=== PATIENT | male | born 1960 | race Hispanic/Latino ===

== ENCOUNTER 2019-12-18 10:07 | Inpatient (IN) | payer OTHER ==
[2019-12-18] MEDS ORDERED: ALBUTEROL 2.5 MG/3 ML NEBU IH ONE ×2 (10:14→10:48)
[2019-12-18] MEDS ORDERED: IPRATROPIUM 0.02% NEBU 2.5 ML IH ONE ×2 (10:14→10:48)
[2019-12-18] MEDS ORDERED: SODIUM CHLORIDE 0.9% 1000 ML IV SOLN IV ONE (10:22)
[2019-12-18] MEDS ORDERED: SODIUM CHLORIDE 0.9% 1000 ML 1,000 ML ONE (10:25)
[2019-12-18] MEDS ORDERED: PIPERACILLIN/TAZOBACTAM 3.375 3.375 GM/50 ML BAG IV ONE (10:25)
--- NOTE | 2019-12-18 10:31 | Emergency Department Report ---
ED Shortness of Breath HPI - General Chief Complaint: Dyspnea/Respdistress Stated Complaint: CHEST PAIN SOB Time Seen by Provider: 12/18/19 10:16 Source: patient, family Mode of arrival: Ambulatory Limitations: No Limitations - History of Present Illness Initial Comments: Patient is 59 years old male with no known past medical history however patient does not have a primary doctor and he does not go to hospitals. 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 Patient stated that symptoms started with runny nose and congestion first. Patient found to be in respiratory distress with respiratory rate of 34 and oxygen saturation of 76% on room air patient improved to 92% on nasal cannula 4 L. Sepsis protocol initiated. MD Complaint: shortness of breath, cough -: days(s) (5) - Related Data Allergies Allergy/AdvReac Type Severity Reaction Status Date / Time Penicillins Allergy Unknown Verified 12/18/19 10:27 ED Review of Systems ROS: Stated complaint: CHEST PAIN SOB Other details as noted in HPI Comment: All other systems reviewed and negative Constitutional: chills. denies: fever Respiratory: cough, shortness of breath, SOB with exertion. denies: wheezing Cardiovascular: palpitations. denies: chest pain Gastrointestinal: denies: abdominal pain, nausea, vomiting Musculoskeletal: denies: back pain Neurological: denies: headache, weakness ED Past Medical Hx - Past Medical History Previous Medical History?: No - Surgical History Past Surgical History?: No - Social History Smoking Status: Current Every Day Smoker Substance Use Type: None ED Physical Exam - General Limitations: No Limitations General appearance: alert, in distress (Moderate respiratory distress) - Head Head exam: Present: atraumatic, normocephalic, normal inspection - Eye Eye exam: Present: normal appearance - ENT ENT exam: Present: normal exam, normal orophraynx, mucous membranes moist - Neck Neck exam: Present: normal inspection, full ROM. Absent: tenderness, mening ismus - Respiratory Respiratory exam: Present: respiratory distress, rales (Left lower lung.). Absent: wheezes, rhonchi, stridor, accessory muscle use, decreased breath sounds, prolonged expiratory - Cardiovascular Cardiovascular Exam: Present: tachycardia. Absent: systolic murmur, diastolic murmur - GI/Abdominal GI/Abdominal exam: Present: soft, normal bowel sounds. Absent: distended, tenderness, guarding, rebound, rigid, organomegaly, mass, bruit, pulsatile mass, hernia - Extremities Exam Extremities exam: Present: normal inspection, full ROM, normal capillary refill. Absent: tenderness, pedal edema, calf tenderness - Back Exam Back exam: Present: normal inspection, full ROM. Absent: CVA tenderness (R), CVA tenderness (L) - Neurological Exam Neurological exam: Present: alert, oriented X3, CN II-XII intact - Psychiatric Psychiatric exam: Present: normal mood - Skin Skin exam: Present: warm, intact, normal color ED Course Vital Signs 12/18/19 12/18/19 12/18/19 10:23 10:32 10:50 Temperature 98.6 F Pulse Rate 105 H Pulse Rate [ 105 H Posterior Left Lower Lobe] Respiratory 34 H 34 H Rate Respiratory 20 Rate [Posterior Left Lower Lobe] Blood Pressure 148/88 Blood Pressure [Right] O2 Sat by Pulse 90 89 Oximetry 12/18/19 12/18/19 12/18/19 11:34 12:02 12:32 Temperature 100.5 F H Pulse Rate 105 H 104 H Pulse Rate [ Posterior Left Lower Lobe] Respiratory 32 H 32 H Rate Respiratory Rate [Posterior Left Lower Lobe] Blood Pressure 148/73 Blood Pressure 165/73 [Right] O2 Sat by Pulse 91 92 Oximetry 12/18/19 12/18/19 12/18/19 13:00 13:02 13:06 Temperature Pulse Rate 98 H 94 H 95 H Pulse Rate [ Posterior Left Lower Lobe] Respiratory 32 H Rate Respiratory Rate [Posterior Left Lower Lobe] Blood Pressure 130/58 130/58 Blood Pressure 130/58 [Right] O2 Sat by Pulse 90 92 91 Oximetry 12/18/19 12/18/19 12/18/19 13:10 13:11 13:15 Temperature 99.1 F Pulse Rate 97 H 96 H Pulse Rate [ Posterior Left Lower Lobe] Respiratory Rate Respiratory Rate [Posterior Left Lower Lobe] Blood Pressure 130/58 124/53 Blood Pressure [Right] O2 Sat by Pulse 91 89 Oximetry 12/18/19 12/18/19 12/18/19 13:20 13:26 13:30 Temperature Pulse Rate 94 H 93 H 90 Pulse Rate [ Posterior Left Lower Lobe] Respiratory Rate Respiratory Rate [Posterior Left Lower Lobe] Blood Pressure 124/53 124/53 147/80 Blood Pressure [Right] O2 Sat by Pulse 90 91 92 Oximetry 12/18/19 12/18/19 12/18/19 13:36 13:40 13:45 Temperature Pulse Rate 91 H Pulse Rate [ Posterior Left Lower Lobe] Respiratory Rate Respiratory Rate [Posterior Left Lower Lobe] Blood Pressure 147/80 148/73 125/49 Blood Pressure [Right] O2 Sat by Pulse 92 90 91 Oximetry 12/18/19 12/18/19 12/18/19 13:50 13:56 14:00 Temperature Pulse Rate 93 H 85 87 Pulse Rate [ Posterior Left Lower Lobe] Respiratory 19 21 17 Rate Respiratory Rate [Posterior Left Lower Lobe] Blood Pressure 125/49 125/49 128/60 Blood Pressure [Right] O2 Sat by Pulse 90 91 93 Oximetry 12/18/19 12/18/19 12/18/19 14:06 14:10 14:15 Temperature Pulse Rate 89 87 88 Pulse Rate [ Posterior Left Lower Lobe] Respiratory 16 22 29 H Rate Respiratory Rate [Posterior Left Lower Lobe] Blood Pressure 128/60 125/49 131/61 Blood Pressure [Right] O2 Sat by Pulse 92 92 92 Oximetry 12/18/19 12/18/19 12/18/19 14:20 14:26 15:00 Temperature Pulse Rate 89 87 83 Pulse Rate [ Posterior Left Lower Lobe] Respiratory 11 L 14 16 Rate Respiratory Rate [Posterior Left Lower Lobe] Blood Pressure 131/61 131/61 Blood Pressure 153/59 [Right] O2 Sat by Pulse 93 92 91 Oximetry 12/18/19 12/18/19 12/18/19 15:30 16:30 17:21 Temperature 97.8 F Pulse Rate 92 H 90 92 H Pulse Rate [ Posterior Left Lower Lobe] Respiratory 16 20 22 Rate Respiratory Rate [Posterior Left Lower Lobe] Blood Pressure Blood Pressure 131/67 124/72 137/74 [Right] O2 Sat by Pulse 90 90 90 Oximetry ED Medical Decision Making - Lab Data Result diagrams: 12/18/19 13:18 12/18/19 10:30 - EKG Data -: EKG Interpreted by Md EKG shows normal: sinus rhythm Rate: tachycardia - EKG Data Interpretation: no acute changes - Radiology Data Radiology results: report reviewed - Medical Decision Making Patient is 59 years old male with no known past medical history however patient does not have a primary doctor and he does not go to hospitals. 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 Patient stated that symptoms started with runny nose and congestion first. Patient found to be in respiratory distress with respiratory rate of 34 and oxygen saturation of 76% on room air patient improved to 92% on nasal cannula 4 L. Sepsis protocol initiated. Patient is started on normal saline 30 mL's per KG. Patient is allergic to penicillin patient given Levaquin. Labs reviewed and showed hyponatremia. Chest x-ray showed left lower lobe consolidation consistent with left lower lobe pneumonia. I discussed the patient with Dr. Benavidez, he agreed to admit the p atient to medical service for further management. Critical Care Time: Yes Critical care time in (mins) excluding proc time.: 30 Critical care attestation.: If time is entered above; I have spent that time in minutes in the direct care of this critically ill patient, excluding procedure time. ED Disposition Clinical Impression: Sepsis, Left lower lobe pneumonia, Hyponatremia, Hematuria Disposition: [id number] OP ADMIT IP TO THIS HOSP Is pt being admited?: Yes Condition: Stable
[2019-12-18 10:50] LABS: Hematocrit 43.9 % (35.5-45.6); Hemoglobin 15.4 gm/dl (11.8-15.2); Mean Corpuscular HGB Conc 35 % (32-34); Mean Corpuscular Volume 87 fl (84-94); Platelet Count 150 K/mm3 (140-440); Red Blood Count 5.06 M/mm3 (3.65-5.03); Red Cell Distribution Width 13.2 % (13.2-15.2)
[2019-12-18 11:09] LABS: Alanine Aminotransferase 47 units/L (7-56); Albumin 3.1 g/dL (3.9-5); BUN/Creatinine Ratio 15; Blood Urea Nitrogen 20 mg/dL (9-20); Calcium 7.8 mg/dL (8.4-10.2); Hemolysis Index 41
[2019-12-18] MEDS ORDERED: ACETAMINOPHEN 500 MG TAB ONE (12:05)
[2019-12-18] MEDS ORDERED: ACETAMINOPHEN 500 MG TAB PO ONE (12:05)
[2019-12-18 12:09] LABS: Anisocytosis 1+; Band Neutrophils # (Manual) 1.1 K/mm3; Basophils % (Manual) 0 % (0.0-1.8); Eosinophils % (Manual) 0 % (0.0-4.3); Total Cells Counted 100
[2019-12-18 12:10] LABS: Platelet Estimate Consistent w Auto
[2019-12-18 12:15] LABS: Bilirubin,Urine NEG (Negative); Blood,Urine LG (Negative); Color,Urine Red (Yellow); Mucus,Urine FEW /HPF; Urobilinogen,Urine < 2.0 mg/dL (<2.0)
[2019-12-18 12:20] LABS: RBC,Urine > 182.0 /HPF (0.0-6.0)
[2019-12-18 12:22] LABS: ABG HCO3 22.1 mmol/L (20.0-26.0); ABG Methemoglobin 0.4 % (0.0-1.5); ABG Oxygen Saturation 98.3 % (95.0-99.0); ABG PCO2 31.2 mm Hg; ABG PH 7.469 pH Units (7.350-7.450); ABG PO2 113.9 mm Hg (80.0-90.0)
[2019-12-18 13:30] LABS: Hematocrit 37.4 % (35.5-45.6); Hemoglobin 13.1 gm/dl (11.8-15.2)
--- NOTE | 2019-12-18 13:49 | Cat Scan Report ---
CTA of the chest with 3D Reconstruction Indication: ,CHEST PAIN WITH SOB Technique: TECHNIQUE: Axial CT images were obtained through the chest after injection of 100 cc of Omnipaque 350 IV contrast. 3 plane MIP reconstructions were produced. All CT scans at this location are performed using CT dose reduction for ALARA by means of automated exposure control. COMPARISON: Chest radiograph today Automatic exposure control was utilized in an attempt to reduce radiation dose. Findings: There is some breathing motion artifact Pulmonary arteries: The main pulmonary artery and right and left pulmonary artery branches fill satis factorily with contrast. No pulmonary embolus is seen. Lungs: There is airspace consolidation in the left lower lobe with air bronchograms. There are parenc hymal opacities in the upper lobes and to lesser extent the right lower lobe as well. Findings are ch aracteristic of pneumonia with possible superimposed edema. Lung zones. Mediastinum: Heart size is normal. No adenopathy is seen. Aorta: Normal in diameter. No dissection seen within limits of this exam. There is cholelithiasis. Impression: No pulmonary embolus is seen. There are bilateral airspace opacities with consolidation in the left lower lobe characteristic of pn eumonia. There are bilateral groundglass opacities may represent superimposed edema or additional pne umonia. There is cholelithiasis. Signer Name: Timoteo Chaparro MD Signed: 12/18/2019 1:44 PM Workstation Name: [id number]
[2019-12-18 16:24] LABS: INR 1.06 (0.87-1.13)
[2019-12-18 16:32] LABS: Partial Thromboplastin Time 72.2 Sec. (24.2-36.6)
--- NOTE | 2019-12-18 16:54 | Cat Scan Report ---
CT ABDOMEN AND PELVIS WITHOUT CONTRAST INDICATION: gross hematuria. COMPARISON: CTA chest from earlier today. TECHNIQUE: Axial, coronal and sagittal CT imaging of the abdomen and pelvis was performed without co ntrast. Lack of intravenous contrast limits evaluation of the vascular and solid organs. All CT sca ns at this location are performed using CT dose reduction for ALARA by means of automated exposure co ntrol. FINDINGS: LOWER CHEST: Dense consolidation of the left lower lobe is again noted and consistent with pneumonia. Additional bilateral ground glass opacities are partially visualized and may represent pneumonia, or less likely edema. No additional significant abnormality. LIVER: There is generalized steatosis without an additional significant abnormality. BILIARY: Cholelithiasis is seen without evidence of acute cholecystitis. No biliary ductal dilatation . PANCREAS: No significant abnormality. SPLEEN: No significant abnormality. ADRENALS: No significant abnormality. KIDNEYS AND URETERS: Previously administered IV contrast remains in the renal collecting systems and ureters. An area of enhancement medially along the left upper renal pole is likely a normal variant. No significant abnormality is otherwise seen. GI TRACT: No significant abnormality of the stomach, small bowel or colon. Unremarkable appendix. PERITONEUM: No free fluid. No free air. No fluid collection. LYMPH NODES: No significant adenopathy. VASCULATURE: The aorta is normal in caliber with mild generalized atherosclerosis. URINARY BLADDER: No significant abnormality. REPRODUCTIVE ORGANS: No significant abnormality. ADDITIONAL FINDINGS: None. SKELETAL SYSTEM: No acute abnormality. Degenerative changes are seen throughout the spine and along t he SI joints. IMPRESSION: 1. No acute abnormality of the abdomen or pelvis is seen to explain the patient's gross hematuria. 2. Additional findings as above. Signer Name: Toby Morris MD Signed: 12/18/2019 4:49 PM Workstation Name: [id number]
[2019-12-18] MEDS: IPRATROPIUM/ALBUTEROL SULFATE 3 ML AMPUL.NEB IH SCH (20:47)
--- NOTE | 2019-12-18 21:22 | History and Physical Report ---
History of Present Illness Date of examination: 12/18/19 Date of admission: 12/18/19 13:58 Chief complaint: SOB and cough 5 days History of present illness: 59 years old male with no known past medical history brought to the emergency room by his son for evaluation of 5-day history of shortness of breath, cough, productive with greenish sputum associated with sweating at night. Patient stated that symptoms started with runny nose and congestion first. Patient found to be in respiratory distress with respiratory rate of 34 and oxygen saturation of 76% on room air patient improved to 92% on nasal cannula 4 L. Sepsis protocol initiated. Past Medical History Previous Medical History?: No Surgical History Past Surgical History?: No Social History Smoking Status: Current Every Day Smoker Substance Use Type: None Family history Htn Review of Systems ROS: Stated complaint: CHEST PAIN SOB Other details as noted in HPI Comment: All other systems reviewed and negative Constitutional: chills. denies: fever Respiratory: cough, shortness of breath, SOB with exertion. denies: wheezing Cardiovascular: palpitations. denies: chest pain Gastrointestinal: denies: abdominal pain, nausea, vomiting Musculoskeletal: denies: back pain Neurological: denies: headache, weakness Medications and Allergies Allergies Allergy/AdvReac Type Severity Reaction Status Date / Time Penicillins Allergy Anaphylaxis Verified 12/18/19 22:48 Active Meds: Active Medications Albuterol/Ipratropium (Duoneb *Not For Prn Use*) 1 ampul IH Q6HRT [facility] Last Admin: 12/18/19 20:47 Dose: 1 ampul Documented by: Exam - Constitutional Vitals: Temp Pulse Resp BP Pulse Ox 97.8 F 109 H 28 H 137/74 90 12/18/19 17:21 12/18/19 20:51 12/18/19 20:51 12/18/19 17:21 12/18/19 17:21 General appearance: Present: no acute distress, well-nourished - EENT Eyes: Present: PERRL ENT: hearing intact, clear oral mucosa - Neck Neck: Present: supple, normal ROM - Respiratory Respiratory effort: normal Respiratory: bilateral: CTA, rhonchi, wheezing - Cardiovascular Heart rate: 78 Rhythm: regular Heart Sounds: Present: S1 & S2. Absent: rub, click - Extremities Extremities: pulses symmetrical, No edema Peripheral Pulses: within normal limits - Abdominal General gastrointestinal: Present: soft, non-tender, non-distended, normal bowel sounds Male genitourinary: Present: normal - Integumentary Integumentary: Present: clear, warm, dry - Musculoskeletal Musculoskeletal: gait normal, strength equal bilaterally - Psychiatric Psychiatric: appropriate mood/affect, intact judgment & insight - Neurologic Neurologic: CNII-XII intact, moves all extremities MITCHELL score - Mitchell Score Age > 65: (0) No Aspirin use within the Past 7 Days: (0) No 3 or more CAD Risk Factors: (0) No 2 or more Angina events in past 24 hrs: (0) No Known CAD with more than 50% Stenosis: (0) No Elevated Cardiac Markers: (0) No ST Deviation Greater than 0.5mm: (0) No MITCHELL Score: 0 Results - Labs CBC & Chem 7: 12/18/19 13:18 12/18/19 10:30 Labs: Laboratory Last Values WBC 13.7 K/mm3 (4.5-11.0) H 12/18/19 10:30 RBC 5.06 M/mm3 (3.65-5.03) H 12/18/19 10:30 Hgb 13.1 gm/dl (11.8-15.2) 12/18/19 13:18 Hct 37.4 % (35.5-45.6) D 12/18/19 13:18 MCV 87 fl (84-94) 12/18/19 10:30 MCH 31 pg (28-32) 12/18/19 10:30 MCHC 35 % (32-34) H 12/18/19 10:30 RDW 13.2 % (13.2-15.2) 12/18/19 10:30 Plt Count 150 K/mm3 (140-440) 12/18/19 10:30 Add Manual Diff Complete 12/18/19 10:30 Total Counted 100 12/18/19 10:30 Seg Neutrophils % Icicle Machine Operator 12/18/19 10:30 Seg Neuts % (Manual) 82.0 % (40.0-70.0) H 12/18/19 10:30 Band Neutrophils % 8.0 % 12/18/19 10:30 Lymphocytes % (Manual) 8.0 % (13.4-35.0) L 12/18/19 10:30 Reactive Lymphs % (Man) 0 % 12/18/19 10:30 Monocytes % (Manual) 2.0 % (0.0-7.3) 12/18/19 10:30 Eosinophils % (Manual) 0 % (0.0-4.3) 12/18/19 10:30 Basophils % (Manual) 0 % (0.0-1.8) 12/18/19 10:30 Metamyelocytes % 0 % 12/18/19 10:30 Myelocytes % 0 % 12/18/19 10:30 Promyelocytes % 0 % 12/18/19 10:30 Blast Cells % 0 % 12/18/19 10:30 Nucleated RBC % Not Reportable 12/18/19 10:30 Seg Neutrophils # Man 11.2 K/mm3 (1.8-7.7) H 12/18/19 10:30 Band Neutrophils # 1.1 K/mm3 12/18/19 10:30 Lymphocytes # (Manual) 1.1 K/mm3 (1.2-5.4) L 12/18/19 10:30 Abs React Lymphs (Man) 0.0 K/mm3 12/18/19 10:30 Monocytes # (Manual) 0.3 K/mm3 (0.0-0.8) 12/18/19 10:30 Eosinophils # (Manual) 0.0 K/mm3 (0.0-0.4) 12/18/19 10:30 Basophils # (Manual) 0.0 K/mm3 (0.0-0.1) 12/18/19 10:30 Metamyelocytes # 0.0 K/mm3 12/18/19 10:30 Myelocytes # 0.0 K/mm3 12/18/19 10:30 Promyelocytes # 0.0 K/mm3 12/18/19 10:30 Blast Cells # 0.0 K/mm3 12/18/19 10:30 WBC Morphology Not Reportable 12/18/19 10:30 Hypersegmented Neuts Not Reportable 12/18/19 10:30 Hyposegmented Neuts Not Reportable 12/18/19 10:30 Hypogranular Neuts Not Reportable 12/18/19 10:30 Smudge Cells Not Reportable 12/18/19 10:30 Toxic Granulation Not Reportable 12/18/19 10:30 Toxic Vacuolation Not Reportable 12/18/19 10:30 Dohle Bodies Not Reportable 12/18/19 10:30 Pelger-Huet Anomaly Not Reportable 12/18/19 10:30 Jennifer Rods Not Reportable 12/18/19 10:30 Platelet Estimate Consistent w auto 12/18/19 10:30 Clumped Platelets Not Reportable 12/18/19 10:30 Plt Clumps, EDTA Not Reportable 12/18/19 10:30 Large Platelets Not Reportable 12/18/19 10:30 Giant Platelets Not Reportable 12/18/19 10:30 Platelet Satelliting Not Reportable 12/18/19 10:30 Plt Morphology Comment Not Reportable 12/18/19 10:30 RBC Morphology Not Reportable 12/18/19 10:30 Dimorphic RBCs Not Reportable 12/18/19 10:30 Polychromasia Not Reportable 12/18/19 10:30 Hypochromasia Not Reportable 12/18/19 10:30 Poikilocytosis Not Reportable 12/18/19 10:30 Anisocytosis 1+ 12/18/19 10:30 Microcytosis Not Reportable 12/18/19 10:30 Macrocytosis Not Reportable 12/18/19 10:30 Spherocytes Not Reportable 12/18/19 10:30 Pappenheimer Bodies Not Reportable 12/18/19 10:30 Sickle Cells Not Reportable 12/18/19 10:30 Target Cells Not Reportable 12/18/19 10:30 Tear Drop Cells Not Reportable 12/18/19 10:30 Ovalocytes Not Reportable 12/18/19 10:30 Helmet Cells Not Reportable 12/18/19 10:30 [place] Bodies Not Reportable 12/18/19 10:30 [place] Rings Not Reportable 12/18/19 10:30 Totz Cells Not Reportable 12/18/19 10:30 Bite Cells Not Reportable 12/18/19 10:30 Crenated Cell Not Reportable 12/18/19 10:30 Elliptocytes Not Reportable 12/18/19 10:30 Acanthocytes (Spur) Not Reportable 12/18/19 10:30 Rouleaux Not Reportable 12/18/19 10:30 Hemoglobin C Crystals Not Reportable 12/18/19 10:30 Schistocytes Not Reportable 12/18/19 10:30 Malaria parasites Not Reportable 12/18/19 10:30 León Bodies Not Reportable 12/18/19 10:30 Hem Pathologist Commnt No 12/18/19 10:30 PT 13.9 Sec. (12.2-14.9) 12/18/19 15:28 INR 1.06 (0.87-1.13) 12/18/19 15:28 APTT 72.2 Sec. (24.2-36.6) H* 12/18/19 15:28 D-Dimer 2277.88 ng/mlDDU (0-234) H 12/18/19 10:30 ABG pH 7.469 pH Units (7.350-7.450) H 12/18/19 12:05 ABG pCO2 31.2 mm Hg 12/18/19 12:05 ABG pO2 113.9 mm Hg (80.0-90.0) H 12/18/19 12:05 ABG HCO3 22.1 mmol/L (20.0-26.0) 12/18/19 12:05 ABG O2 Saturation 98.3 % (95.0-99.0) 12/18/19 12:05 ABG O2 Content 13.8 (0.0-44) 12/18/19 12:05 ABG Base Excess -1.0 mmol/L (-2.0-3.0) 12/18/19 12:05 ABG Hemoglobin 10.0 gm/dl (14.0-18.0) L 12/18/19 12:05 ABG Carboxyhemoglobin 1.1 % (0.0-5.0) 12/18/19 12:05 ABG Methemoglobin 0.4 % (0.0-1.5) 12/18/19 12:05 Oxyhemoglobin 96.8 % (95.0-99.0) 12/18/19 12:05 FiO2 28 % 12/18/19 12:05 Sodium 122 mmol/L (137-145) L 12/18/19 10:30 Potassium 3.6 mmol/L (3.6-5.0) 12/18/19 10:30 Chloride 80.6 mmol/L (98-107) L 12/18/19 10:30 Carbon Dioxide 21 mmol/L (22-30) L 12/18/19 10:30 Anion Gap 24 mmol/L 12/18/19 10:30 BUN 20 mg/dL (9-20) 12/18/19 10:30 Creatinine 1.3 mg/dL (0.8-1.5) 12/18/19 10:30 Estimated GFR 56 ml/min 12/18/19 10:30 BUN/Creatinine Ratio 15 % 12/18/19 10:30 Glucose 272 mg/dL (75-100) H 12/18/19 10:30 Lactic Acid 2.00 mmol/L (0.7-2.0) 12/18/19 15:28 Calcium 7.8 mg/dL (8.4-10.2) L 12/18/19 10:30 Total Bilirubin 1.30 mg/dL (0.1-1.2) H 12/18/19 10:30 AST 108 units/L (5-40) H 12/18/19 10:30 ALT 47 units/L (7-56) 12/18/19 10:30 Alkaline Phosphatase 51 units/L (35-129) 12/18/19 10:30 Troponin T < 0.010 ng/mL (0.00-0.029) 12/18/19 10:30 Troponin T < 0.010 ng/mL (0.00-0.029) 12/18/19 10:30 NT-Pro-B Natriuret Pep 609.1 pg/mL (0-900) 12/18/19 12:06 Total Protein 6.4 g/dL (6.3-8.2) 12/18/19 10:30 Albumin 3.1 g/dL (3.9-5) L 12/18/19 10:30 Albumin/Globulin Ratio 0.9 % 12/18/19 10:30 Urine Color Red (Yellow) 12/18/19 11:56 Urine Turbidity Slightly-cloudy (Clear) 12/18/19 11:56 Urine pH 6.0 (5.0-7.0) 12/18/19 11:56 Ur Specific [place] 1.017 (1.003-1.030) 12/18/19 11:56 Urine Protein 100 mg/dl mg/dL (Negative) 12/18/19 11:56 Urine Glucose (UA) >=500 mg/dL (Negative) 12/18/19 11:56 Urine Ketones 20 mg/dL (Negative) 12/18/19 11:56 Urine Blood Lg (Negative) 12/18/19 11:56 Urine Nitrite Neg (Negative) 12/18/19 11:56 Urine Bilirubin Neg (Negative) 12/18/19 11:56 Urine Urobilinogen < 2.0 mg/dL (<2.0) 12/18/19 11:56 Ur Leukocyte Esterase Neg (Negative) 12/18/19 11:56 Urine WBC (Auto) 58.0 /HPF (0.0-6.0) H 12/18/19 11:56 Urine RBC (Auto) > 182.0 /HPF (0.0-6.0) 12/18/19 11:56 U Epithel Cells (Auto) 4.0 /HPF (0-13.0) 12/18/19 11:56 Urine Mucus Few /HPF 12/18/19 11:56 Urine Yeast (Budding) 1+ /HPF 12/18/19 11:56 Short CBC 12/18/19 12/18/19 Range/Units 10:30 13:18 WBC 13.7 H (4.5-11.0) K/mm3 Hgb 15.4 H 13.1 (11.8-15.2) gm/dl Hct 43.9 37.4 D (35.5-45.6) % Plt Count 150 (140-440) K/mm3 BMP 12/18/19 10:30 Sodium 122 L Potassium 3.6 Chloride 80.6 L Carbon Dioxide 21 L BUN 20 Creatinine 1.3 Glucose 272 H Calcium 7.8 L Cardiac Enzymes 12/18/19 12/18/19 Range/Units 10:30 10:30 Troponin T < 0.010 < 0.010 (0.00-0.029) ng/mL Liver Function 12/18/19 Range/Units 10:30 Total Bilirubin 1.30 H (0.1-1.2) mg/dL AST 108 H (5-40) units/L ALT 47 (7-56) units/L Alkaline Phosphatase 51 (35-129) units/L Albumin 3.1 L (3.9-5) g/dL Urine 12/18/19 Range/Units 11:56 Urine Color Red (Yellow) Urine pH 6.0 (5.0-7.0) Ur Specific [place] 1.017 (1.003-1.030) Urine Protein 100 mg/dl (Negative) mg/dL Urine Glucose (UA) >=500 (Negative) mg/dL - Imaging and Cardiology EKG: report reviewed Chest x-ray: report reviewed CT scan - chest: report reviewed (Rodrigue Pneumonia) Assessment and Plan Advance Directives: Yes (FC) VTE prophylaxis?: Chemical Plan of care discussed with patient/family: Yes - Patient Problems (1) Left lower lobe pneumonia Current Visit: Yes Status: Acute Plan to address problem: Patient initiated on IV Zosyn but discontinued sec to PCN allergy Initiated on Cefepimme and Vancomycin ID consult requested IV Levaquin one dose given in ED (2) Acute respiratory failure with hypoxia Current Visit: Yes Status: Acute Plan to address problem: Patient sats were 76 percent initially IV steroids IV abx and Duonebs prn and RTC (3) COPD with acute exacerbation Current Visit: Yes Status: Acute Plan to address problem: Patient sats were 76 percent initially IV steroids IV abx and Duonebs prn and RTC (4) Nicotine dependence Current Visit: Yes Status: Chronic Qualifiers: Nicotine product type: cigarettes Plan to address problem: Counselled and initiated on Nicoderm patch (5) DVT prophylaxis Current Visit: Yes Status: Acute Plan to address problem: On Heparin and GI prophylaxis
[2019-12-18] MEDS ORDERED: IPRATROPIUM/ALBUTEROL SULFATE 3 ML AMPUL.NEB IH PRN (21:23)
[2019-12-18] MEDS ORDERED: ACETAMINOPHEN 325 MG TAB PO PRN (21:26)
[2019-12-18] MEDS ORDERED: ONDANSETRON 4 MG/2 ML INJ IV PRN (21:26)
[2019-12-18] MEDS ORDERED: HYDROmorphone 1 MG/1 ML INJ IV PRN (21:26)
[2019-12-18] MEDS ORDERED: METOCLOPRAMIDE 10 MG/2 ML INJ IV PRN (21:26)
[2019-12-18] MEDS ORDERED: ALBUTEROL 2.5 MG/3 ML NEBU IH PRN (21:34)
[2019-12-18] MEDS ORDERED: VANCOMYCIN PHARMACY TO DOSE IV SCH (22:00)
[2019-12-18] MEDS: NICOTINE 14 MG/24 HR PATCH TD SCH (22:44)
[2019-12-18] MEDS: VANCOMYCIN 1,500 MG in SODIUM CHLORIDE 0.9% 500 ML 500 ML IV SCH (22:45)
[2019-12-18] MEDS: FAMOTIDINE 20 MG/2 ML INJ IV SCH (22:45)
[2019-12-18] MEDS: methylPREDNISolone Sod Succinate 125 MG/2 ML INJ IV SCH (22:45)
[2019-12-19] MEDS: IPRATROPIUM/ALBUTEROL SULFATE 3 ML AMPUL.NEB IH SCH ×4 (02:23→20:29)
[2019-12-19] MEDS: methylPREDNISolone Sod Succinate 125 MG/2 ML INJ IV SCH ×4 (06:55→23:13)
[2019-12-19] MEDS ORDERED: CEFEPIME/NS 2 GM/100 ML 2 GM/100 ML BAG IV SCH ×2 (08:00→14:00)
[2019-12-19] MEDS ORDERED: IPRATROPIUM/ALBUTEROL SULFATE 3 ML AMPUL.NEB IH SCH (08:00)
--- NOTE | 2019-12-19 09:17 | Progress Note ---
Assessment and Plan Assessment and plan: --Acute respiratory failure with hypoxia Current Visit: Yes Status: Acute Patient sats were 76 percent initially Sami hypoxic on high flow oxygen, 100% Stat ABG obtained, pulmonary critical consulted Transfer the patient to ICU for close observation and monitoring BiPAP as needed, if no improvement, intubation PRN IV steroids IV abx and Duonebs prn --Severe hyponatremia; present on admission sodium 122, gentle hydration with normal saline Monitor renal function --left lower lobe pneumonia Current Visit: Yes Status: Acute Community-acquired pneumonia Start Levaquin and Vancomycin ID consult if needed follow cultures IV Levaquin one dose given in ED --Leukocytosis/lactic acidosis sepsis secondary to pneumonia --Sepsis secondary to pneumonia; leukocytosis lactic acidosis Tachycardia tachypnea and fever -- COPD with acute exacerbation Current Visit: Yes Status: Acute Patient sats were 76 percent initially IV steroids IV abx and Duonebs prn and RTC --Ongoing tobacco use: Smoking cessation on Nicoderm patch --Severe protein calorie malnutrition Current Visit: Yes Status: Chronic nutrition supplements and supportive care --DVT prophylaxis Current Visit: Yes Status: Acute On Heparin and GI prophylaxis Plan of care reviewed with the patient, his at the bedside Pulmonary critical, charge nurse telemetry, ICU charge nurse Critical care time 45 minutes History Interval history: Patient seen and examined in his room this morning medical records reviewed Patient was severely hypoxemic on high flow oxygen patient is in acute respiratory failure Tachypneic, and severe distress Code met was called, discussed with pulmonary Dr. Wright Stat ABG and stat labs ordered Transfer the patient to ICU for close monitoring Alert and awake, in severe distress Vital signs reviewed Hospitalist Physical - Constitutional Vitals: Temp Pulse Resp BP Pulse Ox 97.8 F 99 H 32 H 137/74 95 12/18/19 17:21 12/19/19 02:40 12/19/19 02:40 12/18/19 17:21 12/19/19 02:40 General appearance: Present: severe distress, well-nourished, other (Tachypneic and tachycardic) - EENT Eyes: Present: PERRL, EOM intact - Neck Neck: Present: supple, normal ROM - Respiratory Respiratory effort: labored Respiratory: bilateral: diminished, rhonchi, negative: rales, wheezing - Cardiovascular Rhythm: regular Heart Sounds: Present: S1 & S2 (Tachycardia) - Extremities Extremities: no ischemia, No edema - Abdominal General gastrointestinal: soft, non-tender, non-distended, normal bowel sounds - Integumentary Integumentary: Present: clear, warm - Psychiatric Psychiatric: appropriate mood/affect, agitated - Neurologic Neurologic: moves all extremities MITCHELL score - Mitchell Score Age > 65: (0) No Aspirin use within the Past 7 Days: (0) No 3 or more CAD Risk Factors: (0) No 2 or more Angina events in past 24 hrs: (0) No Known CAD with more than 50% Stenosis: (0) No Elevated Cardiac Markers: (0) No ST Deviation Greater than 0.5mm: (0) No MITCHELL Score: 0 Results - Labs CBC & Chem 7: 12/18/19 13:18 12/19/19 12:04 Labs: Laboratory Last Values WBC 13.7 K/mm3 (4.5-11.0) H 12/18/19 10:30 RBC 5.06 M/mm3 (3.65-5.03) H 12/18/19 10:30 Hgb 13.1 gm/dl (11.8-15.2) 12/18/19 13:18 Hct 37.4 % (35.5-45.6) D 12/18/19 13:18 MCV 87 fl (84-94) 12/18/19 10:30 MCH 31 pg (28-32) 12/18/19 10:30 MCHC 35 % (32-34) H 12/18/19 10:30 RDW 13.2 % (13.2-15.2) 12/18/19 10:30 Plt Count 150 K/mm3 (140-440) 12/18/19 10:30 Add Manual Diff Complete 12/18/19 10:30 Total Counted 100 12/18/19 10:30 Seg Neutrophils % [employer] 12/18/19 10:30 Seg Neuts % (Manual) 82.0 % (40.0-70.0) H 12/18/19 10:30 Band Neutrophils % 8.0 % 12/18/19 10:30 Lymphocytes % (Manual) 8.0 % (13.4-35.0) L 12/18/19 10:30 Reactive Lymphs % (Man) 0 % 12/18/19 10:30 Monocytes % (Manual) 2.0 % (0.0-7.3) 12/18/19 10:30 Eosinophils % (Manual) 0 % (0.0-4.3) 12/18/19 10:30 Basophils % (Manual) 0 % (0.0-1.8) 12/18/19 10:30 Metamyelocytes % 0 % 12/18/19 10:30 Myelocytes % 0 % 12/18/19 10:30 Promyelocytes % 0 % 12/18/19 10:30 Blast Cells % 0 % 12/18/19 10:30 Nucleated RBC % Not Reportable 12/18/19 10:30 Seg Neutrophils # Man 11.2 K/mm3 (1.8-7.7) H 12/18/19 10:30 Band Neutrophils # 1.1 K/mm3 12/18/19 10:30 Lymphocytes # (Manual) 1.1 K/mm3 (1.2-5.4) L 12/18/19 10:30 Abs React Lymphs (Man) 0.0 K/mm3 12/18/19 10:30 Monocytes # (Manual) 0.3 K/mm3 (0.0-0.8) 12/18/19 10:30 Eosinophils # (Manual) 0.0 K/mm3 (0.0-0.4) 12/18/19 10:30 Basophils # (Manual) 0.0 K/mm3 (0.0-0.1) 12/18/19 10:30 Metamyelocytes # 0.0 K/mm3 12/18/19 10:30 Myelocytes # 0.0 K/mm3 12/18/19 10:30 Promyelocytes # 0.0 K/mm3 12/18/19 10:30 Blast Cells # 0.0 K/mm3 12/18/19 10:30 WBC Morphology Not Reportable 12/18/19 10:30 Hypersegmented Neuts Not Reportable 12/18/19 10:30 Hyposegmented Neuts Not Reportable 12/18/19 10:30 Hypogranular Neuts Not Reportable 12/18/19 10:30 Smudge Cells Not Reportable 12/18/19 10:30 Toxic Granulation Not Reportable 12/18/19 10:30 Toxic Vacuolation Not Reportable 12/18/19 10:30 Dohle Bodies Not Reportable 12/18/19 10:30 Pelger-Huet Anomaly Not Reportable 12/18/19 10:30 Jennifer Rods Not Reportable 12/18/19 10:30 Platelet Estimate Consistent w auto 12/18/19 10:30 Clumped Platelets Not Reportable 12/18/19 10:30 Plt Clumps, EDTA Not Reportable 12/18/19 10:30 Large Platelets Not Reportable 12/18/19 10:30 Giant Platelets Not Reportable 12/18/19 10:30 Platelet Satelliting Not Reportable 12/18/19 10:30 Plt Morphology Comment Not Reportable 12/18/19 10:30 RBC Morphology Not Reportable 12/18/19 10:30 Dimorphic RBCs Not Reportable 12/18/19 10:30 Polychromasia Not Reportable 12/18/19 10:30 Hypochromasia Not Reportable 12/18/19 10:30 Poikilocytosis Not Reportable 12/18/19 10:30 Anisocytosis 1+ 12/18/19 10:30 Microcytosis Not Reportable 12/18/19 10:30 Macrocytosis Not Reportable 12/18/19 10:30 Spherocytes Not Reportable 12/18/19 10:30 Pappenheimer Bodies Not Reportable 12/18/19 10:30 Sickle Cells Not Reportable 12/18/19 10:30 Target Cells Not Reportable 12/18/19 10:30 Tear Drop Cells Not Reportable 12/18/19 10:30 Ovalocytes Not Reportable 12/18/19 10:30 Helmet Cells Not Reportable 12/18/19 10:30 [place] Bodies Not Reportable 12/18/19 10:30 [place] Rings Not Reportable 12/18/19 10:30 Ed Cells Not Reportable 12/18/19 10:30 Bite Cells Not Reportable 12/18/19 10:30 Crenated Cell Not Reportable 12/18/19 10:30 Elliptocytes Not Reportable 12/18/19 10:30 Acanthocytes (Spur) Not Reportable 12/18/19 10:30 Rouleaux Not Reportable 12/18/19 10:30 Hemoglobin C Crystals Not Reportable 12/18/19 10:30 Schistocytes Not Reportable 12/18/19 10:30 Malaria parasites Not Reportable 12/18/19 10:30 [place] Bodies Not Reportable 12/18/19 10:30 Hem Pathologist Commnt No 12/18/19 10:30 PT 13.9 Sec. (12.2-14.9) 12/18/19 15:28 INR 1.06 (0.87-1.13) 12/18/19 15:28 APTT 72.2 Sec. (24.2-36.6) H* 12/18/19 15:28 D-Dimer 2277.88 ng/mlDDU (0-234) H 12/18/19 10:30 ABG pH 7.469 pH Units (7.350-7.450) H 12/18/19 12:05 ABG pCO2 31.2 mm Hg 12/18/19 12:05 ABG pO2 113.9 mm Hg (80.0-90.0) H 12/18/19 12:05 ABG HCO3 22.1 mmol/L (20.0-26.0) 12/18/19 12:05 ABG O2 Saturation 98.3 % (95.0-99.0) 12/18/19 12:05 ABG O2 Content 13.8 (0.0-44) 12/18/19 12:05 ABG Base Excess -1.0 mmol/L (-2.0-3.0) 12/18/19 12:05 ABG Hemoglobin 10.0 gm/dl (14.0-18.0) L 12/18/19 12:05 ABG Carboxyhemoglobin 1.1 % (0.0-5.0) 12/18/19 12:05 ABG Methemoglobin 0.4 % (0.0-1.5) 12/18/19 12:05 Oxyhemoglobin 96.8 % (95.0-99.0) 12/18/19 12:05 FiO2 28 % 12/18/19 12:05 Sodium 122 mmol/L (137-145) L 12/18/19 10:30 Potassium 3.6 mmol/L (3.6-5.0) 12/18/19 10:30 Chloride 80.6 mmol/L (98-107) L 12/18/19 10:30 Carbon Dioxide 21 mmol/L (22-30) L 12/18/19 10:30 Anion Gap 24 mmol/L 12/18/19 10:30 BUN 20 mg/dL (9-20) 12/18/19 10:30 Creatinine 1.3 mg/dL (0.8-1.5) 12/18/19 10:30 Estimated GFR 56 ml/min 12/18/19 10:30 BUN/Creatinine Ratio 15 % 12/18/19 10:30 Glucose 272 mg/dL (75-100) H 12/18/19 10:30 Lactic Acid 2.00 mmol/L (0.7-2.0) 12/18/19 15:28 Calcium 7.8 mg/dL (8.4-10.2) L 12/18/19 10:30 Total Bilirubin 1.30 mg/dL (0.1-1.2) H 12/18/19 10:30 AST 108 units/L (5-40) H 12/18/19 10:30 ALT 47 units/L (7-56) 12/18/19 10:30 Alkaline Phosphatase 51 units/L (35-129) 12/18/19 10:30 Troponin T < 0.010 ng/mL (0.00-0.029) 12/18/19 10:30 Troponin T < 0.010 ng/mL (0.00-0.029) 12/18/19 10:30 NT-Pro-B Natriuret Pep 609.1 pg/mL (0-900) 12/18/19 12:06 Total Protein 6.4 g/dL (6.3-8.2) 12/18/19 10:30 Albumin 3.1 g/dL (3.9-5) L 12/18/19 10:30 Albumin/Globulin Ratio 0.9 % 12/18/19 10:30 Urine Color Red (Yellow) 12/18/19 11:56 Urine Turbidity Slightly-cloudy (Clear) 12/18/19 11:56 Urine pH 6.0 (5.0-7.0) 12/18/19 11:56 Ur Specific [place] 1.017 (1.003-1.030) 12/18/19 11:56 Urine Protein 100 mg/dl mg/dL (Negative) 12/18/19 11:56 Urine Glucose (UA) >=500 mg/dL (Negative) 12/18/19 11:56 Urine Ketones 20 mg/dL (Negative) 12/18/19 11:56 Urine Blood Lg (Negative) 12/18/19 11:56 Urine Nitrite Neg (Negative) 12/18/19 11:56 Urine Bilirubin Neg (Negative) 12/18/19 11:56 Urine Urobilinogen < 2.0 mg/dL (<2.0) 12/18/19 11:56 Ur Leukocyte Esterase Neg (Negative) 12/18/19 11:56 Urine WBC (Auto) 58.0 /HPF (0.0-6.0) H 12/18/19 11:56 Urine RBC (Auto) > 182.0 /HPF (0.0-6.0) 12/18/19 11:56 U Epithel Cells (Auto) 4.0 /HPF (0-13.0) 12/18/19 11:56 Urine Mucus Few /HPF 12/18/19 11:56 Urine Yeast (Budding) 1+ /HPF 12/18/19 11:56 Active Medications - Current Medications Current Medications: Generic Name Dose Route Start Last Admin Trade Name Freq PRN Reason Stop Dose Admin Acetaminophen 650 mg 12/18/19 21:26 Tylenol PO Q4H PRN Pain MILD(1-3)/Fever >100.5/CHAUDHRY Albuterol 2.5 mg 12/18/19 21:34 Proventil IH Q4HRT PRN Shortness Of Breath Albuterol/Ipratropium 1 ampul 12/18/19 20:45 12/19/19 02:23 Duoneb *Not For Prn Use* IH 1 ampul Q6HRT MARIAN Administration Famotidine 20 mg 12/18/19 22:00 12/18/19 22:45 Pepcid IV 20 mg BID MARIAN Administration Hydromorphone HCl 0.5 mg 12/18/19 21:26 Dilaudid IV Q3H PRN Pain , Severe (7-10) Vancomycin HCl 1,500 mg/ 530 mls @ 265 mls/hr 12/18/19 23:00 12/18/19 22:45 Sodium Chloride IV 265 mls/hr Q12H MARIAN Administration Cefepime HCl 2 gm in 100 mls @ 200 mls/hr 12/19/19 08:00 Cefepime/Ns 2 Gm/100 Ml IV Q8HR [facility] Protocol Methylprednisolone Sodium Succinate 40 mg 12/18/19 22:00 12/19/19 06:55 Solu-Medrol IV 40 mg Q8HR MARIAN Administration Metoclopramide HCl 10 mg 12/18/19 21:26 Reglan IV Q6H PRN Nausea And Vomiting Nicotine 14 mg 12/18/19 22:00 12/18/19 22:44 Habitrol TD 14 mg QDAY MARIAN Administration Ondansetron HCl 4 mg 12/18/19 21:26 Zofran IV Q3H PRN Nausea And Vomiting Oxycodone/Acetaminophen 1 tab 12/18/19 21:26 Percocet 5/325 PO Q6H PRN Pain, Moderate (4-6) Sodium Chloride 10 ml 12/18/19 22:00 12/18/19 22:46 Sodium Chloride Flush Syringe 10 Ml IV 10 ml BID MARIAN Administration Sodium Chloride 10 ml 12/18/19 21:26 12/19/19 06:55 Sodium Chloride Flush Syringe 10 Ml IV 10 ml PRN PRN Administration LINE FLUSH
[2019-12-19] MEDS: FAMOTIDINE 20 MG/2 ML INJ IV SCH ×2 (10:06→22:02)
[2019-12-19] MEDS: NICOTINE 14 MG/24 HR PATCH TD SCH (10:07)
[2019-12-19] MEDS: VANCOMYCIN 1,500 MG in SODIUM CHLORIDE 0.9% 500 ML 500 ML IV SCH ×2 (10:08→23:13)
[2019-12-19] MEDS: PIPERACIL/TAZOBACTA 4.5/NS 100 4.5 GM/100 ML VIAL IV SCH ×2 (10:51→10:52)
[2019-12-19 11:14] LABS: ABG Base Excess -4.7 mmol/L (-2.0-3.0); ABG HCO3 19.5 mmol/L (20.0-26.0); ABG Methemoglobin 0.7 % (0.0-1.5); ABG Oxygen Saturation 88.8 % (95.0-99.0); ABG PCO2 34.3 mm Hg; ABG PH 7.373 pH Units (7.350-7.450); ABG PO2 55.6 mm Hg (80.0-90.0)
--- NOTE | 2019-12-19 11:14 | Vascular Lab Report ---
DUPLEX DOPPLER LOWER EXTREMITY VEINS, BILATERAL INDICATION: elevated d dimers.evaluate for DVT. TECHNIQUE: Duplex doppler imaging was performed through the veins of both lower extremities using venous aniyah shay and other maneuvers. COMPARISON: No relevant prior imaging study available. FINDINGS: Right Common femoral vein: Negative. Right Superficial femoral vein: Negative. Right Popliteal vein: Negative. Right Calf veins: Negative. Left Common femoral vein: Negative. Left Superficial femoral vein: Negative. Left Popliteal vein: Negative. Left Calf veins: Negative. Additional findings: None.. IMPRESSION: 1. No sonographic evidence for DVT in either lower extremity. Signer Name: Tio Bueno MD Signed: 12/19/2019 11:10 AM Workstation Name: [id number]
--- NOTE | 2019-12-19 11:28 | Consultation ---
History of Present Illness Consult date: 12/19/19 Requesting physician: LORA DUFF Reason for consult: pneumonia (CAP), other (Acxute Hypoxewmic Respiratory Failure) History of present illness: PULMONARY/CCM CONSULT NOTE (Full dictation # [id number]) Please see dictated notes for full details Medications and Allergies Allergies Allergy/AdvReac Type Severity Reaction Status Date / Time Penicillins Allergy Anaphylaxis Verified 12/18/19 22:48 Active Meds: Active Medications Acetaminophen (Tylenol) 650 mg PO Q4H PRN PRN Reason: Pain MILD(1-3)/Fever >100.5/CHAUDHRY Albuterol (Proventil) 2.5 mg IH Q4HRT PRN PRN Reason: Shortness Of Breath Albuterol/Ipratropium (Duoneb *Not For Prn Use*) 1 ampul IH Q6HRT [facility] Last Admin: 12/19/19 11:07 Dose: Not Given Documented by: Famotidine (Pepcid) 20 mg IV BID [facility] [place] Last Admin: 12/19/19 10:06 Dose: 20 mg Documented by: Hydromorphone HCl (Dilaudid) 0.5 mg IV Q3H PRN PRN Reason: Pain , Severe (7-10) Vancomycin HCl 1,500 mg/ (Sodium Chloride) 530 mls @ 265 mls/hr IV Q12H [facility] [place] Last Admin: 12/19/19 10:08 Dose: 265 mls/hr Documented by: Levofloxacin/Dextrose (Levaquin 750mg/150ml) 750 mg in 150 mls @ 100 mls/hr IV Q24HR [facility] [place]; Protocol Methylprednisolone Sodium Succinate (Solu-Medrol) 80 mg IV Q6H MARIAN Metoclopramide HCl (Reglan) 10 mg IV Q6H PRN PRN Reason: Nausea And Vomiting Nicotine (Habitrol) 14 mg TD QDAY [facility] [place] Last Admin: 12/19/19 10:07 Dose: Not Given Documented by: Ondansetron HCl (Zofran) 4 mg IV Q3H PRN PRN Reason: Nausea And Vomiting Oxycodone/Acetaminophen (Percocet 5/325) 1 tab PO Q6H PRN PRN Reason: Pain, Moderate (4-6) Sodium Chloride (Sodium Chloride Flush Syringe 10 Ml) 10 ml IV BID [facility] [place] Last Admin: 03/03/20 10:07 Dose: 10 ml Documented by: Sodium Chloride (Sodium Chloride Flush Syringe 10 Ml) 10 ml IV PRN PRN PRN Reason: LINE FLUSH Last Admin: 12/19/19 06:55 Dose: 10 ml Documented by: Physical Examination Vital signs: Vital Signs Temp Pulse Resp BP Pulse Ox 98.6 F 105 H 34 H 148/88 90 12/18/19 10:23 12/18/19 10:23 12/18/19 10:23 12/18/19 10:23 12/18/19 10:23 Results - Laboratory Findings CBC and BMP: 12/18/19 13:18 12/18/19 10:30 ABG ABG pH 7.373 pH Units (7.350-7.450) 12/19/19 10:50 ABG pCO2 34.3 mm Hg 12/19/19 10:50 ABG pO2 55.6 mm Hg (80.0-90.0) L 12/19/19 10:50 ABG O2 Saturation 88.8 % (95.0-99.0) L 12/19/19 10:50 PT/INR, D-dimer PT 13.9 Sec. (12.2-14.9) 12/18/19 15:28 INR 1.06 (0.87-1.13) 12/18/19 15:28 D-Dimer 2277.88 ng/mlDDU (0-234) H 12/18/19 10:30 Abnormal lab findings: Abnormal Labs 12/18/19 12/18/19 12/18/19 10:30 10:30 10:30 WBC 13.7 H RBC 5.06 H Hgb 15.4 H MCHC 35 H Seg Neuts % (Manual) 82.0 H Lymphocytes % (Manual) 8.0 L Seg Neutrophils # Man 11.2 H Lymphocytes # (Manual) 1.1 L APTT D-Dimer 2277.88 H ABG pH ABG pO2 ABG HCO3 ABG O2 Saturation ABG Base Excess ABG Hemoglobin Oxyhemoglobin Sodium 122 L Chloride 80.6 L Carbon Dioxide 21 L Glucose 272 H Lactic Acid Calcium 7.8 L Total Bilirubin 1.30 H AST 108 H Albumin 3.1 L Urine WBC (Auto) 12/18/19 12/18/19 12/18/19 10:30 11:18 11:56 WBC RBC Hgb MCHC Seg Neuts % (Manual) Lymphocytes % (Manual) Seg Neutrophils # Man Lymphocytes # (Manual) APTT D-Dimer ABG pH ABG pO2 ABG HCO3 ABG O2 Saturation ABG Base Excess ABG Hemoglobin Oxyhemoglobin Sodium Chloride Carbon Dioxide Glucose Lactic Acid 3.70 H* 2.40 H* Calcium Total Bilirubin AST Albumin Urine WBC (Auto) 58.0 H 12/18/19 12/18/19 12/18/19 12:05 12:06 13:18 WBC RBC Hgb MCHC Seg Neuts % (Manual) Lymphocytes % (Manual) Seg Neutrophils # Man Lymphocytes # (Manual) APTT D-Dimer ABG pH 7.469 H ABG pO2 113.9 H ABG HCO3 ABG O2 Saturation ABG Base Excess ABG Hemoglobin 10.0 L Oxyhemoglobin Sodium Chloride Carbon Dioxide Glucose Lactic Acid 3.20 H* 2.50 H* Calcium Total Bilirubin AST Albumin Urine WBC (Auto) 12/18/19 12/19/19 15:28 10:50 WBC RBC Hgb MCHC Seg Neuts % (Manual) Lymphocytes % (Manual) Seg Neutrophils # Man Lymphocytes # (Manual) APTT 72.2 H* D-Dimer ABG pH ABG pO2 55.6 L ABG HCO3 19.5 L ABG O2 Saturation 88.8 L ABG Base Excess -4.7 L ABG Hemoglobin Oxyhemoglobin 87.0 L Sodium Chloride Carbon Dioxide Glucose Lactic Acid Calcium Total Bilirubin AST Albumin Urine WBC (Auto)
[2019-12-19] MEDS ORDERED: hydrALAZINE 20 MG/1 ML INJ IV ONE ×2 (12:00)
--- NOTE | 2019-12-19 12:30 | XRay Report ---
CHEST 1 VIEW 12/19/2019 12:11 PM INDICATION / CLINICAL INFORMATION: Acute respiratory failure. COMPARISON: One view of the chest from 12/18/2019. FINDINGS: SUPPORT DEVICES: None. HEART / MEDIASTINUM: No significant abnormality. LUNGS / PLEURA: Aeration of the left lung base has improved. Generalized right airspace opacities hav e developed in the interval. Opacities remain along the left upper lobe. No significant pleural effus ion or pneumothorax. ADDITIONAL FINDINGS: No significant additional findings. IMPRESSION: Interval development of generalized right pulmonary opacities with improved aeration of the left lung base. Signer Name: Toby Morris MD Signed: 12/19/2019 12:26 PM Workstation Name: [id number]
[2019-12-19 12:40] LABS: Creatine Kinase MB 8.7 ng/mL (0.0-4.0)
[2019-12-19 12:42] LABS: Alanine Aminotransferase 54 units/L (7-56); Albumin 2.4 g/dL (3.9-5); BUN/Creatinine Ratio 17; Blood Urea Nitrogen 19 mg/dL (9-20); Calcium 7.9 mg/dL (8.4-10.2); Hemolysis Index 7
[2019-12-19] MEDS: hydrALAZINE 25 MG TAB PO SCH ×2 (13:17→22:02)
--- NOTE | 2019-12-19 20:24 | Consultation ---
CONSULTING PHYSICIAN: Dr. Ware. REASON FOR CONSULTATION: Acute hypoxemic respiratory failure, acute encephalopathy. 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 According to his , he had been suffering with a viral flu-like symptoms for about 2-3 weeks prior to that. He did have some diarrhea at that point. He also had some upper respiratory tract/rhinorrhea symptoms. In the ER, he was found to be in acute hypoxemic respiratory failure, O2 sats 76% on room air. He was also found to be septic. Sepsis protocol was initiated and was admitted to the telemetry floor. While on the telemetry floor, he decompensated, required 100% high flow nasal cannula and his O2 sats were still in the 80s. A code MET was called. When I stopped by to see him, he was resting in bed. He had been refusing bilevel positive air pressure ventilation therapy overnight. He denied chest pains at that time. His work of breathing was certainly increased. His mentions at least 1 or 2 episodes of vomiting on the day of presentation. He kind of denied overt aspiration. He does have a 20+ pack year tobacco smoking history, continued to smoke up until about 2 weeks ago. He denied any new leg pain or swelling either unilaterally or bilaterally or any history suggestive of a DVT now or in the past. He has never had a flu shot. He has never had a pneumonia shot. They deny sick contacts at home. This really is as much of the history of presentation as I have. PAST MEDICAL HISTORY: Obese. PAST SURGICAL HISTORY: Denies. MEDICATIONS: He was on at the time I stopped by to see him were reviewed, pertinent medications include the following: Tylenol 650 mg p.o. q. 4 hours p.r.n. mild pain or fevers, albuterol nebulizer treatments 2.5 mg nebulized q. 4 hours p.r.n. shortness of breath, DuoNeb treatments nebulized q. 6 hours scheduled, Pepcid 20 mg IV b.i.d., Janesoline 25 mg p.o. q. 8 hours, Dilaudid 0.5 mg IV q. 3 hours p.r.n. severe pain, Levaquin 750 mg IV daily, Solu-Medrol 80 mg IV q.6 hours, Reglan 10 mg IV q. 6 hours p.r.n. nausea and vomiting, nicotine 14 mg per day patch, Zofran 4 mg IV q. 3 hours p.r.n. nausea and vomiting, Percocet 5/325 one tablet p.o. q. 6 hours p.r.n. moderate pain, vancomycin 1.5 g IV q. 12 hours. ALLERGIES: PENICILLINS. Nature of this allergy is unknown. DIET: Obese gentleman. Denies significant weight loss or gain in the preceding few weeks to months. FAMILY AND SOCIAL HISTORY: Lives in the community. Current every day smoker, 20+ pack year tobacco smoking history. Denies alcohol or illicit drug use or abuse. Family history is otherwise unknown. REVIEW OF SYSTEMS: No loss of consciousness. He did have the lightheadedness. No new onset seizures. No new onset focal weakness. No gross hematochezia or melena. No gross hematuria or dysuria. He did have some dark colored urine in the Emergency Room. He denies polydipsia or polyuria. Denies heat or cold intolerance. He did have some diaphoresis during his illness. Denied any new rashes on his body. Complete 13-system review of systems obtained. Pertinent positives and negatives as in body of history above, otherwise are noncontributory. PHYSICAL EXAMINATION: VITAL SIGNS: At presentation, he was afebrile, temperature 98.6 degrees Fahrenheit, T-max since he has been here is about 100.5 degrees Fahrenheit. Other vital signs at presentation include a pulse of 105, respiratory rate of 34, blood pressure 148/88, O2 sats were 90%. Inspired oxygen concentration at that time was not recorded. When I stopped by to see him, O2 sats were lingering between 88% and 92% on 100% FiO2. GENERAL: He is an elderly looking obese male, normocephalic, atraumatic, talking to me in slightly interrupted sentences with moderately increased respiratory effort at rest and some use of abdominal muscles. HEAD, EYES, EARS, NOSE AND THROAT: He is anicteric. No conjunctival erythema. Oropharynx is moist. Mallampati #3 oropharynx. No gross jugular venous distention. He does have a large neck circumference. No thyromegaly. NECK: Grossly, there were no palpable lymph nodes in the supraclavicular or submandibular lymph node chains. LUNGS: Auscultation of both lung tee significant for bibasilar left greater than right rales, faint expiratory wheezing, and prolonged expiratory phase. HEART: Heart sounds 1 and 2 are heard. They were regular in rate and rhythm at time of my evaluation, without rubs or murmurs. ABDOMEN: Soft, protuberant. Bowel sounds are positive, nontender, no palpable hepatosplenomegaly. EXTREMITIES: Without overt digital clubbing, no cyanosis, no pedal edema. Pedal pulses are 2+ bilaterally. NEUROLOGIC: Pupils are equal, round, about 3-4 mm, reactive to light. Extraocular muscle movements were intact. He moves all 4 extremities spontaneously. SKIN: Normal turgor without overt cellulitis or rash in the areas that were examined. PSYCHIATRIC: His mood was normal. His affect was anxious. LABORATORY DATA: From my review are as follows: Admission white cell count 13,700 with a hemoglobin of 15.4, hematocrit of 43.9, platelet count of 150, 8% band neutrophils. INR was 1.06. D-dimer was 2277. Arterial blood gas at presentation showed a pH of 7.47, pCO2 of 31, pO2 of 114 and that was on 2 liters nasal cannula. This morning, his pO2 is 56 on 100% FiO2 via Vapotherm high flow nasal cannula 40 liter flow 100% FiO2. Serum sodium 122, potassium 3.6, chloride 81, bicarbonate 21, BUN 20, creatinine 1.3, glucose 272. Lactic acid level was 2.4. Total bilirubin 1.3, AST 108. BNP was within normal limits. Urinalysis showed large blood, negative leukocyte esterase, negative nitrites, 58 white cells per high power field, no bacteria. Blood cultures, no growth to date. Urine cultures, no growth to date. Chest x-ray was done, essentially shows a left lower lobe infiltrate consistent with pneumonia. I cannot rule out a small left pleural effusion. CT angio of the chest was also done. I have reviewed the CT angio pretty decent contrast face timing. I do not see any gross filling defects; however, in the right lower lobe branch, I cannot rule out a small filling defect, which may well be artifact. I will be discussing that with the reading radiologist. He has dense consolidation mostly in the left lower lobe/lingular region lung windows. He also had consolidative type changes/pneumonitis in both upper lobes and in the right upper lobe apical region. No gross mediastinal adenopathy. ASSESSMENT: 1. Acute hypoxemic respiratory failure secondary to bilateral pneumonia, community acquired, perhaps aspiration element. 2. Bilateral pneumonia, community acquired, perhaps aspiration element. 3. Possible obstructive lung disease based on the radiographic picture in the upper lobes. 4. Leukocytosis. 5. Elevated D-dimer. 6. Hyponatremia, may be secondary to SIADH. 7. Mild metabolic acidosis. 8. Lactic acidosis. 9. Systemic inflammatory response syndrome. 10. Hyperbilirubinemia. 11. Elevated serum transaminases. 12. Possible urinary tract infection. PLAN: I have counseled him strongly, explained the benefit of bilevel positive air pressure ventilation therapy. He is agreeing to give it a second trial if only to reduce his work of breathing and recruit alveoli and especially because I do believe we are probably dealing also with an acute COPD exacerbation. He will be transferred to the intensive care unit for closer monitoring as he is already on 100% FiO2 with persistent hypoxemia. Endotracheal intubation will be our last resort. We will continue current bronchodilator treatments. I will reduce the DuoNeb frequency to t.i.d. and schedule Brovana and Pulmicort. We will continue systemic steroids. Glycemic control will be via sliding scale insulin while on the systemic steroids if the blood sugars are on the high side. Gentle hydration will be done to avoid worsening of the hypoxemia from transient increase in the size of volume of the pneumonic infiltrate with hydration. We will continue current antibiotics including Levaquin and vancomycin. I will get a procalcitonin level and lactic acid level and trend to aid clinical decision making. Infectious Disease consultation will be at the behest of the attending physician. I will discuss the CT angiogram with reading radiologist now and get bilateral lower extremity Dopplers to complete this VTE workup. However, we will hold on full anticoagulation. I will be putting him definitely on DVT prophylaxis. We will also continue GI prophylaxis with Pepcid. I will put him on a 21 mg per day nicotine patch based on the amount of smoking he does on the outpatient level. Tobacco smoking cessation has been strongly counseled at bedside really during the whole of my evaluation today. Anti-infectives will be deescalated based on results of clinical and microbiologic data. We will start with bilevel pressure of 16/8 with a backup rate of 10. Wean oxygen to keep sats greater than or equal to about 90%. Aspiration precautions will be maintained. P.r.n. antitussives will be continued. GI and DVT prophylaxis as above. Flu and pneumonia vaccination will be addressed per protocol and I have encouraged the patient to get his vaccination. Thank you very much for the consult Dr. Ware. We will follow along and make further recommendations as picture progresses/becomes clearer. He is critically ill on life-sustaining interventions including the high flow nasal cannula and now continuous bilevel positive air pressure ventilation therapy, at high risk of from cardiopulmonary system decompensation. At this time, I spent about 35-40 minutes of critical care time without overlap and excluding any procedural time that may be necessary. JOB# [id number] LISANDRO/MARIA TERESA BELTRÁN
[2019-12-19] MEDS: ARFORMOTEROL 15 MCG/2 ML NEBU IH SCH (20:29)
[2019-12-19] MEDS: BUDESONIDE 0.5 MG/2 ML NEBU IH SCH (20:29)
[2019-12-19] MEDS: ENOXAPARIN 40 MG/0.4 ML INJ SUB-Q SCH (22:02)
[2019-12-20] MEDS: IPRATROPIUM/ALBUTEROL SULFATE 3 ML AMPUL.NEB IH SCH ×4 (02:59→21:09)
[2019-12-20] MEDS ORDERED: LORazepam 2 MG/ML VIAL IV ONE (05:16)
[2019-12-20] MEDS ORDERED: SODIUM CHLORIDE 0.9% 250ML 250 ML IV ONE (05:16)
[2019-12-20] MEDS: methylPREDNISolone Sod Succinate 125 MG/2 ML INJ IV SCH ×3 (05:54→22:28)
[2019-12-20] MEDS: hydrALAZINE 25 MG TAB PO SCH ×4 (05:54→22:32)
[2019-12-20] MEDS ORDERED: HALOPERIDOL LACTATE 5 MG/1 ML INJ IM ONE ×2 (06:56→07:30)
[2019-12-20] MEDS: BUDESONIDE 0.5 MG/2 ML NEBU IH SCH ×2 (07:54→20:55)
[2019-12-20] MEDS: ARFORMOTEROL 15 MCG/2 ML NEBU IH SCH ×2 (07:54→20:55)
[2019-12-20 08:33] LABS: ABG Base Excess -4.9 mmol/L (-2.0-3.0); ABG HCO3 19.9 mmol/L (20.0-26.0); ABG Methemoglobin 0.7 % (0.0-1.5); ABG Oxygen Saturation 90.2 % (95.0-99.0); ABG PCO2 36.5 mm Hg; ABG PH 7.354 pH Units (7.350-7.450); ABG PO2 59.7 mm Hg (80.0-90.0)
--- NOTE | 2019-12-20 08:49 | Progress Note ---
Assessment and Plan Assessment and plan: --Acute respiratory failure with hypoxia Current Visit: Yes Status: Acute On BiPAP, intubate as needed oxygen titrate O2 sats to more than 90% Nebulizers IV steroids antibiotics Pulmonary critical following -- COPD with acute exacerbation Current Visit: Yes Status: Acute Patient sats were 76 percent initially IV steroids IV abx and Duonebs prn and RTC --Metabolic encephalopathy Patient is confused hallucinating and severe distress --left lower lobe pneumonia Current Visit: Yes Status: Acute Community-acquired pneumonia On Levaquin and Vanco Follow cultures and supportive care --Leukocytosis/lactic acidosis sepsis secondary to pneumonia --Sepsis secondary to pneumonia; leukocytosis lactic acidosis Tachycardia tachypnea and fever --Hypertension; uncontrolled hydralazine p.o.,, IV when patient is not able to take oral --Severe hyponatremia; present on admission sodium 122-131, gentle hydration with normal saline Monitor renal function --Ongoing tobacco use: Smoking cessation on Nicoderm patch --Severe protein calorie malnutrition Current Visit: Yes Status: Chronic nutrition supplements and supportive care --DVT prophylaxis Current Visit: Yes Status: Acute On Heparin and GI prophylaxis --Start tube feeding per protocol If no improvement with BiPAP may need intubation and ventilatory support Monitor closely and adjust management as needed Critical care time 35 minutes History Interval history: Patient seen and examined at bedside in ICU this morning Overnight events, patient's chart and medications reviewed Patient is in severe distress, restless, unable to keep BiPAP Family members at the bedside Vital signs noted Hospitalist Physical - Constitutional Vitals: Temp Pulse Resp BP Pulse Ox 98.5 F 99 H 35 H 181/89 93 12/20/19 08:00 12/20/19 08:32 12/20/19 08:32 12/20/19 08:32 12/20/19 08:32 General appearance: Present: severe distress, well-nourished, obese (Morbidly obese), other (Tachypneic and tachycardic, on BiPAP) - EENT Eyes: Present: PERRL, EOM intact - Neck Neck: Present: supple, normal ROM - Respiratory Respiratory effort: labored Respiratory: bilateral: diminished, rhonchi, negative: rales, wheezing - Cardiovascular Rhythm: regular Heart Sounds: Present: S1 & S2 - Extremities Extremities: no ischemia, No edema - Abdominal General gastrointestinal: soft, non-tender, non-distended, normal bowel sounds - Integumentary Integumentary: Present: clear, warm - Psychiatric Psychiatric: agitated, other (In severe respiratory distress) - Neurologic Neurologic: moves all extremities MITCHELL score - Mitchell Score Age > 65: (0) No Aspirin use within the Past 7 Days: (0) No 3 or more CAD Risk Factors: (0) No 2 or more Angina events in past 24 hrs: (0) No Known CAD with more than 50% Stenosis: (0) No Elevated Cardiac Markers: (0) No ST Deviation Greater than 0.5mm: (0) No MITCHELL Score: 0 Results - Labs CBC & Chem 7: 12/20/19 09:56 12/20/19 09:56 Labs: Laboratory Last Values WBC 13.7 K/mm3 (4.5-11.0) H 12/18/19 10:30 RBC 5.06 M/mm3 (3.65-5.03) H 12/18/19 10:30 Hgb 13.1 gm/dl (11.8-15.2) 12/18/19 13:18 Hct 37.4 % (35.5-45.6) D 12/18/19 13:18 MCV 87 fl (84-94) 12/18/19 10:30 MCH 31 pg (28-32) 12/18/19 10:30 MCHC 35 % (32-34) H 12/18/19 10:30 RDW 13.2 % (13.2-15.2) 12/18/19 10:30 Plt Count 150 K/mm3 (140-440) 12/18/19 10:30 Add Manual Diff Complete 12/18/19 10:30 Total Counted 100 12/18/19 10:30 Seg Neutrophils % Reaming Machine Tender 12/18/19 10:30 Seg Neuts % (Manual) 82.0 % (40.0-70.0) H 12/18/19 10:30 Band Neutrophils % 8.0 % 12/18/19 10:30 Lymphocytes % (Manual) 8.0 % (13.4-35.0) L 12/18/19 10:30 Reactive Lymphs % (Man) 0 % 12/18/19 10:30 Monocytes % (Manual) 2.0 % (0.0-7.3) 12/18/19 10:30 Eosinophils % (Manual) 0 % (0.0-4.3) 12/18/19 10:30 Basophils % (Manual) 0 % (0.0-1.8) 12/18/19 10:30 Metamyelocytes % 0 % 12/18/19 10:30 Myelocytes % 0 % 12/18/19 10:30 Promyelocytes % 0 % 12/18/19 10:30 Blast Cells % 0 % 12/18/19 10:30 Nucleated RBC % Not Reportable 12/18/19 10:30 Seg Neutrophils # Man 11.2 K/mm3 (1.8-7.7) H 12/18/19 10:30 Band Neutrophils # 1.1 K/mm3 12/18/19 10:30 Lymphocytes # (Manual) 1.1 K/mm3 (1.2-5.4) L 12/18/19 10:30 Abs React Lymphs (Man) 0.0 K/mm3 12/18/19 10:30 Monocytes # (Manual) 0.3 K/mm3 (0.0-0.8) 12/18/19 10:30 Eosinophils # (Manual) 0.0 K/mm3 (0.0-0.4) 12/18/19 10:30 Basophils # (Manual) 0.0 K/mm3 (0.0-0.1) 12/18/19 10:30 Metamyelocytes # 0.0 K/mm3 12/18/19 10:30 Myelocytes # 0.0 K/mm3 12/18/19 10:30 Promyelocytes # 0.0 K/mm3 12/18/19 10:30 Blast Cells # 0.0 K/mm3 12/18/19 10:30 WBC Morphology Not Reportable 12/18/19 10:30 Hypersegmented Neuts Not Reportable 12/18/19 10:30 Hyposegmented Neuts Not Reportable 12/18/19 10:30 Hypogranular Neuts Not Reportable 12/18/19 10:30 Smudge Cells Not Reportable 12/18/19 10:30 Toxic Granulation Not Reportable 12/18/19 10:30 Toxic Vacuolation Not Reportable 12/18/19 10:30 Dohle Bodies Not Reportable 12/18/19 10:30 Pelger-Huet Anomaly Not Reportable 12/18/19 10:30 Jennifer Rods Not Reportable 12/18/19 10:30 Platelet Estimate Consistent w auto 12/18/19 10:30 Clumped Platelets Not Reportable 12/18/19 10:30 Plt Clumps, EDTA Not Reportable 12/18/19 10:30 Large Platelets Not Reportable 12/18/19 10:30 Giant Platelets Not Reportable 12/18/19 10:30 Platelet Satelliting Not Reportable 12/18/19 10:30 Plt Morphology Comment Not Reportable 12/18/19 10:30 RBC Morphology Not Reportable 12/18/19 10:30 Dimorphic RBCs Not Reportable 12/18/19 10:30 Polychromasia Not Reportable 12/18/19 10:30 Hypochromasia Not Reportable 12/18/19 10:30 Poikilocytosis Not Reportable 12/18/19 10:30 Anisocytosis 1+ 12/18/19 10:30 Microcytosis Not Reportable 12/18/19 10:30 Macrocytosis Not Reportable 12/18/19 10:30 Spherocytes Not Reportable 12/18/19 10:30 Pappenheimer Bodies Not Reportable 12/18/19 10:30 Sickle Cells Not Reportable 12/18/19 10:30 Target Cells Not Reportable 12/18/19 10:30 Tear Drop Cells Not Reportable 12/18/19 10:30 Ovalocytes Not Reportable 12/18/19 10:30 Helmet Cells Not Reportable 12/18/19 10:30 [place] Bodies Not Reportable 12/18/19 10:30 Kidder Rings Not Reportable 12/18/19 10:30 [place] Cells Not Reportable 12/18/19 10:30 Bite Cells Not Reportable 12/18/19 10:30 Crenated Cell Not Reportable 12/18/19 10:30 Elliptocytes Not Reportable 12/18/19 10:30 Acanthocytes (Spur) Not Reportable 12/18/19 10:30 Rouleaux Not Reportable 12/18/19 10:30 Hemoglobin C Crystals Not Reportable 12/18/19 10:30 Schistocytes Not Reportable 12/18/19 10:30 Malaria parasites Not Reportable 12/18/19 10:30 [place] Bodies Not Reportable 03/02/20 10:30 Hem Pathologist Commnt No 12/18/19 10:30 PT 13.9 Sec. (12.2-14.9) 12/18/19 15:28 INR 1.06 (0.87-1.13) 12/18/19 15:28 APTT 72.2 Sec. (24.2-36.6) H* 12/18/19 15:28 D-Dimer 2277.88 ng/mlDDU (0-234) H 12/18/19 10:30 ABG pH 7.354 pH Units (7.350-7.450) 12/20/19 08:20 ABG pCO2 36.5 mm Hg 12/20/19 08:20 ABG pO2 59.7 mm Hg (80.0-90.0) L 12/20/19 08:20 ABG HCO3 19.9 mmol/L (20.0-26.0) L 12/20/19 08:20 ABG O2 Saturation 90.2 % (95.0-99.0) L 12/20/19 08:20 ABG O2 Content 19.3 (0.0-44) 12/20/19 08:20 ABG Base Excess -4.9 mmol/L (-2.0-3.0) L 12/20/19 08:20 ABG Hemoglobin 15.5 gm/dl (14.0-18.0) 12/20/19 08:20 ABG Carboxyhemoglobin 1.2 % (0.0-5.0) 12/20/19 08:20 ABG Methemoglobin 0.7 % (0.0-1.5) 12/20/19 08:20 Oxyhemoglobin 88.5 % (95.0-99.0) L 12/20/19 08:20 FiO2 85 % 12/20/19 08:20 Sodium 131 mmol/L (137-145) L D 12/19/19 12:04 Potassium 3.6 mmol/L (3.6-5.0) 12/19/19 12:04 Chloride 91.3 mmol/L (98-107) L 12/19/19 12:04 Carbon Dioxide 18 mmol/L (22-30) L 12/19/19 12:04 Anion Gap 25 mmol/L 12/19/19 12:04 BUN 19 mg/dL (9-20) 12/19/19 12:04 Creatinine 1.1 mg/dL (0.8-1.5) 12/19/19 12:04 Estimated GFR > 60 ml/min 12/19/19 12:04 BUN/Creatinine Ratio 17 % 12/19/19 12:04 Glucose 290 mg/dL (75-100) H 12/19/19 12:04 POC Glucose 257 (70-105) H 12/19/19 11:12 Lactic Acid 2.50 mmol/L (0.7-2.0) H* 12/19/19 12:04 Calcium 7.9 mg/dL (8.4-10.2) L 12/19/19 12:04 Phosphorus 2.90 mg/dL (2.5-4.5) 12/19/19 12:04 Magnesium 2.20 mg/dL (1.7-2.3) 12/19/19 12:04 Total Bilirubin 0.80 mg/dL (0.1-1.2) 12/19/19 12:04 AST 123 units/L (5-40) H 12/19/19 12:04 ALT 54 units/L (7-56) 12/19/19 12:04 Alkaline Phosphatase 54 units/L (35-129) 12/19/19 12:04 Total Creatine Kinase 3873 units/L (55-170) H 12/19/19 12:04 CK-MB (CK-2) 8.7 ng/mL (0.0-4.0) H 12/19/19 12:04 CK-MB (CK-2) Rel Index 0.2 (0-4) 12/19/19 12:04 Troponin T < 0.010 ng/mL (0.00-0.029) 12/19/19 12:04 NT-Pro-B Natriuret Pep 609.1 pg/mL (0-900) 12/18/19 12:06 Total Protein 6.8 g/dL (6.3-8.2) 12/19/19 12:04 Albumin 2.4 g/dL (3.9-5) L 12/19/19 12:04 Albumin/Globulin Ratio 0.5 % 12/19/19 12:04 Procalcitonin 3.24 ng/mL (<0.15) 12/19/19 12:04 Urine Color Red (Yellow) 12/18/19 11:56 Urine Turbidity Slightly-cloudy (Clear) 12/18/19 11:56 Urine pH 6.0 (5.0-7.0) 12/18/19 11:56 Ur Specific [place] 1.017 (1.003-1.030) 12/18/19 11:56 Urine Protein 100 mg/dl mg/dL (Negative) 12/18/19 11:56 Urine Glucose (UA) >=500 mg/dL (Negative) 12/18/19 11:56 Urine Ketones 20 mg/dL (Negative) 12/18/19 11:56 Urine Blood Lg (Negative) 12/18/19 11:56 Urine Nitrite Neg (Negative) 12/18/19 11:56 Urine Bilirubin Neg (Negative) 12/18/19 11:56 Urine Urobilinogen < 2.0 mg/dL (<2.0) 12/18/19 11:56 Ur Leukocyte Esterase Neg (Negative) 12/18/19 11:56 Urine WBC (Auto) 58.0 /HPF (0.0-6.0) H 12/18/19 11:56 Urine RBC (Auto) > 182.0 /HPF (0.0-6.0) 12/18/19 11:56 U Epithel Cells (Auto) 4.0 /HPF (0-13.0) 12/18/19 11:56 Urine Mucus Few /HPF 12/18/19 11:56 Urine Yeast (Budding) 1+ /HPF 12/18/19 11:56 Active Medications - Current Medications Current Medications: Generic Name Dose Route Start Last Admin Trade Name Freq PRN Reason Stop Dose Admin Acetaminophen 650 mg 12/18/19 21:26 Tylenol PO Q4H PRN Pain MILD(1-3)/Fever >100.5/CHAUDHRY Albuterol 2.5 mg 12/18/19 21:34 Proventil IH Q4HRT PRN Shortness Of Breath Albuterol/Ipratropium 1 ampul 12/18/19 20:45 12/20/19 07:54 Duoneb *Not For Prn Use* IH 1 ampul Q6HRT MARIAN Administration Arformoterol Tartrate 15 mcg 12/19/19 20:00 12/20/19 07:54 Brovana Nebu IH 15 mcg Q12HRT MARIAN Administration Budesonide 0.5 mg 12/19/19 20:00 12/20/19 07:54 Pulmicort IH 0.5 mg Q12HRT MARIAN Administration Enoxaparin Sodium 40 mg 12/19/19 22:00 12/19/19 22:02 Enoxaparin SUB-Q 40 mg QDAY@2200 MARIAN Administration Famotidine 20 mg 12/18/19 22:00 12/19/19 22:02 Pepcid IV 20 mg BID MARIAN Administration Hydralazine HCl 25 mg 12/19/19 14:00 12/20/19 07:18 Apresoline PO Not Given Q8HR MARIAN Hydralazine HCl 20 mg 12/20/19 09:00 Apresoline IV 12/20/19 09:01 ONCE ONE Hydralazine HCl 20 mg 12/20/19 10:00 Apresoline IV Q4HR MARIAN Hydromorphone HCl 0.5 mg 12/18/19 21:26 Dilaudid IV Q3H PRN Pain , Severe (7-10) Vancomycin HCl 1,500 mg/ 530 mls @ 265 mls/hr 12/18/19 23:00 12/19/19 23:13 Sodium Chloride IV 265 mls/hr Q12H MARIAN Administration Levofloxacin/Dextrose 750 mg in 150 mls @ 100 mls/hr 12/19/19 12:00 12/19/19 11:50 Levaquin 750mg/150ml IV 100 mls/hr Q24HR MARIAN Administration Protocol Methylprednisolone Sodium Succinate 80 mg 12/19/19 12:00 12/20/19 05:54 Solu-Medrol IV 80 mg Q6H MARIAN Administration Metoclopramide HCl 10 mg 12/18/19 21:26 Reglan IV Q6H PRN Nausea And Vomiting Nicotine 21 mg 12/20/19 10:00 Habitrol TD QDAY MARIAN Ondansetron HCl 4 mg 12/18/19 21:26 Zofran IV Q3H PRN Nausea And Vomiting Oxycodone/Acetaminophen 1 tab 12/18/19 21:26 Percocet 5/325 PO Q6H PRN Pain, Moderate (4-6) Sodium Chloride 10 ml 12/18/19 22:00 12/19/19 22:03 Sodium Chloride Flush Syringe 10 Ml IV 10 ml BID MARIAN Administration Sodium Chloride 10 ml 12/18/19 21:26 12/19/19 06:55 Sodium Chloride Flush Syringe 10 Ml IV 10 ml PRN PRN Administration LINE FLUSH Nutrition/Malnutrition Assess - Dietary Evaluation Nutrition/Malnutrition Findings: Nutrition Notes Start: 12/19/19 11:42 Freq: Status: Active Protocol: Document 12/19/19 11:42 LP (Rec: 12/19/19 11:47 LP [id number]) Nutrition Notes Need for Assessment generated from: informatics spec Initial or Follow up Assessment Current Diagnosis Sepsis Other Pertinent Diagnosis pneu Current Diet Cardiac Labs/Tests Bili 1.3 Pertinent Medications Solumedrol Height 5 ft 9 in Weight 108.68 kg [place] Body Weight (kg) 72.72 BMI 35.4 Intake Prior to Admission Poor Weight Status Obese Subjective/Other Information Screen for difficulty chewing. Pt family states not eating well PATIENT INTAKE REPRESENTATIVE for 1 week. Pt denies wt changes. Pt did drink some juice. Pt was coughing up blood. Pt now has coded since this AM. Burn Absent Trauma Absent GI Symptoms Other Difficulty In Swallowing Current % PO Negligible Minimum of two criteria No Energy Intake (severe) < or equal to 50% Estimated Energy Requirement > or equal to 5 days #1 Nutrition Diagnosis Inadequate oral intake Etiology coughing As Evidenced by Signs and Symptoms Pt states not eating well for 1 week due to coughing Is patient on ventilator? No Is Patient Ambulatory and/or Out of Bed Yes REE-([facility]-ambulatory/OOB) [ 2453.334 [id number]] Kcal/Kg value to use for calculation 17 Approximate Energy Requirements Using 1848 kcal/Kg Calculation Used for Recommendations Kcal/kg Additional Notes Protein needs are 86-108g (0.8 -1g/kg) Fluid needs are 1ml/kcal Nutrition Intervention Change Diet Order: Continue Add Supplement/Snack (indicate name/kcal Ensure Clear apple BID /protein ) Provides kCal: 480 Provides Protein (gm) 16 Goal #1 Meet at least 80% of kcal and protein needs Anticipated Discharge Needs: Cardiac diet Follow-Up By: 12/21/19 Additional Comments Follow for intakes and ONS tolerance
[2019-12-20] MEDS ORDERED: hydrALAZINE 20 MG/1 ML INJ IV ONE (09:00)
[2019-12-20] MEDS: NICOTINE 21 MG/24 HR PATCH TD SCH (09:04)
[2019-12-20] MEDS: FAMOTIDINE 20 MG/2 ML INJ IV SCH ×2 (09:05→22:18)
[2019-12-20] MEDS: carvediloL 6.25 MG TAB PO SCH ×2 (10:00→22:34)
[2019-12-20] MEDS: VANCOMYCIN 1,500 MG in SODIUM CHLORIDE 0.9% 500 ML 500 ML IV SCH ×2 (11:11→22:12)
[2019-12-20 11:17] LABS: Hematocrit 46.7 % (35.5-45.6); Hemoglobin 15.7 gm/dl (11.8-15.2); Mean Corpuscular HGB Conc 34 % (32-34); Mean Corpuscular Volume 89 fl (84-94); Platelet Count 167 K/mm3 (140-440); Red Blood Count 5.24 M/mm3 (3.65-5.03); Red Cell Distribution Width 13.8 % (13.2-15.2)
[2019-12-20] MEDS ORDERED: propofoL 200 MG/20 ML VIAL IV ONE ×2 (12:01→13:00)
--- NOTE | 2019-12-20 12:02 | Progress Note ---
Assessment and Plan Acute hypoxemic respiratory failure Bilateral pneumonia (CAP/Aspiration) Possible EtOH abuse with withdrawals Possible COPD Leukocytosis. Elevated D-dimer. Hyponatremia (? SIADH) Mild metabolic acidosis. Lactic acidosis. Severe Sepsis Hyperbilirubinemia. Elevated serum transaminases. Possible UTI Rhabdomyolysis - Intubate - ARDS Ventilation / LTVV (AC/450/30/12) - begin bicarbonate drip re: acidosis / rhabdomyolysis - watch closely for worsening DT's - get Magnesium and Phosphorus levels and address +/- banana bag - daily MVI - taper systemic steroids - continue Daily SAT and SBT assessment as tolerated - continue Lantus and accuchecks with glycemic control per SSI (While critically ill target blood glucose of 140-180 mg/dL; avoid hypoglycemia) - sedation prn for target RASS 0 to -1 - continue to wean supplemental oxygen for target O2 sat's > 90% acutely - VAP bundle addressed - continue lung protective strategies - continue bronchodilators with pulmonary hygiene per RT - wean per pulmonary driven protocols otherwise - continue to avoid benzodiazepine's, reduce the possibility of delirium - continue empiric antibiotics; de-escalate per ID rec's (Follow cultures and clinically) - prn analgesia per CPOT score - Maintenance of sleep-wake cycle, avoid delirium - begin enteral nutritional support and advance to goal rate as tolerated - G.I. & VTE prophylaxis - PT/OT/ROM exercises - continue mobility protocols for pressure ulcer prophylaxis - Monitor hemodynamics closely - continue other care per attending / other consultants - discharge planning ongoing concurrently .... Re-evaluate in am & prn CONDITION: CRITICAL PROGNOSIS: GUARDED CODE STATUS: FULL CODE The high probability of a clinically significant, sudden or life-threatening deterioration of the [respiratory, cardiovascular, GI & neurologic] system(s) required my full and direct attention, intervention and personal management. The aggregate critical care time was [36] minutes without overlap. Time includes s pent on; [x] Data Review and interpretation [x] Patient assessment and monitoring of vital signs [x] Documentation [x] Medication orders and management Subjective Date of service: 12/20/19 Principal diagnosis: Ac hypoxemic resp failure; ARDS; Rodrigue pneumonia; Severe Sepsis; Rhabdomyolys Interval history: Patient is seen today for: Acute hypoxemic respiratory failure; ARDS; Bilateral pneumonia (CAP/Aspiration); Possible COPD; Leukocytosis.; Elevated D-dimer.; Hyponatremia (? SIADH); Severe Sepsis; Elevated serum transaminases; Rhabdomyolysis Seen and examined at bedside; 24hour events reviewed; nursing and respiratory care staff consulted; no adverse overnight events reported to me; laying in bed; agitated; delirious; on BIPAP with increased work of breathing; FiO2 up to 85% but worsening; no N/V/F/C; no high grade fevers Objective Vital Signs - 12hr 12/20/19 12/20/19 12/20/19 00:00 00:31 01:01 Temperature Pulse Rate 83 81 82 Pulse Rate [ Anterior Bilateral] Pulse Rate [ From Monitor] Respiratory 20 31 H 30 H Rate Respiratory Rate [Anterior Bilateral] Blood Pressure 149/84 152/84 139/68 O2 Sat by Pulse 90 88 91 Oximetry 12/20/19 12/20/19 12/20/19 01:31 02:00 02:31 Temperature Pulse Rate 86 87 83 Pulse Rate [ Anterior Bilateral] Pulse Rate [ From Monitor] Respiratory 33 H 30 H 28 H Rate Respiratory Rate [Anterior Bilateral] Blood Pressure 139/68 160/94 160/94 O2 Sat by Pulse 89 90 88 Oximetry 12/20/19 12/20/19 12/20/19 03:00 03:03 03:15 Temperature Pulse Rate 86 Pulse Rate [ 87 Anterior Bilateral] Pulse Rate [ From Monitor] Respiratory 24 Rate Respiratory 24 Rate [Anterior Bilateral] Blood Pressure 164/91 O2 Sat by Pulse 90 93 Oximetry 12/20/19 12/20/19 12/20/19 03:31 03:34 03:59 Temperature 98.0 F Pulse Rate 88 87 Pulse Rate [ Anterior Bilateral] Pulse Rate [ From Monitor] Respiratory 19 36 H Rate Respiratory Rate [Anterior Bilateral] Blood Pressure 164/91 164/91 O2 Sat by Pulse 95 93 Oximetry 12/20/19 12/20/19 12/20/19 04:00 04:01 04:31 Temperature Pulse Rate 88 96 H Pulse Rate [ Anterior Bilateral] Pulse Rate [ From Monitor] Respiratory 15 15 16 Rate Respiratory Rate [Anterior Bilateral] Blood Pressure 144/73 144/73 O2 Sat by Pulse 93 93 Oximetry 12/20/19 12/20/19 12/20/19 05:01 05:31 06:01 Temperature Pulse Rate 93 H 96 H 101 H Pulse Rate [ Anterior Bilateral] Pulse Rate [ From Monitor] Respiratory 29 H 12 19 Rate Respiratory Rate [Anterior Bilateral] Blood Pressure 144/73 158/80 158/80 O2 Sat by Pulse 87 90 Oximetry 12/20/19 12/20/19 12/20/19 06:31 07:01 07:18 Temperature Pulse Rate 101 H 101 H 101 H Pulse Rate [ Anterior Bilateral] Pulse Rate [ From Monitor] Respiratory 19 29 H Rate Respiratory Rate [Anterior Bilateral] Blood Pressure 135/116 135/116 135/116 O2 Sat by Pulse 94 92 Oximetry 12/20/19 12/20/19 12/20/19 07:31 08:00 08:01 Temperature 98.5 F Pulse Rate 100 H 97 H 98 H Pulse Rate [ Anterior Bilateral] Pulse Rate [ 97 H From Monitor] Respiratory 17 15 15 Rate Respiratory Rate [Anterior Bilateral] Blood Pressure 135/116 135/116 O2 Sat by Pulse 93 93 94 Oximetry 12/20/19 12/20/19 12/20/19 08:20 08:30 08:32 Temperature Pulse Rate 97 H 99 H Pulse Rate [ 98 H Anterior Bilateral] Pulse Rate [ From Monitor] Respiratory 35 H 35 H Rate Respiratory 33 H Rate [Anterior Bilateral] Blood Pressure 181/89 181/89 O2 Sat by Pulse 89 93 Oximetry 12/20/19 12/20/19 12/20/19 08:53 09:00 09:30 Temperature Pulse Rate 95 H 99 H 100 H Pulse Rate [ Anterior Bilateral] Pulse Rate [ From Monitor] Respiratory 37 H 17 Rate Respiratory Rate [Anterior Bilateral] Blood Pressure 198/81 159/85 137/76 O2 Sat by Pulse 87 92 Oximetry 12/20/19 12/20/19 12/20/19 10:01 10:31 11:00 Temperature Pulse Rate 103 H 105 H 105 H Pulse Rate [ Anterior Bilateral] Pulse Rate [ From Monitor] Respiratory 19 13 21 Rate Respiratory Rate [Anterior Bilateral] Blood Pressure 136/76 150/116 161/89 O2 Sat by Pulse 95 96 96 Oximetry Constitutional: appears uncomfortable, other (elderly obese CM; normocephalic with moderate to severe respiratory distress at rest) Eyes: non-icteric ENT: oropharynx moist, other (BIPAP FFM) Neck: supple, no lymphadenopathy, no JVD, other (large neck circumference) Effort: very labored Ascultation: Bilateral: diminished breath sounds, rales Percussion: Bilateral: not dull Cardiovascular: regular rate and rhythm Gastrointestinal: normoactive bowel sounds, soft, non-tender, non-distended (protuberant) Integumentary: normal, other (diaphoretic) Extremities: no cyanosis, no edema, pink and warm, pulses normal Neurologic: non-focal exam, pupils equal and round, CN II-XII normal, motor strength normal and Psychiatric: anxious, other (delirious really) CBC and BMP: 12/20/19 09:56 12/20/19 09:56 ABG, PT/INR, D-dimer: ABG ABG pH 7.354 pH Units (7.350-7.450) 12/20/19 08:20 ABG pCO2 36.5 mm Hg 12/20/19 08:20 ABG pO2 59.7 mm Hg (80.0-90.0) L 12/20/19 08:20 ABG O2 Saturation 90.2 % (95.0-99.0) L 12/20/19 08:20 PT/INR, D-dimer PT 13.9 Sec. (12.2-14.9) 12/18/19 15:28 INR 1.06 (0.87-1.13) 12/18/19 15:28 D-Dimer 2277.88 ng/mlDDU (0-234) H 12/18/19 10:30 Abnormal lab findings: Abnormal Labs 12/18/19 12/18/19 12/18/19 10:30 10:30 10:30 WBC 13.7 H RBC 5.06 H Hgb 15.4 H Hct MCHC 35 H Seg Neuts % (Manual) 82.0 H Lymphocytes % (Manual) 8.0 L Seg Neutrophils # Man 11.2 H Lymphocytes # (Manual) 1.1 L APTT D-Dimer 2277.88 H ABG pH ABG pO2 ABG HCO3 ABG O2 Saturation ABG Base Excess ABG Hemoglobin Oxyhemoglobin Sodium 122 L Chloride 80.6 L Carbon Dioxide 21 L Glucose 272 H POC Glucose Lactic Acid Calcium 7.8 L Magnesium Total Bilirubin 1.30 H AST 108 H Total Creatine Kinase CK-MB (CK-2) Albumin 3.1 L Urine WBC (Auto) 12/18/19 12/18/19 12/18/19 10:30 11:18 11:56 WBC RBC Hgb Hct MCHC Seg Neuts % (Manual) Lymphocytes % (Manual) Seg Neutrophils # Man Lymphocytes # (Manual) APTT D-Dimer ABG pH ABG pO2 ABG HCO3 ABG O2 Saturation ABG Base Excess ABG Hemoglobin Oxyhemoglobin Sodium Chloride Carbon Dioxide Glucose POC Glucose Lactic Acid 3.70 H* 2.40 H* Calcium Magnesium Total Bilirubin AST Total Creatine Kinase CK-MB (CK-2) Albumin Urine WBC (Auto) 58.0 H 12/18/19 12/18/19 12/18/19 12:05 12:06 13:18 WBC RBC Hgb Hct MCHC Seg Neuts % (Manual) Lymphocytes % (Manual) Seg Neutrophils # Man Lymphocytes # (Manual) APTT D-Dimer ABG pH 7.469 H ABG pO2 113.9 H ABG HCO3 ABG O2 Saturation ABG Base Excess ABG Hemoglobin 10.0 L Oxyhemoglobin Sodium Chloride Carbon Dioxide Glucose POC Glucose Lactic Acid 3.20 H* 2.50 H* Calcium Magnesium Total Bilirubin AST Total Creatine Kinase CK-MB (CK-2) Albumin Urine WBC (Auto) 12/18/19 12/19/19 12/19/19 15:28 10:50 11:12 WBC RBC Hgb Hct MCHC Seg Neuts % (Manual) Lymphocytes % (Manual) Seg Neutrophils # Man Lymphocytes # (Manual) APTT 72.2 H* D-Dimer ABG pH ABG pO2 55.6 L ABG HCO3 19.5 L ABG O2 Saturation 88.8 L ABG Base Excess -4.7 L ABG Hemoglobin Oxyhemoglobin 87.0 L Sodium Chloride Carbon Dioxide Glucose POC Glucose 257 H Lactic Acid Calcium Magnesium Total Bilirubin AST Total Creatine Kinase CK-MB (CK-2) Albumin Urine WBC (Auto) 12/19/19 12/19/19 12/20/19 12:04 12:04 08:20 WBC RBC Hgb Hct MCHC Seg Neuts % (Manual) Lymphocytes % (Manual) Seg Neutrophils # Man Lymphocytes # (Manual) APTT D-Dimer ABG pH ABG pO2 59.7 L ABG HCO3 19.9 L ABG O2 Saturation 90.2 L ABG Base Excess -4.9 L ABG Hemoglobin Oxyhemoglobin 88.5 L Sodium 131 L D Chloride 91.3 L Carbon Dioxide 18 L Glucose 290 H POC Glucose Lactic Acid 2.50 H* Calcium 7.9 L Magnesium Total Bilirubin AST 123 H Total Creatine Kinase 3873 H CK-MB (CK-2) 8.7 H Albumin 2.4 L Urine WBC (Auto) 12/20/19 12/20/19 12/20/19 09:56 09:56 10:27 WBC 17.7 H RBC 5.24 H Hgb 15.7 H Hct 46.7 H D MCHC Seg Neuts % (Manual) Lymphocytes % (Manual) Seg Neutrophils # Man Lymphocytes # (Manual) APTT D-Dimer ABG pH ABG pO2 ABG HCO3 ABG O2 Saturation ABG Base Excess ABG Hemoglobin Oxyhemoglobin Sodium Chloride Carbon Dioxide Glucose POC Glucose 350 H Lactic Acid Calcium Magnesium 3.10 H Total Bilirubin AST Total Creatine Kinase CK-MB (CK-2) Albumin Urine WBC (Auto) Chest x-ray: image reviewed (bilateral increasing pulmonary infiltrates) Allied health notes reviewed: nursing
[2019-12-20] MEDS ORDERED: fentaNYL 100 MCG/2 ML INJ IV PRN (12:12)
[2019-12-20] MEDS ORDERED: MINERAL OIL/PETROLATUM, WHITE OPHTH OINT 3.5 GM OU PRN (12:12)
[2019-12-20] MEDS ORDERED: LIP THERAPY VASELINE TP PRN (12:12)
[2019-12-20 12:17] LABS: Anisocytosis 1+; Basophils % (Manual) 0 % (0.0-1.8); Platelet Estimate Consistent w Auto; Total Cells Counted 100
[2019-12-20 12:18] LABS: BUN/Creatinine Ratio 35; Blood Urea Nitrogen 38 mg/dL (9-20); Calcium 8.5 mg/dL (8.4-10.2); Hemolysis Index 25
--- NOTE | 2019-12-20 12:22 | Event Note ---
Date: 12/20/19 Anesthesia called to ICU 263 to intubate pt in active respiratory distress. MD Sarkar called to bedside and intubated pt. PUBLIC HEALTH CLINICAL NURSE SPECIALIST Peewee pushed 200mg propofol, 160mg succs, and 50mg lidocaine. 8.0 ETT placed and color change noted to CO2 exchange. Atraumatic intubate noted. Very poor dentition noted. Post vitals are: 104p, 90%, 17RR, 129/73. Report given to RN and Respiratory therapy.
[2019-12-20] MEDS: fentaNYL DRIP Premix 2,000 MCG/100 ML BAG IV SCH ×2 (12:50→18:24)
[2019-12-20] MEDS ORDERED: fentaNYL DRIP Premix 2,000 MCG/100 ML BAG IV SCH (13:00)
--- NOTE | 2019-12-20 13:03 | Progress Note ---
Subjective Date of service: 12/20/19 Objective Vital Signs - 12hr 12/20/19 12/20/19 12/20/19 01:31 02:00 02:31 Temperature Pulse Rate 86 87 83 Pulse Rate [ Anterior Bilateral] Pulse Rate [ From Monitor] Respiratory 33 H 30 H 28 H Rate Respiratory Rate [Anterior Bilateral] Blood Pressure 139/68 160/94 160/94 O2 Sat by Pulse 89 90 88 Oximetry 12/20/19 12/20/19 12/20/19 03:00 03:03 03:15 Temperature Pulse Rate 86 Pulse Rate [ 87 Anterior Bilateral] Pulse Rate [ From Monitor] Respiratory 24 Rate Respiratory 24 Rate [Anterior Bilateral] Blood Pressure 164/91 O2 Sat by Pulse 90 93 Oximetry 12/20/19 12/20/19 12/20/19 03:31 03:34 03:59 Temperature 98.0 F Pulse Rate 88 87 Pulse Rate [ Anterior Bilateral] Pulse Rate [ From Monitor] Respiratory 19 36 H Rate Respiratory Rate [Anterior Bilateral] Blood Pressure 164/91 164/91 O2 Sat by Pulse 95 93 Oximetry 12/20/19 12/20/19 12/20/19 04:00 04:01 04:31 Temperature Pulse Rate 88 96 H Pulse Rate [ Anterior Bilateral] Pulse Rate [ From Monitor] Respiratory 15 15 16 Rate Respiratory Rate [Anterior Bilateral] Blood Pressure 144/73 144/73 O2 Sat by Pulse 93 93 Oximetry 12/20/19 12/20/19 12/20/19 05:01 05:31 06:01 Temperature Pulse Rate 93 H 96 H 101 H Pulse Rate [ Anterior Bilateral] Pulse Rate [ From Monitor] Respiratory 29 H 12 19 Rate Respiratory Rate [Anterior Bilateral] Blood Pressure 144/73 158/80 158/80 O2 Sat by Pulse 87 90 Oximetry 12/20/19 12/20/19 12/20/19 06:31 07:01 07:18 Temperature Pulse Rate 101 H 101 H 101 H Pulse Rate [ Anterior Bilateral] Pulse Rate [ From Monitor] Respiratory 19 29 H Rate Respiratory Rate [Anterior Bilateral] Blood Pressure 135/116 135/116 135/116 O2 Sat by Pulse 94 92 Oximetry 12/20/19 12/20/19 12/20/19 07:31 08:00 08:01 Temperature 98.5 F Pulse Rate 100 H 97 H 98 H Pulse Rate [ Anterior Bilateral] Pulse Rate [ 97 H From Monitor] Respiratory 17 15 15 Rate Respiratory Rate [Anterior Bilateral] Blood Pressure 135/116 135/116 O2 Sat by Pulse 93 93 94 Oximetry 12/20/19 12/20/19 12/20/19 08:20 08:30 08:32 Temperature Pulse Rate 97 H 99 H Pulse Rate [ 98 H Anterior Bilateral] Pulse Rate [ From Monitor] Respiratory 35 H 35 H Rate Respiratory 33 H Rate [Anterior Bilateral] Blood Pressure 181/89 181/89 O2 Sat by Pulse 89 93 Oximetry 12/20/19 12/20/19 12/20/19 08:53 09:00 09:30 Temperature Pulse Rate 95 H 99 H 100 H Pulse Rate [ Anterior Bilateral] Pulse Rate [ From Monitor] Respiratory 37 H 17 Rate Respiratory Rate [Anterior Bilateral] Blood Pressure 198/81 159/85 137/76 O2 Sat by Pulse 87 92 Oximetry 12/20/19 12/20/19 12/20/19 10:01 10:31 11:00 Temperature Pulse Rate 103 H 105 H 105 H Pulse Rate [ Anterior Bilateral] Pulse Rate [ From Monitor] Respiratory 19 13 21 Rate Respiratory Rate [Anterior Bilateral] Blood Pressure 136/76 150/116 161/89 O2 Sat by Pulse 95 96 96 Oximetry 12/20/19 12:40 Temperature Pulse Rate 104 H Pulse Rate [ Anterior Bilateral] Pulse Rate [ From Monitor] Respiratory Rate Respiratory Rate [Anterior Bilateral] Blood Pressure 127/70 O2 Sat by Pulse 97 Oximetry CBC and BMP: 12/20/19 09:56 12/20/19 09:56 ABG, PT/INR, D-dimer: ABG ABG pH 7.354 pH Units (7.350-7.450) 12/20/19 08:20 ABG pCO2 36.5 mm Hg 12/20/19 08:20 ABG pO2 59.7 mm Hg (80.0-90.0) L 12/20/19 08:20 ABG O2 Saturation 90.2 % (95.0-99.0) L 12/20/19 08:20 PT/INR, D-dimer PT 13.9 Sec. (12.2-14.9) 12/18/19 15:28 INR 1.06 (0.87-1.13) 12/18/19 15:28 D-Dimer 2277.88 ng/mlDDU (0-234) H 12/18/19 10:30 Abnormal lab findings: Abnormal Labs 12/18/19 12/18/19 12/18/19 10:30 10:30 10:30 WBC 13.7 H RBC 5.06 H Hgb 15.4 H Hct MCHC 35 H Seg Neuts % (Manual) 82.0 H Lymphocytes % (Manual) 8.0 L Seg Neutrophils # Man 11.2 H Lymphocytes # (Manual) 1.1 L APTT D-Dimer 2277.88 H ABG pH ABG pO2 ABG HCO3 ABG O2 Saturation ABG Base Excess ABG Hemoglobin Oxyhemoglobin Sodium 122 L Chloride 80.6 L Carbon Dioxide 21 L BUN Glucose 272 H POC Glucose Lactic Acid Calcium 7.8 L Magnesium Total Bilirubin 1.30 H AST 108 H Total Creatine Kinase CK-MB (CK-2) Albumin 3.1 L Urine WBC (Auto) 12/18/19 12/18/19 12/18/19 10:30 11:18 11:56 WBC RBC Hgb Hct MCHC Seg Neuts % (Manual) Lymphocytes % (Manual) Seg Neutrophils # Man Lymphocytes # (Manual) APTT D-Dimer ABG pH ABG pO2 ABG HCO3 ABG O2 Saturation ABG Base Excess ABG Hemoglobin Oxyhemoglobin Sodium Chloride Carbon Dioxide BUN Glucose POC Glucose Lactic Acid 3.70 H* 2.40 H* Calcium Magnesium Total Bilirubin AST Total Creatine Kinase CK-MB (CK-2) Albumin Urine WBC (Auto) 58.0 H 12/18/19 12/18/19 12/18/19 12:05 12:06 13:18 WBC RBC Hgb Hct MCHC Seg Neuts % (Manual) Lymphocytes % (Manual) Seg Neutrophils # Man Lymphocytes # (Manual) APTT D-Dimer ABG pH 7.469 H ABG pO2 113.9 H ABG HCO3 ABG O2 Saturation ABG Base Excess ABG Hemoglobin 10.0 L Oxyhemoglobin Sodium Chloride Carbon Dioxide BUN Glucose POC Glucose Lactic Acid 3.20 H* 2.50 H* Calcium Magnesium Total Bilirubin AST Total Creatine Kinase CK-MB (CK-2) Albumin Urine WBC (Auto) 12/18/19 12/19/19 12/19/19 15:28 10:50 11:12 WBC RBC Hgb Hct MCHC Seg Neuts % (Manual) Lymphocytes % (Manual) Seg Neutrophils # Man Lymphocytes # (Manual) APTT 72.2 H* D-Dimer ABG pH ABG pO2 55.6 L ABG HCO3 19.5 L ABG O2 Saturation 88.8 L ABG Base Excess -4.7 L ABG Hemoglobin Oxyhemoglobin 87.0 L Sodium Chloride Carbon Dioxide BUN Glucose POC Glucose 257 H Lactic Acid Calcium Magnesium Total Bilirubin AST Total Creatine Kinase CK-MB (CK-2) Albumin Urine WBC (Auto) 12/19/19 12/19/19 12/20/19 12:04 12:04 08:20 WBC RBC Hgb Hct MCHC Seg Neuts % (Manual) Lymphocytes % (Manual) Seg Neutrophils # Man Lymphocytes # (Manual) APTT D-Dimer ABG pH ABG pO2 59.7 L ABG HCO3 19.9 L ABG O2 Saturation 90.2 L ABG Base Excess -4.9 L ABG Hemoglobin Oxyhemoglobin 88.5 L Sodium 131 L D Chloride 91.3 L Carbon Dioxide 18 L BUN Glucose 290 H POC Glucose Lactic Acid 2.50 H* Calcium 7.9 L Magnesium Total Bilirubin AST 123 H Total Creatine Kinase 3873 H CK-MB (CK-2) 8.7 H Albumin 2.4 L Urine WBC (Auto) 12/20/19 12/20/19 12/20/19 09:56 09:56 09:56 WBC 17.7 H RBC 5.24 H Hgb 15.7 H Hct 46.7 H D MCHC Seg Neuts % (Manual) 88.0 H Lymphocytes % (Manual) 8.0 L Seg Neutrophils # Man 15.6 H Lymphocytes # (Manual) APTT D-Dimer ABG pH ABG pO2 ABG HCO3 ABG O2 Saturation ABG Base Excess ABG Hemoglobin Oxyhemoglobin Sodium 135 L Chloride 96.6 L Carbon Dioxide 13 L BUN 38 H Glucose 382 H POC Glucose Lactic Acid Calcium Magnesium 3.10 H Total Bilirubin AST Total Creatine Kinase CK-MB (CK-2) Albumin Urine WBC (Auto) 12/20/19 10:27 WBC RBC Hgb Hct MCHC Seg Neuts % (Manual) Lymphocytes % (Manual) Seg Neutrophils # Man Lymphocytes # (Manual) APTT D-Dimer ABG pH ABG pO2 ABG HCO3 ABG O2 Saturation ABG Base Excess ABG Hemoglobin Oxyhemoglobin Sodium Chloride Carbon Dioxide BUN Glucose POC Glucose 350 H Lactic Acid Calcium Magnesium Total Bilirubin AST Total Creatine Kinase CK-MB (CK-2) Albumin Urine WBC (Auto)
[2019-12-20 13:11] LABS: ABG Base Excess -7.4 mmol/L (-2.0-3.0); ABG HCO3 20.8 mmol/L (20.0-26.0); ABG Methemoglobin 0.8 % (0.0-1.5); ABG Oxygen Saturation 92.1 % (95.0-99.0); ABG PCO2 52.3 mm Hg; ABG PH 7.217 pH Units (7.350-7.450); ABG PO2 75.4 mm Hg (80.0-90.0)
--- NOTE | 2019-12-20 13:28 | XRay Report ---
CHEST 1 VIEW INDICATION: et tube placement. COMPARISON: 12/19/2019 FINDINGS: Support devices: The endotracheal tube terminates 4.2 cm superior to the araceli. Heart: Within normal limits. Lungs/Pleura: Mild infiltration has developed throughout both lungs which is most pronounced in the l [place]. This probably represents congestive changes. No large pleural effusion or pneumothorax. Additional findings: None. IMPRESSION: Adequate placement of the endotracheal tube. Bilateral pulmonary edema or infiltrates have developed . Signer Name: Dru Bain Jr, MD Signed: 12/20/2019 1:24 PM Workstation Name: [id number]
[2019-12-20] MEDS: hydrALAZINE 20 MG/1 ML INJ IV SCH ×3 (13:43→22:33)
--- NOTE | 2019-12-20 15:51 | XRay Report ---
CHEST 1 VIEW INDICATION: Short of breath. COMPARISON: None FINDINGS: Support devices: None. Heart: Within normal limits. Lungs/Pleura: There is hazy airspace opacity throughout the lingula or left lower lobe concerning for pneumonia. The right lung is clear. No large pleural effusion or pneumothorax. Additional findings: None. IMPRESSION: Findings concerning for left lung pneumonia. Signer Name: Dru Bain Jr, MD Signed: 12/18/2019 10:58 AM Workstation Name: [id number]
[2019-12-20] MEDS: INSULIN GLARGINE 100 UNITS/ML SUB-Q SCH (16:00)
[2019-12-20] MEDS: SODIUM BICARBONATE 150 MEQ in WATER FOR INJECTION (PF) 1,000 ML IV SCH (16:35)
[2019-12-20 17:26] LABS: ABG Base Excess -6.1 mmol/L (-2.0-3.0); ABG HCO3 21.5 mmol/L (20.0-26.0); ABG Methemoglobin 0.8 % (0.0-1.5); ABG Oxygen Saturation 96.2 % (95.0-99.0); ABG PCO2 50.6 mm Hg; ABG PH 7.247 pH Units (7.350-7.450); ABG PO2 93.3 mm Hg (80.0-90.0)
[2019-12-20] MEDS: INSULIN LISPRO 100 UNIT/ML SUB-Q SCH ×2 (17:30)
--- NOTE | 2019-12-20 17:53 | XRay Report ---
ABDOMEN 1 VIEW INDICATION / CLINICAL INFORMATION: ngt placement. COMPARISON: CT abdomen and pelvis without contrast from 12/18/2019. FINDINGS: TUBES / LINES: An NG tube has been placed with the tip projecting over the gastric body. BOWEL GAS PATTERN: The stomach is moderately distended by gas. No dilated bowel loops are seen. FREE AIR / EXTRALUMINAL GAS: None seen. ADDITIONAL FINDINGS: Bilateral pulmonary opacities are again seen. IMPRESSION: Satisfactory positioning of the NG tube with moderate gastric distention. Signer Name: Toby Morris MD Signed: 12/20/2019 5:49 PM Workstation Name: [id number]
[2019-12-20] MEDS ORDERED: LIDOCAINE PF 100 MG/5 ML (CARDIAC SYRINGE) IV ONE (18:08)
[2019-12-20] MEDS ORDERED: SUCCINYLCHOLINE CHLORIDE 200 MG/10 ML INJ MDV ONE (18:08)
[2019-12-20] MEDS ORDERED: SIMPLE SYRUP 15 ML FEEDTUBE PRN ×2 (18:25)
[2019-12-20] MEDS ORDERED: SODIUM BICARBONATE 325 MG TAB FEEDTUBE PRN (18:25)
[2019-12-20] MEDS ORDERED: LIPASE 10,500/PROTEASE 25,000/AMYLASE 43,750 (UNITS) DR CAP FEEDTUBE PRN (18:25)
[2019-12-20] MEDS ORDERED: INSULIN NPH/REGULAR 70/30 INJ SUB-Q ONE (19:00)
[2019-12-20] MEDS: ENOXAPARIN 40 MG/0.4 ML INJ SUB-Q SCH (22:19)
[2019-12-21] MEDS: INSULIN LISPRO 100 UNIT/ML SUB-Q SCH ×5 (00:05→23:50)
[2019-12-21] MEDS: hydrALAZINE 20 MG/1 ML INJ IV SCH ×3 (01:11→09:40)
[2019-12-21] MEDS: IPRATROPIUM/ALBUTEROL SULFATE 3 ML AMPUL.NEB IH SCH ×4 (02:22→21:58)
[2019-12-21] MEDS: fentaNYL DRIP Premix 2,000 MCG/100 ML BAG IV SCH ×3 (04:47→20:56)
[2019-12-21] MEDS: SODIUM BICARBONATE 150 MEQ in WATER FOR INJECTION (PF) 1,000 ML IV SCH (04:50)
[2019-12-21] MEDS: methylPREDNISolone Sod Succinate 125 MG/2 ML INJ IV SCH ×4 (04:51→21:56)
[2019-12-21 04:56] LABS: ABG Base Excess 0.1 mmol/L (-2.0-3.0); ABG HCO3 27.3 mmol/L (20.0-26.0); ABG Methemoglobin 0.8 % (0.0-1.5); ABG Oxygen Saturation 90.1 % (95.0-99.0); ABG PCO2 55.6 mm Hg; ABG PH 7.308 pH Units (7.350-7.450); ABG PO2 60.8 mm Hg (80.0-90.0)
[2019-12-21 05:59] LABS: Hematocrit 39.2 % (35.5-45.6); Hemoglobin 13.1 gm/dl (11.8-15.2); Mean Corpuscular HGB Conc 34 % (32-34); Mean Corpuscular Volume 90 fl (84-94); Platelet Count 183 K/mm3 (140-440); Red Blood Count 4.37 M/mm3 (3.65-5.03); Red Cell Distribution Width 14.1 % (13.2-15.2)
[2019-12-21 06:02] LABS: Calcium 7.9 mg/dL (8.4-10.2)
--- NOTE | 2019-12-21 06:30 | XRay Report ---
CHEST 1 VIEW INDICATION / CLINICAL INFORMATION: follow up respiratory failure. COMPARISON: 12/20/2019 FINDINGS: SUPPORT DEVICES: Endotracheal tube remains in place in good position. NG tube is seen and apparently extending into the stomach. HEART / MEDIASTINUM: No significant abnormality. LUNGS / PLEURA: The diffuse bilateral lung consolidation is unchanged. No effusions are seen. No pneu mothorax. ADDITIONAL FINDINGS: No significant additional findings. IMPRESSION: 1. No significant change Signer Name: Asim Pak MD Signed: 12/21/2019 6:26 AM Workstation Name: [id number]
[2019-12-21 06:41] LABS: Basophils % (Manual) 0 % (0.0-1.8); Eosinophils % (Manual) 0 % (0.0-4.3); Platelet Estimate Consistent w Auto; Total Cells Counted 100
[2019-12-21] MEDS: hydrALAZINE 25 MG TAB PO SCH ×3 (07:28→21:57)
[2019-12-21] MEDS: ARFORMOTEROL 15 MCG/2 ML NEBU IH SCH ×2 (07:30→21:58)
[2019-12-21] MEDS: BUDESONIDE 0.5 MG/2 ML NEBU IH SCH ×2 (07:30→21:58)
--- NOTE | 2019-12-21 07:38 | Progress Note ---
Assessment and Plan Severe sepsis Acute hypoxemic respiratory failure Bilateral pneumonia (CAP/Aspiration) Possible EtOH abuse with withdrawal Possible COPD Leukocytosis. Elevated D-dimer. Hyponatremia Mild metabolic acidosis. Lactic acidosis. Hyperbilirubinemia. Elevated serum transaminases. Possible UTI Rhabdomyolysis -Continue with MVS, Lung protective strategies, monitor airway pressures -VAP bundle addressed -Aspiration precautions, HOB>40 -Get transthoracic echocardiogram to evlaute LVEF- patient has bilateral alveola r infiltrates -Daily assessment for readiness for SBT -Titrate sedation for RAAS -1 to 02 -VTE prophylaxis -Stress ulcer prophylaxis -Initiate enteric nutritional support. Monitor glycemic control, with target blood glucose 140-180 mg/dL while critically ill. Avoid hypoglycemia -RD consult placed - Taper systemic steroids - continue daily SAT and SBT assessment as tolerated - continue to wean supplemental oxygen for target O2 sat's > 90% , once FIO2 is down to 50% start wening PEEP -Permissive hypercapnia is acceptable, discontinue bicarbonate infusion after current liter -ABG and CXR in am -Bladder scan, place Robertson catheter in this acutely ill patient with worsening renal function and oliguria -Follow cultures and adjust antibiotic therapy for PARVIN and culture results -Avoid nephrotoxins, adjust all medications fro GFR and CrCL - continue bronchodilators with pulmonary hygiene per RT - wean per pulmonary driven protocols otherwise - continue to avoid benzodiazepines to reduce the possibility of delirium - prn analgesia per CPOT score - Maintenance of sleep-wake cycle, avoid delirium - PT/OT/ROM exercises - continue mobility protocol and skin assessment per protocol for pressure ulcer prevention - Monitor hemodynamics closely - continue other care per attending / other consultants Discussed extensively with his son and daughter who are POA- they did state that he can get very agitated and aggressive. His only history is that of hypertension. I updated them re care plan and answered all their questions. CONDITION: CRITICAL PROGNOSIS: GUARDED CODE STATUS: FULL CODE The high probability of a clinically significant, sudden or life-threatening deterioration of the [respiratory, cardiovascular, GI & neurologic] system(s) required my full and direct attention, intervention and personal management. The aggregate critical care time was [35] minutes without overlap. Time includes spent on; [x] Data Review and interpretation [x] Patient assessment and monitoring of vital signs [x] Documentation [x] Medication orders and management Subjective Date of service: 12/21/19 Principal diagnosis: Ac hypoxemic resp failure; ARDS; Rodrigue pneumonia; Severe Sepsis; Rhabdomyolys Interval history: Patient is seen today for:Severe Sepsis; Acute hypoxemic respiratory failure; ARDS; Bilateral pneumonia (CAP/Aspiration); Possible COPD; Leukocytosis.; Elevated D-dimer.; Hyponatremia; Elevated serum transaminases; Rhabdomyolysis Seen and examined at bedside; 24hour events reviewed; nursing and respiratory care staff consulted; no adverse overnight events reported to me; laying in bed; failed BIPAP with increased work of breathing, orally intubated yesterday ; Vitals, labs,medications, chart and imaging reviewed. Currently on Propofol and Fentanyl- Currently on full support AC-VC 30/450/PEEP 12/FIO2 65% ABG 7.30/55/60/27.5 Peak airway pressure <35 Has a condom cath on, has not made much urine with an increase in her creatinine Discussed in ICU-IDT rounds. Objective Vital Signs - 12hr 12/20/19 12/20/19 12/20/19 20:00 20:30 20:56 Temperature 98.2 F Pulse Rate 79 77 80 Pulse Rate [ Anterior Bilateral] Pulse Rate [ 73 From Monitor] Respiratory 13 14 Rate Respiratory Rate [Anterior Bilateral] Blood Pressure 112/63 102/59 105/59 O2 Sat by Pulse 97 99 97 Oximetry 12/20/19 12/20/19 12/20/19 21:00 21:20 21:30 Temperature Pulse Rate 75 79 Pulse Rate [ 84 Anterior Bilateral] Pulse Rate [ From Monitor] Respiratory 17 17 Rate Respiratory 32 H Rate [Anterior Bilateral] Blood Pressure 104/58 113/59 O2 Sat by Pulse 97 97 Oximetry 12/20/19 12/20/19 12/20/19 22:00 22:30 22:32 Temperature Pulse Rate 78 79 72 Pulse Rate [ Anterior Bilateral] Pulse Rate [ From Monitor] Respiratory 22 29 H Rate Respiratory Rate [Anterior Bilateral] Blood Pressure 102/56 110/56 103/54 O2 Sat by Pulse 97 94 Oximetry 12/20/19 12/20/19 12/20/19 22:33 23:01 23:30 Temperature Pulse Rate 79 84 78 Pulse Rate [ Anterior Bilateral] Pulse Rate [ From Monitor] Respiratory 29 H 30 H 22 Rate Respiratory Rate [Anterior Bilateral] Blood Pressure 110/56 111/56 108/57 O2 Sat by Pulse 95 96 96 Oximetry 12/20/19 12/21/19 12/21/19 23:53 00:00 00:12 Temperature 97.7 F Pulse Rate 77 78 Pulse Rate [ Anterior Bilateral] Pulse Rate [ 77 From Monitor] Respiratory 30 H Rate Respiratory Rate [Anterior Bilateral] Blood Pressure 109/59 109/59 O2 Sat by Pulse 95 96 Oximetry 12/21/19 12/21/19 12/21/19 00:30 01:00 01:11 Temperature Pulse Rate 79 79 77 Pulse Rate [ Anterior Bilateral] Pulse Rate [ From Monitor] Respiratory 30 H 24 Rate Respiratory Rate [Anterior Bilateral] Blood Pressure 114/58 106/58 106/58 O2 Sat by Pulse 91 92 Oximetry 12/21/19 12/21/19 12/21/19 01:30 02:00 02:20 Temperature Pulse Rate 76 77 Pulse Rate [ Anterior Bilateral] Pulse Rate [ From Monitor] Respiratory 31 H 30 H Rate Respiratory Rate [Anterior Bilateral] Blood Pressure 106/56 110/58 O2 Sat by Pulse 92 91 84 Oximetry 12/21/19 12/21/19 12/21/19 02:22 02:30 03:00 Temperature Pulse Rate 76 76 Pulse Rate [ 86 Anterior Bilateral] Pulse Rate [ From Monitor] Respiratory 30 H 30 H Rate Respiratory 30 H Rate [Anterior Bilateral] Blood Pressure 119/55 108/55 O2 Sat by Pulse 94 97 Oximetry 12/21/19 12/21/19 12/21/19 03:30 04:00 04:30 Temperature 98.5 F Pulse Rate 79 77 76 Pulse Rate [ Anterior Bilateral] Pulse Rate [ 73 From Monitor] Respiratory 30 H 30 H 30 H Rate Respiratory Rate [Anterior Bilateral] Blood Pressure 120/62 111/54 109/57 O2 Sat by Pulse 96 96 96 Oximetry 12/21/19 12/21/19 12/21/19 04:35 05:00 05:30 Temperature Pulse Rate 75 75 79 Pulse Rate [ Anterior Bilateral] Pulse Rate [ From Monitor] Respiratory 30 H 22 Rate Respiratory Rate [Anterior Bilateral] Blood Pressure 109/57 112/60 117/62 O2 Sat by Pulse 96 95 97 Oximetry 12/21/19 12/21/19 06:01 06:30 Temperature Pulse Rate 78 72 Pulse Rate [ Anterior Bilateral] Pulse Rate [ From Monitor] Respiratory 30 H 30 H Rate Respiratory Rate [Anterior Bilateral] Blood Pressure 133/65 104/56 O2 Sat by Pulse 92 97 Oximetry Constitutional: appears uncomfortable, other (elderly obese CM; normocephalicon MVS ETT at 23cm, no patient -ventilator dyssynchrony) Eyes: non-icteric ENT: oropharynx moist, other Neck: supple, no lymphadenopathy, no JVD, other (large neck circumference) Effort: mildly labored, very labored Ascultation: Bilateral: diminished breath sounds, rales Percussion: Bilateral: not dull Cardiovascular: regular rate and rhythm, other (S1,S2, no murmurs, gallops or rubs) Gastrointestinal: normoactive bowel sounds, soft, non-tender, non-distended (protuberant) Integumentary: normal, other (diaphoretic) Extremities: no cyanosis, no edema, pink and warm, pulses normal Neurologic: pupils equal and round, unable to assess (sedated) Psychiatric: other (unable to assess, sedated) CBC and BMP: 12/21/19 Unknown 12/21/19 Unknown ABG, PT/INR, D-dimer: ABG ABG pH 7.308 pH Units (7.350-7.450) L 12/21/19 04:40 ABG pCO2 55.6 mm Hg 12/21/19 04:40 ABG pO2 60.8 mm Hg (80.0-90.0) L 12/21/19 04:40 ABG O2 Saturation 90.1 % (95.0-99.0) L 12/21/19 04:40 PT/INR, D-dimer PT 13.9 Sec. (12.2-14.9) 12/18/19 15:28 INR 1.06 (0.87-1.13) 12/18/19 15:28 D-Dimer 2277.88 ng/mlDDU (0-234) H 12/18/19 10:30 Abnormal lab findings: Abnormal Labs 12/18/19 12/18/19 12/18/19 10:30 10:30 10:30 WBC 13.7 H RBC 5.06 H Hgb 15.4 H Hct MCHC 35 H Seg Neuts % (Manual) 82.0 H Lymphocytes % (Manual) 8.0 L Seg Neutrophils # Man 11.2 H Lymphocytes # (Manual) 1.1 L APTT D-Dimer 2277.88 H ABG pH ABG pO2 ABG HCO3 ABG O2 Saturation ABG Base Excess ABG Hemoglobin Oxyhemoglobin Sodium 122 L Chloride 80.6 L Carbon Dioxide 21 L BUN Creatinine Glucose 272 H POC Glucose Hemoglobin A1c Lactic Acid Calcium 7.8 L Magnesium Total Bilirubin 1.30 H AST 108 H Total Creatine Kinase CK-MB (CK-2) Albumin 3.1 L Urine WBC (Auto) 12/18/19 12/18/19 12/18/19 10:30 11:18 11:56 WBC RBC Hgb Hct MCHC Seg Neuts % (Manual) Lymphocytes % (Manual) Seg Neutrophils # Man Lymphocytes # (Manual) APTT D-Dimer ABG pH ABG pO2 ABG HCO3 ABG O2 Saturation ABG Base Excess ABG Hemoglobin Oxyhemoglobin Sodium Chloride Carbon Dioxide BUN Creatinine Glucose POC Glucose Hemoglobin A1c Lactic Acid 3.70 H* 2.40 H* Calcium Magnesium Total Bilirubin AST Total Creatine Kinase CK-MB (CK-2) Albumin Urine WBC (Auto) 58.0 H 12/18/19 12/18/19 12/18/19 12:05 12:06 13:18 WBC RBC Hgb Hct MCHC Seg Neuts % (Manual) Lymphocytes % (Manual) Seg Neutrophils # Man Lymphocytes # (Manual) APTT D-Dimer ABG pH 7.469 H ABG pO2 113.9 H ABG HCO3 ABG O2 Saturation ABG Base Excess ABG Hemoglobin 10.0 L Oxyhemoglobin Sodium Chloride Carbon Dioxide BUN Creatinine Glucose POC Glucose Hemoglobin A1c Lactic Acid 3.20 H* 2.50 H* Calcium Magnesium Total Bilirubin AST Total Creatine Kinase CK-MB (CK-2) Albumin Urine WBC (Auto) 12/18/19 12/19/19 12/19/19 15:28 10:50 11:12 WBC RBC Hgb Hct MCHC Seg Neuts % (Manual) Lymphocytes % (Manual) Seg Neutrophils # Man Lymphocytes # (Manual) APTT 72.2 H* D-Dimer ABG pH ABG pO2 55.6 L ABG HCO3 19.5 L ABG O2 Saturation 88.8 L ABG Base Excess -4.7 L ABG Hemoglobin Oxyhemoglobin 87.0 L Sodium Chloride Carbon Dioxide BUN Creatinine Glucose POC Glucose 257 H Hemoglobin A1c Lactic Acid Calcium Magnesium Total Bilirubin AST Total Creatine Kinase CK-MB (CK-2) Albumin Urine WBC (Auto) 12/19/19 12/19/19 12/20/19 12:04 12:04 08:20 WBC RBC Hgb Hct MCHC Seg Neuts % (Manual) Lymphocytes % (Manual) Seg Neutrophils # Man Lymphocytes # (Manual) APTT D-Dimer ABG pH ABG pO2 59.7 L ABG HCO3 19.9 L ABG O2 Saturation 90.2 L ABG Base Excess -4.9 L ABG Hemoglobin Oxyhemoglobin 88.5 L Sodium 131 L D Chloride 91.3 L Carbon Dioxide 18 L BUN Creatinine Glucose 290 H POC Glucose Hemoglobin A1c Lactic Acid 2.50 H* Calcium 7.9 L Magnesium Total Bilirubin AST 123 H Total Creatine Kinase 3873 H CK-MB (CK-2) 8.7 H Albumin 2.4 L Urine WBC (Auto) 12/20/19 12/20/19 12/20/19 09:56 09:56 09:56 WBC 17.7 H RBC 5.24 H Hgb 15.7 H Hct 46.7 H D MCHC Seg Neuts % (Manual) 88.0 H Lymphocytes % (Manual) 8.0 L Seg Neutrophils # Man 15.6 H Lymphocytes # (Manual) APTT D-Dimer ABG pH ABG pO2 ABG HCO3 ABG O2 Saturation ABG Base Excess ABG Hemoglobin Oxyhemoglobin Sodium 135 L Chloride 96.6 L Carbon Dioxide 13 L BUN 38 H Creatinine Glucose 382 H POC Glucose Hemoglobin A1c Lactic Acid Calcium Magnesium 3.10 H Total Bilirubin AST Total Creatine Kinase CK-MB (CK-2) Albumin Urine WBC (Auto) 12/20/19 12/20/19 12/20/19 10:27 12:57 15:20 WBC RBC Hgb Hct MCHC Seg Neuts % (Manual) Lymphocytes % (Manual) Seg Neutrophils # Man Lymphocytes # (Manual) APTT D-Dimer ABG pH 7.217 L 7.247 L ABG pO2 75.4 L 93.3 H ABG HCO3 ABG O2 Saturation 92.1 L ABG Base Excess -7.4 L -6.1 L ABG Hemoglobin Oxyhemoglobin 90.4 L 94.3 L Sodium Chloride Carbon Dioxide BUN Creatinine Glucose POC Glucose 350 H Hemoglobin A1c Lactic Acid Calcium Magnesium Total Bilirubin AST Total Creatine Kinase CK-MB (CK-2) Albumin Urine WBC (Auto) 12/20/19 12/20/19 12/20/19 16:44 18:22 20:47 WBC RBC Hgb Hct MCHC Seg Neuts % (Manual) Lymphocytes % (Manual) Seg Neutrophils # Man Lymphocytes # (Manual) APTT D-Dimer ABG pH ABG pO2 ABG HCO3 ABG O2 Saturation ABG Base Excess ABG Hemoglobin Oxyhemoglobin Sodium Chloride Carbon Dioxide BUN Creatinine Glucose POC Glucose 401 H 371 H 412 H Hemoglobin A1c Lactic Acid Calcium Magnesium Total Bilirubin AST Total Creatine Kinase CK-MB (CK-2) Albumin Urine WBC (Auto) 12/21/19 12/21/19 12/21/19 00:14 04:40 05:13 WBC RBC Hgb Hct MCHC Seg Neuts % (Manual) Lymphocytes % (Manual) Seg Neutrophils # Man Lymphocytes # (Manual) APTT D-Dimer ABG pH 7.308 L ABG pO2 60.8 L ABG HCO3 27.3 H ABG O2 Saturation 90.1 L ABG Base Excess ABG Hemoglobin 12.6 L Oxyhemoglobin 88.3 L Sodium Chloride Carbon Dioxide BUN Creatinine Glucose POC Glucose 392 H 333 H Hemoglobin A1c Lactic Acid Calcium Magnesium Total Bilirubin AST Total Creatine Kinase CK-MB (CK-2) Albumin Urine WBC (Auto) 12/21/19 12/21/19 12/21/19 Unknown Unknown Unknown WBC 12.3 H RBC Hgb Hct MCHC Seg Neuts % (Manual) 93.0 H Lymphocytes % (Manual) 5.0 L Seg Neutrophils # Man 11.4 H Lymphocytes # (Manual) 0.6 L APTT D-Dimer ABG pH ABG pO2 ABG HCO3 ABG O2 Saturation ABG Base Excess ABG Hemoglobin Oxyhemoglobin Sodium Chloride Carbon Dioxide 21 L D BUN 73 H Creatinine 2.2 H D Glucose 361 H POC Glucose Hemoglobin A1c 10.0 H Lactic Acid Calcium 7.9 L Magnesium Total Bilirubin AST Total Creatine Kinase CK-MB (CK-2) Albumin Urine WBC (Auto) Chest x-ray: image reviewed (ETT with bilateral alveolar infiltrates) Allied health notes reviewed: RT
[2019-12-21] MEDS ORDERED: INSULIN NPH/REGULAR 70/30 INJ SUB-Q SCH (08:00)
[2019-12-21] MEDS: NICOTINE 21 MG/24 HR PATCH TD SCH (09:39)
[2019-12-21] MEDS: carvediloL 6.25 MG TAB PO SCH ×2 (09:40→21:58)
[2019-12-21] MEDS: FAMOTIDINE 20 MG/2 ML INJ IV SCH (09:42)
[2019-12-21] MEDS: INSULIN GLARGINE 100 UNITS/ML SUB-Q SCH (09:45)
--- NOTE | 2019-12-21 11:59 | Progress Note ---
Assessment and Plan Critical care time 40 minutes --Acute respiratory failure with hypoxia Current Visit: Yes Status: Acute Patient intubated oxygen titrate O2 sats to more than 90% Nebulizers IV steroids antibiotics Pulmonary critical following -- COPD with acute exacerbation Current Visit: Yes Status: Acute Patient sats were 76 percent initially IV steroids IV abx and Duonebs prn and RTC --Metabolic encephalopathy Patient is confused hallucinating and severe distress --left lower lobe pneumonia Current Visit: Yes Status: Acute Community-acquired pneumonia On Levaquin and Vanco Follow cultures and supportive care --Leukocytosis/lactic acidosis sepsis secondary to pneumonia --Sepsis secondary to pneumonia; leukocytosis lactic acidosis Tachycardia tachypnea and fever --Hypertension; uncontrolled hydralazine PRN in IV form IV when patient is not able to take oral --Severe hyponatremia; present on admission sodium 122-131, gentle hydration with normal saline Monitor renal function --Ongoing tobacco use: Smoking cessation on Nicoderm patch --Severe protein calorie malnutrition Current Visit: Yes Status: Chronic nutrition supplements and supportive care --DVT prophylaxis Current Visit: Yes Status: Acute On Heparin and GI prophylaxis --Start tube feeding per protocol - Patient Problems (1) Left lower lobe pneumonia Current Visit: Yes Status: Acute Plan to address problem: Continue Levaquin and vancomycin (2) Acute respiratory failure with hypoxia Current Visit: Yes Status: Acute Plan to address problem: Patient sats were 76 percent initially IV steroids IV abx and Duonebs prn and RTC Weaning in progress Continue vent support (3) COPD with acute exacerbation Current Visit: Yes Status: Acute Plan to address problem: Patient sats were 76 percent initially IV steroids IV abx and Duonebs prn and RTC (4) Nicotine dependence Current Visit: Yes Status: Chronic Qualifiers: Nicotine product type: cigarettes Plan to address problem: Counselled and initiated on Nicoderm patch (5) DVT prophylaxis Current Visit: Yes Status: Acute Plan to address problem: On Heparin and GI prophylaxis Subjective Date of service: 12/21/19 Principal diagnosis: Ac hypoxemic resp failure; ARDS; Rodrigue pneumonia; Severe Sepsis; Rhabdomyolys Interval history: Patient intubated secondary to severe respiratory distress and hypoxia 59 years old male with no known past medical history brought to the emergency room by his son for evaluation of 5-day history of shortness of breath, cough, productive with greenish sputum associated with sweating at night. Patient stated that symptoms started with runny nose and congestion first. Patient found to be in respiratory distress with respiratory rate of 34 and oxygen saturation of 76% on room air patient improved to 92% on nasal cannula 4 L. Sepsis protocol initiated. Patient intubated Objective - Exam Narrative Exam: Critical care time--45 minutes - Constitutional Vitals: General appearance: Present: mild distress, well-nourished - EENT Eyes: PERRL, EOM intact ENT: hearing intact, clear oral mucosa Ears: bilateral: normal - Neck Neck: supple, normal ROM - Respiratory Respiratory effort: normal Respiratory: bilateral: CTA - Breasts Breasts: normal - Cardiovascular Rhythm: regular Heart Sounds: Present: S1 & S2. Absent: gallop, rub Extremities: pulses intact, No edema, normal color, Full ROM - Gastrointestinal General gastrointestinal: Present: soft, non-tender, non-distended, normal bowel sounds - Genitourinary Male genitourinary: normal - Integumentary Integumentary: clear, warm, dry - Musculoskeletal Musculoskeletal: 1, strength equal bilaterally - Neurologic Neurologic: moves all extremities - Psychiatric Psychiatric: memory intact, appropriate mood/affect, intact judgment & insight - Labs CBC & Chem 7: 12/24/19 00:37 12/24/19 00:37 Labs: Abnormal lab results 12/20/19 12/20/19 12/20/19 Range/Units 09:56 09:56 12:57 WBC (4.5-11.0) K/mm3 Seg Neuts % (Manual) 88.0 H (40.0-70.0) % Lymphocytes % (Manual) 8.0 L (13.4-35.0) % Seg Neutrophils # Man 15.6 H (1.8-7.7) K/mm3 Lymphocytes # (Manual) (1.2-5.4) K/mm3 ABG pH 7.217 L (7.350-7.450) pH Units ABG pO2 75.4 L (80.0-90.0) mm Hg ABG HCO3 (20.0-26.0) mmol/L ABG O2 Saturation 92.1 L (95.0-99.0) % ABG Base Excess -7.4 L (-2.0-3.0) mmol/L ABG Hemoglobin (14.0-18.0) gm/dl Oxyhemoglobin 90.4 L (95.0-99.0) % Sodium 135 L (137-145) mmol/L Chloride 96.6 L (98-107) mmol/L Carbon Dioxide 13 L (22-30) mmol/L BUN 38 H (9-20) mg/dL Creatinine (0.8-1.5) mg/dL Glucose 382 H (75-100) mg/dL POC Glucose (70-105) Hemoglobin A1c (4-6) % Calcium (8.4-10.2) mg/dL 12/20/19 12/20/19 12/20/19 Range/Units 15:20 16:44 18:22 WBC (4.5-11.0) K/mm3 Seg Neuts % (Manual) (40.0-70.0) % Lymphocytes % (Manual) (13.4-35.0) % Seg Neutrophils # Man (1.8-7.7) K/mm3 Lymphocytes # (Manual) (1.2-5.4) K/mm3 ABG pH 7.247 L (7.350-7.450) pH Units ABG pO2 93.3 H (80.0-90.0) mm Hg ABG HCO3 (20.0-26.0) mmol/L ABG O2 Saturation (95.0-99.0) % ABG Base Excess -6.1 L (-2.0-3.0) mmol/L ABG Hemoglobin (14.0-18.0) gm/dl Oxyhemoglobin 94.3 L (95.0-99.0) % Sodium (137-145) mmol/L Chloride (98-107) mmol/L Carbon Dioxide (22-30) mmol/L BUN (9-20) mg/dL Creatinine (0.8-1.5) mg/dL Glucose (75-100) mg/dL POC Glucose 401 H 371 H (70-105) Hemoglobin A1c (4-6) % Calcium (8.4-10.2) mg/dL 12/20/19 12/21/19 12/21/19 Range/Units 20:47 00:14 04:40 WBC (4.5-11.0) K/mm3 Seg Neuts % (Manual) (40.0-70.0) % Lymphocytes % (Manual) (13.4-35.0) % Seg Neutrophils # Man (1.8-7.7) K/mm3 Lymphocytes # (Manual) (1.2-5.4) K/mm3 ABG pH 7.308 L (7.350-7.450) pH Units ABG pO2 60.8 L (80.0-90.0) mm Hg ABG HCO3 27.3 H (20.0-26.0) mmol/L ABG O2 Saturation 90.1 L (95.0-99.0) % ABG Base Excess (-2.0-3.0) mmol/L ABG Hemoglobin 12.6 L (14.0-18.0) gm/dl Oxyhemoglobin 88.3 L (95.0-99.0) % Sodium (137-145) mmol/L Chloride (98-107) mmol/L Carbon Dioxide (22-30) mmol/L BUN (9-20) mg/dL Creatinine (0.8-1.5) mg/dL Glucose (75-100) mg/dL POC Glucose 412 H 392 H (70-105) Hemoglobin A1c (4-6) % Calcium (8.4-10.2) mg/dL 12/21/19 12/21/19 12/21/19 Range/Units 05:13 Unknown Unknown WBC 12.3 H (4.5-11.0) K/mm3 Seg Neuts % (Manual) 93.0 H (40.0-70.0) % Lymphocytes % (Manual) 5.0 L (13.4-35.0) % Seg Neutrophils # Man 11.4 H (1.8-7.7) K/mm3 Lymphocytes # (Manual) 0.6 L (1.2-5.4) K/mm3 ABG pH (7.350-7.450) pH Units ABG pO2 (80.0-90.0) mm Hg ABG HCO3 (20.0-26.0) mmol/L ABG O2 Saturation (95.0-99.0) % ABG Base Excess (-2.0-3.0) mmol/L ABG Hemoglobin (14.0-18.0) gm/dl Oxyhemoglobin (95.0-99.0) % Sodium (137-145) mmol/L Chloride (98-107) mmol/L Carbon Dioxide 21 L D (22-30) mmol/L BUN 73 H (9-20) mg/dL Creatinine 2.2 H D (0.8-1.5) mg/dL Glucose 361 H (75-100) mg/dL POC Glucose 333 H (70-105) Hemoglobin A1c (4-6) % Calcium 7.9 L (8.4-10.2) mg/dL 12/21/19 Range/Units Unknown WBC (4.5-11.0) K/mm3 Seg Neuts % (Manual) (40.0-70.0) % Lymphocytes % (Manual) (13.4-35.0) % Seg Neutrophils # Man (1.8-7.7) K/mm3 Lymphocytes # (Manual) (1.2-5.4) K/mm3 ABG pH (7.350-7.450) pH Units ABG pO2 (80.0-90.0) mm Hg ABG HCO3 (20.0-26.0) mmol/L ABG O2 Saturation (95.0-99.0) % ABG Base Excess (-2.0-3.0) mmol/L ABG Hemoglobin (14.0-18.0) gm/dl Oxyhemoglobin (95.0-99.0) % Sodium (137-145) mmol/L Chloride (98-107) mmol/L Carbon Dioxide (22-30) mmol/L BUN (9-20) mg/dL Creatinine (0.8-1.5) mg/dL Glucose (75-100) mg/dL POC Glucose (70-105) Hemoglobin A1c 10.0 H (4-6) % Calcium (8.4-10.2) mg/dL Short CBC 12/24/19 Range/Units 00:37 WBC 10.9 (4.5-11.0) K/mm3 Hgb 12.7 (11.8-15.2) gm/dl Hct 38.4 (35.5-45.6) % Plt Count 262 (140-440) K/mm3 BMP 12/24/19 00:37 Sodium 152 H Potassium 4.6 D Chloride 109.9 H Carbon Dioxide 29 BUN 89 H Creatinine 2.2 H Glucose 287 H Calcium 7.5 L
[2019-12-21] MEDS: ENOXAPARIN 30 MG/0.3 ML INJ SUB-Q SCH (21:56)
[2019-12-21] MEDS: INSULIN NPH/REGULAR 70/30 INJ SUB-Q SCH (21:56)
--- NOTE | 2019-12-22 02:32 | XRay Report ---
CHEST 1 VIEW INDICATION / CLINICAL INFORMATION: follow up respiratory failure. COMPARISON: 12/21/2019 FINDINGS: SUPPORT DEVICES: Endotracheal tube is in place as well as NG tube. HEART / MEDIASTINUM: No significant abnormality. LUNGS / PLEURA: The relatively diffuse bilateral lung consolidation shows improvement with increasing aeration and less opacity bilaterally. No significant effusions. No pneumothorax. ADDITIONAL FINDINGS: No significant additional findings. IMPRESSION: 1 Slight interval improvement Signer Name: Asim Pak MD Signed: 12/22/2019 2:28 AM Workstation Name: [employer]
[2019-12-22] MEDS: IPRATROPIUM/ALBUTEROL SULFATE 3 ML AMPUL.NEB IH SCH ×4 (05:28→21:43)
[2019-12-22] MEDS: methylPREDNISolone Sod Succinate 125 MG/2 ML INJ IV SCH (05:38)
[2019-12-22] MEDS: hydrALAZINE 25 MG TAB PO SCH ×3 (05:38→22:17)
[2019-12-22 05:39] LABS: ABG Base Excess 4.4 mmol/L (-2.0-3.0); ABG HCO3 30.4 mmol/L (20.0-26.0); ABG Methemoglobin 0.7 % (0.0-1.5); ABG Oxygen Saturation 97.1 % (95.0-99.0); ABG PCO2 50.9 mm Hg; ABG PH 7.393 pH Units (7.350-7.450); ABG PO2 93.7 mm Hg (80.0-90.0)
[2019-12-22] MEDS: INSULIN LISPRO 100 UNIT/ML SUB-Q SCH ×3 (06:28→17:50)
[2019-12-22] MEDS: fentaNYL DRIP Premix 2,000 MCG/100 ML BAG IV SCH ×2 (06:28→15:42)
[2019-12-22 08:22] LABS: Calcium 8.1 mg/dL (8.4-10.2)
[2019-12-22] MEDS: BUDESONIDE 0.5 MG/2 ML NEBU IH SCH ×2 (08:31→21:43)
[2019-12-22] MEDS: ARFORMOTEROL 15 MCG/2 ML NEBU IH SCH ×2 (08:31→21:44)
--- NOTE | 2019-12-22 09:41 | Progress Note ---
Assessment and Plan Severe sepsis Acute hypoxemic respiratory failure Bilateral pneumonia (CAP/Aspiration) Possible EtOH abuse with withdrawal Possible COPD Leukocytosis. Elevated D-dimer. Hyponatremia Mild metabolic acidosis. Lactic acidosis. Hyperbilirubinemia. Elevated serum transaminases. Possible UTI Rhabdomyolysis -Continue with MVS, Lung protective strategies, monitor airway pressures -VAP bundle addressed -Aspiration precautions, HOB>40 -Get transthoracic echocardiogram to evlaute LVEF- patient has bilateral alveola r infiltrates -Daily assessment for readiness for SBT -Titrate sedation for RAAS -1 to 02 -VTE prophylaxis -Stress ulcer prophylaxis -Initiate enteric nutritional support. Monitor glycemic control, with target blood glucose 140-180 mg/dL while critically ill. Avoid hypoglycemia -RD consult placed - Taper systemic steroids - continue daily SAT and SBT assessment as tolerated - continue to wean supplemental oxygen for target O2 sat's > 90% , once FIO2 is down to 50% start wening PEEP -Permissive hypercapnia is acceptable, discontinue bicarbonate infusion after current liter -ABG and CXR in am -Bladder scan, place Robertson catheter in this acutely ill patient with worsening renal function and oliguria -Follow cultures and adjust antibiotic therapy for PARVIN and culture results -Avoid nephrotoxins, adjust all medications fro GFR and CrCL - continue bronchodilators with pulmonary hygiene per RT - wean per pulmonary driven protocols otherwise - continue to avoid benzodiazepines to reduce the possibility of delirium - prn analgesia per CPOT score - Maintenance of sleep-wake cycle, avoid delirium - PT/OT/ROM exercises - continue mobility protocol and skin assessment per protocol for pressure ulcer prevention - Monitor hemodynamics closely - continue other care per attending / other consultants Discussed extensively with his son and daughter who are POA- they did state that he can get very agitated and aggressive. His only history is that of hypertension. I updated them re care plan and answered all their questions. CONDITION: CRITICAL PROGNOSIS: GUARDED CODE STATUS: FULL CODE The high probability of a clinically significant, sudden or life-threatening deterioration of the [respiratory, cardiovascular, GI & neurologic] system(s) required my full and direct attention, intervention and personal management. The aggregate critical care time was [35] minutes without overlap. Time includes spent on; [x] Data Review and interpretation [x] Patient assessment and monitoring of vital signs [x] Documentation [x] Medication orders and management Subjective Date of service: 12/22/19 Principal diagnosis: Ac hypoxemic resp failure; ARDS; Rodrigue pneumonia; Severe Sepsis; Rhabdomyolys Interval history: Patient is seen today for:Severe Sepsis; Acute hypoxemic respiratory failure; ARDS; Bilateral pneumonia (CAP/Aspiration); Possible COPD; Leukocytosis.; Elevated D-dimer.; Hyponatremia; Elevated serum transaminases; Rhabdomyolysis Seen and examined at bedside; 24hour events reviewed; nursing and respiratory care staff consulted; no adverse overnight events reported to me; laying in bed; failed BIPAP with increased work of breathing, orally intubated yesterday ; Vitals, labs,medications, chart and imaging reviewed. Currently on Propofol and Fentanyl- Currently on full support AC-VC 30/450/PEEP 12/FIO2 65% ABG 7.30/55/60/27.5 Peak airway pressure <35 Has a condom cath on, has not made much urine with an increase in her creatinine Discussed in ICU-IDT rounds. Objective Vital Signs - 12hr 12/21/19 12/21/19 12/21/19 21:57 21:58 21:59 Temperature Pulse Rate 60 59 L 60 Pulse Rate [ Anterior Bilateral Throughout] Pulse Rate [ From Monitor] Respiratory Rate Respiratory Rate [Anterior Bilateral Throughout] Blood Pressure 97/50 97/50 100/51 O2 Sat by Pulse 96 Oximetry 12/21/19 12/21/19 12/21/19 22:00 22:02 22:30 Temperature Pulse Rate 59 L 61 Pulse Rate [ 60 Anterior Bilateral Throughout] Pulse Rate [ From Monitor] Respiratory 30 H 30 H Rate Respiratory 30 H Rate [Anterior Bilateral Throughout] Blood Pressure 100/51 117/54 O2 Sat by Pulse 96 94 Oximetry 12/21/19 12/21/19 12/22/19 23:00 23:30 00:00 Temperature 98.8 F Pulse Rate 62 59 L 60 Pulse Rate [ Anterior Bilateral Throughout] Pulse Rate [ 60 From Monitor] Respiratory 30 H 30 H 30 H Rate Respiratory Rate [Anterior Bilateral Throughout] Blood Pressure 108/55 104/52 108/56 O2 Sat by Pulse 94 95 99 Oximetry 12/22/19 12/22/19 12/22/19 00:03 00:30 01:00 Temperature 98.8 F Pulse Rate 60 58 L Pulse Rate [ Anterior Bilateral Throughout] Pulse Rate [ From Monitor] Respiratory 30 H 30 H Rate Respiratory Rate [Anterior Bilateral Throughout] Blood Pressure 112/56 104/53 O2 Sat by Pulse 98 98 Oximetry 0312/22/19 12/22/19 01:30 01:38 02:00 Temperature Pulse Rate 59 L 56 L 57 L Pulse Rate [ Anterior Bilateral Throughout] Pulse Rate [ From Monitor] Respiratory 30 H 30 H Rate Respiratory Rate [Anterior Bilateral Throughout] Blood Pressure 107/55 107/55 104/55 O2 Sat by Pulse 98 98 98 Oximetry 12/22/19 12/22/19 12/22/19 02:31 03:00 03:30 Temperature Pulse Rate 65 56 L 56 L Pulse Rate [ Anterior Bilateral Throughout] Pulse Rate [ From Monitor] Respiratory 20 30 H 30 H Rate Respiratory Rate [Anterior Bilateral Throughout] Blood Pressure 107/55 95/52 102/57 O2 Sat by Pulse 99 100 Oximetry 12/22/19 12/22/19 12/22/19 04:00 04:30 04:42 Temperature 98.3 F 98.3 F Pulse Rate 54 L 53 L Pulse Rate [ Anterior Bilateral Throughout] Pulse Rate [ 54 L From Monitor] Respiratory 30 H 30 H Rate Respiratory Rate [Anterior Bilateral Throughout] Blood Pressure 98/53 97/54 O2 Sat by Pulse 100 100 Oximetry 12/22/19 12/22/19 12/22/19 05:00 05:24 05:30 Temperature Pulse Rate 55 L 54 L 74 Pulse Rate [ 70 Anterior Bilateral Throughout] Pulse Rate [ From Monitor] Respiratory 30 H 20 Rate Respiratory 30 H Rate [Anterior Bilateral Throughout] Blood Pressure 96/51 96/51 98/60 O2 Sat by Pulse 100 100 100 Oximetry 12/22/19 12/22/19 12/22/19 05:38 06:00 06:30 Temperature Pulse Rate 57 L 57 L 57 L Pulse Rate [ Anterior Bilateral Throughout] Pulse Rate [ From Monitor] Respiratory 30 H 30 H Rate Respiratory Rate [Anterior Bilateral Throughout] Blood Pressure 98/60 106/55 109/53 O2 Sat by Pulse 100 100 Oximetry 12/22/19 12/22/19 12/22/19 07:00 07:30 08:27 Temperature Pulse Rate 56 L 55 L 59 L Pulse Rate [ Anterior Bilateral Throughout] Pulse Rate [ From Monitor] Respiratory 30 H 30 H Rate Respiratory Rate [Anterior Bilateral Throughout] Blood Pressure 105/53 107/54 137/64 O2 Sat by Pulse 100 100 98 Oximetry Constitutional: appears uncomfortable, other (elderly obese CM; normocephalicon MVS ETT at 23cm, no patient -ventilator dyssynchrony) Eyes: non-icteric ENT: oropharynx moist, other Neck: supple, no lymphadenopathy, no JVD, other (large neck circumference) Effort: mildly labored, very labored Ascultation: Bilateral: diminished breath sounds, rales Percussion: Bilateral: not dull Cardiovascular: regular rate and rhythm, other (S1,S2, no murmurs, gallops or rubs) Gastrointestinal: normoactive bowel sounds, soft, non-tender, non-distended (protuberant) Integumentary: normal, other (diaphoretic) Extremities: no cyanosis, no edema, pink and warm, pulses normal Neurologic: pupils equal and round, unable to assess (sedated) Psychiatric: other (unable to assess, sedated) CBC and BMP: 12/21/19 Unknown 12/22/19 07:16 ABG, PT/INR, D-dimer: ABG ABG pH 7.393 pH Units (7.350-7.450) 12/22/19 05:24 ABG pCO2 50.9 mm Hg 12/22/19 05:24 ABG pO2 93.7 mm Hg (80.0-90.0) H 12/22/19 05:24 ABG O2 Saturation 97.1 % (95.0-99.0) 12/22/19 05:24 PT/INR, D-dimer PT 13.9 Sec. (12.2-14.9) 12/18/19 15:28 INR 1.06 (0.87-1.13) 12/18/19 15:28 D-Dimer 2277.88 ng/mlDDU (0-234) H 12/18/19 10:30 Abnormal lab findings: Abnormal Labs 12/18/19 12/18/19 12/18/19 10:30 10:30 10:30 WBC 13.7 H RBC 5.06 H Hgb 15.4 H Hct MCHC 35 H Seg Neuts % (Manual) 82.0 H Lymphocytes % (Manual) 8.0 L Seg Neutrophils # Man 11.2 H Lymphocytes # (Manual) 1.1 L APTT D-Dimer 2277.88 H ABG pH ABG pO2 ABG HCO3 ABG O2 Saturation ABG Base Excess ABG Hemoglobin Oxyhemoglobin Sodium 122 L Chloride 80.6 L Carbon Dioxide 21 L BUN Creatinine Glucose 272 H POC Glucose Hemoglobin A1c Lactic Acid Calcium 7.8 L Magnesium Total Bilirubin 1.30 H AST 108 H Total Creatine Kinase CK-MB (CK-2) Albumin 3.1 L Urine WBC (Auto) 12/18/19 12/18/19 12/18/19 10:30 11:18 11:56 WBC RBC Hgb Hct MCHC Seg Neuts % (Manual) Lymphocytes % (Manual) Seg Neutrophils # Man Lymphocytes # (Manual) APTT D-Dimer ABG pH ABG pO2 ABG HCO3 ABG O2 Saturation ABG Base Excess ABG Hemoglobin Oxyhemoglobin Sodium Chloride Carbon Dioxide BUN Creatinine Glucose POC Glucose Hemoglobin A1c Lactic Acid 3.70 H* 2.40 H* Calcium Magnesium Total Bilirubin AST Total Creatine Kinase CK-MB (CK-2) Albumin Urine WBC (Auto) 58.0 H 12/18/19 12/18/19 12/18/19 12:05 12:06 13:18 WBC RBC Hgb Hct MCHC Seg Neuts % (Manual) Lymphocytes % (Manual) Seg Neutrophils # Man Lymphocytes # (Manual) APTT D-Dimer ABG pH 7.469 H ABG pO2 113.9 H ABG HCO3 ABG O2 Saturation ABG Base Excess ABG Hemoglobin 10.0 L Oxyhemoglobin Sodium Chloride Carbon Dioxide BUN Creatinine Glucose POC Glucose Hemoglobin A1c Lactic Acid 3.20 H* 2.50 H* Calcium Magnesium Total Bilirubin AST Total Creatine Kinase CK-MB (CK-2) Albumin Urine WBC (Auto) 12/18/19 12/19/19 12/19/19 15:28 10:50 11:12 WBC RBC Hgb Hct MCHC Seg Neuts % (Manual) Lymphocytes % (Manual) Seg Neutrophils # Man Lymphocytes # (Manual) APTT 72.2 H* D-Dimer ABG pH ABG pO2 55.6 L ABG HCO3 19.5 L ABG O2 Saturation 88.8 L ABG Base Excess -4.7 L ABG Hemoglobin Oxyhemoglobin 87.0 L Sodium Chloride Carbon Dioxide BUN Creatinine Glucose POC Glucose 257 H Hemoglobin A1c Lactic Acid Calcium Magnesium Total Bilirubin AST Total Creatine Kinase CK-MB (CK-2) Albumin Urine WBC (Auto) 12/19/19 12/19/19 12/20/19 12:04 12:04 08:20 WBC RBC Hgb Hct MCHC Seg Neuts % (Manual) Lymphocytes % (Manual) Seg Neutrophils # Man Lymphocytes # (Manual) APTT D-Dimer ABG pH ABG pO2 59.7 L ABG HCO3 19.9 L ABG O2 Saturation 90.2 L ABG Base Excess -4.9 L ABG Hemoglobin Oxyhemoglobin 88.5 L Sodium 131 L D Chloride 91.3 L Carbon Dioxide 18 L BUN Creatinine Glucose 290 H POC Glucose Hemoglobin A1c Lactic Acid 2.50 H* Calcium 7.9 L Magnesium Total Bilirubin AST 123 H Total Creatine Kinase 3873 H CK-MB (CK-2) 8.7 H Albumin 2.4 L Urine WBC (Auto) 12/20/19 12/20/19 12/20/19 09:56 09:56 09:56 WBC 17.7 H RBC 5.24 H Hgb 15.7 H Hct 46.7 H D MCHC Seg Neuts % (Manual) 88.0 H Lymphocytes % (Manual) 8.0 L Seg Neutrophils # Man 15.6 H Lymphocytes # (Manual) APTT D-Dimer ABG pH ABG pO2 ABG HCO3 ABG O2 Saturation ABG Base Excess ABG Hemoglobin Oxyhemoglobin Sodium 135 L Chloride 96.6 L Carbon Dioxide 13 L BUN 38 H Creatinine Glucose 382 H POC Glucose Hemoglobin A1c Lactic Acid Calcium Magnesium 3.10 H Total Bilirubin AST Total Creatine Kinase CK-MB (CK-2) Albumin Urine WBC (Auto) 12/20/19 12/20/19 12/20/19 10:27 12:57 15:20 WBC RBC Hgb Hct MCHC Seg Neuts % (Manual) Lymphocytes % (Manual) Seg Neutrophils # Man Lymphocytes # (Manual) APTT D-Dimer ABG pH 7.217 L 7.247 L ABG pO2 75.4 L 93.3 H ABG HCO3 ABG O2 Saturation 92.1 L ABG Base Excess -7.4 L -6.1 L ABG Hemoglobin Oxyhemoglobin 90.4 L 94.3 L Sodium Chloride Carbon Dioxide BUN Creatinine Glucose POC Glucose 350 H Hemoglobin A1c Lactic Acid Calcium Magnesium Total Bilirubin AST Total Creatine Kinase CK-MB (CK-2) Albumin Urine WBC (Auto) 12/20/19 12/20/19 12/20/19 16:44 18:22 20:47 WBC RBC Hgb Hct MCHC Seg Neuts % (Manual) Lymphocytes % (Manual) Seg Neutrophils # Man Lymphocytes # (Manual) APTT D-Dimer ABG pH ABG pO2 ABG HCO3 ABG O2 Saturation ABG Base Excess ABG Hemoglobin Oxyhemoglobin Sodium Chloride Carbon Dioxide BUN Creatinine Glucose POC Glucose 401 H 371 H 412 H Hemoglobin A1c Lactic Acid Calcium Magnesium Total Bilirubin AST Total Creatine Kinase CK-MB (CK-2) Albumin Urine WBC (Auto) 12/21/19 12/21/19 12/21/19 00:14 04:40 05:13 WBC RBC Hgb Hct MCHC Seg Neuts % (Manual) Lymphocytes % (Manual) Seg Neutrophils # Man Lymphocytes # (Manual) APTT D-Dimer ABG pH 7.308 L ABG pO2 60.8 L ABG HCO3 27.3 H ABG O2 Saturation 90.1 L ABG Base Excess ABG Hemoglobin 12.6 L Oxyhemoglobin 88.3 L Sodium Chloride Carbon Dioxide BUN Creatinine Glucose POC Glucose 392 H 333 H Hemoglobin A1c Lactic Acid Calcium Magnesium Total Bilirubin AST Total Creatine Kinase CK-MB (CK-2) Albumin Urine WBC (Auto) 12/21/19 12/21/19 12/21/19 12:39 18:11 23:45 WBC RBC Hgb Hct MCHC Seg Neuts % (Manual) Lymphocytes % (Manual) Seg Neutrophils # Man Lymphocytes # (Manual) APTT D-Dimer ABG pH ABG pO2 ABG HCO3 ABG O2 Saturation ABG Base Excess ABG Hemoglobin Oxyhemoglobin Sodium Chloride Carbon Dioxide BUN Creatinine Glucose POC Glucose 327 H 309 H 286 H Hemoglobin A1c Lactic Acid Calcium Magnesium Total Bilirubin AST Total Creatine Kinase CK-MB (CK-2) Albumin Urine WBC (Auto) 12/21/19 12/21/19 12/21/19 Unknown Unknown Unknown WBC 12.3 H RBC Hgb Hct MCHC Seg Neuts % (Manual) 93.0 H Lymphocytes % (Manual) 5.0 L Seg Neutrophils # Man 11.4 H Lymphocytes # (Manual) 0.6 L APTT D-Dimer ABG pH ABG pO2 ABG HCO3 ABG O2 Saturation ABG Base Excess ABG Hemoglobin Oxyhemoglobin Sodium Chloride Carbon Dioxide 21 L D BUN 73 H Creatinine 2.2 H D Glucose 361 H POC Glucose Hemoglobin A1c 10.0 H Lactic Acid Calcium 7.9 L Magnesium Total Bilirubin AST Total Creatine Kinase CK-MB (CK-2) Albumin Urine WBC (Auto) 12/22/19 12/22/19 12/22/19 05:24 06:29 07:16 WBC RBC Hgb Hct MCHC Seg Neuts % (Manual) Lymphocytes % (Manual) Seg Neutrophils # Man Lymphocytes # (Manual) APTT D-Dimer ABG pH ABG pO2 93.7 H ABG HCO3 30.4 H ABG O2 Saturation ABG Base Excess 4.4 H ABG Hemoglobin 12.8 L Oxyhemoglobin Sodium Chloride Carbon Dioxide BUN 111 H Creatinine 3.2 H Glucose 340 H POC Glucose 275 H Hemoglobin A1c Lactic Acid Calcium 8.1 L Magnesium Total Bilirubin AST Total Creatine Kinase CK-MB (CK-2) Albumin Urine WBC (Auto) Allied health notes reviewed: RT
[2019-12-22] MEDS: NICOTINE 21 MG/24 HR PATCH TD SCH (09:52)
[2019-12-22] MEDS: FAMOTIDINE 20 MG/2 ML INJ IV SCH (09:53)
[2019-12-22] MEDS: INSULIN NPH/REGULAR 70/30 INJ SUB-Q SCH (09:53)
[2019-12-22] MEDS ORDERED: SODIUM CHLORIDE 0.9% 500 ML 500 ML IV SCH (11:00)
--- NOTE | 2019-12-22 11:17 | Consultation ---
History of Present Illness - Reason for Consult Consult date: 12/22/19 acute renal failure - History of Present Illness Due to patient condition, HPI is derived from prior provider notes. Family is not present at bedside. This is a 59 year old male patient with pmh significant for nicotine dependenc but no other known medical history. Patient was brought to ED on 12/17 by his son for further evaluation of 5-day history of shortness of breath, productive cough with greenish sputum, and night sweats. Patient was found to be in respiratory distress in the ED and was eventually intubated on 12/19 for persistent distress. He is currently in ICU on sepsis protocol, intubated on vent with tube feedings via NGT, chauhan catheter. At time of admission, labs were significant for Ddimer 2277, active UA (red color, >500 glucose, >182 RBC, 1+ budding yeast, and 58 WBC), lactic acid 3.7, sodium 122, bicarb 21. At time of consultation labs significant for creatinine 3.2 (was 1.3 on admission), glucose 340, and calcium 8.1. Hyponatremia and metabolic acidosis have resolved since admission but kidney function has worsened. Renal US was negative for any acute findings including hydro. Chest xray concerning for left lobe pneumonia. Doppler scans negative for DVT bilateral lower extremities. Nephrology was consulted for further evaluation and treatment. Past History Social history: smoking Medications and Allergies Allergies Allergy/AdvReac Type Severity Reaction Status Date / Time Penicillins Allergy Anaphylaxis Verified 12/18/19 22:48 Home Medications Medication Instructions Recorded Confirmed Last Taken Type No Known Home Medications [No 12/19/19 12/19/19 Unknown History Reported Home Medications] Active Meds: Active Medications Acetaminophen (Tylenol) 650 mg PO Q4H PRN PRN Reason: Pain MILD(1-3)/Fever >100.5/CHAUDHRY Albuterol (Proventil) 2.5 mg IH Q4HRT PRN PRN Reason: Shortness Of Breath Albuterol/Ipratropium (Duoneb *Not For Prn Use*) 1 ampul IH Q6HRT [facility] Last Admin: 12/22/19 08:31 Dose: 1 ampul Documented by: Lipase/Protease/Amylase (Elidia Welch 10,500 Unit) 1 each FEEDTUBE PRN PRN PRN Reason: For Clogged Feeding Tube Arformoterol Tartrate (Brovana Nebu) 15 mcg IH Q12HRT [facility] Last Admin: 12/22/19 08:31 Dose: 15 mcg Documented by: Budesonide (Pulmicort) 0.5 mg IH Q12HRT [facility] Last Admin: 12/22/19 08:31 Dose: 0.5 mg Documented by: Enoxaparin Sodium (Enoxaparin) 30 mg SUB-Q QDAY@2200 [facility] Last Admin: 12/21/19 21:56 Dose: 30 mg Documented by: Famotidine (Pepcid) 20 mg IV DAILY [facility] Last Admin: 12/22/19 09:53 Dose: 20 mg Documented by: Fentanyl (Sublimaze) 50 mcg IV Q10MIN PRN PRN Reason: ANALGESIA Hydralazine HCl (Apresoline) 25 mg PO Q8HR [facility] Last Admin: 12/22/19 05:38 Dose: Not Given Documented by: Hydromorphone HCl (Dilaudid) 0.5 mg IV Q3H PRN PRN Reason: Pain , Severe (7-10) Hydrophilic Ointment (Vaseline Lip Therapy) 1 applic TP Q2HR PRN PRN Reason: Dry Lips Fentanyl Citrate (Fentanyl Drip Premix) 2,000 mcg in 100 mls @ 5.434 mls/hr IV TITR [facility]; Protocol Last Admin: 12/22/19 06:28 Dose: 2 mcg/kg/hr, 10.868 mls/hr Documented by: Propofol (Diprivan 10 Mg/Ml) 1,000 mg in 100 mls @ 3.26 mls/hr IV TITR [facility]; Protocol Last Admin: 12/22/19 06:31 Dose: 10 mcg/kg/min, 6.521 mls/hr Documented by: Levofloxacin/Dextrose (Levaquin 750mg/150ml) 750 mg in 150 mls @ 100 mls/hr IV Q48HR [facility]; Protocol Last Admin: 12/22/19 09:53 Dose: 100 mls/hr Documented by: Sodium Chloride (Nacl 0.9% 500 Ml) 500 mls @ 999 mls/hr IV ONCE [facility] Stop: 12/22/19 11:31 Insulin Glargine (Lantus) 15 units SUB-Q QHS [facility] Insulin Human Lispro (Humalog) 0 unit SUB-Q Q6HR [facility]; Protocol Last Admin: 12/22/19 06:28 Dose: 6 unit Documented by: Metoclopramide HCl (Reglan) 10 mg IV Q6H PRN PRN Reason: Nausea And Vomiting Multi-Ingred Cream/Lotion/Oil/Oint (Artificial Tears Ophth Oint) 1 applic OU Q4HR PRN PRN Reason: Dry Eye(s) Nicotine (Habitrol) 21 mg TD QDAY [facility] Last Admin: 12/22/19 09:52 Dose: 21 mg Documented by: Ondansetron HCl (Zofran) 4 mg IV Q3H PRN PRN Reason: Nausea And Vomiting Oxycodone/Acetaminophen (Percocet 5/325) 1 tab PO Q6H PRN PRN Reason: Pain, Moderate (4-6) Prednisone (Deltasone) 40 mg PO QDAY [facility] Stop: 12/23/19 10:01 Prednisone (Deltasone) 30 mg PO QDAY [facility] Stop: 12/24/19 10:01 Prednisone (Deltasone) 20 mg PO QDAY [facility] Stop: 12/25/19 10:01 Prednisone (Deltasone) 10 mg PO QDAY [facility] Stop: 12/26/19 10:01 Prednisone (Deltasone) 5 mg PO QDAY [facility] Stop: 12/27/19 10:01 Quetiapine Fumarate (Seroquel) 100 mg PO BID [facility] Simple Syrup (Simple Syrup) 15 ml FEEDTUBE PRN PRN PRN Reason: Hypoglycemia Simple Syrup (Simple Syrup) 30 ml FEEDTUBE PRN PRN PRN Reason: Hypoglycemia Sodium Bicarbonate (Sodium Bicarbonate) 325 mg FEEDTUBE PRN PRN PRN Reason: For Clogged Feeding Tube Sodium Chloride (Sodium Chloride Flush Syringe 10 Ml) 10 ml IV BID [facility] Last Admin: 12/22/19 09:54 Dose: 10 ml Documented by: Sodium Chloride (Sodium Chloride Flush Syringe 10 Ml) 10 ml IV PRN PRN PRN Reason: LINE FLUSH Last Admin: 12/19/19 06:55 Dose: 10 ml Documented by: Review of Systems ROS unobtainable: due to endotracheal tube Exam - Vital Signs Vital signs: Vital Signs Temp Pulse Resp BP Pulse Ox 98.6 F 105 H 34 H 148/88 90 12/18/19 10:23 12/18/19 10:23 12/18/19 10:23 12/18/19 10:23 12/18/19 10:23 - General Appearance General appearance: well-developed, well-nourished, appears stated age, obese, other (intubated on vent, NGT, restraints, chauhan) EENT: PERRL, mucous membranes moist, other (intubated) Neck: Present: neck supple, trachea midline Respiratory: Clear to Ascultation Heart: regular, bradycardia, S1S2, no murmurs Gastrointestinal: Present: normal, normoactive bowel sounds. Absent: tenderness, distended, organomegaly Integumentary: no rash, warm and dry Neurologic: other (unable to assess (sedated)) Musculoskeletal: Present: other (no edema noted) Psychiatric: other (calm, sedated) Results - Lab Results 12/21/19 Unknown 12/22/19 07:16 Most recent lab results ABG pH 7.393 pH Units (7.350-7.450) 12/22/19 05:24 ABG pCO2 50.9 mm Hg 12/22/19 05:24 ABG pO2 93.7 mm Hg (80.0-90.0) H 12/22/19 05:24 ABG HCO3 30.4 mmol/L (20.0-26.0) H 12/22/19 05:24 ABG O2 Saturation 97.1 % (95.0-99.0) 12/22/19 05:24 Calcium 8.1 mg/dL (8.4-10.2) L 12/22/19 07:16 Phosphorus 2.90 mg/dL (2.5-4.5) 12/20/19 09:56 Magnesium 3.10 mg/dL (1.7-2.3) H 12/20/19 09:56 Assessment and Plan 1. Acute kidney injury: Likely vasomotor AYSE in the setting of sepsis and possible rhabdo. Renal US negative for hydro. Gentle IV fluids started, 1/2 NS given sodium on high side. Renal function is worsening, now 3.2 from 1.3 on admission. Monitor renal function. Renal prognosis is guarded. Avoid nephrotoxic agents. Meds dosage based on GFR. 2. FEN: Metabolic acidosis, resolved, monitor. Hyponatremia, resolved, continue IV fluids, monitor. Monitor lytes. 3. Acute respiratory failure with hypoxia: Was not able to tolerated BiPap and has been intubated since 12/19. Pulmonology following. 4. Left lower lobe pneumonia: Confirmed via chest xray on admission. Community-acquired. On abx. Pulmonology following. ID consulted. 5. Sepsis: 2/2 pneumonia. Leukocytosis/lactic acidosis. Tachycardia, tachypnea and fever on admission. 6. Metabolic encephalopathy: Since admission, hallucination and severe distress. Currently intubated. 8. Hypertension: Appears controlled this morning. Monitor BP closely. 9. Severe malnutrition: Protein/calorie. On tube feedings via NGT and tolerating well. 9. Tobacco abuse: Unable to genetic counsellor on smoking cessation given patient condition. On Nicoderm patch.
[2019-12-22] MEDS: QUEtiapine 100 MG TAB PO SCH ×2 (11:34→22:18)
--- NOTE | 2019-12-22 13:04 | Progress Note ---
Assessment and Plan Critical care time 40 minutes --Acute respiratory failure with hypoxia Current Visit: Yes Status: Acute Patient intubated oxygen titrate O2 sats to more than 90% Nebulizers IV steroids antibiotics Pulmonary critical following Weaning in progress -- COPD with acute exacerbation Current Visit: Yes Status: Acute Continue duo nebs, IV steroids and IV antibiotics --Metabolic encephalopathy Patient intubated --left lower lobe pneumonia Current Visit: Yes Status: Acute Community-acquired pneumonia On Levaquin and Vanco Follow cultures and supportive care --Leukocytosis/lactic acidosis sepsis secondary to pneumonia --Sepsis secondary to pneumonia; leukocytosis lactic acidosis Tachycardia tachypnea and fever --Hypertension; uncontrolled hydralazine PRN in IV form IV when patient is not able to take oral -- hypernatremia; present on admission IV fluids changed to D5W --tobacco use: Smoking cessation on Nicoderm patch --Severe protein calorie malnutrition Current Visit: Yes Status: Chronic nutrition supplements and supportive care --DVT prophylaxis Current Visit: Yes Status: Acute On Heparin and GI prophylaxis --Tube feeding per protocol Subjective Date of service: 12/22/19 Principal diagnosis: Ac hypoxemic resp failure; ARDS; Rodrigue pneumonia; Severe Sepsis; Rhabdomyolys Interval history: Patient intubated secondary to severe respiratory distress and hypoxia 59 years old male with no known past medical history brought to the emergency room by his son for evaluation of 5-day history of shortness of breath, cough, productive with greenish sputum associated with sweating at night. Patient stated that symptoms started with runny nose and congestion first. Patient found to be in respiratory distress with respiratory rate of 34 and oxygen saturation of 76% on room air patient improved to 92% on nasal cannula 4 L. Sepsis protocol initiated. Patient intubated Objective - Exam Narrative Exam: Critical care time--45 minutes Patient is intubated - Constitutional Vitals: Vital Signs - 12hr 12/22/19 12/22/19 12/22/19 01:30 01:38 02:00 Temperature Pulse Rate 59 L 56 L 57 L Pulse Rate [ Anterior Bilateral Throughout] Pulse Rate [ Anterior Bilateral] Pulse Rate [ From Monitor] Respiratory 30 H 30 H Rate Respiratory Rate [Anterior Bilateral Throughout] Respiratory Rate [Anterior Bilateral] Blood Pressure 107/55 107/55 104/55 O2 Sat by Pulse 98 98 98 Oximetry 12/22/19 12/22/19 12/22/19 02:31 03:00 03:30 Temperature Pulse Rate 65 56 L 56 L Pulse Rate [ Anterior Bilateral Throughout] Pulse Rate [ Anterior Bilateral] Pulse Rate [ From Monitor] Respiratory 20 30 H 30 H Rate Respiratory Rate [Anterior Bilateral Throughout] Respiratory Rate [Anterior Bilateral] Blood Pressure 107/55 95/52 102/57 O2 Sat by Pulse 99 100 Oximetry 12/22/19 12/22/19 12/22/19 04:00 04:30 04:42 Temperature 98.3 F 98.3 F Pulse Rate 54 L 53 L Pulse Rate [ Anterior Bilateral Throughout] Pulse Rate [ Anterior Bilateral] Pulse Rate [ 54 L From Monitor] Respiratory 30 H 30 H Rate Respiratory Rate [Anterior Bilateral Throughout] Respiratory Rate [Anterior Bilateral] Blood Pressure 98/53 97/54 O2 Sat by Pulse 100 100 Oximetry 12/22/19 12/22/19 12/22/19 05:00 05:24 05:30 Temperature Pulse Rate 55 L 54 L 74 Pulse Rate [ 70 Anterior Bilateral Throughout] Pulse Rate [ Anterior Bilateral] Pulse Rate [ From Monitor] Respiratory 30 H 20 Rate Respiratory 30 H Rate [Anterior Bilateral Throughout] Respiratory Rate [Anterior Bilateral] Blood Pressure 96/51 96/51 98/60 O2 Sat by Pulse 100 100 100 Oximetry 12/22/19 12/22/19 12/22/19 05:38 06:00 06:30 Temperature Pulse Rate 57 L 57 L 57 L Pulse Rate [ Anterior Bilateral Throughout] Pulse Rate [ Anterior Bilateral] Pulse Rate [ From Monitor] Respiratory 30 H 30 H Rate Respiratory Rate [Anterior Bilateral Throughout] Respiratory Rate [Anterior Bilateral] Blood Pressure 98/60 106/55 109/53 O2 Sat by Pulse 100 100 Oximetry 12/22/19 12/22/19 12/22/19 07:00 07:30 08:01 Temperature Pulse Rate 56 L 55 L Pulse Rate [ Anterior Bilateral Throughout] Pulse Rate [ Anterior Bilateral] Pulse Rate [ From Monitor] Respiratory 30 H 30 H Rate Respiratory Rate [Anterior Bilateral Throughout] Respiratory Rate [Anterior Bilateral] Blood Pressure 105/53 107/54 137/64 O2 Sat by Pulse 100 100 100 Oximetry 12/22/19 12/22/19 12/22/19 08:27 08:30 09:00 Temperature Pulse Rate 59 L 58 L 57 L Pulse Rate [ Anterior Bilateral Throughout] Pulse Rate [ Anterior Bilateral] Pulse Rate [ From Monitor] Respiratory 30 H 30 H Rate Respiratory Rate [Anterior Bilateral Throughout] Respiratory Rate [Anterior Bilateral] Blood Pressure 137/64 132/63 118/62 O2 Sat by Pulse 98 97 97 Oximetry 12/22/19 12/22/19 12/22/19 09:10 09:30 10:00 Temperature Pulse Rate 63 59 L Pulse Rate [ Anterior Bilateral Throughout] Pulse Rate [ 59 L Anterior Bilateral] Pulse Rate [ From Monitor] Respiratory 30 H 23 Rate Respiratory Rate [Anterior Bilateral Throughout] Respiratory 30 H Rate [Anterior Bilateral] Blood Pressure 121/60 115/58 O2 Sat by Pulse 96 97 Oximetry 12/22/19 12/22/19 12/22/19 10:31 11:01 11:30 Temperature Pulse Rate 59 L 62 59 L Pulse Rate [ Anterior Bilateral Throughout] Pulse Rate [ Anterior Bilateral] Pulse Rate [ From Monitor] Respiratory 30 H 23 30 H Rate Respiratory Rate [Anterior Bilateral Throughout] Respiratory Rate [Anterior Bilateral] Blood Pressure 115/58 122/59 121/61 O2 Sat by Pulse 95 96 97 Oximetry 12/22/19 12/22/19 12/22/19 12:00 12:30 12:38 Temperature Pulse Rate 68 67 Pulse Rate [ Anterior Bilateral Throughout] Pulse Rate [ Anterior Bilateral] Pulse Rate [ From Monitor] Respiratory 27 H Rate Respiratory Rate [Anterior Bilateral Throughout] Respiratory Rate [Anterior Bilateral] Blood Pressure 137/66 127/66 127/66 O2 Sat by Pulse 93 99 97 Oximetry General appearance: Present: no acute distress, well-nourished - EENT Eyes: PERRL, EOM intact ENT: hearing intact, clear oral mucosa Ears: bilateral: normal - Neck Neck: supple, normal ROM - Respiratory Respiratory effort: normal Respiratory: bilateral: CTA, rhonchi, wheezing - Breasts Breasts: normal - Cardiovascular Rhythm: regular Heart Sounds: Present: S1 & S2. Absent: gallop, rub Extremities: pulses intact, No edema, normal color, Full ROM - Gastrointestinal General gastrointestinal: Present: soft, non-tender, non-distended, normal bowel sounds - Genitourinary Male genitourinary: normal - Integumentary Integumentary: clear, warm, dry - Musculoskeletal Musculoskeletal: generalized weakness - Neurologic Neurologic: moves all extremities - Allied health notes Allied health notes reviewed: nursing, case management - Labs CBC & Chem 7: 12/24/19 00:37 12/24/19 00:37 Labs: Abnormal lab results 12/21/19 12/21/19 12/22/19 Range/Units 18:11 23:45 05:24 ABG pO2 93.7 H (80.0-90.0) mm Hg ABG HCO3 30.4 H (20.0-26.0) mmol/L ABG Base Excess 4.4 H (-2.0-3.0) mmol/L ABG Hemoglobin 12.8 L (14.0-18.0) gm/dl BUN (9-20) mg/dL Creatinine (0.8-1.5) mg/dL Glucose (75-100) mg/dL POC Glucose 309 H 286 H (70-105) Calcium (8.4-10.2) mg/dL Phosphorus (2.5-4.5) mg/dL Magnesium (1.7-2.3) mg/dL 12/22/19 12/22/19 12/22/19 Range/Units 06:29 07:16 11:27 ABG pO2 (80.0-90.0) mm Hg ABG HCO3 (20.0-26.0) mmol/L ABG Base Excess (-2.0-3.0) mmol/L ABG Hemoglobin (14.0-18.0) gm/dl BUN 111 H (9-20) mg/dL Creatinine 3.2 H (0.8-1.5) mg/dL Glucose 340 H (75-100) mg/dL POC Glucose 275 H (70-105) Calcium 8.1 L (8.4-10.2) mg/dL Phosphorus 5.10 H (2.5-4.5) mg/dL Magnesium 3.90 H (1.7-2.3) mg/dL 12/22/19 Range/Units 12:58 ABG pO2 (80.0-90.0) mm Hg ABG HCO3 (20.0-26.0) mmol/L ABG Base Excess (-2.0-3.0) mmol/L ABG Hemoglobin (14.0-18.0) gm/dl BUN (9-20) mg/dL Creatinine (0.8-1.5) mg/dL Glucose (75-100) mg/dL POC Glucose 345 H (70-105) Calcium (8.4-10.2) mg/dL Phosphorus (2.5-4.5) mg/dL Magnesium (1.7-2.3) mg/dL
--- NOTE | 2019-12-22 13:40 | Ultrasound Report ---
ULTRASOUND RENAL INDICATION / CLINICAL INFORMATION: Acute kidney injury. COMPARISON: None available. FINDINGS: RIGHT KIDNEY: Length = 11.3 cm. [normal > 9 cm] - Parenchymal Thickness = 1.5 cm. [normal > 1.5 cm] - Echogenicity: Normal. - Hydronephrosis: None. - Cyst or mass: No significant abnormality. - Stones: None seen. LEFT KIDNEY: Length = 10.3 cm. [normal > 9 cm] - Parenchymal Thickness = 2.0 cm. [normal > 1.5 cm] - Echogenicity: Normal. - Hydronephrosis: None. - Cyst or mass: No significant abnormality. - Stones: None seen. URINARY BLADDER: The bladder is empty. FREE FLUID: None. ADDITIONAL FINDINGS: None. IMPRESSION: No significant abnormality. Signer Name: Dru Bain Jr, MD Signed: 12/22/2019 1:36 PM Workstation Name: [id number]
[2019-12-22 15:55] LABS: Creatinine,Urine 80.5 mg/dL (0.1-20.0)
[2019-12-22] MEDS: SODIUM CHLORIDE 0.45% 1000 ML 1,000 ML IV SCH (17:45)
[2019-12-22] MEDS: ENOXAPARIN 30 MG/0.3 ML INJ SUB-Q SCH (22:17)
[2019-12-22] MEDS: INSULIN GLARGINE 100 UNITS/ML SUB-Q SCH (22:18)
[2019-12-23] MEDS: INSULIN LISPRO 100 UNIT/ML SUB-Q SCH ×6 (01:31→23:43)
[2019-12-23] MEDS: fentaNYL DRIP Premix 2,000 MCG/100 ML BAG IV SCH ×3 (01:47→19:26)
--- NOTE | 2019-12-23 03:22 | XRay Report ---
CHEST 1 VIEW INDICATION / CLINICAL INFORMATION: follow up respiratory failure. COMPARISON: 12/22/2019 FINDINGS: SUPPORT DEVICES: Stable, satisfactory device positioning. HEART / MEDIASTINUM: No significant abnormality. LUNGS / PLEURA: Previously noted bilateral pulmonary opacities persist. The lungs do appear to be sli ghtly better aerated. No other significant interval change. No pneumothorax. ADDITIONAL FINDINGS: No significant additional findings. IMPRESSION: 1. Persistent diffuse bilateral pulmonary opacities with minimal improvement. Signer Name: Marisa Tamez MD Signed: 12/23/2019 3:17 AM Workstation Name: [id number]
[2019-12-23 05:06] LABS: Hematocrit 38.2 % (35.5-45.6); Hemoglobin 12.8 gm/dl (11.8-15.2); Mean Corpuscular HGB Conc 34 % (32-34); Mean Corpuscular Volume 90 fl (84-94); Platelet Count 246 K/mm3 (140-440); Red Blood Count 4.24 M/mm3 (3.65-5.03); Red Cell Distribution Width 14.5 % (13.2-15.2)
[2019-12-23 05:25] LABS: Calcium 7.7 mg/dL (8.4-10.2)
[2019-12-23 06:04] LABS: ABG Base Excess 4.5 mmol/L (-2.0-3.0); ABG HCO3 31.6 mmol/L (20.0-26.0); ABG Methemoglobin 0.8 % (0.0-1.5); ABG Oxygen Saturation 89.2 % (95.0-99.0); ABG PH 7.354 pH Units (7.350-7.450)
[2019-12-23] MEDS: IPRATROPIUM/ALBUTEROL SULFATE 3 ML AMPUL.NEB IH SCH ×4 (06:08→20:25)
[2019-12-23 06:22] LABS: Basophils % (Manual) 0 % (0.0-1.8); Platelet Estimate Consistent w Auto; Total Cells Counted 100
[2019-12-23] MEDS: hydrALAZINE 25 MG TAB PO SCH ×4 (07:55→21:59)
[2019-12-23] MEDS: ARFORMOTEROL 15 MCG/2 ML NEBU IH SCH ×2 (07:59→20:25)
[2019-12-23] MEDS: BUDESONIDE 0.5 MG/2 ML NEBU IH SCH ×2 (07:59→20:25)
[2019-12-23] MEDS: carvediloL 6.25 MG TAB PO SCH (08:09)
--- NOTE | 2019-12-23 09:09 | Progress Note ---
Assessment and Plan Severe sepsis Acute hypoxemic respiratory failure Bilateral pneumonia (CAP/Aspiration) Possible EtOH abuse with withdrawal Possible COPD Leukocytosis. Elevated D-dimer. Hyponatremia Mild metabolic acidosis. Lactic acidosis. Hyperbilirubinemia. Elevated serum transaminases. Possible UTI Rhabdomyolysis -Continue with MVS, Lung protective strategies, monitor airway pressures -VAP bundle addressed -Aspiration precautions, HOB>40 -Get transthoracic echocardiogram to evlaute LVEF- patient has bilateral alveola r infiltrates -Daily assessment for readiness for SBT -Titrate sedation for RAAS -1 to 02 -VTE prophylaxis -Stress ulcer prophylaxis -Initiate enteric nutritional support. Monitor glycemic control, with target blood glucose 140-180 mg/dL while critically ill. Avoid hypoglycemia -RD consult placed - Taper systemic steroids - continue daily SAT and SBT assessment as tolerated - continue to wean supplemental oxygen for target O2 sat's > 90% , once FIO2 is down to 50% start wening PEEP -Permissive hypercapnia is acceptable, discontinue bicarbonate infusion after current liter -ABG and CXR in am -Bladder scan, place Robertson catheter in this acutely ill patient with worsening renal function and oliguria -Follow cultures and adjust antibiotic therapy for PARVIN and culture results -Avoid nephrotoxins, adjust all medications fro GFR and CrCL - continue bronchodilators with pulmonary hygiene per RT - wean per pulmonary driven protocols otherwise - continue to avoid benzodiazepines to reduce the possibility of delirium - prn analgesia per CPOT score - Maintenance of sleep-wake cycle, avoid delirium - PT/OT/ROM exercises - continue mobility protocol and skin assessment per protocol for pressure ulcer prevention - Monitor hemodynamics closely - continue other care per attending / other consultants Discussed extensively with his son and daughter who are POA- they did state that he can get very agitated and aggressive. His only history is that of hypertension. I updated them re care plan and answered all their questions. CONDITION: CRITICAL PROGNOSIS: GUARDED CODE STATUS: FULL CODE The high probability of a clinically significant, sudden or life-threatening deterioration of the [respiratory, cardiovascular, GI & neurologic] system(s) required my full and direct attention, intervention and personal management. The aggregate critical care time was [35] minutes without overlap. Time includes spent on; [x] Data Review and interpretation [x] Patient assessment and monitoring of vital signs [x] Documentation [x] Medication orders and management Subjective Date of service: 12/23/19 Principal diagnosis: Ac hypoxemic resp failure; ARDS; Rodrigue pneumonia; Severe Sepsis; Rhabdomyolys Interval history: Patient is seen today for:Severe Sepsis; Acute hypoxemic respiratory failure; ARDS; Bilateral pneumonia (CAP/Aspiration); Possible COPD; Leukocytosis.; Elevated D-dimer.; Hyponatremia; Elevated serum transaminases; Rhabdomyolysis Seen and examined at bedside; 24hour events reviewed; nursing and respiratory care staff consulted; no adverse overnight events reported to me; laying in bed; failed BIPAP with increased work of breathing, orally intubated yesterday ; Vitals, labs,medications, chart and imaging reviewed. Currently on Propofol and Fentanyl- Currently on full support AC-VC 30/450/PEEP 12/FIO2 65% ABG 7.30/55/60/27.5 Peak airway pressure <35 Has a condom cath on, has not made much urine with an increase in her creatinine Discussed in ICU-IDT rounds. Objective Vital Signs - 12hr 12/22/19 12/22/19 12/22/19 21:30 21:36 21:40 Temperature Pulse Rate 65 63 Pulse Rate [ 66 Anterior Bilateral] Respiratory 30 H Rate Respiratory 30 H Rate [Anterior Bilateral] Blood Pressure 120/61 120/61 O2 Sat by Pulse 98 96 Oximetry 12/22/19 12/22/19 12/22/19 22:00 22:17 22:31 Temperature Pulse Rate 66 63 79 Pulse Rate [ Anterior Bilateral] Respiratory 30 H 30 H Rate Respiratory Rate [Anterior Bilateral] Blood Pressure 121/56 121/56 105/63 O2 Sat by Pulse 92 98 Oximetry 12/22/19 12/22/19 12/22/19 23:00 23:30 23:58 Temperature 98.5 F Pulse Rate 65 69 Pulse Rate [ Anterior Bilateral] Respiratory 22 15 Rate Respiratory Rate [Anterior Bilateral] Blood Pressure 119/62 132/60 O2 Sat by Pulse 97 97 Oximetry 12/23/19 12/23/19 12/23/19 00:00 00:12 00:19 Temperature Pulse Rate 66 68 69 Pulse Rate [ Anterior Bilateral] Respiratory 28 H Rate Respiratory Rate [Anterior Bilateral] Blood Pressure 127/63 127/63 O2 Sat by Pulse 95 97 Oximetry 12/23/19 12/23/19 12/23/19 00:30 01:00 01:30 Temperature Pulse Rate 67 66 68 Pulse Rate [ Anterior Bilateral] Respiratory 31 H 27 H 30 H Rate Respiratory Rate [Anterior Bilateral] Blood Pressure 129/61 127/61 127/66 O2 Sat by Pulse 96 96 94 Oximetry 12/23/19 12/23/19 12/23/19 02:00 02:30 03:00 Temperature Pulse Rate 65 67 66 Pulse Rate [ Anterior Bilateral] Respiratory 30 H 30 H 24 Rate Respiratory Rate [Anterior Bilateral] Blood Pressure 123/63 121/65 117/64 O2 Sat by Pulse 95 95 96 Oximetry 12/23/19 12/23/19 12/23/19 03:30 04:00 04:07 Temperature 97.8 F Pulse Rate 67 68 66 Pulse Rate [ Anterior Bilateral] Respiratory 25 H 30 H Rate Respiratory Rate [Anterior Bilateral] Blood Pressure 120/67 124/65 O2 Sat by Pulse 96 93 Oximetry 12/23/19 12/23/19 12/23/19 04:30 05:00 05:30 Temperature Pulse Rate 70 68 67 Pulse Rate [ Anterior Bilateral] Respiratory 28 H 25 H 25 H Rate Respiratory Rate [Anterior Bilateral] Blood Pressure 127/68 125/65 131/68 O2 Sat by Pulse 96 95 93 Oximetry 12/23/19 12/23/19 12/23/19 06:00 06:09 06:30 Temperature Pulse Rate 65 67 Pulse Rate [ 64 Anterior Bilateral] Respiratory 30 H 30 H Rate Respiratory 30 H Rate [Anterior Bilateral] Blood Pressure 138/73 124/53 O2 Sat by Pulse 98 98 Oximetry 12/23/19 12/23/19 12/23/19 07:00 07:30 07:50 Temperature Pulse Rate 71 76 Pulse Rate [ Anterior Bilateral] Respiratory 31 H Rate Respiratory Rate [Anterior Bilateral] Blood Pressure 129/67 135/69 135/69 O2 Sat by Pulse 97 97 100 Oximetry 12/23/19 12/23/19 07:55 08:01 Temperature Pulse Rate 94 H 73 Pulse Rate [ Anterior Bilateral] Respiratory 20 Rate Respiratory Rate [Anterior Bilateral] Blood Pressure 135/69 138/57 O2 Sat by Pulse 99 Oximetry Constitutional: appears uncomfortable, other (elderly obese CM; normocephalicon MVS ETT at 23cm, no patient -ventilator dyssynchrony) Eyes: non-icteric ENT: oropharynx moist, other Neck: supple, no lymphadenopathy, no JVD, other (large neck circumference) Effort: mildly labored, very labored Ascultation: Bilateral: diminished breath sounds, rales Percussion: Bilateral: not dull Cardiovascular: regular rate and rhythm, other (S1,S2, no murmurs, gallops or rubs) Gastrointestinal: normoactive bowel sounds, soft, non-tender, non-distended (protuberant) Integumentary: normal, other (diaphoretic) Extremities: no cyanosis, no edema, pink and warm, pulses normal Neurologic: pupils equal and round, unable to assess (sedated) Psychiatric: other (unable to assess, sedated) CBC and BMP: 12/23/19 04:47 12/23/19 04:47 ABG, PT/INR, D-dimer: ABG ABG pH 7.354 pH Units (7.350-7.450) 12/23/19 05:50 ABG pCO2 58.0 mm Hg 12/23/19 05:50 ABG pO2 59.0 mm Hg (80.0-90.0) L 12/23/19 05:50 ABG O2 Saturation 89.2 % (95.0-99.0) L 12/23/19 05:50 PT/INR, D-dimer PT 13.9 Sec. (12.2-14.9) 12/18/19 15:28 INR 1.06 (0.87-1.13) 12/18/19 15:28 D-Dimer 2277.88 ng/mlDDU (0-234) H 12/18/19 10:30 Abnormal lab findings: Abnormal Labs 12/18/19 12/18/19 12/18/19 10:30 10:30 10:30 WBC 13.7 H RBC 5.06 H Hgb 15.4 H Hct MCHC 35 H Seg Neuts % (Manual) 82.0 H Lymphocytes % (Manual) 8.0 L Seg Neutrophils # Man 11.2 H Lymphocytes # (Manual) 1.1 L APTT D-Dimer 2277.88 H ABG pH ABG pO2 ABG HCO3 ABG O2 Saturation ABG Base Excess ABG Hemoglobin Oxyhemoglobin Sodium 122 L Chloride 80.6 L Carbon Dioxide 21 L BUN Creatinine Glucose 272 H POC Glucose Hemoglobin A1c Lactic Acid Calcium 7.8 L Phosphorus Magnesium Total Bilirubin 1.30 H AST 108 H Total Creatine Kinase CK-MB (CK-2) Albumin 3.1 L Urine WBC (Auto) Urine Creatinine 12/18/19 12/18/19 12/18/19 10:30 11:18 11:56 WBC RBC Hgb Hct MCHC Seg Neuts % (Manual) Lymphocytes % (Manual) Seg Neutrophils # Man Lymphocytes # (Manual) APTT D-Dimer ABG pH ABG pO2 ABG HCO3 ABG O2 Saturation ABG Base Excess ABG Hemoglobin Oxyhemoglobin Sodium Chloride Carbon Dioxide BUN Creatinine Glucose POC Glucose Hemoglobin A1c Lactic Acid 3.70 H* 2.40 H* Calcium Phosphorus Magnesium Total Bilirubin AST Total Creatine Kinase CK-MB (CK-2) Albumin Urine WBC (Auto) 58.0 H Urine Creatinine 12/18/19 12/18/19 12/18/19 12:05 12:06 13:18 WBC RBC Hgb Hct MCHC Seg Neuts % (Manual) Lymphocytes % (Manual) Seg Neutrophils # Man Lymphocytes # (Manual) APTT D-Dimer ABG pH 7.469 H ABG pO2 113.9 H ABG HCO3 ABG O2 Saturation ABG Base Excess ABG Hemoglobin 10.0 L Oxyhemoglobin Sodium Chloride Carbon Dioxide BUN Creatinine Glucose POC Glucose Hemoglobin A1c Lactic Acid 3.20 H* 2.50 H* Calcium Phosphorus Magnesium Total Bilirubin AST Total Creatine Kinase CK-MB (CK-2) Albumin Urine WBC (Auto) Urine Creatinine 12/18/19 12/19/19 12/19/19 15:28 10:50 11:12 WBC RBC Hgb Hct MCHC Seg Neuts % (Manual) Lymphocytes % (Manual) Seg Neutrophils # Man Lymphocytes # (Manual) APTT 72.2 H* D-Dimer ABG pH ABG pO2 55.6 L ABG HCO3 19.5 L ABG O2 Saturation 88.8 L ABG Base Excess -4.7 L ABG Hemoglobin Oxyhemoglobin 87.0 L Sodium Chloride Carbon Dioxide BUN Creatinine Glucose POC Glucose 257 H Hemoglobin A1c Lactic Acid Calcium Phosphorus Magnesium Total Bilirubin AST Total Creatine Kinase CK-MB (CK-2) Albumin Urine WBC (Auto) Urine Creatinine 12/19/19 12/19/19 12/20/19 12:04 12:04 08:20 WBC RBC Hgb Hct MCHC Seg Neuts % (Manual) Lymphocytes % (Manual) Seg Neutrophils # Man Lymphocytes # (Manual) APTT D-Dimer ABG pH ABG pO2 59.7 L ABG HCO3 19.9 L ABG O2 Saturation 90.2 L ABG Base Excess -4.9 L ABG Hemoglobin Oxyhemoglobin 88.5 L Sodium 131 L D Chloride 91.3 L Carbon Dioxide 18 L BUN Creatinine Glucose 290 H POC Glucose Hemoglobin A1c Lactic Acid 2.50 H* Calcium 7.9 L Phosphorus Magnesium Total Bilirubin AST 123 H Total Creatine Kinase 3873 H CK-MB (CK-2) 8.7 H Albumin 2.4 L Urine WBC (Auto) Urine Creatinine 12/20/19 12/20/19 12/20/19 09:56 09:56 09:56 WBC 17.7 H RBC 5.24 H Hgb 15.7 H Hct 46.7 H D MCHC Seg Neuts % (Manual) 88.0 H Lymphocytes % (Manual) 8.0 L Seg Neutrophils # Man 15.6 H Lymphocytes # (Manual) APTT D-Dimer ABG pH ABG pO2 ABG HCO3 ABG O2 Saturation ABG Base Excess ABG Hemoglobin Oxyhemoglobin Sodium 135 L Chloride 96.6 L Carbon Dioxide 13 L BUN 38 H Creatinine Glucose 382 H POC Glucose Hemoglobin A1c Lactic Acid Calcium Phosphorus Magnesium 3.10 H Total Bilirubin AST Total Creatine Kinase CK-MB (CK-2) Albumin Urine WBC (Auto) Urine Creatinine 12/20/19 12/20/19 12/20/19 10:27 12:57 15:20 WBC RBC Hgb Hct MCHC Seg Neuts % (Manual) Lymphocytes % (Manual) Seg Neutrophils # Man Lymphocytes # (Manual) APTT D-Dimer ABG pH 7.217 L 7.247 L ABG pO2 75.4 L 93.3 H ABG HCO3 ABG O2 Saturation 92.1 L ABG Base Excess -7.4 L -6.1 L ABG Hemoglobin Oxyhemoglobin 90.4 L 94.3 L Sodium Chloride Carbon Dioxide BUN Creatinine Glucose POC Glucose 350 H Hemoglobin A1c Lactic Acid Calcium Phosphorus Magnesium Total Bilirubin AST Total Creatine Kinase CK-MB (CK-2) Albumin Urine WBC (Auto) Urine Creatinine 12/20/19 12/20/19 12/20/19 16:44 18:22 20:47 WBC RBC Hgb Hct MCHC Seg Neuts % (Manual) Lymphocytes % (Manual) Seg Neutrophils # Man Lymphocytes # (Manual) APTT D-Dimer ABG pH ABG pO2 ABG HCO3 ABG O2 Saturation ABG Base Excess ABG Hemoglobin Oxyhemoglobin Sodium Chloride Carbon Dioxide BUN Creatinine Glucose POC Glucose 401 H 371 H 412 H Hemoglobin A1c Lactic Acid Calcium Phosphorus Magnesium Total Bilirubin AST Total Creatine Kinase CK-MB (CK-2) Albumin Urine WBC (Auto) Urine Creatinine 12/21/19 12/21/19 12/21/19 00:14 04:40 05:13 WBC RBC Hgb Hct MCHC Seg Neuts % (Manual) Lymphocytes % (Manual) Seg Neutrophils # Man Lymphocytes # (Manual) APTT D-Dimer ABG pH 7.308 L ABG pO2 60.8 L ABG HCO3 27.3 H ABG O2 Saturation 90.1 L ABG Base Excess ABG Hemoglobin 12.6 L Oxyhemoglobin 88.3 L Sodium Chloride Carbon Dioxide BUN Creatinine Glucose POC Glucose 392 H 333 H Hemoglobin A1c Lactic Acid Calcium Phosphorus Magnesium Total Bilirubin AST Total Creatine Kinase CK-MB (CK-2) Albumin Urine WBC (Auto) Urine Creatinine 12/21/19 12/21/19 12/21/19 12:39 18:11 23:45 WBC RBC Hgb Hct MCHC Seg Neuts % (Manual) Lymphocytes % (Manual) Seg Neutrophils # Man Lymphocytes # (Manual) APTT D-Dimer ABG pH ABG pO2 ABG HCO3 ABG O2 Saturation ABG Base Excess ABG Hemoglobin Oxyhemoglobin Sodium Chloride Carbon Dioxide BUN Creatinine Glucose POC Glucose 327 H 309 H 286 H Hemoglobin A1c Lactic Acid Calcium Phosphorus Magnesium Total Bilirubin AST Total Creatine Kinase CK-MB (CK-2) Albumin Urine WBC (Auto) Urine Creatinine 12/21/19 12/21/19 12/21/19 Unknown Unknown Unknown WBC 12.3 H RBC Hgb Hct MCHC Seg Neuts % (Manual) 93.0 H Lymphocytes % (Manual) 5.0 L Seg Neutrophils # Man 11.4 H Lymphocytes # (Manual) 0.6 L APTT D-Dimer ABG pH ABG pO2 ABG HCO3 ABG O2 Saturation ABG Base Excess ABG Hemoglobin Oxyhemoglobin Sodium Chloride Carbon Dioxide 21 L D BUN 73 H Creatinine 2.2 H D Glucose 361 H POC Glucose Hemoglobin A1c 10.0 H Lactic Acid Calcium 7.9 L Phosphorus Magnesium Total Bilirubin AST Total Creatine Kinase CK-MB (CK-2) Albumin Urine WBC (Auto) Urine Creatinine 12/22/19 12/22/19 12/22/19 05:24 06:29 07:16 WBC RBC Hgb Hct MCHC Seg Neuts % (Manual) Lymphocytes % (Manual) Seg Neutrophils # Man Lymphocytes # (Manual) APTT D-Dimer ABG pH ABG pO2 93.7 H ABG HCO3 30.4 H ABG O2 Saturation ABG Base Excess 4.4 H ABG Hemoglobin 12.8 L Oxyhemoglobin Sodium Chloride Carbon Dioxide BUN 111 H Creatinine 3.2 H Glucose 340 H POC Glucose 275 H Hemoglobin A1c Lactic Acid Calcium 8.1 L Phosphorus Magnesium Total Bilirubin AST Total Creatine Kinase CK-MB (CK-2) Albumin Urine WBC (Auto) Urine Creatinine 12/22/19 12/22/19 12/22/19 11:27 12:58 15:30 WBC RBC Hgb Hct MCHC Seg Neuts % (Manual) Lymphocytes % (Manual) Seg Neutrophils # Man Lymphocytes # (Manual) APTT D-Dimer ABG pH ABG pO2 ABG HCO3 ABG O2 Saturation ABG Base Excess ABG Hemoglobin Oxyhemoglobin Sodium Chloride Carbon Dioxide BUN Creatinine Glucose POC Glucose 345 H Hemoglobin A1c Lactic Acid Calcium Phosphorus 5.10 H Magnesium 3.90 H Total Bilirubin AST Total Creatine Kinase CK-MB (CK-2) Albumin Urine WBC (Auto) Urine Creatinine 80.5 H 12/22/19 12/23/19 12/23/19 17:54 00:30 04:47 WBC RBC Hgb Hct MCHC Seg Neuts % (Manual) Lymphocytes % (Manual) Seg Neutrophils # Man Lymphocytes # (Manual) APTT D-Dimer ABG pH ABG pO2 ABG HCO3 ABG O2 Saturation ABG Base Excess ABG Hemoglobin Oxyhemoglobin Sodium 146 H Chloride Carbon Dioxide BUN 107 H Creatinine 2.5 H Glucose 278 H POC Glucose 308 H 228 H Hemoglobin A1c Lactic Acid Calcium 7.7 L Phosphorus Magnesium Total Bilirubin AST Total Creatine Kinase CK-MB (CK-2) Albumin Urine WBC (Auto) Urine Creatinine 12/23/19 12/23/19 12/23/19 04:47 05:50 06:06 WBC 12.0 H RBC Hgb Hct MCHC Seg Neuts % (Manual) 82.0 H Lymphocytes % (Manual) 12.0 L Seg Neutrophils # Man 9.8 H Lymphocytes # (Manual) APTT D-Dimer ABG pH ABG pO2 59.0 L ABG HCO3 31.6 H ABG O2 Saturation 89.2 L ABG Base Excess 4.5 H ABG Hemoglobin 13.5 L Oxyhemoglobin 87.2 L Sodium Chloride Carbon Dioxide BUN Creatinine Glucose POC Glucose 263 H Hemoglobin A1c Lactic Acid Calcium Phosphorus Magnesium Total Bilirubin AST Total Creatine Kinase CK-MB (CK-2) Albumin Urine WBC (Auto) Urine Creatinine Allied health notes reviewed: RT
[2019-12-23] MEDS ORDERED: predniSONE 20 MG TAB PO SCH ×2 (10:00→13:00)
[2019-12-23] MEDS: NICOTINE 21 MG/24 HR PATCH TD SCH (12:42)
[2019-12-23] MEDS: QUEtiapine 100 MG TAB PO SCH ×2 (12:43→22:00)
[2019-12-23] MEDS: FAMOTIDINE 20 MG/2 ML INJ IV SCH (12:43)
--- NOTE | 2019-12-23 15:52 | Progress Note ---
Assessment and Plan AYSE (Acute Kidney Injury) - Worsened BUN/Cr from 19/1.1 on admission to 107/2.5 today. Lytes - F/u Na closely, free water flushes PNGT, May change TF to low Na formula if necessary Rhabdo - F/u CPK on IVF. Check UA/Micro to coonfirm Rhabdo Resp Failure - Vent Mx per Pulm Subjective Date of service: 12/23/19 Principal diagnosis: Ac hypoxemic resp failure; ARDS; Rodrigue pneumonia; Severe Sepsis; Rhabdomyolys Objective - Vital Signs Vital signs: Vital Signs - 12hr 12/23/19 12/23/19 12/23/19 04:00 04:07 04:30 Temperature 97.8 F Pulse Rate 68 66 70 Pulse Rate [ Anterior Bilateral] Pulse Rate [ From Monitor] Respiratory 30 H 28 H Rate Respiratory Rate [Anterior Bilateral] Blood Pressure 124/65 127/68 O2 Sat by Pulse 93 96 Oximetry 12/23/19 12/23/19 12/23/19 05:00 05:30 06:00 Temperature Pulse Rate 68 67 65 Pulse Rate [ Anterior Bilateral] Pulse Rate [ 68 From Monitor] Respiratory 30 H 25 H 30 H Rate Respiratory Rate [Anterior Bilateral] Blood Pressure 125/65 131/68 138/73 O2 Sat by Pulse 95 93 98 Oximetry 12/23/19 12/23/19 12/23/19 06:09 06:30 07:00 Temperature Pulse Rate 67 Pulse Rate [ 64 Anterior Bilateral] Pulse Rate [ From Monitor] Respiratory 30 H Rate Respiratory 30 H Rate [Anterior Bilateral] Blood Pressure 124/53 129/67 O2 Sat by Pulse 98 97 Oximetry 12/23/19 12/23/19 12/23/19 07:30 07:50 07:55 Temperature Pulse Rate 71 76 94 H Pulse Rate [ Anterior Bilateral] Pulse Rate [ From Monitor] Respiratory 31 H Rate Respiratory Rate [Anterior Bilateral] Blood Pressure 135/69 135/69 135/69 O2 Sat by Pulse 97 100 Oximetry 12/23/19 12/23/19 12/23/19 08:00 08:01 09:19 Temperature 99.6 F Pulse Rate 73 Pulse Rate [ 61 Anterior Bilateral] Pulse Rate [ From Monitor] Respiratory 20 Rate Respiratory 30 H Rate [Anterior Bilateral] Blood Pressure 138/57 O2 Sat by Pulse 99 Oximetry 12/23/19 12/23/19 12/23/19 12:00 12:35 15:10 Temperature 98.0 F Pulse Rate 78 76 Pulse Rate [ Anterior Bilateral] Pulse Rate [ From Monitor] Respiratory Rate Respiratory Rate [Anterior Bilateral] Blood Pressure 113/56 137/66 O2 Sat by Pulse 90 Oximetry - General Appearance General appearance: sedated on ventilator Respiratory: Present: Other (Air entry per vent) Cardiology: regular, S1S2 Gastrointestinal: obese, other (Soft) - Lab 12/23/19 04:47 12/23/19 04:47 Most recent lab results ABG pH 7.354 pH Units (7.350-7.450) 12/23/19 05:50 ABG pCO2 58.0 mm Hg 12/23/19 05:50 ABG pO2 59.0 mm Hg (80.0-90.0) L 12/23/19 05:50 ABG HCO3 31.6 mmol/L (20.0-26.0) H 12/23/19 05:50 ABG O2 Saturation 89.2 % (95.0-99.0) L 12/23/19 05:50 Calcium 7.7 mg/dL (8.4-10.2) L 12/23/19 04:47 Phosphorus 5.10 mg/dL (2.5-4.5) H 12/22/19 11:27 Magnesium 3.90 mg/dL (1.7-2.3) H 12/22/19 11:27 Urine Creatinine 80.5 mg/dL (0.1-20.0) H 12/22/19 15:30 Urine Sodium 23 mmol/L 12/22/19 15:30 Medications & Allergies - Medications Allergies/Adverse Reactions: Allergies Penicillins Allergy (Verified 12/18/19 22:48) Anaphylaxis VERIFIED WITH PT AND NURSE Home Medications: Home Medications Medication Instructions Recorded Confirmed Last Taken Type No Known Home Medications [No 12/19/19 12/19/19 Unknown History Reported Home Medications] Active Medications: Generic Name Dose Route Start Last Admin Trade Name Freq PRN Reason Stop Dose Admin Acetaminophen 650 mg 12/18/19 21:26 Tylenol PO Q4H PRN Pain MILD(1-3)/Fever >100.5/CHAUDHRY Albuterol 2.5 mg 12/18/19 21:34 Proventil IH Q4HRT PRN Shortness Of Breath Albuterol/Ipratropium 1 ampul 12/18/19 20:45 12/23/19 14:33 Duoneb *Not For Prn Use* IH 1 ampul Q6HRT MARIAN Administration Lipase/Protease/Amylase 1 each 12/20/19 18:25 Elidia Welch 10,500 Unit FEEDTUBE PRN PRN For Clogged Feeding Tube Arformoterol Tartrate 15 mcg 12/19/19 20:00 12/23/19 07:59 Brovana Nebu IH 15 mcg Q12HRT MARIAN Administration Budesonide 0.5 mg 12/19/19 20:00 12/23/19 07:59 Pulmicort IH 0.5 mg Q12HRT MARIAN Administration Enoxaparin Sodium 30 mg 12/21/19 22:00 12/22/19 22:17 Enoxaparin SUB-Q 30 mg QDAY@2200 MARIAN Administration Famotidine 20 mg 12/21/19 10:00 12/23/19 12:43 Pepcid IV 20 mg DAILY MARIAN Administration Fentanyl 50 mcg 12/20/19 12:12 Sublimaze IV Q10MIN PRN ANALGESIA Hydralazine HCl 25 mg 12/19/19 14:00 12/23/19 15:10 Apresoline PO 25 mg Q8HR MARIAN Administration Hydromorphone HCl 0.5 mg 12/18/19 21:26 Dilaudid IV Q3H PRN Pain , Severe (7-10) Hydrophilic Ointment 1 applic 12/20/19 12:12 Vaseline Lip Therapy TP Q2HR PRN Dry Lips Fentanyl Citrate 2,000 mcg in 100 mls @ 5.434 mls/hr 12/20/19 13:00 12/23/19 12:21 Fentanyl Drip Premix IV 3 mcg/kg/hr TITR MARIAN 16.302 mls/hr Administration Protocol 1 MCG/KG/HR Propofol 1,000 mg in 100 mls @ 3.26 mls/hr 12/20/19 13:00 12/22/19 15:30 Diprivan 10 Mg/Ml IV 0 mcg/kg/min TITR MARIAN 0 mls/hr Titration Protocol 5 MCG/KG/MIN Levofloxacin/Dextrose 750 mg in 150 mls @ 100 mls/hr 12/22/19 10:00 12/22/19 09:53 Levaquin 750mg/150ml IV 100 mls/hr Q48HR MARIAN Administration Protocol Sodium Chloride 1,000 mls @ 75 mls/hr 12/22/19 18:00 12/22/19 17:45 Nacl 0.45% 1000 Ml IV 75 mls/hr DIRECT MARIAN Administration Insulin Glargine 15 units 12/22/19 22:00 12/22/19 22:18 Lantus SUB-Q 15 units QHS MARIAN Administration Insulin Human Lispro 0 unit 12/20/19 16:00 12/23/19 12:55 Humalog SUB-Q 4 unit Q6HR MARIAN Administration Protocol Metoclopramide HCl 10 mg 12/18/19 21:26 Reglan IV Q6H PRN Nausea And Vomiting Multi-Ingred Cream/Lotion/Oil/Oint 1 applic 12/20/19 12:12 Artificial Tears Ophth Oint OU Q4HR PRN Dry Eye(s) Nicotine 21 mg 12/20/19 10:00 12/23/19 12:42 Habitrol TD 21 mg QDAY MARIAN Administration Ondansetron HCl 4 mg 12/18/19 21:26 Zofran IV Q3H PRN Nausea And Vomiting Oxycodone/Acetaminophen 1 tab 12/18/19 21:26 Percocet 5/325 PO Q6H PRN Pain, Moderate (4-6) Prednisone 30 mg 12/24/19 10:00 Deltasone PO 12/24/19 10:01 [facility]DAY [facility] Prednisone 20 mg 12/25/19 10:00 Deltasone PO 12/25/19 10:01 QDAY [facility] Prednisone 10 mg 12/26/19 10:00 Deltasone PO 12/26/19 10:01 QDAY [facility] Prednisone 5 mg 12/27/19 10:00 Deltasone PO 12/27/19 10:01 QDAY [facility] Quetiapine Fumarate 100 mg 12/22/19 11:00 12/23/19 12:43 Seroquel PO 100 mg BID MARIAN Administration Simple Syrup 15 ml 12/20/19 18:25 Simple Syrup FEEDTUBE PRN PRN Hypoglycemia Simple Syrup 30 ml 12/20/19 18:25 Simple Syrup FEEDTUBE PRN PRN Hypoglycemia Sodium Bicarbonate 325 mg 12/20/19 18:25 Sodium Bicarbonate FEEDTUBE PRN PRN For Clogged Feeding Tube Sodium Chloride 10 ml 12/18/19 22:00 12/23/19 12:43 Sodium Chloride Flush Syringe 10 Ml IV 10 ml BID MARIAN Administration Sodium Chloride 10 ml 12/18/19 21:26 12/19/19 06:55 Sodium Chloride Flush Syringe 10 Ml IV 10 ml PRN PRN Administration LINE FLUSH
--- NOTE | 2019-12-23 17:01 | Progress Note ---
Assessment and Plan Critical care time 35 minutes hypernatremia; present on admission IV fluids changed to D5W AYSE IV fluids for now in the form of D5W Acute respiratory failure with hypoxia Current Visit: Yes Status: Acute Patient intubated oxygen titrate O2 sats to more than 90% Nebulizers IV steroids antibiotics Pulmonary critical following Weaning in progress -- COPD with acute exacerbation Current Visit: Yes Status: Acute Continue duo nebs, IV steroids and IV antibiotics --Metabolic encephalopathy Patient intubated --left lower lobe pneumonia Current Visit: Yes Status: Acute Community-acquired pneumonia On Levaquin and Vanco Follow cultures and supportive care --Leukocytosis/lactic acidosis sepsis secondary to pneumonia --Sepsis secondary to pneumonia; Improving --Hypertension; Controlled -- --tobacco use: Smoking cessation on Nicoderm patch --Severe protein calorie malnutrition Current Visit: Yes Status: Chronic nutrition supplements and supportive care --DVT prophylaxis Current Visit: Yes Status: Acute On Heparin and GI prophylaxis --Tube feeding per protocol Subjective Date of service: 12/23/19 Principal diagnosis: Ac hypoxemic resp failure; ARDS; Rodrigue pneumonia; Severe Sepsis; Rhabdomyolys Interval history: Patient intubated secondary to severe respiratory distress and hypoxia 59 years old male with no known past medical history brought to the emergency room by his son for evaluation of 5-day history of shortness of breath, cough, productive with greenish sputum associated with sweating at night. Patient stated that symptoms started with runny nose and congestion first. Patient found to be in respiratory distress with respiratory rate of 34 and oxygen saturation of 76% on room air patient improved to 92% on nasal cannula 4 L. Sepsis protocol initiated. Patient intubated Weaning in progress Objective - Constitutional Vitals: Vital Signs - 12hr 12/23/19 12/23/19 12/23/19 05:30 06:00 06:09 Temperature Pulse Rate 67 65 Pulse Rate [ 64 Anterior Bilateral] Respiratory 25 H 30 H Rate Respiratory 30 H Rate [Anterior Bilateral] Blood Pressure 131/68 138/73 O2 Sat by Pulse 93 98 Oximetry 12/23/19 12/23/19 12/23/19 06:30 07:00 07:30 Temperature Pulse Rate 67 71 Pulse Rate [ Anterior Bilateral] Respiratory 30 H 31 H Rate Respiratory Rate [Anterior Bilateral] Blood Pressure 124/53 129/67 135/69 O2 Sat by Pulse 98 97 97 Oximetry 0312/23/19 12/23/19 07:50 07:55 08:00 Temperature 99.6 F Pulse Rate 76 94 H 82 Pulse Rate [ Anterior Bilateral] Respiratory Rate Respiratory Rate [Anterior Bilateral] Blood Pressure 135/69 135/69 O2 Sat by Pulse 100 Oximetry 12/23/19 12/23/19 12/23/19 08:01 09:19 12:00 Temperature 98.0 F Pulse Rate 73 76 Pulse Rate [ 61 Anterior Bilateral] Respiratory 20 Rate Respiratory 30 H Rate [Anterior Bilateral] Blood Pressure 138/57 O2 Sat by Pulse 99 Oximetry 12/23/19 12/23/19 12/23/19 12:35 15:00 15:10 Temperature Pulse Rate 78 76 Pulse Rate [ 74 Anterior Bilateral] Respiratory Rate Respiratory 30 H Rate [Anterior Bilateral] Blood Pressure 113/56 137/66 O2 Sat by Pulse 90 Oximetry 12/23/19 12/23/19 16:00 16:53 Temperature Pulse Rate 84 68 Pulse Rate [ Anterior Bilateral] Respiratory Rate Respiratory Rate [Anterior Bilateral] Blood Pressure 132/64 O2 Sat by Pulse 99 Oximetry General appearance: Present: mild distress, well-nourished - EENT Eyes: PERRL, EOM intact ENT: hearing intact, clear oral mucosa Ears: bilateral: normal - Neck Neck: supple, normal ROM - Respiratory Respiratory effort: normal Respiratory: bilateral: CTA, rhonchi, wheezing - Breasts Breasts: normal - Cardiovascular Heart rate: 80 Rhythm: regular Heart Sounds: Present: S1 & S2. Absent: gallop, rub Extremities: pulses intact, No edema, normal color, Full ROM - Gastrointestinal General gastrointestinal: Present: soft, non-tender, non-distended, normal bowel sounds - Genitourinary Male genitourinary: normal - Integumentary Integumentary: clear, warm, dry - Musculoskeletal Musculoskeletal: generalized weakness - Neurologic Neurologic: moves all extremities - Psychiatric Psychiatric: memory intact, appropriate mood/affect, intact judgment & insight - Allied health notes Allied health notes reviewed: nursing, case management - Labs CBC & Chem 7: 12/24/19 00:37 12/24/19 00:37 Labs: Abnormal lab results 12/22/19 12/23/19 12/23/19 Range/Units 17:54 00:30 04:47 WBC (4.5-11.0) K/mm3 Seg Neuts % (Manual) (40.0-70.0) % Lymphocytes % (Manual) (13.4-35.0) % Seg Neutrophils # Man (1.8-7.7) K/mm3 ABG pO2 (80.0-90.0) mm Hg ABG HCO3 (20.0-26.0) mmol/L ABG O2 Saturation (95.0-99.0) % ABG Base Excess (-2.0-3.0) mmol/L ABG Hemoglobin (14.0-18.0) gm/dl Oxyhemoglobin (95.0-99.0) % Sodium 146 H (137-145) mmol/L BUN 107 H (9-20) mg/dL Creatinine 2.5 H (0.8-1.5) mg/dL Glucose 278 H (75-100) mg/dL POC Glucose 308 H 228 H (70-105) Calcium 7.7 L (8.4-10.2) mg/dL 12/23/19 12/23/19 12/23/19 Range/Units 04:47 05:50 06:06 WBC 12.0 H (4.5-11.0) K/mm3 Seg Neuts % (Manual) 82.0 H (40.0-70.0) % Lymphocytes % (Manual) 12.0 L (13.4-35.0) % Seg Neutrophils # Man 9.8 H (1.8-7.7) K/mm3 ABG pO2 59.0 L (80.0-90.0) mm Hg ABG HCO3 31.6 H (20.0-26.0) mmol/L ABG O2 Saturation 89.2 L (95.0-99.0) % ABG Base Excess 4.5 H (-2.0-3.0) mmol/L ABG Hemoglobin 13.5 L (14.0-18.0) gm/dl Oxyhemoglobin 87.2 L (95.0-99.0) % Sodium (137-145) mmol/L BUN (9-20) mg/dL Creatinine (0.8-1.5) mg/dL Glucose (75-100) mg/dL POC Glucose 263 H (70-105) Calcium (8.4-10.2) mg/dL 12/23/19 Range/Units 12:58 WBC (4.5-11.0) K/mm3 Seg Neuts % (Manual) (40.0-70.0) % Lymphocytes % (Manual) (13.4-35.0) % Seg Neutrophils # Man (1.8-7.7) K/mm3 ABG pO2 (80.0-90.0) mm Hg ABG HCO3 (20.0-26.0) mmol/L ABG O2 Saturation (95.0-99.0) % ABG Base Excess (-2.0-3.0) mmol/L ABG Hemoglobin (14.0-18.0) gm/dl Oxyhemoglobin (95.0-99.0) % Sodium (137-145) mmol/L BUN (9-20) mg/dL Creatinine (0.8-1.5) mg/dL Glucose (75-100) mg/dL POC Glucose 206 H (70-105) Calcium (8.4-10.2) mg/dL
[2019-12-23 18:20] LABS: ABG Base Excess 4.7 mmol/L (-2.0-3.0); ABG HCO3 31.6 mmol/L (20.0-26.0); ABG Methemoglobin 0.8 % (0.0-1.5); ABG Oxygen Saturation 95.9 % (95.0-99.0); ABG PCO2 57.2 mm Hg; ABG PH 7.36 pH Units (7.350-7.450)
[2019-12-23] MEDS: ENOXAPARIN 30 MG/0.3 ML INJ SUB-Q SCH (21:59)
[2019-12-23] MEDS: INSULIN GLARGINE 100 UNITS/ML SUB-Q SCH (22:01)
[2019-12-23] MEDS: SODIUM CHLORIDE 0.45% 1000 ML 1,000 ML IV SCH (23:21)
[2019-12-24 00:56] LABS: Hematocrit 38.4 % (35.5-45.6); Hemoglobin 12.7 gm/dl (11.8-15.2); Mean Corpuscular HGB Conc 33 % (32-34); Mean Corpuscular Volume 91 fl (84-94); Platelet Count 262 K/mm3 (140-440); Red Blood Count 4.22 M/mm3 (3.65-5.03); Red Cell Distribution Width 14.6 % (13.2-15.2)
[2019-12-24 01:17] LABS: Calcium 7.5 mg/dL (8.4-10.2)
[2019-12-24] MEDS: IPRATROPIUM/ALBUTEROL SULFATE 3 ML AMPUL.NEB IH SCH ×4 (03:34→20:59)
[2019-12-24 04:08] LABS: Band Neutrophils # (Manual) 0.2 K/mm3; Basophils % (Manual) 0 % (0.0-1.8); Myelocytes # (Manual) 0.1 K/mm3; Platelet Estimate Consistent w Auto; RBC Morphology Normal; Total Cells Counted 100
[2019-12-24 05:46] LABS: ABG Base Excess 5.2 mmol/L (-2.0-3.0); ABG HCO3 31.6 mmol/L (20.0-26.0); ABG Methemoglobin 0.7 % (0.0-1.5); ABG Oxygen Saturation 95.1 % (95.0-99.0); ABG PCO2 53.8 mm Hg; ABG PH 7.386 pH Units (7.350-7.450); ABG PO2 72.2 mm Hg (80.0-90.0)
[2019-12-24] MEDS: fentaNYL DRIP Premix 2,000 MCG/100 ML BAG IV SCH ×3 (05:57→22:59)
[2019-12-24] MEDS: hydrALAZINE 25 MG TAB PO SCH ×3 (05:59→21:42)
[2019-12-24] MEDS: INSULIN LISPRO 100 UNIT/ML SUB-Q SCH ×4 (06:27→23:44)
[2019-12-24] MEDS: ARFORMOTEROL 15 MCG/2 ML NEBU IH SCH ×2 (08:04→20:59)
[2019-12-24] MEDS: BUDESONIDE 0.5 MG/2 ML NEBU IH SCH ×2 (08:04→20:59)
[2019-12-24] MEDS ORDERED: VANCOMYCIN 1,500 MG in SODIUM CHLORIDE 0.9% 500 ML 500 ML IV SCH (09:00)
--- NOTE | 2019-12-24 09:00 | Progress Note ---
Assessment and Plan Critical care time 35 minutes hypernatremia; present on admission IV fluids changed to D5W AYSE IV fluids for now in the form of D5W Acute respiratory failure with hypoxia Current Visit: Yes Status: Acute Patient intubated oxygen titrate O2 sats to more than 90% Nebulizers IV steroids antibiotics Pulmonary critical following Weaning in progress -- COPD with acute exacerbation Current Visit: Yes Status: Acute Continue duo nebs, IV steroids and IV antibiotics --Metabolic encephalopathy Patient intubated --left lower lobe pneumonia Current Visit: Yes Status: Acute Community-acquired pneumonia On Levaquin and Vanco Follow cultures and supportive care --Leukocytosis/lactic acidosis sepsis secondary to pneumonia --Sepsis secondary to pneumonia; Improving --Hypertension; Controlled -- --tobacco use: Smoking cessation on Nicoderm patch --Severe protein calorie malnutrition Current Visit: Yes Status: Chronic nutrition supplements and supportive care --DVT prophylaxis Current Visit: Yes Status: Acute On Heparin and GI prophylaxis --Tube feeding per protocol Subjective Date of service: 12/24/19 Principal diagnosis: Ac hypoxemic resp failure; ARDS; Rodrigue pneumonia; Severe Sepsis; Rhabdomyolys Interval history: Patient intubated secondary to severe respiratory distress and hypoxia 59 years old male with no known past medical history brought to the emergency room by his son for evaluation of 5-day history of shortness of breath, cough, productive with greenish sputum associated with sweating at night. Patient stated that symptoms started with runny nose and congestion first. Patient found to be in respiratory distress with respiratory rate of 34 and oxygen saturation of 76% on room air patient improved to 92% on nasal cannula 4 L. Sepsis protocol initiated. Patient intubated Weaning in progress Objective - Exam Narrative Exam: Critical care time--45 minutes Patient is intubated - Constitutional Vitals: Vital Signs - 12hr 12/23/19 12/23/19 12/23/19 20:00 20:11 20:19 Temperature Pulse Rate 67 67 66 Pulse Rate [ Anterior Bilateral] Pulse Rate [ 69 From Monitor] Respiratory 30 H 30 H Rate Respiratory Rate [Anterior Bilateral] Respiratory Rate [ Generalized] Blood Pressure 129/60 129/60 129/60 O2 Sat by Pulse 95 95 94 Oximetry 12/23/19 12/23/19 12/23/19 20:21 20:26 20:31 Temperature Pulse Rate 67 89 Pulse Rate [ 80 Anterior Bilateral] Pulse Rate [ From Monitor] Respiratory 30 H 18 Rate Respiratory 31 H Rate [Anterior Bilateral] Respiratory Rate [ Generalized] Blood Pressure 129/60 129/60 O2 Sat by Pulse 94 96 Oximetry 12/23/19 12/23/19 12/23/19 20:41 20:51 20:55 Temperature 99.7 F H Pulse Rate 94 H 94 H Pulse Rate [ Anterior Bilateral] Pulse Rate [ From Monitor] Respiratory 30 H 30 H Rate Respiratory Rate [Anterior Bilateral] Respiratory Rate [ Generalized] Blood Pressure 173/75 173/75 O2 Sat by Pulse 92 92 Oximetry 12/23/19 12/23/19 12/23/19 21:01 21:30 21:58 Temperature Pulse Rate 78 71 68 Pulse Rate [ Anterior Bilateral] Pulse Rate [ From Monitor] Respiratory 27 H 28 H 29 H Rate Respiratory Rate [Anterior Bilateral] Respiratory Rate [ Generalized] Blood Pressure 132/62 136/60 136/60 O2 Sat by Pulse 93 93 94 Oximetry 12/23/19 12/23/19 12/23/19 21:59 22:00 22:08 Temperature Pulse Rate 68 70 67 Pulse Rate [ Anterior Bilateral] Pulse Rate [ From Monitor] Respiratory 24 30 H Rate Respiratory Rate [Anterior Bilateral] Respiratory Rate [ Generalized] Blood Pressure 136/60 136/60 O2 Sat by Pulse 94 94 Oximetry 12/23/19 12/23/19 12/23/19 22:30 23:00 23:30 Temperature Pulse Rate 70 69 66 Pulse Rate [ Anterior Bilateral] Pulse Rate [ From Monitor] Respiratory 30 H 30 H 30 H Rate Respiratory Rate [Anterior Bilateral] Respiratory 30 H Rate [ Generalized] Blood Pressure 137/62 128/65 129/62 O2 Sat by Pulse 95 95 93 Oximetry 12/23/19 12/24/19 12/24/19 23:43 00:00 00:15 Temperature 99.1 F 99.1 F Pulse Rate 67 63 Pulse Rate [ Anterior Bilateral] Pulse Rate [ 66 From Monitor] Respiratory 30 H Rate Respiratory Rate [Anterior Bilateral] Respiratory Rate [ Generalized] Blood Pressure 130/61 130/61 O2 Sat by Pulse 93 94 Oximetry 12/24/19 12/24/19 12/24/19 00:30 01:00 01:30 Temperature Pulse Rate 64 64 66 Pulse Rate [ Anterior Bilateral] Pulse Rate [ From Monitor] Respiratory 13 29 H 23 Rate Respiratory Rate [Anterior Bilateral] Respiratory Rate [ Generalized] Blood Pressure 136/63 135/60 141/63 O2 Sat by Pulse 93 95 94 Oximetry 12/24/19 12/24/19 12/24/19 03:00 03:30 03:34 Temperature Pulse Rate 65 66 Pulse Rate [ 65 Anterior Bilateral] Pulse Rate [ From Monitor] Respiratory 30 H 22 Rate Respiratory 30 H Rate [Anterior Bilateral] Respiratory Rate [ Generalized] Blood Pressure 133/60 135/59 O2 Sat by Pulse 94 94 Oximetry 12/24/19 12/24/19 12/24/19 04:00 04:20 04:30 Temperature 98.1 F Pulse Rate 64 62 Pulse Rate [ Anterior Bilateral] Pulse Rate [ From Monitor] Respiratory 15 24 Rate Respiratory Rate [Anterior Bilateral] Respiratory Rate [ Generalized] Blood Pressure 136/59 140/61 O2 Sat by Pulse 94 94 Oximetry 12/24/19 12/24/19 12/24/19 05:00 05:26 05:30 Temperature Pulse Rate 67 63 70 Pulse Rate [ Anterior Bilateral] Pulse Rate [ 64 From Monitor] Respiratory 30 H 30 H Rate Respiratory Rate [Anterior Bilateral] Respiratory Rate [ Generalized] Blood Pressure 159/72 153/64 152/70 O2 Sat by Pulse 94 93 93 Oximetry 12/24/19 12/24/19 12/24/19 05:59 06:00 06:31 Temperature Pulse Rate 66 64 79 Pulse Rate [ Anterior Bilateral] Pulse Rate [ From Monitor] Respiratory 16 19 Rate Respiratory Rate [Anterior Bilateral] Respiratory Rate [ Generalized] Blood Pressure 152/70 153/64 184/84 O2 Sat by Pulse 94 94 Oximetry 12/24/19 12/24/19 12/24/19 07:00 07:30 07:56 Temperature Pulse Rate 62 70 62 Pulse Rate [ Anterior Bilateral] Pulse Rate [ From Monitor] Respiratory 30 H 30 H Rate Respiratory Rate [Anterior Bilateral] Respiratory Rate [ Generalized] Blood Pressure 146/66 165/74 165/74 O2 Sat by Pulse 91 93 93 Oximetry 12/24/19 08:00 Temperature 100.8 F H Pulse Rate Pulse Rate [ 65 Anterior Bilateral] Pulse Rate [ From Monitor] Respiratory Rate Respiratory 14 Rate [Anterior Bilateral] Respiratory Rate [ Generalized] Blood Pressure O2 Sat by Pulse Oximetry General appearance: Present: no acute distress, well-nourished - EENT Eyes: PERRL, EOM intact ENT: hearing intact, clear oral mucosa Ears: bilateral: normal - Neck Neck: supple, normal ROM - Respiratory Respiratory effort: normal Respiratory: bilateral: CTA - Breasts Breasts: normal - Cardiovascular Rhythm: regular Heart Sounds: Present: S1 & S2. Absent: gallop, rub Extremities: pulses intact, No edema, normal color, Full ROM - Gastrointestinal General gastrointestinal: Present: soft, non-tender, non-distended, normal bowel sounds - Genitourinary Male genitourinary: normal - Integumentary Integumentary: clear, warm, dry - Musculoskeletal Musculoskeletal: 1, strength equal bilaterally - Neurologic Neurologic: moves all extremities - Psychiatric Psychiatric: memory intact, appropriate mood/affect, intact judgment & insight - Labs CBC & Chem 7: 12/24/19 00:37 12/24/19 00:37 Labs: Abnormal lab results 12/23/19 12/23/19 12/23/19 Range/Units 12:58 18:08 18:10 Seg Neuts % (Manual) (40.0-70.0) % Lymphocytes % (Manual) (13.4-35.0) % Seg Neutrophils # Man (1.8-7.7) K/mm3 Lymphocytes # (Manual) (1.2-5.4) K/mm3 ABG pO2 (80.0-90.0) mm Hg ABG HCO3 31.6 H (20.0-26.0) mmol/L ABG Base Excess 4.7 H (-2.0-3.0) mmol/L ABG Hemoglobin 13.1 L (14.0-18.0) gm/dl Oxyhemoglobin 93.5 L (95.0-99.0) % Sodium (137-145) mmol/L Chloride (98-107) mmol/L BUN (9-20) mg/dL Creatinine (0.8-1.5) mg/dL Glucose (75-100) mg/dL POC Glucose 206 H 328 H (70-105) Calcium (8.4-10.2) mg/dL Magnesium (1.7-2.3) mg/dL 12/23/19 12/24/19 12/24/19 Range/Units 23:37 00:37 00:37 Seg Neuts % (Manual) 88.0 H (40.0-70.0) % Lymphocytes % (Manual) 5.0 L (13.4-35.0) % Seg Neutrophils # Man 9.6 H (1.8-7.7) K/mm3 Lymphocytes # (Manual) 0.5 L (1.2-5.4) K/mm3 ABG pO2 (80.0-90.0) mm Hg ABG HCO3 (20.0-26.0) mmol/L ABG Base Excess (-2.0-3.0) mmol/L ABG Hemoglobin (14.0-18.0) gm/dl Oxyhemoglobin (95.0-99.0) % Sodium 152 H (137-145) mmol/L Chloride 109.9 H (98-107) mmol/L BUN 89 H (9-20) mg/dL Creatinine 2.2 H (0.8-1.5) mg/dL Glucose 287 H (75-100) mg/dL POC Glucose 277 H (70-105) Calcium 7.5 L (8.4-10.2) mg/dL Magnesium (1.7-2.3) mg/dL 12/24/19 12/24/19 12/24/19 Range/Units 05:25 05:36 06:23 Seg Neuts % (Manual) (40.0-70.0) % Lymphocytes % (Manual) (13.4-35.0) % Seg Neutrophils # Man (1.8-7.7) K/mm3 Lymphocytes # (Manual) (1.2-5.4) K/mm3 ABG pO2 72.2 L (80.0-90.0) mm Hg ABG HCO3 31.6 H (20.0-26.0) mmol/L ABG Base Excess 5.2 H (-2.0-3.0) mmol/L ABG Hemoglobin 13.1 L (14.0-18.0) gm/dl Oxyhemoglobin 92.8 L (95.0-99.0) % Sodium (137-145) mmol/L Chloride (98-107) mmol/L BUN (9-20) mg/dL Creatinine (0.8-1.5) mg/dL Glucose (75-100) mg/dL POC Glucose 204 H (70-105) Calcium (8.4-10.2) mg/dL Magnesium 3.10 H (1.7-2.3) mg/dL
[2019-12-24] MEDS ORDERED: predniSONE 10 MG TAB PO SCH (10:00)
[2019-12-24] MEDS: FAMOTIDINE 20 MG/2 ML INJ IV SCH (11:07)
[2019-12-24] MEDS: QUEtiapine 100 MG TAB PO SCH ×2 (11:07→21:43)
[2019-12-24] MEDS: NICOTINE 21 MG/24 HR PATCH TD SCH (11:08)
[2019-12-24] MEDS: VANCOMYCIN 1,500 MG in SODIUM CHLORIDE 0.9% 500 ML 500 ML IV SCH ×2 (11:25→21:45)
--- NOTE | 2019-12-24 11:36 | Progress Note ---
Assessment and Plan AYSE - Improving BUN/Cr, f/u on IVF Lytes - Continue hypotonic IVF, Free water flushes PNGT, Change TF to low Na formula Rhabdo - F/u CPK on IVF Resp Failure - Vent Mx per Pulm Subjective Date of service: 12/24/19 Principal diagnosis: Ac hypoxemic resp failure; ARDS; Rodrigue pneumonia; Severe Sepsis; Rhabdomyolys Interval history: Improved urine output Objective - Vital Signs Vital signs: Vital Signs - 12hr 12/23/19 12/23/19 12/23/19 23:00 23:30 23:43 Temperature 99.1 F Pulse Rate 69 66 Pulse Rate [ Anterior Bilateral] Pulse Rate [ From Monitor] Respiratory 30 H 30 H Rate Respiratory Rate [Anterior Bilateral] Respiratory 30 H Rate [ Generalized] Blood Pressure 128/65 129/62 O2 Sat by Pulse 95 93 Oximetry 12/24/19 12/24/19 12/24/19 00:00 00:15 00:30 Temperature 99.1 F Pulse Rate 67 63 64 Pulse Rate [ Anterior Bilateral] Pulse Rate [ 66 From Monitor] Respiratory 30 H 13 Rate Respiratory Rate [Anterior Bilateral] Respiratory Rate [ Generalized] Blood Pressure 130/61 130/61 136/63 O2 Sat by Pulse 93 94 93 Oximetry 12/24/19 12/24/19 12/24/19 01:00 01:30 03:00 Temperature Pulse Rate 64 66 65 Pulse Rate [ Anterior Bilateral] Pulse Rate [ From Monitor] Respiratory 29 H 23 30 H Rate Respiratory Rate [Anterior Bilateral] Respiratory Rate [ Generalized] Blood Pressure 135/60 141/63 133/60 O2 Sat by Pulse 95 94 94 Oximetry 12/24/19 12/24/19 12/24/19 03:30 03:34 04:00 Temperature Pulse Rate 66 64 Pulse Rate [ 65 Anterior Bilateral] Pulse Rate [ From Monitor] Respiratory 22 15 Rate Respiratory 30 H Rate [Anterior Bilateral] Respiratory Rate [ Generalized] Blood Pressure 135/59 136/59 O2 Sat by Pulse 94 94 Oximetry 12/24/19 12/24/19 12/24/19 04:20 04:30 05:00 Temperature 98.1 F Pulse Rate 62 67 Pulse Rate [ Anterior Bilateral] Pulse Rate [ 64 From Monitor] Respiratory 24 30 H Rate Respiratory Rate [Anterior Bilateral] Respiratory Rate [ Generalized] Blood Pressure 140/61 159/72 O2 Sat by Pulse 94 94 Oximetry 12/24/19 12/24/1912/23/20 05:26 05:30 05:59 Temperature Pulse Rate 63 70 66 Pulse Rate [ Anterior Bilateral] Pulse Rate [ From Monitor] Respiratory 30 H Rate Respiratory Rate [Anterior Bilateral] Respiratory Rate [ Generalized] Blood Pressure 153/64 152/70 152/70 O2 Sat by Pulse 93 93 Oximetry 12/24/19 12/24/19 12/24/19 06:00 06:31 07:00 Temperature Pulse Rate 64 79 62 Pulse Rate [ Anterior Bilateral] Pulse Rate [ From Monitor] Respiratory 16 19 30 H Rate Respiratory Rate [Anterior Bilateral] Respiratory Rate [ Generalized] Blood Pressure 153/64 184/84 146/66 O2 Sat by Pulse 94 94 91 Oximetry 12/24/19 12/24/19 12/24/19 07:30 07:56 08:00 Temperature 100.8 F H Pulse Rate 70 62 62 Pulse Rate [ 65 Anterior Bilateral] Pulse Rate [ From Monitor] Respiratory 30 H 30 H Rate Respiratory 14 Rate [Anterior Bilateral] Respiratory Rate [ Generalized] Blood Pressure 165/74 165/74 146/65 O2 Sat by Pulse 93 93 93 Oximetry 12/24/19 12/24/19 12/24/19 08:30 09:00 09:30 Temperature Pulse Rate 65 65 64 Pulse Rate [ Anterior Bilateral] Pulse Rate [ 68 From Monitor] Respiratory 20 12 9 L Rate Respiratory Rate [Anterior Bilateral] Respiratory Rate [ Generalized] Blood Pressure 155/66 150/65 156/63 O2 Sat by Pulse 92 93 93 Oximetry 12/24/19 12/24/19 12/24/19 10:00 10:30 11:00 Temperature Pulse Rate 63 66 64 Pulse Rate [ Anterior Bilateral] Pulse Rate [ From Monitor] Respiratory 30 H 30 H 30 H Rate Respiratory Rate [Anterior Bilateral] Respiratory Rate [ Generalized] Blood Pressure 158/66 176/77 147/67 O2 Sat by Pulse 93 94 93 Oximetry 12/24/19 11:29 Temperature Pulse Rate 64 Pulse Rate [ Anterior Bilateral] Pulse Rate [ From Monitor] Respiratory Rate Respiratory Rate [Anterior Bilateral] Respiratory Rate [ Generalized] Blood Pressure O2 Sat by Pulse Oximetry - General Appearance General appearance: sedated on ventilator Neck: no JVD Respiratory: Present: Other (Air entry per vent) Cardiology: regular, S1S2 Gastrointestinal: obese, other (Soft) Musculoskeletal: other (No periph edema) - Lab 12/24/19 00:37 12/24/19 00:37 Most recent lab results ABG pH 7.386 pH Units (7.350-7.450) 12/24/19 05:36 ABG pCO2 53.8 mm Hg 12/24/19 05:36 ABG pO2 72.2 mm Hg (80.0-90.0) L 12/24/19 05:36 ABG HCO3 31.6 mmol/L (20.0-26.0) H 12/24/19 05:36 ABG O2 Saturation 95.1 % (95.0-99.0) 12/24/19 05:36 Calcium 7.5 mg/dL (8.4-10.2) L 12/24/19 00:37 Phosphorus 3.90 mg/dL (2.5-4.5) 12/24/19 05:25 Magnesium 3.10 mg/dL (1.7-2.3) H 12/24/19 05:25 Urine Creatinine 80.5 mg/dL (0.1-20.0) H 12/22/19 15:30 Urine Sodium 23 mmol/L 12/22/19 15:30 Medications & Allergies - Medications Allergies/Adverse Reactions: Allergies Penicillins Allergy (Verified 12/18/19 22:48) Anaphylaxis VERIFIED WITH PT AND NURSE Home Medications: Home Medications Medication Instructions Recorded Confirmed Last Taken Type No Known Home Medications [No 12/19/19 12/19/19 Unknown History Reported Home Medications] Active Medications: Generic Name Dose Route Start Last Admin Trade Name Freq PRN Reason Stop Dose Admin Acetaminophen 650 mg 12/18/19 21:26 Tylenol PO Q4H PRN Pain MILD(1-3)/Fever >100.5/CHAUDHRY Albuterol 2.5 mg 12/18/19 21:34 Proventil IH Q4HRT PRN Shortness Of Breath Albuterol/Ipratropium 1 ampul 12/18/19 20:45 12/24/19 08:03 Duoneb *Not For Prn Use* IH 1 ampul Q6HRT MARIAN Administration Lipase/Protease/Amylase 1 each 12/20/19 18:25 Elidia Welch 10,500 Unit FEEDTUBE PRN PRN For Clogged Feeding Tube Arformoterol Tartrate 15 mcg 12/19/19 20:00 12/24/19 08:04 Brovana Nebu IH 15 mcg Q12HRT MARIAN Administration Budesonide 0.5 mg 12/19/19 20:00 12/24/19 08:04 Pulmicort IH 0.5 mg Q12HRT MARIAN Administration Enoxaparin Sodium 30 mg 12/21/19 22:00 12/23/19 21:59 Enoxaparin SUB-Q 30 mg QDAY@2200 MARIAN Administration Famotidine 20 mg 12/21/19 10:00 12/24/19 11:07 Pepcid IV 20 mg DAILY [facility] Administration Fentanyl 50 mcg 12/20/19 12:12 Sublimaze IV Q10MIN PRN ANALGESIA Hydralazine HCl 25 mg 12/19/19 14:00 12/24/19 05:59 Apresoline PO 25 mg Q8HR MARIAN Administration Hydromorphone HCl 0.5 mg 12/18/19 21:26 Dilaudid IV Q3H PRN Pain , Severe (7-10) Hydrophilic Ointment 1 applic 12/20/19 12:12 Vaseline Lip Therapy TP Q2HR PRN Dry Lips Fentanyl Citrate 2,000 mcg in 100 mls @ 5.434 mls/hr 12/20/19 13:00 12/24/19 05:57 Fentanyl Drip Premix IV 2 mcg/kg/hr TITR MARIAN 10.868 mls/hr Administration Protocol 1 MCG/KG/HR Propofol 1,000 mg in 100 mls @ 3.26 mls/hr 12/20/19 13:00 12/22/19 15:30 Diprivan 10 Mg/Ml IV 0 mcg/kg/min TITR MARIAN 0 mls/hr Titration Protocol 5 MCG/KG/MIN Levofloxacin/Dextrose 750 mg in 150 mls @ 100 mls/hr 12/22/19 10:00 12/24/19 11:07 Levaquin 750mg/150ml IV 100 mls/hr Q48HR MARIAN Administration Protocol Dextrose 1,000 mls @ 100 mls/hr 12/24/19 09:00 D5w IV DIRECT MARIAN Vancomycin HCl 1,500 mg/ 530 mls @ 333.333 mls/hr 12/24/19 09:00 12/24/19 11:25 Sodium Chloride IV Not Given Q12H [facility] Insulin Glargine 15 units 12/22/19 22:00 12/23/19 22:01 Lantus SUB-Q 15 units QHS MARIAN Administration Insulin Human Lispro 0 unit 12/20/19 16:00 12/24/19 06:27 Humalog SUB-Q 4 unit Q6HR MARIAN Administration Protocol Metoclopramide HCl 10 mg 12/18/19 21:26 Reglan IV Q6H PRN Nausea And Vomiting Multi-Ingred Cream/Lotion/Oil/Oint 1 applic 12/20/19 12:12 Artificial Tears Ophth Oint OU Q4HR PRN Dry Eye(s) Nicotine 21 mg 12/20/19 10:00 12/24/19 11:08 Habitrol TD 21 mg QDAY MARIAN Administration Ondansetron HCl 4 mg 12/18/19 21:26 Zofran IV Q3H PRN Nausea And Vomiting Oxycodone/Acetaminophen 1 tab 12/18/19 21:26 Percocet 5/325 PO Q6H PRN Pain, Moderate (4-6) Prednisone 20 mg 12/25/19 10:00 Deltasone PO 12/25/19 10:01 QDAY MARIAN Prednisone 10 mg 12/26/19 10:00 Deltasone PO 12/26/19 10:01 QDAY MARIAN Prednisone 5 mg 12/27/19 10:00 Deltasone PO 12/27/19 10:01 QDAY MARIAN Quetiapine Fumarate 100 mg 12/22/19 11:00 12/24/19 11:07 Seroquel PO 100 mg BID MARIAN Administration Simple Syrup 15 ml 12/20/19 18:25 Simple Syrup FEEDTUBE PRN PRN Hypoglycemia Simple Syrup 30 ml 12/20/19 18:25 Simple Syrup FEEDTUBE PRN PRN Hypoglycemia Sodium Bicarbonate 325 mg 12/20/19 18:25 Sodium Bicarbonate FEEDTUBE PRN PRN For Clogged Feeding Tube Sodium Chloride 10 ml 12/18/19 22:00 12/24/19 11:08 Sodium Chloride Flush Syringe 10 Ml IV 10 ml BID MARIAN Administration Sodium Chloride 10 ml 12/18/19 21:26 12/19/19 06:55 Sodium Chloride Flush Syringe 10 Ml IV 10 ml PRN PRN Administration LINE FLUSH
[2019-12-24] MEDS ORDERED: SIMPLE SYRUP 15 ML FEEDTUBE PRN (11:39)
[2019-12-24] MEDS ORDERED: SODIUM BICARBONATE 325 MG TAB FEEDTUBE PRN (11:39)
[2019-12-24] MEDS ORDERED: MAGNESIUM CITRATE 300 ML ORAL LIQD PO ONE (14:30)
[2019-12-24] MEDS: DEXTROSE 5% IN WATER 1,000 ML IV SCH (15:10)
--- NOTE | 2019-12-24 15:26 | Progress Note ---
Assessment and Plan Severe sepsis Acute hypoxemic respiratory failure Bilateral pneumonia (CAP/Aspiration) Possible EtOH abuse with withdrawal Possible COPD Leukocytosis. Elevated D-dimer. Hyponatremia Mild metabolic acidosis. Lactic acidosis. Hyperbilirubinemia. Elevated serum transaminases. Possible UTI Rhabdomyolysis -Continue with MVS, Lung protective strategies, monitor airway pressures -VAP bundle addressed -Aspiration precautions, HOB>40 -Get transthoracic echocardiogram to evlaute LVEF- patient has bilateral alveola r infiltrates -Daily assessment for readiness for SBT -Titrate sedation for RAAS -1 to 02 -VTE prophylaxis -Stress ulcer prophylaxis -Initiate enteric nutritional support. Monitor glycemic control, with target blood glucose 140-180 mg/dL while critically ill. Avoid hypoglycemia -RD consult placed - Taper systemic steroids - continue daily SAT and SBT assessment as tolerated - continue to wean supplemental oxygen for target O2 sat's > 90% , once FIO2 is down to 50% start wening PEEP -Permissive hypercapnia is acceptable, discontinue bicarbonate infusion after current liter -ABG and CXR in am -Bladder scan, place Robertson catheter in this acutely ill patient with worsening renal function and oliguria -Follow cultures and adjust antibiotic therapy for PARVIN and culture results -Avoid nephrotoxins, adjust all medications fro GFR and CrCL - continue bronchodilators with pulmonary hygiene per RT - wean per pulmonary driven protocols otherwise - continue to avoid benzodiazepines to reduce the possibility of delirium - prn analgesia per CPOT score - Maintenance of sleep-wake cycle, avoid delirium - PT/OT/ROM exercises - continue mobility protocol and skin assessment per protocol for pressure ulcer prevention - Monitor hemodynamics closely - continue other care per attending / other consultants Discussed extensively with his son and daughter who are POA- they did state that he can get very agitated and aggressive. His only history is that of hypertension. I updated them re care plan and answered all their questions. CONDITION: CRITICAL PROGNOSIS: GUARDED CODE STATUS: FULL CODE The high probability of a clinically significant, sudden or life-threatening deterioration of the [respiratory, cardiovascular, GI & neurologic] system(s) required my full and direct attention, intervention and personal management. The aggregate critical care time was [35] minutes without overlap. Time includes spent on; [x] Data Review and interpretation [x] Patient assessment and monitoring of vital signs [x] Documentation [x] Medication orders and management Subjective Date of service: 12/24/19 Principal diagnosis: Ac hypoxemic resp failure; ARDS; Rodrigue pneumonia; Severe Sepsis; Rhabdomyolys Interval history: Patient is seen today for:Severe Sepsis; Acute hypoxemic respiratory failure; ARDS; Bilateral pneumonia (CAP/Aspiration); Possible COPD; Leukocytosis.; Elevated D-dimer.; Hyponatremia; Elevated serum transaminases; Rhabdomyolysis Seen and examined at bedside; 24hour events reviewed; nursing and respiratory care staff consulted; no adverse overnight events reported to me; laying in bed; failed BIPAP with increased work of breathing, orally intubated yesterday ; Vitals, labs,medications, chart and imaging reviewed. Currently on Propofol and Fentanyl- Currently on full support AC-VC 30/450/PEEP 12/FIO2 65% ABG 7.30/55/60/27.5 Peak airway pressure <35 Has a condom cath on, has not made much urine with an increase in her creatinine Discussed in ICU-IDT rounds. Objective Vital Signs - 12hr 12/24/19 12/24/19 12/24/19 03:30 03:34 04:00 Temperature Pulse Rate 66 64 Pulse Rate [ 65 Anterior Bilateral] Pulse Rate [ From Monitor] Respiratory 22 15 Rate Respiratory 30 H Rate [Anterior Bilateral] Blood Pressure 135/59 136/59 O2 Sat by Pulse 94 94 Oximetry 12/24/19 12/24/19 12/24/19 04:20 04:30 05:00 Temperature 98.1 F Pulse Rate 62 67 Pulse Rate [ Anterior Bilateral] Pulse Rate [ 64 From Monitor] Respiratory 24 30 H Rate Respiratory Rate [Anterior Bilateral] Blood Pressure 140/61 159/72 O2 Sat by Pulse 94 94 Oximetry 12/24/19 12/24/19 12/24/19 05:26 05:30 05:59 Temperature Pulse Rate 63 70 66 Pulse Rate [ Anterior Bilateral] Pulse Rate [ From Monitor] Respiratory 30 H Rate Respiratory Rate [Anterior Bilateral] Blood Pressure 153/64 152/70 152/70 O2 Sat by Pulse 93 93 Oximetry 12/24/19 12/24/19 12/24/19 06:00 06:31 07:00 Temperature Pulse Rate 64 79 62 Pulse Rate [ Anterior Bilateral] Pulse Rate [ From Monitor] Respiratory 16 19 30 H Rate Respiratory Rate [Anterior Bilateral] Blood Pressure 153/64 184/84 146/66 O2 Sat by Pulse 94 94 91 Oximetry 12/24/19 12/24/19 12/24/19 07:30 07:56 08:00 Temperature 100.8 F H Pulse Rate 70 62 62 Pulse Rate [ 65 Anterior Bilateral] Pulse Rate [ From Monitor] Respiratory 30 H 30 H Rate Respiratory 14 Rate [Anterior Bilateral] Blood Pressure 165/74 165/74 146/65 O2 Sat by Pulse 93 93 93 Oximetry 12/24/19 12/24/19 12/24/19 08:30 09:00 09:30 Temperature Pulse Rate 65 65 64 Pulse Rate [ Anterior Bilateral] Pulse Rate [ 68 From Monitor] Respiratory 20 12 9 L Rate Respiratory Rate [Anterior Bilateral] Blood Pressure 155/66 150/65 156/63 O2 Sat by Pulse 92 93 93 Oximetry 12/24/19 12/24/19 12/24/19 10:00 10:30 11:00 Temperature Pulse Rate 63 66 64 Pulse Rate [ Anterior Bilateral] Pulse Rate [ From Monitor] Respiratory 30 H 30 H 30 H Rate Respiratory Rate [Anterior Bilateral] Blood Pressure 158/66 176/77 147/67 O2 Sat by Pulse 93 94 93 Oximetry 12/24/19 12/24/19 12/24/19 11:29 11:30 11:37 Temperature 100.5 F H Pulse Rate 64 64 Pulse Rate [ Anterior Bilateral] Pulse Rate [ From Monitor] Respiratory 30 H Rate Respiratory Rate [Anterior Bilateral] Blood Pressure 150/66 O2 Sat by Pulse 95 Oximetry 12/24/19 12/24/19 12/24/19 11:44 12:00 12:30 Temperature Pulse Rate 66 64 Pulse Rate [ Anterior Bilateral] Pulse Rate [ 64 From Monitor] Respiratory 30 H 21 9 L Rate Respiratory Rate [Anterior Bilateral] Blood Pressure 151/67 146/68 O2 Sat by Pulse 93 93 93 Oximetry 12/24/19 13:00 Temperature Pulse Rate 63 Pulse Rate [ Anterior Bilateral] Pulse Rate [ From Monitor] Respiratory 15 Rate Respiratory Rate [Anterior Bilateral] Blood Pressure 154/71 O2 Sat by Pulse 92 Oximetry Constitutional: appears uncomfortable, other (elderly obese CM; normocephalicon MVS ETT at 23cm, no patient -ventilator dyssynchrony) Eyes: non-icteric ENT: oropharynx moist, other Neck: supple, no lymphadenopathy, no JVD, other (large neck circumference) Effort: mildly labored, very labored Ascultation: Bilateral: diminished breath sounds, rales Percussion: Bilateral: not dull Cardiovascular: regular rate and rhythm, other (S1,S2, no murmurs, gallops or rubs) Gastrointestinal: normoactive bowel sounds, soft, non-tender, non-distended (protuberant) Integumentary: normal, other (diaphoretic) Extremities: no cyanosis, no edema, pink and warm, pulses normal Neurologic: pupils equal and round, unable to assess (sedated) Psychiatric: other (unable to assess, sedated) CBC and BMP: 12/24/19 00:37 12/24/19 00:37 ABG, PT/INR, D-dimer: ABG ABG pH 7.386 pH Units (7.350-7.450) 12/24/19 05:36 ABG pCO2 53.8 mm Hg 12/24/19 05:36 ABG pO2 72.2 mm Hg (80.0-90.0) L 12/24/19 05:36 ABG O2 Saturation 95.1 % (95.0-99.0) 12/24/19 05:36 PT/INR, D-dimer PT 13.9 Sec. (12.2-14.9) 12/18/19 15:28 INR 1.06 (0.87-1.13) 12/18/19 15:28 D-Dimer 2277.88 ng/mlDDU (0-234) H 12/18/19 10:30 Abnormal lab findings: Abnormal Labs 12/18/19 12/18/19 12/18/19 10:30 10:30 10:30 WBC 13.7 H RBC 5.06 H Hgb 15.4 H Hct MCHC 35 H Seg Neuts % (Manual) 82.0 H Lymphocytes % (Manual) 8.0 L Seg Neutrophils # Man 11.2 H Lymphocytes # (Manual) 1.1 L APTT D-Dimer 2277.88 H ABG pH ABG pO2 ABG HCO3 ABG O2 Saturation ABG Base Excess ABG Hemoglobin Oxyhemoglobin Sodium 122 L Chloride 80.6 L Carbon Dioxide 21 L BUN Creatinine Glucose 272 H POC Glucose Hemoglobin A1c Lactic Acid Calcium 7.8 L Phosphorus Magnesium Total Bilirubin 1.30 H AST 108 H Total Creatine Kinase CK-MB (CK-2) Albumin 3.1 L Urine WBC (Auto) Urine Creatinine 12/18/19 12/18/19 12/18/19 10:30 11:18 11:56 WBC RBC Hgb Hct MCHC Seg Neuts % (Manual) Lymphocytes % (Manual) Seg Neutrophils # Man Lymphocytes # (Manual) APTT D-Dimer ABG pH ABG pO2 ABG HCO3 ABG O2 Saturation ABG Base Excess ABG Hemoglobin Oxyhemoglobin Sodium Chloride Carbon Dioxide BUN Creatinine Glucose POC Glucose Hemoglobin A1c Lactic Acid 3.70 H* 2.40 H* Calcium Phosphorus Magnesium Total Bilirubin AST Total Creatine Kinase CK-MB (CK-2) Albumin Urine WBC (Auto) 58.0 H Urine Creatinine 12/18/19 12/18/19 12/18/19 12:05 12:06 13:18 WBC RBC Hgb Hct MCHC Seg Neuts % (Manual) Lymphocytes % (Manual) Seg Neutrophils # Man Lymphocytes # (Manual) APTT D-Dimer ABG pH 7.469 H ABG pO2 113.9 H ABG HCO3 ABG O2 Saturation ABG Base Excess ABG Hemoglobin 10.0 L Oxyhemoglobin Sodium Chloride Carbon Dioxide BUN Creatinine Glucose POC Glucose Hemoglobin A1c Lactic Acid 3.20 H* 2.50 H* Calcium Phosphorus Magnesium Total Bilirubin AST Total Creatine Kinase CK-MB (CK-2) Albumin Urine WBC (Auto) Urine Creatinine 12/18/19 12/19/19 12/19/19 15:28 10:50 11:12 WBC RBC Hgb Hct MCHC Seg Neuts % (Manual) Lymphocytes % (Manual) Seg Neutrophils # Man Lymphocytes # (Manual) APTT 72.2 H* D-Dimer ABG pH ABG pO2 55.6 L ABG HCO3 19.5 L ABG O2 Saturation 88.8 L ABG Base Excess -4.7 L ABG Hemoglobin Oxyhemoglobin 87.0 L Sodium Chloride Carbon Dioxide BUN Creatinine Glucose POC Glucose 257 H Hemoglobin A1c Lactic Acid Calcium Phosphorus Magnesium Total Bilirubin AST Total Creatine Kinase CK-MB (CK-2) Albumin Urine WBC (Auto) Urine Creatinine 12/19/19 12/19/19 12/20/19 12:04 12:04 08:20 WBC RBC Hgb Hct MCHC Seg Neuts % (Manual) Lymphocytes % (Manual) Seg Neutrophils # Man Lymphocytes # (Manual) APTT D-Dimer ABG pH ABG pO2 59.7 L ABG HCO3 19.9 L ABG O2 Saturation 90.2 L ABG Base Excess -4.9 L ABG Hemoglobin Oxyhemoglobin 88.5 L Sodium 131 L D Chloride 91.3 L Carbon Dioxide 18 L BUN Creatinine Glucose 290 H POC Glucose Hemoglobin A1c Lactic Acid 2.50 H* Calcium 7.9 L Phosphorus Magnesium Total Bilirubin AST 123 H Total Creatine Kinase 3873 H CK-MB (CK-2) 8.7 H Albumin 2.4 L Urine WBC (Auto) Urine Creatinine 12/20/19 12/20/19 12/20/19 09:56 09:56 09:56 WBC 17.7 H RBC 5.24 H Hgb 15.7 H Hct 46.7 H D MCHC Seg Neuts % (Manual) 88.0 H Lymphocytes % (Manual) 8.0 L Seg Neutrophils # Man 15.6 H Lymphocytes # (Manual) APTT D-Dimer ABG pH ABG pO2 ABG HCO3 ABG O2 Saturation ABG Base Excess ABG Hemoglobin Oxyhemoglobin Sodium 135 L Chloride 96.6 L Carbon Dioxide 13 L BUN 38 H Creatinine Glucose 382 H POC Glucose Hemoglobin A1c Lactic Acid Calcium Phosphorus Magnesium 3.10 H Total Bilirubin AST Total Creatine Kinase CK-MB (CK-2) Albumin Urine WBC (Auto) Urine Creatinine 12/20/19 12/20/19 12/20/19 10:27 12:57 15:20 WBC RBC Hgb Hct MCHC Seg Neuts % (Manual) Lymphocytes % (Manual) Seg Neutrophils # Man Lymphocytes # (Manual) APTT D-Dimer ABG pH 7.217 L 7.247 L ABG pO2 75.4 L 93.3 H ABG HCO3 ABG O2 Saturation 92.1 L ABG Base Excess -7.4 L -6.1 L ABG Hemoglobin Oxyhemoglobin 90.4 L 94.3 L Sodium Chloride Carbon Dioxide BUN Creatinine Glucose POC Glucose 350 H Hemoglobin A1c Lactic Acid Calcium Phosphorus Magnesium Total Bilirubin AST Total Creatine Kinase CK-MB (CK-2) Albumin Urine WBC (Auto) Urine Creatinine 12/20/19 12/20/19 12/20/19 16:44 18:22 20:47 WBC RBC Hgb Hct MCHC Seg Neuts % (Manual) Lymphocytes % (Manual) Seg Neutrophils # Man Lymphocytes # (Manual) APTT D-Dimer ABG pH ABG pO2 ABG HCO3 ABG O2 Saturation ABG Base Excess ABG Hemoglobin Oxyhemoglobin Sodium Chloride Carbon Dioxide BUN Creatinine Glucose POC Glucose 401 H 371 H 412 H Hemoglobin A1c Lactic Acid Calcium Phosphorus Magnesium Total Bilirubin AST Total Creatine Kinase CK-MB (CK-2) Albumin Urine WBC (Auto) Urine Creatinine 12/21/19 12/21/19 12/21/19 00:14 04:40 05:13 WBC RBC Hgb Hct MCHC Seg Neuts % (Manual) Lymphocytes % (Manual) Seg Neutrophils # Man Lymphocytes # (Manual) APTT D-Dimer ABG pH 7.308 L ABG pO2 60.8 L ABG HCO3 27.3 H ABG O2 Saturation 90.1 L ABG Base Excess ABG Hemoglobin 12.6 L Oxyhemoglobin 88.3 L Sodium Chloride Carbon Dioxide BUN Creatinine Glucose POC Glucose 392 H 333 H Hemoglobin A1c Lactic Acid Calcium Phosphorus Magnesium Total Bilirubin AST Total Creatine Kinase CK-MB (CK-2) Albumin Urine WBC (Auto) Urine Creatinine 12/21/19 12/21/19 12/21/19 12:39 18:11 23:45 WBC RBC Hgb Hct MCHC Seg Neuts % (Manual) Lymphocytes % (Manual) Seg Neutrophils # Man Lymphocytes # (Manual) APTT D-Dimer ABG pH ABG pO2 ABG HCO3 ABG O2 Saturation ABG Base Excess ABG Hemoglobin Oxyhemoglobin Sodium Chloride Carbon Dioxide BUN Creatinine Glucose POC Glucose 327 H 309 H 286 H Hemoglobin A1c Lactic Acid Calcium Phosphorus Magnesium Total Bilirubin AST Total Creatine Kinase CK-MB (CK-2) Albumin Urine WBC (Auto) Urine Creatinine 12/21/19 12/21/19 12/21/19 Unknown Unknown Unknown WBC 12.3 H RBC Hgb Hct MCHC Seg Neuts % (Manual) 93.0 H Lymphocytes % (Manual) 5.0 L Seg Neutrophils # Man 11.4 H Lymphocytes # (Manual) 0.6 L APTT D-Dimer ABG pH ABG pO2 ABG HCO3 ABG O2 Saturation ABG Base Excess ABG Hemoglobin Oxyhemoglobin Sodium Chloride Carbon Dioxide 21 L D BUN 73 H Creatinine 2.2 H D Glucose 361 H POC Glucose Hemoglobin A1c 10.0 H Lactic Acid Calcium 7.9 L Phosphorus Magnesium Total Bilirubin AST Total Creatine Kinase CK-MB (CK-2) Albumin Urine WBC (Auto) Urine Creatinine 12/22/19 12/22/19 12/22/19 05:24 06:29 07:16 WBC RBC Hgb Hct MCHC Seg Neuts % (Manual) Lymphocytes % (Manual) Seg Neutrophils # Man Lymphocytes # (Manual) APTT D-Dimer ABG pH ABG pO2 93.7 H ABG HCO3 30.4 H ABG O2 Saturation ABG Base Excess 4.4 H ABG Hemoglobin 12.8 L Oxyhemoglobin Sodium Chloride Carbon Dioxide BUN 111 H Creatinine 3.2 H Glucose 340 H POC Glucose 275 H Hemoglobin A1c Lactic Acid Calcium 8.1 L Phosphorus Magnesium Total Bilirubin AST Total Creatine Kinase CK-MB (CK-2) Albumin Urine WBC (Auto) Urine Creatinine 12/22/19 12/22/19 12/22/19 11:27 12:58 15:30 WBC RBC Hgb Hct MCHC Seg Neuts % (Manual) Lymphocytes % (Manual) Seg Neutrophils # Man Lymphocytes # (Manual) APTT D-Dimer ABG pH ABG pO2 ABG HCO3 ABG O2 Saturation ABG Base Excess ABG Hemoglobin Oxyhemoglobin Sodium Chloride Carbon Dioxide BUN Creatinine Glucose POC Glucose 345 H Hemoglobin A1c Lactic Acid Calcium Phosphorus 5.10 H Magnesium 3.90 H Total Bilirubin AST Total Creatine Kinase CK-MB (CK-2) Albumin Urine WBC (Auto) Urine Creatinine 80.5 H 12/22/19 12/23/19 12/23/19 17:54 00:30 04:47 WBC RBC Hgb Hct MCHC Seg Neuts % (Manual) Lymphocytes % (Manual) Seg Neutrophils # Man Lymphocytes # (Manual) APTT D-Dimer ABG pH ABG pO2 ABG HCO3 ABG O2 Saturation ABG Base Excess ABG Hemoglobin Oxyhemoglobin Sodium 146 H Chloride Carbon Dioxide BUN 107 H Creatinine 2.5 H Glucose 278 H POC Glucose 308 H 228 H Hemoglobin A1c Lactic Acid Calcium 7.7 L Phosphorus Magnesium Total Bilirubin AST Total Creatine Kinase CK-MB (CK-2) Albumin Urine WBC (Auto) Urine Creatinine 12/23/19 12/23/19 12/23/19 04:47 05:50 06:06 WBC 12.0 H RBC Hgb Hct MCHC Seg Neuts % (Manual) 82.0 H Lymphocytes % (Manual) 12.0 L Seg Neutrophils # Man 9.8 H Lymphocytes # (Manual) APTT D-Dimer ABG pH ABG pO2 59.0 L ABG HCO3 31.6 H ABG O2 Saturation 89.2 L ABG Base Excess 4.5 H ABG Hemoglobin 13.5 L Oxyhemoglobin 87.2 L Sodium Chloride Carbon Dioxide BUN Creatinine Glucose POC Glucose 263 H Hemoglobin A1c Lactic Acid Calcium Phosphorus Magnesium Total Bilirubin AST Total Creatine Kinase CK-MB (CK-2) Albumin Urine WBC (Auto) Urine Creatinine 12/23/19 12/23/19 12/23/19 12:58 18:08 18:10 WBC RBC Hgb Hct MCHC Seg Neuts % (Manual) Lymphocytes % (Manual) Seg Neutrophils # Man Lymphocytes # (Manual) APTT D-Dimer ABG pH ABG pO2 ABG HCO3 31.6 H ABG O2 Saturation ABG Base Excess 4.7 H ABG Hemoglobin 13.1 L Oxyhemoglobin 93.5 L Sodium Chloride Carbon Dioxide BUN Creatinine Glucose POC Glucose 206 H 328 H Hemoglobin A1c Lactic Acid Calcium Phosphorus Magnesium Total Bilirubin AST Total Creatine Kinase CK-MB (CK-2) Albumin Urine WBC (Auto) Urine Creatinine 12/23/19 12/24/19 12/24/19 23:37 00:37 00:37 WBC RBC Hgb Hct MCHC Seg Neuts % (Manual) 88.0 H Lymphocytes % (Manual) 5.0 L Seg Neutrophils # Man 9.6 H Lymphocytes # (Manual) 0.5 L APTT D-Dimer ABG pH ABG pO2 ABG HCO3 ABG O2 Saturation ABG Base Excess ABG Hemoglobin Oxyhemoglobin Sodium 152 H Chloride 109.9 H Carbon Dioxide BUN 89 H Creatinine 2.2 H Glucose 287 H POC Glucose 277 H Hemoglobin A1c Lactic Acid Calcium 7.5 L Phosphorus Magnesium Total Bilirubin AST Total Creatine Kinase CK-MB (CK-2) Albumin Urine WBC (Auto) Urine Creatinine 12/24/19 12/24/19 12/24/19 05:25 05:36 06:23 WBC RBC Hgb Hct MCHC Seg Neuts % (Manual) Lymphocytes % (Manual) Seg Neutrophils # Man Lymphocytes # (Manual) APTT D-Dimer ABG pH ABG pO2 72.2 L ABG HCO3 31.6 H ABG O2 Saturation ABG Base Excess 5.2 H ABG Hemoglobin 13.1 L Oxyhemoglobin 92.8 L Sodium Chloride Carbon Dioxide BUN Creatinine Glucose POC Glucose 204 H Hemoglobin A1c Lactic Acid Calcium Phosphorus Magnesium 3.10 H Total Bilirubin AST Total Creatine Kinase CK-MB (CK-2) Albumin Urine WBC (Auto) Urine Creatinine 12/24/19 11:34 WBC RBC Hgb Hct MCHC Seg Neuts % (Manual) Lymphocytes % (Manual) Seg Neutrophils # Man Lymphocytes # (Manual) APTT D-Dimer ABG pH ABG pO2 ABG HCO3 ABG O2 Saturation ABG Base Excess ABG Hemoglobin Oxyhemoglobin Sodium Chloride Carbon Dioxide BUN Creatinine Glucose POC Glucose 187 H Hemoglobin A1c Lactic Acid Calcium Phosphorus Magnesium Total Bilirubin AST Total Creatine Kinase CK-MB (CK-2) Albumin Urine WBC (Auto) Urine Creatinine Allied health notes reviewed: RT
--- NOTE | 2019-12-24 20:03 | XRay Report ---
ABDOMEN 1 VIEW 7:40 PM INDICATION / CLINICAL INFORMATION: Dobbhoff placement. COMPARISON: 12/20/19. FINDINGS: TUBES / LINES: The nasogastric tube has been removed. There is a new weighted enteric tube with the t ip overlying the gastric body. BOWEL GAS PATTERN: Gaseous distention of the colon has developed. FREE AIR / EXTRALUMINAL GAS: None seen. ADDITIONAL FINDINGS: No significant additional findings. IMPRESSION: 1. Feeding tube tip overlies the gastric body. 2. Interval development of gaseous distention of the colon. Differential diagnosis includes a colonic adynamic ileus versus distal obstruction. Signer Name: Sathya Gong MD Signed: 12/24/2019 7:58 PM Workstation Name: [id number]
[2019-12-24] MEDS: ENOXAPARIN 30 MG/0.3 ML INJ SUB-Q SCH (21:42)
[2019-12-24] MEDS: INSULIN GLARGINE 100 UNITS/ML SUB-Q SCH (21:43)
[2019-12-25] MEDS: IPRATROPIUM/ALBUTEROL SULFATE 3 ML AMPUL.NEB IH SCH ×4 (01:43→21:20)
[2019-12-25] MEDS: DEXTROSE 5% IN WATER 1,000 ML IV SCH ×2 (04:35→21:30)
[2019-12-25 05:03] LABS: ABG Base Excess 5.7 mmol/L (-2.0-3.0); ABG HCO3 32.6 mmol/L (20.0-26.0); ABG Methemoglobin 0.8 % (0.0-1.5); ABG Oxygen Saturation 94.7 % (95.0-99.0); ABG PCO2 57.5 mm Hg; ABG PH 7.371 pH Units (7.350-7.450); ABG PO2 68.3 mm Hg (80.0-90.0)
[2019-12-25 05:38] LABS: Hematocrit 38.3 % (35.5-45.6); Hemoglobin 12.7 gm/dl (11.8-15.2); Mean Corpuscular HGB Conc 33 % (32-34); Mean Corpuscular Volume 92 fl (84-94); Platelet Count 268 K/mm3 (140-440); Red Blood Count 4.17 M/mm3 (3.65-5.03); Red Cell Distribution Width 14.6 % (13.2-15.2)
[2019-12-25] MEDS: hydrALAZINE 25 MG TAB PO SCH ×3 (05:46→21:30)
[2019-12-25] MEDS: INSULIN LISPRO 100 UNIT/ML SUB-Q SCH ×3 (05:46→18:53)
[2019-12-25 05:52] LABS: Albumin 2.3 g/dL (3.9-5)
[2019-12-25 06:38] LABS: Band Neutrophils # (Manual) 0.2 K/mm3; Basophils % (Manual) 0 % (0.0-1.8); Total Cells Counted 100
[2019-12-25 06:39] LABS: Platelet Estimate Consistent w Auto; RBC Morphology Normal
[2019-12-25] MEDS: ARFORMOTEROL 15 MCG/2 ML NEBU IH SCH ×2 (07:31→21:20)
[2019-12-25] MEDS: BUDESONIDE 0.5 MG/2 ML NEBU IH SCH ×2 (07:32→21:21)
--- NOTE | 2019-12-25 08:01 | Progress Note ---
Assessment and Plan 1. Acute kidney injury: Likely vasomotor AYSE in the setting of sepsis and possible rhabdo. Renal US negative for hydro. Continue IV fluids. Renal function is improving, now 1.7. Monitor renal function. Renal prognosis is guarded. Avoid nephrotoxic agents. Meds dosage based on GFR. 2. FEN: Metabolic acidosis, resolved, CO2 is on high side today now 33, monitor. Mild Hypernatremia, resolved, continue D5 IV fluids, low NA tube feeds, monitor. Monitor lytes. 3. Acute respiratory failure with hypoxia: Was not able to tolerate BiPap and has been intubated since 12/19. Pulmonology following. 4. Left lower lobe pneumonia: Confirmed via chest xray on admission. Community-acquired. On abx. Pulmonology following. ID consulted. 5. Sepsis: 2/2 pneumonia. Leukocytosis/lactic acidosis. Tachycardia, tachypnea and fever on admission. 6. Metabolic encephalopathy: Currently intubated with restraints. 8. Hypertension: Appears controlled this morning. Monitor BP closely. 9. Severe malnutrition: Protein/calorie. On tube feedings via NGT and tolerating well. 9. Tobacco abuse: Unable to evp general counsel on smoking cessation given patient condition. On Nicoderm patch. Subjective Date of service: 12/25/19 Principal diagnosis: Ac hypoxemic resp failure; ARDS; Rodrigue pneumonia; Severe Sepsis; Rhabdomyolys Interval history: Patient was seen and examined at the bedside. No family present at time of examination. No acute events reported overnight. Objective - Exam Narrative Exam: General appearance: well-developed, well-nourished, appears stated age, obese, other (intubated on vent, NGT, restraints, chauhan) EENT: PERRL, mucous membranes moist, other (intubated) Neck: Present: neck supple, trachea midline Respiratory: Clear to Ascultation Heart: regular, bradycardia, S1S2, no murmurs Gastrointestinal: Present: normal, normoactive bowel sounds. Absent: tenderness, distended, organomegaly Integumentary: no rash, warm and dry Neurologic: other (unable to assess (sedated)) Musculoskeletal: Present: other (no edema noted) Psychiatric: other (calm, sedated) - Vital Signs Vital signs: Vital Signs - 12hr 12/24/19 12/24/19 12/24/19 20:30 20:59 21:00 Temperature Pulse Rate 68 69 77 Pulse Rate [ Anterior Bilateral Throughout] Pulse Rate [ Anterior Bilateral] Pulse Rate [ From Monitor] Respiratory 14 11 L Rate Respiratory Rate [Anterior Bilateral Throughout] Respiratory Rate [Anterior Bilateral] Blood Pressure 149/66 175/88 137/74 O2 Sat by Pulse 94 96 95 Oximetry 12/24/19 12/24/19 12/24/19 21:11 21:30 21:42 Temperature Pulse Rate 67 70 Pulse Rate [ Anterior Bilateral Throughout] Pulse Rate [ 82 Anterior Bilateral] Pulse Rate [ From Monitor] Respiratory 14 Rate Respiratory Rate [Anterior Bilateral Throughout] Respiratory 25 H Rate [Anterior Bilateral] Blood Pressure 149/67 149/67 O2 Sat by Pulse 93 Oximetry 12/24/19 12/24/19 12/24/19 22:00 22:30 22:40 Temperature Pulse Rate 69 68 93 H Pulse Rate [ Anterior Bilateral Throughout] Pulse Rate [ Anterior Bilateral] Pulse Rate [ From Monitor] Respiratory 14 9 L 13 Rate Respiratory Rate [Anterior Bilateral Throughout] Respiratory Rate [Anterior Bilateral] Blood Pressure 151/69 143/67 143/67 O2 Sat by Pulse 94 94 94 Oximetry 12/24/19 12/24/19 12/25/19 23:00 23:30 00:00 Temperature 99.1 F Pulse Rate 67 66 64 Pulse Rate [ Anterior Bilateral Throughout] Pulse Rate [ Anterior Bilateral] Pulse Rate [ 64 From Monitor] Respiratory 16 13 20 Rate Respiratory Rate [Anterior Bilateral Throughout] Respiratory Rate [Anterior Bilateral] Blood Pressure 140/63 142/61 145/64 O2 Sat by Pulse 91 93 94 Oximetry 12/25/19 12/25/19 12/25/19 00:30 00:35 01:00 Temperature Pulse Rate 63 63 70 Pulse Rate [ Anterior Bilateral Throughout] Pulse Rate [ Anterior Bilateral] Pulse Rate [ From Monitor] Respiratory 11 L 11 L Rate Respiratory Rate [Anterior Bilateral Throughout] Respiratory Rate [Anterior Bilateral] Blood Pressure 150/67 145/64 159/71 O2 Sat by Pulse 93 93 93 Oximetry 12/25/19 12/25/19 12/25/19 01:30 01:44 02:00 Temperature Pulse Rate 62 63 Pulse Rate [ Anterior Bilateral Throughout] Pulse Rate [ 63 Anterior Bilateral] Pulse Rate [ From Monitor] Respiratory 18 12 Rate Respiratory Rate [Anterior Bilateral Throughout] Respiratory 24 Rate [Anterior Bilateral] Blood Pressure 155/68 157/68 O2 Sat by Pulse 94 93 Oximetry 12/25/19 12/25/19 12/25/19 02:30 03:00 03:30 Temperature Pulse Rate 62 60 61 Pulse Rate [ Anterior Bilateral Throughout] Pulse Rate [ Anterior Bilateral] Pulse Rate [ From Monitor] Respiratory 10 L 19 11 L Rate Respiratory Rate [Anterior Bilateral Throughout] Respiratory Rate [Anterior Bilateral] Blood Pressure 145/66 147/64 150/66 O2 Sat by Pulse 92 92 92 Oximetry 12/25/19 12/25/19 12/25/19 04:00 04:30 05:00 Temperature 99 F Pulse Rate 61 58 L Pulse Rate [ Anterior Bilateral Throughout] Pulse Rate [ Anterior Bilateral] Pulse Rate [ 61 From Monitor] Respiratory 18 14 Rate Respiratory Rate [Anterior Bilateral Throughout] Respiratory Rate [Anterior Bilateral] Blood Pressure 151/70 154/69 154/69 O2 Sat by Pulse 93 93 93 Oximetry 12/25/19 12/25/19 12/25/19 05:30 05:46 06:00 Temperature Pulse Rate 62 60 62 Pulse Rate [ Anterior Bilateral Throughout] Pulse Rate [ Anterior Bilateral] Pulse Rate [ From Monitor] Respiratory 20 18 Rate Respiratory Rate [Anterior Bilateral Throughout] Respiratory Rate [Anterior Bilateral] Blood Pressure 141/67 141/67 150/67 O2 Sat by Pulse 91 93 Oximetry 12/25/19 12/25/19 12/25/19 06:30 07:00 07:30 Temperature Pulse Rate 60 63 62 Pulse Rate [ Anterior Bilateral Throughout] Pulse Rate [ Anterior Bilateral] Pulse Rate [ From Monitor] Respiratory 14 20 22 Rate Respiratory Rate [Anterior Bilateral Throughout] Respiratory Rate [Anterior Bilateral] Blood Pressure 138/64 136/68 139/63 O2 Sat by Pulse 94 94 94 Oximetry 12/25/19 07:32 Temperature Pulse Rate 62 Pulse Rate [ 63 Anterior Bilateral Throughout] Pulse Rate [ Anterior Bilateral] Pulse Rate [ From Monitor] Respiratory Rate Respiratory 22 Rate [Anterior Bilateral Throughout] Respiratory Rate [Anterior Bilateral] Blood Pressure 139/63 O2 Sat by Pulse 93 Oximetry - Lab 12/25/19 05:22 12/25/19 05:22 Most recent lab results ABG pH 7.371 pH Units (7.350-7.450) 12/25/19 04:52 ABG pCO2 57.5 mm Hg 12/25/19 04:52 ABG pO2 68.3 mm Hg (80.0-90.0) L 12/25/19 04:52 ABG HCO3 32.6 mmol/L (20.0-26.0) H 12/25/19 04:52 ABG O2 Saturation 94.7 % (95.0-99.0) L 12/25/19 04:52 Calcium 8.0 mg/dL (8.4-10.2) L 12/25/19 05:22 Phosphorus 3.30 mg/dL (2.5-4.5) 12/25/19 05:22 Magnesium 2.90 mg/dL (1.7-2.3) H 12/25/19 05:22 Urine Creatinine 80.5 mg/dL (0.1-20.0) H 12/22/19 15:30 Urine Sodium 23 mmol/L 12/22/19 15:30 Medications & Allergies - Medications Allergies/Adverse Reactions: Allergies Penicillins Allergy (Verified 12/18/19 22:48) Anaphylaxis VERIFIED WITH PT AND NURSE Home Medications: Home Medications Medication Instructions Recorded Confirmed Last Taken Type No Known Home Medications [No 12/19/19 12/19/19 Unknown History Reported Home Medications] Active Medications: Generic Name Dose Route Start Last Admin Trade Name Freq PRN Reason Stop Dose Admin Acetaminophen 650 mg 12/18/19 21:26 Tylenol PO Q4H PRN Pain MILD(1-3)/Fever >100.5/CHAUDHRY Albuterol 2.5 mg 12/18/19 21:34 Proventil IH Q4HRT PRN Shortness Of Breath Albuterol/Ipratropium 1 ampul 12/18/19 20:45 12/25/19 07:32 Duoneb *Not For Prn Use* IH 1 ampul Q6HRT MARIAN Administration Lipase/Protease/Amylase 1 each 12/20/19 18:25 Elidia Welch 10,500 Unit FEEDTUBE PRN PRN For Clogged Feeding Tube Arformoterol Tartrate 15 mcg 12/19/19 20:00 12/25/19 07:31 Brovana Nebu IH 15 mcg Q12HRT MARIAN Administration Budesonide 0.5 mg 12/19/19 20:00 12/25/19 07:32 Pulmicort IH 0.5 mg Q12HRT MARIAN Administration Enoxaparin Sodium 40 mg 12/25/19 22:00 Enoxaparin SUB-Q QDAY@2200 MARIAN Famotidine 20 mg 12/25/19 10:00 Pepcid PO BID MARIAN Fentanyl 50 mcg 12/20/19 12:12 Sublimaze IV Q10MIN PRN ANALGESIA Hydralazine HCl 25 mg 12/19/19 14:00 12/25/19 05:46 Apresoline PO 25 mg Q8HR MARIAN Administration Hydromorphone HCl 0.5 mg 12/18/19 21:26 Dilaudid IV Q3H PRN Pain , Severe (7-10) Hydrophilic Ointment 1 applic 12/20/19 12:12 Vaseline Lip Therapy TP Q2HR PRN Dry Lips Fentanyl Citrate 2,000 mcg in 100 mls @ 5.434 mls/hr 12/20/19 13:00 12/24/19 22:59 Fentanyl Drip Premix IV 2 mcg/kg/hr TITR MARIAN 10.868 mls/hr Administration Protocol 1 MCG/KG/HR Propofol 1,000 mg in 100 mls @ 3.26 mls/hr 12/20/19 13:00 12/22/19 15:30 Diprivan 10 Mg/Ml IV 0 mcg/kg/min TITR MARIAN 0 mls/hr Titration Protocol 5 MCG/KG/MIN Dextrose 1,000 mls @ 100 mls/hr 12/24/19 09:00 12/25/19 04:35 D5w IV 100 mls/hr DIRECT MARIAN Administration Vancomycin HCl 1,500 mg/ 530 mls @ 333.333 mls/hr 12/25/19 22:00 Sodium Chloride IV Q24H MARIAN Levofloxacin/Dextrose 750 mg in 150 mls @ 100 mls/hr 12/25/19 10:00 Levaquin 750mg/150ml IV Q24HR [facility] Protocol Insulin Glargine 15 units 12/22/19 22:00 12/24/19 21:43 Lantus SUB-Q 15 units QHS [facility] Administration Insulin Human Lispro 0 unit 12/20/19 16:00 12/25/19 05:46 Humalog SUB-Q 4 unit Q6HR [facility] Administration Protocol Metoclopramide HCl 10 mg 12/18/19 21:26 Reglan IV Q6H PRN Nausea And Vomiting Multi-Ingred Cream/Lotion/Oil/Oint 1 applic 12/20/19 12:12 Artificial Tears Ophth Oint OU Q4HR PRN Dry Eye(s) Nicotine 21 mg 03/04/20 10:00 12/24/19 11:08 Habitrol TD 21 mg QDAY MARIAN Administration Ondansetron HCl 4 mg 12/18/19 21:26 Zofran IV Q3H PRN Nausea And Vomiting Oxycodone/Acetaminophen 1 tab 12/18/19 21:26 Percocet 5/325 PO Q6H PRN Pain, Moderate (4-6) Prednisone 20 mg 12/25/19 10:00 Deltasone PO 12/25/19 10:01 QDAY MARIAN Prednisone 10 mg 12/26/19 10:00 Deltasone PO 12/26/19 10:01 QDAY MARIAN Prednisone 5 mg 12/27/19 10:00 Deltasone PO 12/27/19 10:01 QDAY MARIAN Quetiapine Fumarate 100 mg 12/22/19 11:00 12/24/19 21:43 Seroquel PO 100 mg BID MARIAN Administration Simple Syrup 30 ml 12/20/19 18:25 Simple Syrup FEEDTUBE PRN PRN Hypoglycemia Simple Syrup 15 ml 12/24/19 11:39 Simple Syrup FEEDTUBE PRN PRN Hypoglycemia Sodium Bicarbonate 325 mg 12/24/19 11:39 Sodium Bicarbonate FEEDTUBE PRN PRN For Clogged Feeding Tube Sodium Chloride 10 ml 12/18/19 22:00 12/24/19 21:42 Sodium Chloride Flush Syringe 10 Ml IV 10 ml BID MARIAN Administration Sodium Chloride 10 ml 12/18/19 21:26 12/19/19 06:55 Sodium Chloride Flush Syringe 10 Ml IV 10 ml PRN PRN Administration LINE FLUSH
[2019-12-25] MEDS: fentaNYL DRIP Premix 2,000 MCG/100 ML BAG IV SCH (08:12)
[2019-12-25] MEDS: FAMOTIDINE 20 MG TAB PO SCH ×2 (09:37→21:30)
[2019-12-25] MEDS: QUEtiapine 100 MG TAB PO SCH (09:37)
[2019-12-25] MEDS: NICOTINE 21 MG/24 HR PATCH TD SCH (09:37)
[2019-12-25] MEDS ORDERED: predniSONE 20 MG TAB PO SCH (10:00)
--- NOTE | 2019-12-25 11:10 | Progress Note ---
Assessment and Plan Severe sepsis Acute hypoxemic respiratory failure Bilateral pneumonia (CAP/Aspiration) Possible EtOH abuse with withdrawal Possible COPD Leukocytosis. Elevated D-dimer. Hyponatremia Mild metabolic acidosis. Lactic acidosis. Hyperbilirubinemia. Elevated serum transaminases. Possible UTI Rhabdomyolysis -Continue with MVS, Lung protective strategies, monitor airway pressures -VAP bundle addressed -Aspiration precautions, HOB>40 -Get transthoracic echocardiogram to evlaute LVEF- patient has bilateral alveola r infiltrates -Daily assessment for readiness for SBT -Titrate sedation for RAAS -1 to 02 -VTE prophylaxis -Stress ulcer prophylaxis -Initiate enteric nutritional support. Monitor glycemic control, with target blood glucose 140-180 mg/dL while critically ill. Avoid hypoglycemia -RD consult placed - Taper systemic steroids - continue daily SAT and SBT assessment as tolerated - continue to wean supplemental oxygen for target O2 sat's > 90% , once FIO2 is down to 50% start wening PEEP -Permissive hypercapnia is acceptable, discontinue bicarbonate infusion after current liter -ABG and CXR in am -Bladder scan, place Robertson catheter in this acutely ill patient with worsening renal function and oliguria -Follow cultures and adjust antibiotic therapy for PARVIN and culture results -Avoid nephrotoxins, adjust all medications fro GFR and CrCL - continue bronchodilators with pulmonary hygiene per RT - wean per pulmonary driven protocols otherwise - continue to avoid benzodiazepines to reduce the possibility of delirium - prn analgesia per CPOT score - Maintenance of sleep-wake cycle, avoid delirium - PT/OT/ROM exercises - continue mobility protocol and skin assessment per protocol for pressure ulcer prevention - Monitor hemodynamics closely - continue other care per attending / other consultants Discussed extensively with his son and daughter who are POA- they did state that he can get very agitated and aggressive. His only history is that of hypertension. I updated them re care plan and answered all their questions. CONDITION: CRITICAL PROGNOSIS: GUARDED CODE STATUS: FULL CODE The high probability of a clinically significant, sudden or life-threatening deterioration of the [respiratory, cardiovascular, GI & neurologic] system(s) required my full and direct attention, intervention and personal management. The aggregate critical care time was [35] minutes without overlap. Time includes spent on; [x] Data Review and interpretation [x] Patient assessment and monitoring of vital signs [x] Documentation [x] Medication orders and management Subjective Date of service: 12/25/19 Principal diagnosis: Ac hypoxemic resp failure; ARDS; Rodrigue pneumonia; Severe Sepsis; Rhabdomyolys Interval history: Patient is seen today for:Severe Sepsis; Acute hypoxemic respiratory failure; ARDS; Bilateral pneumonia (CAP/Aspiration); Possible COPD; Leukocytosis.; Elevated D-dimer.; Hyponatremia; Elevated serum transaminases; Rhabdomyolysis Seen and examined at bedside; 24hour events reviewed; nursing and respiratory care staff consulted; no adverse overnight events reported to me; laying in bed; failed BIPAP with increased work of breathing, orally intubated yesterday ; Vitals, labs,medications, chart and imaging reviewed. Currently on Propofol and Fentanyl- Currently on full support AC-VC 30/450/PEEP 12/FIO2 65% ABG 7.30/55/60/27.5 Peak airway pressure <35 Has a condom cath on, has not made much urine with an increase in her creatinine Discussed in ICU-IDT rounds. Objective Vital Signs - 12hr 12/24/19 12/25/19 12/25/19 23:30 00:00 00:30 Temperature 99.1 F Pulse Rate 66 64 63 Pulse Rate [ Anterior Bilateral Throughout] Pulse Rate [ Anterior Bilateral] Pulse Rate [ 64 From Monitor] Respiratory 13 20 11 L Rate Respiratory Rate [Anterior Bilateral Throughout] Respiratory Rate [Anterior Bilateral] Blood Pressure 142/61 145/64 150/67 O2 Sat by Pulse 93 94 93 Oximetry 12/25/19 12/25/19 12/25/19 00:35 01:00 01:30 Temperature Pulse Rate 63 70 62 Pulse Rate [ Anterior Bilateral Throughout] Pulse Rate [ Anterior Bilateral] Pulse Rate [ From Monitor] Respiratory 11 L 18 Rate Respiratory Rate [Anterior Bilateral Throughout] Respiratory Rate [Anterior Bilateral] Blood Pressure 145/64 159/71 155/68 O2 Sat by Pulse 93 93 94 Oximetry 12/25/19 12/25/19 12/25/19 01:44 02:00 02:30 Temperature Pulse Rate 63 62 Pulse Rate [ Anterior Bilateral Throughout] Pulse Rate [ 63 Anterior Bilateral] Pulse Rate [ From Monitor] Respiratory 12 10 L Rate Respiratory Rate [Anterior Bilateral Throughout] Respiratory 24 Rate [Anterior Bilateral] Blood Pressure 157/68 145/66 O2 Sat by Pulse 93 92 Oximetry 12/25/19 12/25/19 12/25/19 03:00 03:30 04:00 Temperature 99 F Pulse Rate 60 61 61 Pulse Rate [ Anterior Bilateral Throughout] Pulse Rate [ Anterior Bilateral] Pulse Rate [ 61 From Monitor] Respiratory 19 11 L 18 Rate Respiratory Rate [Anterior Bilateral Throughout] Respiratory Rate [Anterior Bilateral] Blood Pressure 147/64 150/66 151/70 O2 Sat by Pulse 92 92 93 Oximetry 12/25/19 12/25/19 12/25/19 04:30 05:00 05:30 Temperature Pulse Rate 58 L 62 Pulse Rate [ Anterior Bilateral Throughout] Pulse Rate [ Anterior Bilateral] Pulse Rate [ From Monitor] Respiratory 14 20 Rate Respiratory Rate [Anterior Bilateral Throughout] Respiratory Rate [Anterior Bilateral] Blood Pressure 154/69 154/69 141/67 O2 Sat by Pulse 93 93 91 Oximetry 12/25/19 12/25/19 12/25/19 05:46 06:00 06:30 Temperature Pulse Rate 60 62 60 Pulse Rate [ Anterior Bilateral Throughout] Pulse Rate [ Anterior Bilateral] Pulse Rate [ From Monitor] Respiratory 18 14 Rate Respiratory Rate [Anterior Bilateral Throughout] Respiratory Rate [Anterior Bilateral] Blood Pressure 141/67 150/67 138/64 O2 Sat by Pulse 93 94 Oximetry 12/25/19 12/25/19 12/25/19 07:00 07:30 07:32 Temperature Pulse Rate 63 62 62 Pulse Rate [ 63 Anterior Bilateral Throughout] Pulse Rate [ Anterior Bilateral] Pulse Rate [ From Monitor] Respiratory 20 22 Rate Respiratory 22 Rate [Anterior Bilateral Throughout] Respiratory Rate [Anterior Bilateral] Blood Pressure 136/68 139/63 139/63 O2 Sat by Pulse 94 94 93 Oximetry 12/25/19 12/25/19 12/25/19 08:00 08:30 09:00 Temperature 99.5 F Pulse Rate 61 63 80 Pulse Rate [ Anterior Bilateral Throughout] Pulse Rate [ Anterior Bilateral] Pulse Rate [ 67 From Monitor] Respiratory 23 12 12 Rate Respiratory Rate [Anterior Bilateral Throughout] Respiratory Rate [Anterior Bilateral] Blood Pressure 132/60 140/63 140/63 O2 Sat by Pulse 92 92 95 Oximetry 12/25/19 12/25/19 12/25/19 09:30 10:00 10:30 Temperature Pulse Rate 66 66 61 Pulse Rate [ Anterior Bilateral Throughout] Pulse Rate [ Anterior Bilateral] Pulse Rate [ From Monitor] Respiratory 12 12 13 Rate Respiratory Rate [Anterior Bilateral Throughout] Respiratory Rate [Anterior Bilateral] Blood Pressure 156/69 156/66 130/64 O2 Sat by Pulse 95 94 95 Oximetry 12/25/19 11:00 Temperature Pulse Rate 67 Pulse Rate [ Anterior Bilateral Throughout] Pulse Rate [ Anterior Bilateral] Pulse Rate [ From Monitor] Respiratory 12 Rate Respiratory Rate [Anterior Bilateral Throughout] Respiratory Rate [Anterior Bilateral] Blood Pressure 133/70 O2 Sat by Pulse 96 Oximetry Constitutional: appears uncomfortable, other (elderly obese CM; normocephalicon MVS ETT at 23cm, no patient -ventilator dyssynchrony) Eyes: non-icteric ENT: oropharynx moist, other Neck: supple, no lymphadenopathy, no JVD, other (large neck circumference) Effort: mildly labored, very labored Ascultation: Bilateral: diminished breath sounds, rales Percussion: Bilateral: not dull Cardiovascular: regular rate and rhythm, other (S1,S2, no murmurs, gallops or rubs) Gastrointestinal: normoactive bowel sounds, soft, non-tender, non-distended (protuberant) Integumentary: normal, other (diaphoretic) Extremities: no cyanosis, no edema, pink and warm, pulses normal Neurologic: pupils equal and round, unable to assess (sedated) Psychiatric: other (unable to assess, sedated) CBC and BMP: 12/25/19 05:22 12/25/19 05:22 ABG, PT/INR, D-dimer: ABG ABG pH 7.371 pH Units (7.350-7.450) 12/25/19 04:52 ABG pCO2 57.5 mm Hg 12/25/19 04:52 ABG pO2 68.3 mm Hg (80.0-90.0) L 12/25/19 04:52 ABG O2 Saturation 94.7 % (95.0-99.0) L 12/25/19 04:52 PT/INR, D-dimer PT 13.9 Sec. (12.2-14.9) 12/18/19 15:28 INR 1.06 (0.87-1.13) 12/18/19 15:28 D-Dimer 2277.88 ng/mlDDU (0-234) H 12/18/19 10:30 Abnormal lab findings: Abnormal Labs 12/18/19 12/18/19 12/18/19 10:30 10:30 10:30 WBC 13.7 H RBC 5.06 H Hgb 15.4 H Hct MCHC 35 H Seg Neuts % (Manual) 82.0 H Lymphocytes % (Manual) 8.0 L Seg Neutrophils # Man 11.2 H Lymphocytes # (Manual) 1.1 L APTT D-Dimer 2277.88 H ABG pH ABG pO2 ABG HCO3 ABG O2 Saturation ABG Base Excess ABG Hemoglobin Oxyhemoglobin Sodium 122 L Chloride 80.6 L Carbon Dioxide 21 L BUN Creatinine Glucose 272 H POC Glucose Hemoglobin A1c Lactic Acid Calcium 7.8 L Phosphorus Magnesium Total Bilirubin 1.30 H AST 108 H Total Creatine Kinase CK-MB (CK-2) Total Protein Albumin 3.1 L Urine WBC (Auto) Urine Creatinine 12/18/19 12/18/19 12/18/19 10:30 11:18 11:56 WBC RBC Hgb Hct MCHC Seg Neuts % (Manual) Lymphocytes % (Manual) Seg Neutrophils # Man Lymphocytes # (Manual) APTT D-Dimer ABG pH ABG pO2 ABG HCO3 ABG O2 Saturation ABG Base Excess ABG Hemoglobin Oxyhemoglobin Sodium Chloride Carbon Dioxide BUN Creatinine Glucose POC Glucose Hemoglobin A1c Lactic Acid 3.70 H* 2.40 H* Calcium Phosphorus Magnesium Total Bilirubin AST Total Creatine Kinase CK-MB (CK-2) Total Protein Albumin Urine WBC (Auto) 58.0 H Urine Creatinine 12/18/19 12/18/19 12/18/19 12:05 12:06 13:18 WBC RBC Hgb Hct MCHC Seg Neuts % (Manual) Lymphocytes % (Manual) Seg Neutrophils # Man Lymphocytes # (Manual) APTT D-Dimer ABG pH 7.469 H ABG pO2 113.9 H ABG HCO3 ABG O2 Saturation ABG Base Excess ABG Hemoglobin 10.0 L Oxyhemoglobin Sodium Chloride Carbon Dioxide BUN Creatinine Glucose POC Glucose Hemoglobin A1c Lactic Acid 3.20 H* 2.50 H* Calcium Phosphorus Magnesium Total Bilirubin AST Total Creatine Kinase CK-MB (CK-2) Total Protein Albumin Urine WBC (Auto) Urine Creatinine 12/18/19 12/19/19 12/19/19 15:28 10:50 11:12 WBC RBC Hgb Hct MCHC Seg Neuts % (Manual) Lymphocytes % (Manual) Seg Neutrophils # Man Lymphocytes # (Manual) APTT 72.2 H* D-Dimer ABG pH ABG pO2 55.6 L ABG HCO3 19.5 L ABG O2 Saturation 88.8 L ABG Base Excess -4.7 L ABG Hemoglobin Oxyhemoglobin 87.0 L Sodium Chloride Carbon Dioxide BUN Creatinine Glucose POC Glucose 257 H Hemoglobin A1c Lactic Acid Calcium Phosphorus Magnesium Total Bilirubin AST Total Creatine Kinase CK-MB (CK-2) Total Protein Albumin Urine WBC (Auto) Urine Creatinine 12/19/19 12/19/19 12/20/19 12:04 12:04 08:20 WBC RBC Hgb Hct MCHC Seg Neuts % (Manual) Lymphocytes % (Manual) Seg Neutrophils # Man Lymphocytes # (Manual) APTT D-Dimer ABG pH ABG pO2 59.7 L ABG HCO3 19.9 L ABG O2 Saturation 90.2 L ABG Base Excess -4.9 L ABG Hemoglobin Oxyhemoglobin 88.5 L Sodium 131 L D Chloride 91.3 L Carbon Dioxide 18 L BUN Creatinine Glucose 290 H POC Glucose Hemoglobin A1c Lactic Acid 2.50 H* Calcium 7.9 L Phosphorus Magnesium Total Bilirubin AST 123 H Total Creatine Kinase 3873 H CK-MB (CK-2) 8.7 H Total Protein Albumin 2.4 L Urine WBC (Auto) Urine Creatinine 12/20/19 12/20/19 12/20/19 09:56 09:56 09:56 WBC 17.7 H RBC 5.24 H Hgb 15.7 H Hct 46.7 H D MCHC Seg Neuts % (Manual) 88.0 H Lymphocytes % (Manual) 8.0 L Seg Neutrophils # Man 15.6 H Lymphocytes # (Manual) APTT D-Dimer ABG pH ABG pO2 ABG HCO3 ABG O2 Saturation ABG Base Excess ABG Hemoglobin Oxyhemoglobin Sodium 135 L Chloride 96.6 L Carbon Dioxide 13 L BUN 38 H Creatinine Glucose 382 H POC Glucose Hemoglobin A1c Lactic Acid Calcium Phosphorus Magnesium 3.10 H Total Bilirubin AST Total Creatine Kinase CK-MB (CK-2) Total Protein Albumin Urine WBC (Auto) Urine Creatinine 12/20/19 12/20/19 12/20/19 10:27 12:57 15:20 WBC RBC Hgb Hct MCHC Seg Neuts % (Manual) Lymphocytes % (Manual) Seg Neutrophils # Man Lymphocytes # (Manual) APTT D-Dimer ABG pH 7.217 L 7.247 L ABG pO2 75.4 L 93.3 H ABG HCO3 ABG O2 Saturation 92.1 L ABG Base Excess -7.4 L -6.1 L ABG Hemoglobin Oxyhemoglobin 90.4 L 94.3 L Sodium Chloride Carbon Dioxide BUN Creatinine Glucose POC Glucose 350 H Hemoglobin A1c Lactic Acid Calcium Phosphorus Magnesium Total Bilirubin AST Total Creatine Kinase CK-MB (CK-2) Total Protein Albumin Urine WBC (Auto) Urine Creatinine 12/20/19 12/20/19 12/20/19 16:44 18:22 20:47 WBC RBC Hgb Hct MCHC Seg Neuts % (Manual) Lymphocytes % (Manual) Seg Neutrophils # Man Lymphocytes # (Manual) APTT D-Dimer ABG pH ABG pO2 ABG HCO3 ABG O2 Saturation ABG Base Excess ABG Hemoglobin Oxyhemoglobin Sodium Chloride Carbon Dioxide BUN Creatinine Glucose POC Glucose 401 H 371 H 412 H Hemoglobin A1c Lactic Acid Calcium Phosphorus Magnesium Total Bilirubin AST Total Creatine Kinase CK-MB (CK-2) Total Protein Albumin Urine WBC (Auto) Urine Creatinine 12/21/19 12/21/19 12/21/19 00:14 04:40 05:13 WBC RBC Hgb Hct MCHC Seg Neuts % (Manual) Lymphocytes % (Manual) Seg Neutrophils # Man Lymphocytes # (Manual) APTT D-Dimer ABG pH 7.308 L ABG pO2 60.8 L ABG HCO3 27.3 H ABG O2 Saturation 90.1 L ABG Base Excess ABG Hemoglobin 12.6 L Oxyhemoglobin 88.3 L Sodium Chloride Carbon Dioxide BUN Creatinine Glucose POC Glucose 392 H 333 H Hemoglobin A1c Lactic Acid Calcium Phosphorus Magnesium Total Bilirubin AST Total Creatine Kinase CK-MB (CK-2) Total Protein Albumin Urine WBC (Auto) Urine Creatinine 12/21/19 12/21/19 12/21/19 12:39 18:11 23:45 WBC RBC Hgb Hct MCHC Seg Neuts % (Manual) Lymphocytes % (Manual) Seg Neutrophils # Man Lymphocytes # (Manual) APTT D-Dimer ABG pH ABG pO2 ABG HCO3 ABG O2 Saturation ABG Base Excess ABG Hemoglobin Oxyhemoglobin Sodium Chloride Carbon Dioxide BUN Creatinine Glucose POC Glucose 327 H 309 H 286 H Hemoglobin A1c Lactic Acid Calcium Phosphorus Magnesium Total Bilirubin AST Total Creatine Kinase CK-MB (CK-2) Total Protein Albumin Urine WBC (Auto) Urine Creatinine 12/21/19 12/21/19 12/21/19 Unknown Unknown Unknown WBC 12.3 H RBC Hgb Hct MCHC Seg Neuts % (Manual) 93.0 H Lymphocytes % (Manual) 5.0 L Seg Neutrophils # Man 11.4 H Lymphocytes # (Manual) 0.6 L APTT D-Dimer ABG pH ABG pO2 ABG HCO3 ABG O2 Saturation ABG Base Excess ABG Hemoglobin Oxyhemoglobin Sodium Chloride Carbon Dioxide 21 L D BUN 73 H Creatinine 2.2 H D Glucose 361 H POC Glucose Hemoglobin A1c 10.0 H Lactic Acid Calcium 7.9 L Phosphorus Magnesium Total Bilirubin AST Total Creatine Kinase CK-MB (CK-2) Total Protein Albumin Urine WBC (Auto) Urine Creatinine 12/22/19 12/22/19 12/22/19 05:24 06:29 07:16 WBC RBC Hgb Hct MCHC Seg Neuts % (Manual) Lymphocytes % (Manual) Seg Neutrophils # Man Lymphocytes # (Manual) APTT D-Dimer ABG pH ABG pO2 93.7 H ABG HCO3 30.4 H ABG O2 Saturation ABG Base Excess 4.4 H ABG Hemoglobin 12.8 L Oxyhemoglobin Sodium Chloride Carbon Dioxide BUN 111 H Creatinine 3.2 H Glucose 340 H POC Glucose 275 H Hemoglobin A1c Lactic Acid Calcium 8.1 L Phosphorus Magnesium Total Bilirubin AST Total Creatine Kinase CK-MB (CK-2) Total Protein Albumin Urine WBC (Auto) Urine Creatinine 12/22/19 12/22/19 12/22/19 11:27 12:58 15:30 WBC RBC Hgb Hct MCHC Seg Neuts % (Manual) Lymphocytes % (Manual) Seg Neutrophils # Man Lymphocytes # (Manual) APTT D-Dimer ABG pH ABG pO2 ABG HCO3 ABG O2 Saturation ABG Base Excess ABG Hemoglobin Oxyhemoglobin Sodium Chloride Carbon Dioxide BUN Creatinine Glucose POC Glucose 345 H Hemoglobin A1c Lactic Acid Calcium Phosphorus 5.10 H Magnesium 3.90 H Total Bilirubin AST Total Creatine Kinase CK-MB (CK-2) Total Protein Albumin Urine WBC (Auto) Urine Creatinine 80.5 H 12/22/19 12/23/19 12/23/19 17:54 00:30 04:47 WBC RBC Hgb Hct MCHC Seg Neuts % (Manual) Lymphocytes % (Manual) Seg Neutrophils # Man Lymphocytes # (Manual) APTT D-Dimer ABG pH ABG pO2 ABG HCO3 ABG O2 Saturation ABG Base Excess ABG Hemoglobin Oxyhemoglobin Sodium 146 H Chloride Carbon Dioxide BUN 107 H Creatinine 2.5 H Glucose 278 H POC Glucose 308 H 228 H Hemoglobin A1c Lactic Acid Calcium 7.7 L Phosphorus Magnesium Total Bilirubin AST Total Creatine Kinase CK-MB (CK-2) Total Protein Albumin Urine WBC (Auto) Urine Creatinine 12/23/19 12/23/19 12/23/19 04:47 05:50 06:06 WBC 12.0 H RBC Hgb Hct MCHC Seg Neuts % (Manual) 82.0 H Lymphocytes % (Manual) 12.0 L Seg Neutrophils # Man 9.8 H Lymphocytes # (Manual) APTT D-Dimer ABG pH ABG pO2 59.0 L ABG HCO3 31.6 H ABG O2 Saturation 89.2 L ABG Base Excess 4.5 H ABG Hemoglobin 13.5 L Oxyhemoglobin 87.2 L Sodium Chloride Carbon Dioxide BUN Creatinine Glucose POC Glucose 263 H Hemoglobin A1c Lactic Acid Calcium Phosphorus Magnesium Total Bilirubin AST Total Creatine Kinase CK-MB (CK-2) Total Protein Albumin Urine WBC (Auto) Urine Creatinine 12/23/19 12/23/19 12/23/19 12:58 18:08 18:10 WBC RBC Hgb Hct MCHC Seg Neuts % (Manual) Lymphocytes % (Manual) Seg Neutrophils # Man Lymphocytes # (Manual) APTT D-Dimer ABG pH ABG pO2 ABG HCO3 31.6 H ABG O2 Saturation ABG Base Excess 4.7 H ABG Hemoglobin 13.1 L Oxyhemoglobin 93.5 L Sodium Chloride Carbon Dioxide BUN Creatinine Glucose POC Glucose 206 H 328 H Hemoglobin A1c Lactic Acid Calcium Phosphorus Magnesium Total Bilirubin AST Total Creatine Kinase CK-MB (CK-2) Total Protein Albumin Urine WBC (Auto) Urine Creatinine 12/23/19 12/24/19 12/24/19 23:37 00:37 00:37 WBC RBC Hgb Hct MCHC Seg Neuts % (Manual) 88.0 H Lymphocytes % (Manual) 5.0 L Seg Neutrophils # Man 9.6 H Lymphocytes # (Manual) 0.5 L APTT D-Dimer ABG pH ABG pO2 ABG HCO3 ABG O2 Saturation ABG Base Excess ABG Hemoglobin Oxyhemoglobin Sodium 152 H Chloride 109.9 H Carbon Dioxide BUN 89 H Creatinine 2.2 H Glucose 287 H POC Glucose 277 H Hemoglobin A1c Lactic Acid Calcium 7.5 L Phosphorus Magnesium Total Bilirubin AST Total Creatine Kinase CK-MB (CK-2) Total Protein Albumin Urine WBC (Auto) Urine Creatinine 12/24/19 12/24/19 12/24/19 05:25 05:36 06:23 WBC RBC Hgb Hct MCHC Seg Neuts % (Manual) Lymphocytes % (Manual) Seg Neutrophils # Man Lymphocytes # (Manual) APTT D-Dimer ABG pH ABG pO2 72.2 L ABG HCO3 31.6 H ABG O2 Saturation ABG Base Excess 5.2 H ABG Hemoglobin 13.1 L Oxyhemoglobin 92.8 L Sodium Chloride Carbon Dioxide BUN Creatinine Glucose POC Glucose 204 H Hemoglobin A1c Lactic Acid Calcium Phosphorus Magnesium 3.10 H Total Bilirubin AST Total Creatine Kinase CK-MB (CK-2) Total Protein Albumin Urine WBC (Auto) Urine Creatinine 12/24/19 12/24/19 12/24/19 11:34 18:04 23:53 WBC RBC Hgb Hct MCHC Seg Neuts % (Manual) Lymphocytes % (Manual) Seg Neutrophils # Man Lymphocytes # (Manual) APTT D-Dimer ABG pH ABG pO2 ABG HCO3 ABG O2 Saturation ABG Base Excess ABG Hemoglobin Oxyhemoglobin Sodium Chloride Carbon Dioxide BUN Creatinine Glucose POC Glucose 187 H 286 H 231 H Hemoglobin A1c Lactic Acid Calcium Phosphorus Magnesium Total Bilirubin AST Total Creatine Kinase CK-MB (CK-2) Total Protein Albumin Urine WBC (Auto) Urine Creatinine 12/25/19 12/25/19 12/25/19 04:52 05:22 05:22 WBC 12.0 H RBC Hgb Hct MCHC Seg Neuts % (Manual) 76.0 H Lymphocytes % (Manual) 10.0 L Seg Neutrophils # Man 9.1 H Lymphocytes # (Manual) APTT D-Dimer ABG pH ABG pO2 68.3 L ABG HCO3 32.6 H ABG O2 Saturation 94.7 L ABG Base Excess 5.7 H ABG Hemoglobin 13.2 L Oxyhemoglobin 92.3 L Sodium 149 H Chloride 109.2 H Carbon Dioxide 33 H BUN 62 H Creatinine 1.7 H Glucose 245 H POC Glucose Hemoglobin A1c Lactic Acid Calcium 8.0 L Phosphorus Magnesium 2.90 H Total Bilirubin AST Total Creatine Kinase 195 H CK-MB (CK-2) Total Protein 5.8 L Albumin 2.3 L Urine WBC (Auto) Urine Creatinine 12/25/19 05:42 WBC RBC Hgb Hct MCHC Seg Neuts % (Manual) Lymphocytes % (Manual) Seg Neutrophils # Man Lymphocytes # (Manual) APTT D-Dimer ABG pH ABG pO2 ABG HCO3 ABG O2 Saturation ABG Base Excess ABG Hemoglobin Oxyhemoglobin Sodium Chloride Carbon Dioxide BUN Creatinine Glucose POC Glucose 208 H Hemoglobin A1c Lactic Acid Calcium Phosphorus Magnesium Total Bilirubin AST Total Creatine Kinase CK-MB (CK-2) Total Protein Albumin Urine WBC (Auto) Urine Creatinine Allied health notes reviewed: RT
[2019-12-25] MEDS ORDERED: FUROSEMIDE 40 MG/4 ML INJ IV ONE (11:20)
[2019-12-25] MEDS: DEXMEDETOMIDINE 400 MCG in SODIUM CHLORIDE 0.9% 100 ML IV SCH ×2 (14:10→19:41)
[2019-12-25] MEDS: QUEtiapine 200 MG TAB PO SCH (21:30)
[2019-12-25] MEDS: INSULIN GLARGINE 100 UNITS/ML SUB-Q SCH (21:31)
[2019-12-25] MEDS: ENOXAPARIN 40 MG/0.4 ML INJ SUB-Q SCH (21:31)
[2019-12-25] MEDS: DOCUSATE SODIUM 100 MG/10 ML ORAL LIQD FEEDTUBE SCH (21:31)
[2019-12-25] MEDS ORDERED: VANCOMYCIN 1,500 MG in SODIUM CHLORIDE 0.9% 500 ML 500 ML IV SCH (22:00)
[2019-12-26] MEDS: INSULIN LISPRO 100 UNIT/ML SUB-Q SCH ×4 (00:13→18:16)
[2019-12-26] MEDS: DEXMEDETOMIDINE 400 MCG in SODIUM CHLORIDE 0.9% 100 ML IV SCH (00:16)
[2019-12-26] MEDS: IPRATROPIUM/ALBUTEROL SULFATE 3 ML AMPUL.NEB IH SCH ×4 (02:15→20:59)
[2019-12-26] MEDS: hydrALAZINE 20 MG/1 ML INJ IV PRN (04:04)
[2019-12-26 05:04] LABS: ABG Base Excess 6.6 mmol/L (-2.0-3.0); ABG HCO3 33.4 mmol/L (20.0-26.0); ABG Methemoglobin 0.7 % (0.0-1.5); ABG Oxygen Saturation 95.4 % (95.0-99.0); ABG PH 7.394 pH Units (7.350-7.450); ABG PO2 75.6 mm Hg (80.0-90.0)
[2019-12-26] MEDS: hydrALAZINE 25 MG TAB PO SCH ×3 (05:13→21:11)
[2019-12-26] MEDS: DEXMEDETOMIDINE IV SCH ×4 (06:28→16:34)
[2019-12-26] MEDS: SODIUM CHLORIDE 0.9% IV SCH ×4 (06:28→16:34)
--- NOTE | 2019-12-26 06:47 | Progress Note ---
Assessment and Plan Critical care time 35 minutes hypernatremia; present on admission IV fluids changed to D5W AYSE IV fluids for now in the form of D5W Acute respiratory failure with hypoxia Current Visit: Yes Status: Acute Patient intubated oxygen titrate O2 sats to more than 90% Nebulizers IV steroids antibiotics Pulmonary critical following Weaning in progress -- COPD with acute exacerbation Current Visit: Yes Status: Acute Continue duo nebs, IV steroids and IV antibiotics --Metabolic encephalopathy Patient intubated --left lower lobe pneumonia Current Visit: Yes Status: Acute Community-acquired pneumonia On Levaquin and Vanco Follow cultures and supportive care --Leukocytosis/lactic acidosis sepsis secondary to pneumonia --Sepsis secondary to pneumonia; Improving --Hypertension; Controlled -- --tobacco use: Smoking cessation on Nicoderm patch --Severe protein calorie malnutrition Current Visit: Yes Status: Chronic nutrition supplements and supportive care --DVT prophylaxis Current Visit: Yes Status: Acute On Heparin and GI prophylaxis --Tube feeding per protocol Subjective Date of service: 12/25/19 Principal diagnosis: Ac hypoxemic resp failure; ARDS; Rodrigue pneumonia; Severe Sepsis; Rhabdomyolys Interval history: Patient intubated secondary to severe respiratory distress and hypoxia 59 years old male with no known past medical history brought to the emergency room by his son for evaluation of 5-day history of shortness of breath, cough, productive with greenish sputum associated with sweating at night. Patient stated that symptoms started with runny nose and congestion first. Patient found to be in respiratory distress with respiratory rate of 34 and oxygen saturation of 76% on room air patient improved to 92% on nasal cannula 4 L. Sepsis protocol initiated. Patient intubated Weaning in progress Objective - Exam Narrative Exam: Critical care time--45 minutes Patient is intubated - Constitutional Vitals: Vital Signs - 12hr 12/25/19 12/25/19 12/25/19 19:00 19:30 19:55 Temperature 98.8 F Pulse Rate 48 L 58 L Pulse Rate [ Anterior Bilateral] Pulse Rate [ From Monitor] Respiratory 25 H 20 Rate Respiratory Rate [Anterior Bilateral] Blood Pressure 140/77 134/81 O2 Sat by Pulse 97 95 Oximetry 12/25/19 12/25/19 12/25/19 20:00 20:30 21:00 Temperature Pulse Rate 54 L 56 L 55 L Pulse Rate [ Anterior Bilateral] Pulse Rate [ 56 L From Monitor] Respiratory 13 20 22 Rate Respiratory Rate [Anterior Bilateral] Blood Pressure 140/77 152/88 168/78 O2 Sat by Pulse 96 96 97 Oximetry 12/25/19 12/25/19 12/25/19 21:21 21:30 21:45 Temperature Pulse Rate 49 L 53 L Pulse Rate [ 602 H Anterior Bilateral] Pulse Rate [ From Monitor] Respiratory 21 Rate Respiratory 24 Rate [Anterior Bilateral] Blood Pressure 168/76 168/76 O2 Sat by Pulse 94 97 Oximetry 12/25/19 12/25/19 12/25/19 22:00 22:30 23:00 Temperature Pulse Rate 52 L 50 L 48 L Pulse Rate [ Anterior Bilateral] Pulse Rate [ From Monitor] Respiratory 22 23 25 H Rate Respiratory Rate [Anterior Bilateral] Blood Pressure 160/76 160/76 164/77 O2 Sat by Pulse 94 96 96 Oximetry 12/25/19 12/25/19 12/25/19 23:16 23:30 23:37 Temperature 98.4 F Pulse Rate 49 L 48 L Pulse Rate [ Anterior Bilateral] Pulse Rate [ From Monitor] Respiratory 24 26 H Rate Respiratory Rate [Anterior Bilateral] Blood Pressure 164/77 163/76 O2 Sat by Pulse 96 97 Oximetry 12/26/19 12/26/19 12/26/19 00:00 00:30 00:36 Temperature Pulse Rate 49 L 57 L 53 L Pulse Rate [ Anterior Bilateral] Pulse Rate [ 57 L From Monitor] Respiratory 26 H 22 Rate Respiratory Rate [Anterior Bilateral] Blood Pressure 168/76 157/73 157/73 O2 Sat by Pulse 97 97 97 Oximetry 12/26/19 12/26/19 12/26/19 01:00 01:30 02:00 Temperature Pulse Rate 57 L 52 L 54 L Pulse Rate [ 63 Anterior Bilateral] Pulse Rate [ From Monitor] Respiratory 24 21 19 Rate Respiratory 24 Rate [Anterior Bilateral] Blood Pressure 157/73 187/82 179/77 O2 Sat by Pulse 97 94 96 Oximetry 12/26/19 12/26/19 12/26/19 02:30 03:00 03:30 Temperature Pulse Rate 56 L 61 58 L Pulse Rate [ Anterior Bilateral] Pulse Rate [ From Monitor] Respiratory 23 25 H 26 H Rate Respiratory Rate [Anterior Bilateral] Blood Pressure 187/87 187/87 196/80 O2 Sat by Pulse 94 96 Oximetry 12/26/19 12/26/19 12/26/19 03:35 03:43 04:00 Temperature 98.3 F Pulse Rate 52 L 54 L Pulse Rate [ Anterior Bilateral] Pulse Rate [ 60 From Monitor] Respiratory 20 Rate Respiratory Rate [Anterior Bilateral] Blood Pressure 175/62 175/62 O2 Sat by Pulse 96 96 Oximetry 12/26/19 12/26/19 12/26/19 04:04 04:30 05:00 Temperature Pulse Rate 56 L 68 74 Pulse Rate [ Anterior Bilateral] Pulse Rate [ From Monitor] Respiratory 19 32 H Rate Respiratory Rate [Anterior Bilateral] Blood Pressure 183/69 186/82 217/98 O2 Sat by Pulse 94 94 Oximetry 12/26/19 12/26/19 12/26/19 05:13 05:30 06:00 Temperature Pulse Rate 63 58 L 56 L Pulse Rate [ Anterior Bilateral] Pulse Rate [ From Monitor] Respiratory 23 22 Rate Respiratory Rate [Anterior Bilateral] Blood Pressure 189/82 171/83 166/74 O2 Sat by Pulse 91 95 Oximetry General appearance: Present: no acute distress, well-nourished - EENT Eyes: PERRL, EOM intact ENT: hearing intact, clear oral mucosa Ears: bilateral: normal - Neck Neck: supple, normal ROM - Respiratory Respiratory effort: normal Respiratory: bilateral: CTA - Breasts Breasts: normal - Cardiovascular Rhythm: regular Heart Sounds: Present: S1 & S2. Absent: gallop, rub Extremities: pulses intact, No edema, normal color, Full ROM - Gastrointestinal General gastrointestinal: Present: soft, non-tender, non-distended, normal bowel sounds - Genitourinary Male genitourinary: normal - Integumentary Integumentary: clear, warm, dry - Musculoskeletal Musculoskeletal: 1, strength equal bilaterally - Neurologic Neurologic: moves all extremities - Psychiatric Psychiatric: memory intact, appropriate mood/affect, intact judgment & insight - Labs CBC & Chem 7: 12/25/19 05:22 12/26/19 04:09 Labs: Abnormal lab results 12/25/19 12/25/19 12/26/19 Range/Units 12:16 18:48 00:06 ABG pO2 (80.0-90.0) mm Hg ABG HCO3 (20.0-26.0) mmol/L ABG Base Excess (-2.0-3.0) mmol/L Oxyhemoglobin (95.0-99.0) % Sodium (137-145) mmol/L Carbon Dioxide (22-30) mmol/L BUN (9-20) mg/dL Glucose (75-100) mg/dL POC Glucose 290 H 239 H 188 H (70-105) 12/26/19 12/26/19 12/26/19 Range/Units 04:09 04:48 05:49 ABG pO2 75.6 L (80.0-90.0) mm Hg ABG HCO3 33.4 H (20.0-26.0) mmol/L ABG Base Excess 6.6 H (-2.0-3.0) mmol/L Oxyhemoglobin 93.4 L (95.0-99.0) % Sodium 147 H (137-145) mmol/L Carbon Dioxide 32 H (22-30) mmol/L BUN 49 H (9-20) mg/dL Glucose 257 H (75-100) mg/dL POC Glucose 220 H (70-105)
--- NOTE | 2019-12-26 08:38 | Progress Note ---
Assessment and Plan 1. Acute kidney injury: Likely vasomotor AYSE in the setting of sepsis and possible rhabdo. Renal US negative for hydro. Continue IV fluids. Renal function is improving, now 1.4. Monitor renal function. Renal prognosis is guarded. Avoid nephrotoxic agents. Meds dosage based on GFR. 2. FEN: Metabolic acidosis, resolved, CO2 is trending down, monitor. Mild Hypernatremia, improving, continue D5 IV fluids, low NA tube feeds, monitor. Monitor lytes. 3. Acute respiratory failure with hypoxia: Was not able to tolerate transition to BiPap yesterday, 12/24, 2/2 increased work of breathing. Was orally intubated again yesterday and remains intubated today, 12/25. Pulmonology following. 4. Left lower lobe pneumonia: Confirmed via chest xray on admission. Community-acquired. On abx. Pulmonology following. 5. Sepsis: 2/2 pneumonia. Leukocytosis/lactic acidosis. Tachycardia, tachypnea and fever on admission. 6. Metabolic encephalopathy: Currently intubated with restraints. Sedation is being tapered. 8. Hypertension: Has been elevated this morning. Monitor BP closely. 9. Severe malnutrition: Protein/calorie. On tube feedings via NGT and tolerating well. 9. Tobacco abuse: Unable to chromosomal disorders counselor on smoking cessation given patient condition. On Nicoderm patch. Subjective Date of service: 12/26/19 Principal diagnosis: Ac hypoxemic resp failure; ARDS; Rodrigue pneumonia; Severe Sepsis; Rhabdomyolys Interval history: Patient was seen and examined at the bedside. No family present at time of examination. Patient seems agitated this morning. Tech and nurse present during exam. Objective - Exam Narrative Exam: General appearance: well-developed, well-nourished, appears stated age, obese, other (intubated on vent, NGT, restraints, chauhan) EENT: PERRL, mucous membranes moist, other (intubated) Neck: Present: neck supple, trachea midline Respiratory: Clear to Ascultation Heart: regular, bradycardia, S1S2, no murmurs Gastrointestinal: Present: normal, normoactive bowel sounds. Absent: tenderness, distended, organomegaly Integumentary: no rash, warm and dry Neurologic: alert, makes good eye contact, trying to verbalize Musculoskeletal: Present: other (no edema noted) Psychiatric: agitated - Vital Signs Vital signs: Vital Signs - 12hr 12/25/19 12/25/19 12/25/19 21:00 21:21 21:30 Temperature Pulse Rate 55 L 49 L 53 L Pulse Rate [ Anterior Bilateral] Pulse Rate [ From Monitor] Respiratory 22 21 Rate Respiratory Rate [Anterior Bilateral] Blood Pressure 168/78 168/76 168/76 O2 Sat by Pulse 97 94 97 Oximetry 12/25/19 12/25/19 12/25/19 21:45 22:00 22:30 Temperature Pulse Rate 52 L 50 L Pulse Rate [ 602 H Anterior Bilateral] Pulse Rate [ From Monitor] Respiratory 22 23 Rate Respiratory 24 Rate [Anterior Bilateral] Blood Pressure 160/76 160/76 O2 Sat by Pulse 94 96 Oximetry 12/25/19 12/25/19 12/25/19 23:00 23:16 23:30 Temperature Pulse Rate 48 L 49 L 48 L Pulse Rate [ Anterior Bilateral] Pulse Rate [ From Monitor] Respiratory 25 H 24 26 H Rate Respiratory Rate [Anterior Bilateral] Blood Pressure 164/77 164/77 163/76 O2 Sat by Pulse 96 96 97 Oximetry 12/25/19 12/26/19 12/26/19 23:37 00:00 00:30 Temperature 98.4 F Pulse Rate 49 L 57 L Pulse Rate [ Anterior Bilateral] Pulse Rate [ 57 L From Monitor] Respiratory 26 H 22 Rate Respiratory Rate [Anterior Bilateral] Blood Pressure 168/76 157/73 O2 Sat by Pulse 97 97 Oximetry 12/26/19 12/26/19 12/26/19 00:36 01:00 01:30 Temperature Pulse Rate 53 L 57 L 52 L Pulse Rate [ Anterior Bilateral] Pulse Rate [ From Monitor] Respiratory 24 21 Rate Respiratory Rate [Anterior Bilateral] Blood Pressure 157/73 157/73 187/82 O2 Sat by Pulse 97 97 94 Oximetry 12/26/19 12/26/19 12/26/19 02:00 02:30 03:00 Temperature Pulse Rate 54 L 56 L 61 Pulse Rate [ 63 Anterior Bilateral] Pulse Rate [ From Monitor] Respiratory 19 23 25 H Rate Respiratory 24 Rate [Anterior Bilateral] Blood Pressure 179/77 187/87 187/87 O2 Sat by Pulse 96 94 96 Oximetry 12/26/19 12/26/19 12/26/19 03:30 03:35 03:43 Temperature 98.3 F Pulse Rate 58 L 52 L Pulse Rate [ Anterior Bilateral] Pulse Rate [ From Monitor] Respiratory 26 H Rate Respiratory Rate [Anterior Bilateral] Blood Pressure 196/80 175/62 O2 Sat by Pulse 96 Oximetry 12/26/19 12/26/19 12/26/19 04:00 04:04 04:30 Temperature Pulse Rate 54 L 56 L 68 Pulse Rate [ Anterior Bilateral] Pulse Rate [ 60 From Monitor] Respiratory 20 19 Rate Respiratory Rate [Anterior Bilateral] Blood Pressure 175/62 183/69 186/82 O2 Sat by Pulse 96 94 Oximetry 12/26/19 12/26/19 12/26/19 05:00 05:13 05:30 Temperature Pulse Rate 74 63 58 L Pulse Rate [ Anterior Bilateral] Pulse Rate [ From Monitor] Respiratory 32 H 23 Rate Respiratory Rate [Anterior Bilateral] Blood Pressure 217/98 189/82 171/83 O2 Sat by Pulse 94 91 Oximetry 12/26/19 06:00 Temperature Pulse Rate 56 L Pulse Rate [ Anterior Bilateral] Pulse Rate [ From Monitor] Respiratory 22 Rate Respiratory Rate [Anterior Bilateral] Blood Pressure 166/74 O2 Sat by Pulse 95 Oximetry - Lab 12/25/19 05:22 12/26/19 04:09 Most recent lab results ABG pH 7.394 pH Units (7.350-7.450) 12/26/19 04:48 ABG pCO2 56.0 mm Hg 12/26/19 04:48 ABG pO2 75.6 mm Hg (80.0-90.0) L 12/26/19 04:48 ABG HCO3 33.4 mmol/L (20.0-26.0) H 12/26/19 04:48 ABG O2 Saturation 95.4 % (95.0-99.0) 12/26/19 04:48 Calcium 9.0 mg/dL (8.4-10.2) 12/26/19 04:09 Phosphorus 3.30 mg/dL (2.5-4.5) 12/25/19 05:22 Magnesium 2.90 mg/dL (1.7-2.3) H 12/25/19 05:22 Urine Creatinine 80.5 mg/dL (0.1-20.0) H 12/22/19 15:30 Urine Sodium 23 mmol/L 12/22/19 15:30 Medications & Allergies - Medications Allergies/Adverse Reactions: Allergies Penicillins Allergy (Verified 12/18/19 22:48) Anaphylaxis VERIFIED WITH PT AND NURSE Home Medications: Home Medications Medication Instructions Recorded Confirmed Last Taken Type No Known Home Medications [No 12/19/19 12/19/19 Unknown History Reported Home Medications] Active Medications: Generic Name Dose Route Start Last Admin Trade Name Freq PRN Reason Stop Dose Admin Acetaminophen 650 mg 12/18/19 21:26 Tylenol PO Q4H PRN Pain MILD(1-3)/Fever >100.5/CHAUDHRY Albuterol 2.5 mg 12/18/19 21:34 Proventil IH Q4HRT PRN Shortness Of Breath Albuterol/Ipratropium 1 ampul 12/18/19 20:45 12/26/19 02:15 Duoneb *Not For Prn Use* IH 1 ampul Q6HRT MARIAN Administration Lipase/Protease/Amylase 1 each 12/20/19 18:25 Pancreazleanna Welch 10,500 Unit FEEDTUBE PRN PRN For Clogged Feeding Tube Arformoterol Tartrate 15 mcg 12/19/19 20:00 12/25/19 21:20 Brovana Nebu IH 15 mcg Q12HRT MARIAN Administration Budesonide 0.5 mg 12/19/19 20:00 12/25/19 21:21 Pulmicort IH 0.5 mg Q12HRT MARIAN Administration Docusate Sodium 100 mg 12/25/19 22:00 12/25/19 21:31 Colace FEEDTUBE Not Given BID MARIAN Enoxaparin Sodium 40 mg 12/25/19 22:00 12/25/19 21:31 Enoxaparin SUB-Q 40 mg QDAY@2200 MARIAN Administration Famotidine 20 mg 12/25/19 10:00 12/25/19 21:30 Pepcid PO 20 mg BID MARIAN Administration Hydralazine HCl 25 mg 12/19/19 14:00 12/26/19 05:13 Apresoline PO 25 mg Q8HR MARIAN Administration Hydralazine HCl 5 mg 12/26/19 03:19 12/26/19 04:04 Apresoline IV 5 mg Q6H PRN Administration Hypertension Hydromorphone HCl 0.5 mg 12/18/19 21:26 12/26/19 02:55 Dilaudid IV 0.5 mg Q3H PRN Administration Pain , Severe (7-10) Hydrophilic Ointment 1 applic 12/20/19 12:12 Vaseline Lip Therapy TP Q2HR PRN Dry Lips Propofol 1,000 mg in 100 mls @ 3.26 mls/hr 12/20/19 13:00 12/22/19 15:30 Diprivan 10 Mg/Ml IV 0 mcg/kg/min TITR MARIAN 0 mls/hr Titration Protocol 5 MCG/KG/MIN Dextrose 1,000 mls @ 50 mls/hr 12/24/19 09:00 12/25/19 21:30 D5w IV 50 mls/hr DIRECT MARIAN Administration Dexmedetomidine HCl 200 mcg/ 52 mls @ 5.372 mls/hr 12/26/19 06:00 12/26/19 06:28 Sodium Chloride IV 0.7 mcg/kg/hr TITRATE MARIAN 18.801 mls/hr Administration Protocol 0.2 MCG/KG/HR Insulin Glargine 15 units 12/22/19 22:00 12/25/19 21:31 Lantus SUB-Q 15 units QHS MARIAN Administration Insulin Human Lispro 0 unit 12/20/19 16:00 12/26/19 05:53 Humalog SUB-Q 4 unit Q6HR MARIAN Administration Protocol Metoclopramide HCl 10 mg 12/18/19 21:26 Reglan IV Q6H PRN Nausea And Vomiting Multi-Ingred Cream/Lotion/Oil/Oint 1 applic 12/20/19 12:12 Artificial Tears Ophth Oint OU Q4HR PRN Dry Eye(s) Nicotine 21 mg 12/20/19 10:00 12/25/19 09:37 Habitrol TD 21 mg QDAY MARIAN Administration Ondansetron HCl 4 mg 12/18/19 21:26 Zofran IV Q3H PRN Nausea And Vomiting Oxycodone/Acetaminophen 1 tab 12/18/19 21:26 Percocet 5/325 PO Q6H PRN Pain, Moderate (4-6) Prednisone 10 mg 12/26/19 10:00 Deltasone PO 12/26/19 10:01 QDAY MARIAN Prednisone 5 mg 12/27/19 10:00 Deltasone PO 12/27/19 10:01 QDAY MARIAN Quetiapine Fumarate 200 mg 12/25/19 22:00 12/25/19 21:30 Seroquel PO 200 mg QHS MARIAN Administration Quetiapine Fumarate 100 mg 12/26/19 10:00 Seroquel PO DAILY MARIAN Simple Syrup 30 ml 12/20/19 18:25 Simple Syrup FEEDTUBE PRN PRN Hypoglycemia Simple Syrup 15 ml 12/24/19 11:39 Simple Syrup FEEDTUBE PRN PRN Hypoglycemia Sodium Bicarbonate 325 mg 12/24/19 11:39 Sodium Bicarbonate FEEDTUBE PRN PRN For Clogged Feeding Tube Sodium Chloride 10 ml 12/18/19 22:00 12/25/19 21:31 Sodium Chloride Flush Syringe 10 Ml IV 10 ml BID MARIAN Administration Sodium Chloride 10 ml 12/18/19 21:26 12/19/19 06:55 Sodium Chloride Flush Syringe 10 Ml IV 10 ml PRN PRN Administration LINE FLUSH
--- NOTE | 2019-12-26 08:54 | Progress Note ---
Assessment and Plan Severe sepsis Acute hypoxemic respiratory failure Bilateral pneumonia (CAP/Aspiration) Possible EtOH abuse with withdrawal Possible COPD Leukocytosis. Elevated D-dimer. Hyponatremia Mild metabolic acidosis. Lactic acidosis. Hyperbilirubinemia. Elevated serum transaminases. Possible UTI Rhabdomyolysis -Continue with MVS, Lung protective strategies, monitor airway pressures -VAP bundle addressed -Aspiration precautions, HOB>40 -Get transthoracic echocardiogram to evlaute LVEF- patient has bilateral alveola r infiltrates -Daily assessment for readiness for SBT -Titrate sedation for RAAS -1 to 02 -VTE prophylaxis -Stress ulcer prophylaxis -Initiate enteric nutritional support. Monitor glycemic control, with target blood glucose 140-180 mg/dL while critically ill. Avoid hypoglycemia -RD consult placed - Taper systemic steroids - continue daily SAT and SBT assessment as tolerated - continue to wean supplemental oxygen for target O2 sat's > 90% , once FIO2 is down to 50% start wening PEEP -Permissive hypercapnia is acceptable, discontinue bicarbonate infusion after current liter -ABG and CXR in am -Bladder scan, place Robertson catheter in this acutely ill patient with worsening renal function and oliguria -Follow cultures and adjust antibiotic therapy for PARVIN and culture results -Avoid nephrotoxins, adjust all medications fro GFR and CrCL - continue bronchodilators with pulmonary hygiene per RT - wean per pulmonary driven protocols otherwise - continue to avoid benzodiazepines to reduce the possibility of delirium - prn analgesia per CPOT score - Maintenance of sleep-wake cycle, avoid delirium - PT/OT/ROM exercises - continue mobility protocol and skin assessment per protocol for pressure ulcer prevention - Monitor hemodynamics closely - continue other care per attending / other consultants Discussed extensively with his son and daughter who are POA- they did state that he can get very agitated and aggressive. His only history is that of hypertension. I updated them re care plan and answered all their questions. CONDITION: CRITICAL PROGNOSIS: GUARDED CODE STATUS: FULL CODE The high probability of a clinically significant, sudden or life-threatening deterioration of the [respiratory, cardiovascular, GI & neurologic] system(s) required my full and direct attention, intervention and personal management. The aggregate critical care time was [35] minutes without overlap. Time includes spent on; [x] Data Review and interpretation [x] Patient assessment and monitoring of vital signs [x] Documentation [x] Medication orders and management Subjective Date of service: 12/26/19 Principal diagnosis: Ac hypoxemic resp failure; ARDS; Rodrigue pneumonia; Severe Sepsis; Rhabdomyolys Interval history: Patient is seen today for:Severe Sepsis; Acute hypoxemic respiratory failure; ARDS; Bilateral pneumonia (CAP/Aspiration); Possible COPD; Leukocytosis.; Elevated D-dimer.; Hyponatremia; Elevated serum transaminases; Rhabdomyolysis Seen and examined at bedside; 24hour events reviewed; nursing and respiratory care staff consulted; no adverse overnight events reported to me; laying in bed; failed BIPAP with increased work of breathing, orally intubated yesterday ; Vitals, labs,medications, chart and imaging reviewed. Currently on Propofol and Fentanyl- Currently on full support AC-VC 30/450/PEEP 12/FIO2 65% ABG 7.30/55/60/27.5 Peak airway pressure <35 Has a condom cath on, has not made much urine with an increase in her creatinine Discussed in ICU-IDT rounds. Objective Vital Signs - 12hr 12/25/19 12/25/19 12/25/19 21:00 21:21 21:30 Temperature Pulse Rate 55 L 49 L 53 L Pulse Rate [ Anterior Bilateral] Pulse Rate [ From Monitor] Respiratory 22 21 Rate Respiratory Rate [Anterior Bilateral] Blood Pressure 168/78 168/76 168/76 O2 Sat by Pulse 97 94 97 Oximetry 12/25/19 12/25/19 12/25/19 21:45 22:00 22:30 Temperature Pulse Rate 52 L 50 L Pulse Rate [ 602 H Anterior Bilateral] Pulse Rate [ From Monitor] Respiratory 22 23 Rate Respiratory 24 Rate [Anterior Bilateral] Blood Pressure 160/76 160/76 O2 Sat by Pulse 94 96 Oximetry 12/25/19 12/25/19 12/25/19 23:00 23:16 23:30 Temperature Pulse Rate 48 L 49 L 48 L Pulse Rate [ Anterior Bilateral] Pulse Rate [ From Monitor] Respiratory 25 H 24 26 H Rate Respiratory Rate [Anterior Bilateral] Blood Pressure 164/77 164/77 163/76 O2 Sat by Pulse 96 96 97 Oximetry 12/25/19 12/26/19 12/26/19 23:37 00:00 00:30 Temperature 98.4 F Pulse Rate 49 L 57 L Pulse Rate [ Anterior Bilateral] Pulse Rate [ 57 L From Monitor] Respiratory 26 H 22 Rate Respiratory Rate [Anterior Bilateral] Blood Pressure 168/76 157/73 O2 Sat by Pulse 97 97 Oximetry 12/26/19 12/26/19 12/26/19 00:36 01:00 01:30 Temperature Pulse Rate 53 L 57 L 52 L Pulse Rate [ Anterior Bilateral] Pulse Rate [ From Monitor] Respiratory 24 21 Rate Respiratory Rate [Anterior Bilateral] Blood Pressure 157/73 157/73 187/82 O2 Sat by Pulse 97 97 94 Oximetry 12/26/19 12/26/19 12/26/19 02:00 02:30 03:00 Temperature Pulse Rate 54 L 56 L 61 Pulse Rate [ 63 Anterior Bilateral] Pulse Rate [ From Monitor] Respiratory 19 23 25 H Rate Respiratory 24 Rate [Anterior Bilateral] Blood Pressure 179/77 187/87 187/87 O2 Sat by Pulse 96 94 96 Oximetry 12/26/19 12/26/19 12/26/19 03:30 03:35 03:43 Temperature 98.3 F Pulse Rate 58 L 52 L Pulse Rate [ Anterior Bilateral] Pulse Rate [ From Monitor] Respiratory 26 H Rate Respiratory Rate [Anterior Bilateral] Blood Pressure 196/80 175/62 O2 Sat by Pulse 96 Oximetry 12/26/19 12/26/19 12/26/19 04:00 04:04 04:30 Temperature Pulse Rate 54 L 56 L 68 Pulse Rate [ Anterior Bilateral] Pulse Rate [ 60 From Monitor] Respiratory 20 19 Rate Respiratory Rate [Anterior Bilateral] Blood Pressure 175/62 183/69 186/82 O2 Sat by Pulse 96 94 Oximetry 12/26/19 12/26/19 12/26/19 05:00 05:13 05:30 Temperature Pulse Rate 74 63 58 L Pulse Rate [ Anterior Bilateral] Pulse Rate [ From Monitor] Respiratory 32 H 23 Rate Respiratory Rate [Anterior Bilateral] Blood Pressure 217/98 189/82 171/83 O2 Sat by Pulse 94 91 Oximetry 12/26/19 06:00 Temperature Pulse Rate 56 L Pulse Rate [ Anterior Bilateral] Pulse Rate [ From Monitor] Respiratory 22 Rate Respiratory Rate [Anterior Bilateral] Blood Pressure 166/74 O2 Sat by Pulse 95 Oximetry Constitutional: appears uncomfortable, other (elderly obese CM; normocephalicon MVS ETT at 23cm, no patient -ventilator dyssynchrony) Eyes: non-icteric ENT: oropharynx moist, other Neck: supple, no lymphadenopathy, no JVD, other (large neck circumference) Effort: mildly labored, very labored Ascultation: Bilateral: diminished breath sounds, rales Percussion: Bilateral: not dull Cardiovascular: regular rate and rhythm, other (S1,S2, no murmurs, gallops or rubs) Gastrointestinal: normoactive bowel sounds, soft, non-tender, non-distended (protuberant) Integumentary: normal, other (diaphoretic) Extremities: no cyanosis, no edema, pink and warm, pulses normal Neurologic: pupils equal and round, unable to assess (sedated) Psychiatric: other (unable to assess, sedated) CBC and BMP: 12/25/19 05:22 12/26/19 04:09 ABG, PT/INR, D-dimer: ABG ABG pH 7.394 pH Units (7.350-7.450) 12/26/19 04:48 ABG pCO2 56.0 mm Hg 12/26/19 04:48 ABG pO2 75.6 mm Hg (80.0-90.0) L 12/26/19 04:48 ABG O2 Saturation 95.4 % (95.0-99.0) 12/26/19 04:48 PT/INR, D-dimer PT 13.9 Sec. (12.2-14.9) 12/18/19 15:28 INR 1.06 (0.87-1.13) 12/18/19 15:28 D-Dimer 2277.88 ng/mlDDU (0-234) H 12/18/19 10:30 Abnormal lab findings: Abnormal Labs 12/18/19 12/18/19 12/18/19 10:30 10:30 10:30 WBC 13.7 H RBC 5.06 H Hgb 15.4 H Hct MCHC 35 H Seg Neuts % (Manual) 82.0 H Lymphocytes % (Manual) 8.0 L Seg Neutrophils # Man 11.2 H Lymphocytes # (Manual) 1.1 L APTT D-Dimer 2277.88 H ABG pH ABG pO2 ABG HCO3 ABG O2 Saturation ABG Base Excess ABG Hemoglobin Oxyhemoglobin Sodium 122 L Chloride 80.6 L Carbon Dioxide 21 L BUN Creatinine Glucose 272 H POC Glucose Hemoglobin A1c Lactic Acid Calcium 7.8 L Phosphorus Magnesium Total Bilirubin 1.30 H AST 108 H Total Creatine Kinase CK-MB (CK-2) Total Protein Albumin 3.1 L Urine WBC (Auto) Urine Creatinine 12/18/19 12/18/1920 10:30 11:18 11:56 WBC RBC Hgb Hct MCHC Seg Neuts % (Manual) Lymphocytes % (Manual) Seg Neutrophils # Man Lymphocytes # (Manual) APTT D-Dimer ABG pH ABG pO2 ABG HCO3 ABG O2 Saturation ABG Base Excess ABG Hemoglobin Oxyhemoglobin Sodium Chloride Carbon Dioxide BUN Creatinine Glucose POC Glucose Hemoglobin A1c Lactic Acid 3.70 H* 2.40 H* Calcium Phosphorus Magnesium Total Bilirubin AST Total Creatine Kinase CK-MB (CK-2) Total Protein Albumin Urine WBC (Auto) 58.0 H Urine Creatinine 12/18/19 12/18/19 12/18/19 12:05 12:06 13:18 WBC RBC Hgb Hct MCHC Seg Neuts % (Manual) Lymphocytes % (Manual) Seg Neutrophils # Man Lymphocytes # (Manual) APTT D-Dimer ABG pH 7.469 H ABG pO2 113.9 H ABG HCO3 ABG O2 Saturation ABG Base Excess ABG Hemoglobin 10.0 L Oxyhemoglobin Sodium Chloride Carbon Dioxide BUN Creatinine Glucose POC Glucose Hemoglobin A1c Lactic Acid 3.20 H* 2.50 H* Calcium Phosphorus Magnesium Total Bilirubin AST Total Creatine Kinase CK-MB (CK-2) Total Protein Albumin Urine WBC (Auto) Urine Creatinine 12/18/19 12/19/19 12/19/19 15:28 10:50 11:12 WBC RBC Hgb Hct MCHC Seg Neuts % (Manual) Lymphocytes % (Manual) Seg Neutrophils # Man Lymphocytes # (Manual) APTT 72.2 H* D-Dimer ABG pH ABG pO2 55.6 L ABG HCO3 19.5 L ABG O2 Saturation 88.8 L ABG Base Excess -4.7 L ABG Hemoglobin Oxyhemoglobin 87.0 L Sodium Chloride Carbon Dioxide BUN Creatinine Glucose POC Glucose 257 H Hemoglobin A1c Lactic Acid Calcium Phosphorus Magnesium Total Bilirubin AST Total Creatine Kinase CK-MB (CK-2) Total Protein Albumin Urine WBC (Auto) Urine Creatinine 12/19/19 12/19/19 12/20/19 12:04 12:04 08:20 WBC RBC Hgb Hct MCHC Seg Neuts % (Manual) Lymphocytes % (Manual) Seg Neutrophils # Man Lymphocytes # (Manual) APTT D-Dimer ABG pH ABG pO2 59.7 L ABG HCO3 19.9 L ABG O2 Saturation 90.2 L ABG Base Excess -4.9 L ABG Hemoglobin Oxyhemoglobin 88.5 L Sodium 131 L D Chloride 91.3 L Carbon Dioxide 18 L BUN Creatinine Glucose 290 H POC Glucose Hemoglobin A1c Lactic Acid 2.50 H* Calcium 7.9 L Phosphorus Magnesium Total Bilirubin AST 123 H Total Creatine Kinase 3873 H CK-MB (CK-2) 8.7 H Total Protein Albumin 2.4 L Urine WBC (Auto) Urine Creatinine 12/20/19 12/20/19 12/20/19 09:56 09:56 09:56 WBC 17.7 H RBC 5.24 H Hgb 15.7 H Hct 46.7 H D MCHC Seg Neuts % (Manual) 88.0 H Lymphocytes % (Manual) 8.0 L Seg Neutrophils # Man 15.6 H Lymphocytes # (Manual) APTT D-Dimer ABG pH ABG pO2 ABG HCO3 ABG O2 Saturation ABG Base Excess ABG Hemoglobin Oxyhemoglobin Sodium 135 L Chloride 96.6 L Carbon Dioxide 13 L BUN 38 H Creatinine Glucose 382 H POC Glucose Hemoglobin A1c Lactic Acid Calcium Phosphorus Magnesium 3.10 H Total Bilirubin AST Total Creatine Kinase CK-MB (CK-2) Total Protein Albumin Urine WBC (Auto) Urine Creatinine 12/20/19 12/20/19 12/20/19 10:27 12:57 15:20 WBC RBC Hgb Hct MCHC Seg Neuts % (Manual) Lymphocytes % (Manual) Seg Neutrophils # Man Lymphocytes # (Manual) APTT D-Dimer ABG pH 7.217 L 7.247 L ABG pO2 75.4 L 93.3 H ABG HCO3 ABG O2 Saturation 92.1 L ABG Base Excess -7.4 L -6.1 L ABG Hemoglobin Oxyhemoglobin 90.4 L 94.3 L Sodium Chloride Carbon Dioxide BUN Creatinine Glucose POC Glucose 350 H Hemoglobin A1c Lactic Acid Calcium Phosphorus Magnesium Total Bilirubin AST Total Creatine Kinase CK-MB (CK-2) Total Protein Albumin Urine WBC (Auto) Urine Creatinine 12/20/19 12/20/19 12/20/19 16:44 18:22 20:47 WBC RBC Hgb Hct MCHC Seg Neuts % (Manual) Lymphocytes % (Manual) Seg Neutrophils # Man Lymphocytes # (Manual) APTT D-Dimer ABG pH ABG pO2 ABG HCO3 ABG O2 Saturation ABG Base Excess ABG Hemoglobin Oxyhemoglobin Sodium Chloride Carbon Dioxide BUN Creatinine Glucose POC Glucose 401 H 371 H 412 H Hemoglobin A1c Lactic Acid Calcium Phosphorus Magnesium Total Bilirubin AST Total Creatine Kinase CK-MB (CK-2) Total Protein Albumin Urine WBC (Auto) Urine Creatinine 12/21/19 12/21/19 12/21/19 00:14 04:40 05:13 WBC RBC Hgb Hct MCHC Seg Neuts % (Manual) Lymphocytes % (Manual) Seg Neutrophils # Man Lymphocytes # (Manual) APTT D-Dimer ABG pH 7.308 L ABG pO2 60.8 L ABG HCO3 27.3 H ABG O2 Saturation 90.1 L ABG Base Excess ABG Hemoglobin 12.6 L Oxyhemoglobin 88.3 L Sodium Chloride Carbon Dioxide BUN Creatinine Glucose POC Glucose 392 H 333 H Hemoglobin A1c Lactic Acid Calcium Phosphorus Magnesium Total Bilirubin AST Total Creatine Kinase CK-MB (CK-2) Total Protein Albumin Urine WBC (Auto) Urine Creatinine 12/21/19 12/21/19 12/21/19 12:39 18:11 23:45 WBC RBC Hgb Hct MCHC Seg Neuts % (Manual) Lymphocytes % (Manual) Seg Neutrophils # Man Lymphocytes # (Manual) APTT D-Dimer ABG pH ABG pO2 ABG HCO3 ABG O2 Saturation ABG Base Excess ABG Hemoglobin Oxyhemoglobin Sodium Chloride Carbon Dioxide BUN Creatinine Glucose POC Glucose 327 H 309 H 286 H Hemoglobin A1c Lactic Acid Calcium Phosphorus Magnesium Total Bilirubin AST Total Creatine Kinase CK-MB (CK-2) Total Protein Albumin Urine WBC (Auto) Urine Creatinine 12/21/19 12/21/19 12/21/19 Unknown Unknown Unknown WBC 12.3 H RBC Hgb Hct MCHC Seg Neuts % (Manual) 93.0 H Lymphocytes % (Manual) 5.0 L Seg Neutrophils # Man 11.4 H Lymphocytes # (Manual) 0.6 L APTT D-Dimer ABG pH ABG pO2 ABG HCO3 ABG O2 Saturation ABG Base Excess ABG Hemoglobin Oxyhemoglobin Sodium Chloride Carbon Dioxide 21 L D BUN 73 H Creatinine 2.2 H D Glucose 361 H POC Glucose Hemoglobin A1c 10.0 H Lactic Acid Calcium 7.9 L Phosphorus Magnesium Total Bilirubin AST Total Creatine Kinase CK-MB (CK-2) Total Protein Albumin Urine WBC (Auto) Urine Creatinine 12/22/19 12/22/19 12/22/19 05:24 06:29 07:16 WBC RBC Hgb Hct MCHC Seg Neuts % (Manual) Lymphocytes % (Manual) Seg Neutrophils # Man Lymphocytes # (Manual) APTT D-Dimer ABG pH ABG pO2 93.7 H ABG HCO3 30.4 H ABG O2 Saturation ABG Base Excess 4.4 H ABG Hemoglobin 12.8 L Oxyhemoglobin Sodium Chloride Carbon Dioxide BUN 111 H Creatinine 3.2 H Glucose 340 H POC Glucose 275 H Hemoglobin A1c Lactic Acid Calcium 8.1 L Phosphorus Magnesium Total Bilirubin AST Total Creatine Kinase CK-MB (CK-2) Total Protein Albumin Urine WBC (Auto) Urine Creatinine 12/22/19 12/22/19 12/22/19 11:27 12:58 15:30 WBC RBC Hgb Hct MCHC Seg Neuts % (Manual) Lymphocytes % (Manual) Seg Neutrophils # Man Lymphocytes # (Manual) APTT D-Dimer ABG pH ABG pO2 ABG HCO3 ABG O2 Saturation ABG Base Excess ABG Hemoglobin Oxyhemoglobin Sodium Chloride Carbon Dioxide BUN Creatinine Glucose POC Glucose 345 H Hemoglobin A1c Lactic Acid Calcium Phosphorus 5.10 H Magnesium 3.90 H Total Bilirubin AST Total Creatine Kinase CK-MB (CK-2) Total Protein Albumin Urine WBC (Auto) Urine Creatinine 80.5 H 12/22/19 12/23/19 12/23/19 17:54 00:30 04:47 WBC RBC Hgb Hct MCHC Seg Neuts % (Manual) Lymphocytes % (Manual) Seg Neutrophils # Man Lymphocytes # (Manual) APTT D-Dimer ABG pH ABG pO2 ABG HCO3 ABG O2 Saturation ABG Base Excess ABG Hemoglobin Oxyhemoglobin Sodium 146 H Chloride Carbon Dioxide BUN 107 H Creatinine 2.5 H Glucose 278 H POC Glucose 308 H 228 H Hemoglobin A1c Lactic Acid Calcium 7.7 L Phosphorus Magnesium Total Bilirubin AST Total Creatine Kinase CK-MB (CK-2) Total Protein Albumin Urine WBC (Auto) Urine Creatinine 12/23/19 12/23/19 12/23/19 04:47 05:50 06:06 WBC 12.0 H RBC Hgb Hct MCHC Seg Neuts % (Manual) 82.0 H Lymphocytes % (Manual) 12.0 L Seg Neutrophils # Man 9.8 H Lymphocytes # (Manual) APTT D-Dimer ABG pH ABG pO2 59.0 L ABG HCO3 31.6 H ABG O2 Saturation 89.2 L ABG Base Excess 4.5 H ABG Hemoglobin 13.5 L Oxyhemoglobin 87.2 L Sodium Chloride Carbon Dioxide BUN Creatinine Glucose POC Glucose 263 H Hemoglobin A1c Lactic Acid Calcium Phosphorus Magnesium Total Bilirubin AST Total Creatine Kinase CK-MB (CK-2) Total Protein Albumin Urine WBC (Auto) Urine Creatinine 12/23/19 12/23/19 12/23/19 12:58 18:08 18:10 WBC RBC Hgb Hct MCHC Seg Neuts % (Manual) Lymphocytes % (Manual) Seg Neutrophils # Man Lymphocytes # (Manual) APTT D-Dimer ABG pH ABG pO2 ABG HCO3 31.6 H ABG O2 Saturation ABG Base Excess 4.7 H ABG Hemoglobin 13.1 L Oxyhemoglobin 93.5 L Sodium Chloride Carbon Dioxide BUN Creatinine Glucose POC Glucose 206 H 328 H Hemoglobin A1c Lactic Acid Calcium Phosphorus Magnesium Total Bilirubin AST Total Creatine Kinase CK-MB (CK-2) Total Protein Albumin Urine WBC (Auto) Urine Creatinine 12/23/19 12/24/19 12/24/19 23:37 00:37 00:37 WBC RBC Hgb Hct MCHC Seg Neuts % (Manual) 88.0 H Lymphocytes % (Manual) 5.0 L Seg Neutrophils # Man 9.6 H Lymphocytes # (Manual) 0.5 L APTT D-Dimer ABG pH ABG pO2 ABG HCO3 ABG O2 Saturation ABG Base Excess ABG Hemoglobin Oxyhemoglobin Sodium 152 H Chloride 109.9 H Carbon Dioxide BUN 89 H Creatinine 2.2 H Glucose 287 H POC Glucose 277 H Hemoglobin A1c Lactic Acid Calcium 7.5 L Phosphorus Magnesium Total Bilirubin AST Total Creatine Kinase CK-MB (CK-2) Total Protein Albumin Urine WBC (Auto) Urine Creatinine 12/24/19 12/24/19 12/24/19 05:25 05:36 06:23 WBC RBC Hgb Hct MCHC Seg Neuts % (Manual) Lymphocytes % (Manual) Seg Neutrophils # Man Lymphocytes # (Manual) APTT D-Dimer ABG pH ABG pO2 72.2 L ABG HCO3 31.6 H ABG O2 Saturation ABG Base Excess 5.2 H ABG Hemoglobin 13.1 L Oxyhemoglobin 92.8 L Sodium Chloride Carbon Dioxide BUN Creatinine Glucose POC Glucose 204 H Hemoglobin A1c Lactic Acid Calcium Phosphorus Magnesium 3.10 H Total Bilirubin AST Total Creatine Kinase CK-MB (CK-2) Total Protein Albumin Urine WBC (Auto) Urine Creatinine 12/24/19 12/24/19 12/24/19 11:34 18:04 23:53 WBC RBC Hgb Hct MCHC Seg Neuts % (Manual) Lymphocytes % (Manual) Seg Neutrophils # Man Lymphocytes # (Manual) APTT D-Dimer ABG pH ABG pO2 ABG HCO3 ABG O2 Saturation ABG Base Excess ABG Hemoglobin Oxyhemoglobin Sodium Chloride Carbon Dioxide BUN Creatinine Glucose POC Glucose 187 H 286 H 231 H Hemoglobin A1c Lactic Acid Calcium Phosphorus Magnesium Total Bilirubin AST Total Creatine Kinase CK-MB (CK-2) Total Protein Albumin Urine WBC (Auto) Urine Creatinine 12/25/19 12/25/19 12/25/19 04:52 05:22 05:22 WBC 12.0 H RBC Hgb Hct MCHC Seg Neuts % (Manual) 76.0 H Lymphocytes % (Manual) 10.0 L Seg Neutrophils # Man 9.1 H Lymphocytes # (Manual) APTT D-Dimer ABG pH ABG pO2 68.3 L ABG HCO3 32.6 H ABG O2 Saturation 94.7 L ABG Base Excess 5.7 H ABG Hemoglobin 13.2 L Oxyhemoglobin 92.3 L Sodium 149 H Chloride 109.2 H Carbon Dioxide 33 H BUN 62 H Creatinine 1.7 H Glucose 245 H POC Glucose Hemoglobin A1c Lactic Acid Calcium 8.0 L Phosphorus Magnesium 2.90 H Total Bilirubin AST Total Creatine Kinase 195 H CK-MB (CK-2) Total Protein 5.8 L Albumin 2.3 L Urine WBC (Auto) Urine Creatinine 12/25/19 12/25/19 12/25/19 05:42 12:16 18:48 WBC RBC Hgb Hct MCHC Seg Neuts % (Manual) Lymphocytes % (Manual) Seg Neutrophils # Man Lymphocytes # (Manual) APTT D-Dimer ABG pH ABG pO2 ABG HCO3 ABG O2 Saturation ABG Base Excess ABG Hemoglobin Oxyhemoglobin Sodium Chloride Carbon Dioxide BUN Creatinine Glucose POC Glucose 208 H 290 H 239 H Hemoglobin A1c Lactic Acid Calcium Phosphorus Magnesium Total Bilirubin AST Total Creatine Kinase CK-MB (CK-2) Total Protein Albumin Urine WBC (Auto) Urine Creatinine 12/26/19 12/26/19 12/26/19 00:06 04:09 04:48 WBC RBC Hgb Hct MCHC Seg Neuts % (Manual) Lymphocytes % (Manual) Seg Neutrophils # Man Lymphocytes # (Manual) APTT D-Dimer ABG pH ABG pO2 75.6 L ABG HCO3 33.4 H ABG O2 Saturation ABG Base Excess 6.6 H ABG Hemoglobin Oxyhemoglobin 93.4 L Sodium 147 H Chloride Carbon Dioxide 32 H BUN 49 H Creatinine Glucose 257 H POC Glucose 188 H Hemoglobin A1c Lactic Acid Calcium Phosphorus Magnesium Total Bilirubin AST Total Creatine Kinase CK-MB (CK-2) Total Protein Albumin Urine WBC (Auto) Urine Creatinine 12/26/19 05:49 WBC RBC Hgb Hct MCHC Seg Neuts % (Manual) Lymphocytes % (Manual) Seg Neutrophils # Man Lymphocytes # (Manual) APTT D-Dimer ABG pH ABG pO2 ABG HCO3 ABG O2 Saturation ABG Base Excess ABG Hemoglobin Oxyhemoglobin Sodium Chloride Carbon Dioxide BUN Creatinine Glucose POC Glucose 220 H Hemoglobin A1c Lactic Acid Calcium Phosphorus Magnesium Total Bilirubin AST Total Creatine Kinase CK-MB (CK-2) Total Protein Albumin Urine WBC (Auto) Urine Creatinine Allied health notes reviewed: RT
--- NOTE | 2019-12-26 09:10 | Progress Note ---
Assessment and Plan Assessment and plan: --Hyponatremia; present on admission Resolved, now patient has hypernatremia Mild improvement, closely monitor, free water flushes --AYSE : Vasomotor nephropathy IV fluids for now in the form of D5W Significantly improved, creatinine today 1.4 Avoid nephrotoxins --Acute respiratory failure with hypoxia Patient intubated, oxygen titrate O2 sats to more than 90% Vent support ,nebulizers IV steroids antibiotics Pulmonary critical following Wean as tolerated and extubate -- COPD with acute exacerbation Continue duo nebs, IV steroids and IV antibiotics --Metabolic encephalopathy Patient intubated --left lower lobe pneumonia Community-acquired pneumonia On Levaquin and Vanco Follow cultures and supportive care --Leukocytosis/lactic acidosis sepsis secondary to pneumonia --Sepsis secondary to pneumonia; Improving --Hypertension; Moderate control ,controlled --tobacco use: Smoking cessation on Nicoderm patch --Severe protein calorie malnutrition nutrition supplements and supportive care Tube feeding per protocol --DVT prophylaxis On Heparin and GI prophylaxis Monitor closely and adjust management as needed Critical care time 38 minutes Plan of care reviewed with the patient, his nurse And the case management History Interval history: Patient seen and examined this morning in ICU at the bedside Patient's chart and other medical records reviewed Patient remains intubated on ventilatory support Did not tolerate weaning today Patient is alert and awake In mild distress Vital signs reviewed Hospitalist Physical - Constitutional Vitals: Temp Pulse Resp BP Pulse Ox 98.3 F 56 L 22 166/74 95 12/26/19 03:35 12/26/19 06:00 12/26/19 06:00 12/26/19 06:00 12/26/19 06:00 General appearance: Present: no acute distress, well-nourished, obese - EENT Eyes: Present: PERRL, EOM intact - Neck Neck: Present: supple, normal ROM - Respiratory Respiratory effort: normal Respiratory: bilateral: diminished, negative: rales, rhonchi, wheezing - Cardiovascular Rhythm: regular Heart Sounds: Present: S1 & S2 - Extremities Extremities: no ischemia, No edema - Abdominal General gastrointestinal: soft, non-tender, non-distended, normal bowel sounds - Integumentary Integumentary: Present: clear, warm. Absent: jaundice, rash - Psychiatric Psychiatric: appropriate mood/affect, other (Intubated on vent) - Neurologic Neurologic: other (Intubated on vent) MITCHELL score - Mitchell Score Age > 65: (0) No Aspirin use within the Past 7 Days: (0) No 3 or more CAD Risk Factors: (0) No 2 or more Angina events in past 24 hrs: (0) No Known CAD with more than 50% Stenosis: (0) No Elevated Cardiac Markers: (0) No ST Deviation Greater than 0.5mm: (0) No MITCHELL Score: 0 Results - Labs CBC & Chem 7: 12/25/19 05:22 12/26/19 04:09 Labs: Laboratory Last Values WBC 12.0 K/mm3 (4.5-11.0) H 12/25/19 05:22 RBC 4.17 M/mm3 (3.65-5.03) 12/25/19 05:22 Hgb 12.7 gm/dl (11.8-15.2) 12/25/19 05:22 Hct 38.3 % (35.5-45.6) 12/25/19 05:22 MCV 92 fl (84-94) 12/25/19 05:22 MCH 30 pg (28-32) 12/25/19 05:22 MCHC 33 % (32-34) 12/25/19 05:22 RDW 14.6 % (13.2-15.2) 12/25/19 05:22 Plt Count 268 K/mm3 (140-440) 12/25/19 05:22 Add Manual Diff Complete 12/25/19 05:22 Total Counted 100 12/25/19 05:22 Seg Neutrophils % Manager Medicare 12/21/19 Unknown Seg Neuts % (Manual) 76.0 % (40.0-70.0) H 12/25/19 05:22 Band Neutrophils % 2.0 % 12/25/19 05:22 Lymphocytes % (Manual) 10.0 % (13.4-35.0) L 12/25/19 05:22 Reactive Lymphs % (Man) 0 % 12/25/19 05:22 Monocytes % (Manual) 6.0 % (0.0-7.3) 12/25/19 05:22 Eosinophils % (Manual) 2.0 % (0.0-4.3) 12/25/19 05:22 Basophils % (Manual) 0 % (0.0-1.8) 12/25/19 05:22 Metamyelocytes % 4.0 % 12/25/19 05:22 Myelocytes % 0 % 12/25/19 05:22 Promyelocytes % 0 % 12/25/19 05:22 Blast Cells % 0 % 12/25/19 05:22 Nucleated RBC % Not Reportable 12/25/19 05:22 Seg Neutrophils # Man 9.1 K/mm3 (1.8-7.7) H 12/25/19 05:22 Band Neutrophils # 0.2 K/mm3 12/25/19 05:22 Lymphocytes # (Manual) 1.2 K/mm3 (1.2-5.4) 12/25/19 05:22 Abs React Lymphs (Man) 0.0 K/mm3 12/25/19 05:22 Monocytes # (Manual) 0.7 K/mm3 (0.0-0.8) 12/25/19 05:22 Eosinophils # (Manual) 0.2 K/mm3 (0.0-0.4) 12/25/19 05:22 Basophils # (Manual) 0.0 K/mm3 (0.0-0.1) 12/25/19 05:22 Metamyelocytes # 0.5 K/mm3 12/25/19 05:22 Myelocytes # 0.0 K/mm3 12/25/19 05:22 Promyelocytes # 0.0 K/mm3 12/25/19 05:22 Blast Cells # 0.0 K/mm3 12/25/19 05:22 WBC Morphology Not Reportable 12/25/19 05:22 Hypersegmented Neuts Not Reportable 12/25/19 05:22 Hyposegmented Neuts Not Reportable 12/25/19 05:22 Hypogranular Neuts Not Reportable 12/25/19 05:22 Smudge Cells Not Reportable 12/25/19 05:22 Toxic Granulation Not Reportable 12/25/19 05:22 Toxic Vacuolation Not Reportable 12/25/19 05:22 Dohle Bodies Not Reportable 12/25/19 05:22 Pelger-Huet Anomaly Not Reportable 12/25/19 05:22 Jennifer Rods Not Reportable 12/25/19 05:22 Platelet Estimate Consistent w auto 12/25/19 05:22 Clumped Platelets Not Reportable 12/25/19 05:22 Plt Clumps, EDTA Not Reportable 12/25/19 05:22 Large Platelets Not Reportable 12/25/19 05:22 Giant Platelets Not Reportable 12/25/19 05:22 Platelet Satelliting Not Reportable 12/25/19 05:22 Plt Morphology Comment Not Reportable 12/25/19 05:22 RBC Morphology Normal 12/25/19 05:22 Dimorphic RBCs Not Reportable 12/25/19 05:22 Polychromasia Not Reportable 12/25/19 05:22 Hypochromasia Not Reportable 12/25/19 05:22 Poikilocytosis Not Reportable 12/25/19 05:22 Anisocytosis Not Reportable 12/25/19 05:22 Microcytosis Not Reportable 12/25/19 05:22 Macrocytosis Not Reportable 12/25/19 05:22 Spherocytes Not Reportable 12/25/19 05:22 Pappenheimer Bodies Not Reportable 12/25/19 05:22 Sickle Cells Not Reportable 12/25/19 05:22 Target Cells Not Reportable 12/25/19 05:22 Tear Drop Cells Not Reportable 12/25/19 05:22 Ovalocytes Not Reportable 12/25/19 05:22 Helmet Cells Not Reportable 12/25/19 05:22 [place] Bodies Not Reportable 12/25/19 05:22 [place] Rings Not Reportable 12/25/19 05:22 [place] Cells Not Reportable 12/25/19 05:22 Bite Cells Not Reportable 12/25/19 05:22 Crenated Cell Not Reportable 12/25/19 05:22 Elliptocytes Not Reportable 12/25/19 05:22 Acanthocytes (Spur) Not Reportable 12/25/19 05:22 Rouleaux Not Reportable 12/25/19 05:22 Hemoglobin C Crystals Not Reportable 12/25/19 05:22 Schistocytes Not Reportable 12/25/19 05:22 Malaria parasites Not Reportable 12/25/19 05:22 [place] Bodies Not Reportable 12/25/19 05:22 Hem Pathologist Commnt No 12/25/19 05:22 PT 13.9 Sec. (12.2-14.9) 12/18/19 15:28 INR 1.06 (0.87-1.13) 12/18/19 15:28 APTT 72.2 Sec. (24.2-36.6) H* 12/18/19 15:28 D-Dimer 2277.88 ng/mlDDU (0-234) H 12/18/19 10:30 ABG pH 7.394 pH Units (7.350-7.450) 12/26/19 04:48 ABG pCO2 56.0 mm Hg 12/26/19 04:48 ABG pO2 75.6 mm Hg (80.0-90.0) L 12/26/19 04:48 ABG HCO3 33.4 mmol/L (20.0-26.0) H 12/26/19 04:48 ABG O2 Saturation 95.4 % (95.0-99.0) 12/26/19 04:48 ABG O2 Content 20.3 (0.0-44) 12/26/19 04:48 ABG Base Excess 6.6 mmol/L (-2.0-3.0) H 12/26/19 04:48 ABG Hemoglobin 15.5 gm/dl (14.0-18.0) 12/26/19 04:48 ABG Carboxyhemoglobin 1.4 % (0.0-5.0) 12/26/19 04:48 ABG Methemoglobin 0.7 % (0.0-1.5) 12/26/19 04:48 Oxyhemoglobin 93.4 % (95.0-99.0) L 12/26/19 04:48 FiO2 40 % 12/26/19 04:48 Sodium 147 mmol/L (137-145) H 12/26/19 04:09 Potassium 4.3 mmol/L (3.6-5.0) 12/26/19 04:09 Chloride 104.3 mmol/L (98-107) 12/26/19 04:09 Carbon Dioxide 32 mmol/L (22-30) H 12/26/19 04:09 Anion Gap 15 mmol/L 12/26/19 04:09 BUN 49 mg/dL (9-20) H 12/26/19 04:09 Creatinine 1.4 mg/dL (0.8-1.5) 12/26/19 04:09 Estimated GFR 52 ml/min 12/26/19 04:09 BUN/Creatinine Ratio 35 % 12/26/19 04:09 Glucose 257 mg/dL (75-100) H 12/26/19 04:09 POC Glucose 220 (70-105) H 12/26/19 05:49 Hemoglobin A1c 10.0 % (4-6) H 12/21/19 Unknown Lactic Acid 1.70 mmol/L (0.7-2.0) 12/21/19 09:48 Calcium 9.0 mg/dL (8.4-10.2) 12/26/19 04:09 Phosphorus 3.30 mg/dL (2.5-4.5) 12/25/19 05:22 Magnesium 2.90 mg/dL (1.7-2.3) H 12/25/19 05:22 Total Bilirubin 0.50 mg/dL (0.1-1.2) 12/25/19 05:22 AST 31 units/L (5-40) 12/25/19 05:22 ALT 35 units/L (7-56) 12/25/19 05:22 Alkaline Phosphatase 49 units/L (35-129) 12/25/19 05:22 Total Creatine Kinase 195 units/L (55-170) H 12/25/19 05:22 CK-MB (CK-2) 8.7 ng/mL (0.0-4.0) H 12/19/19 12:04 CK-MB (CK-2) Rel Index 0.2 (0-4) 12/19/19 12:04 Troponin T < 0.010 ng/mL (0.00-0.029) 12/19/19 12:04 NT-Pro-B Natriuret Pep 609.1 pg/mL (0-900) 12/18/19 12:06 Total Protein 5.8 g/dL (6.3-8.2) L 12/25/19 05:22 Albumin 2.3 g/dL (3.9-5) L 12/25/19 05:22 Albumin/Globulin Ratio 0.7 % 12/25/19 05:22 Procalcitonin 3.24 ng/mL (<0.15) 12/19/19 12:04 Urine Color Red (Yellow) 12/18/19 11:56 Urine Turbidity Slightly-cloudy (Clear) 12/18/19 11:56 Urine pH 6.0 (5.0-7.0) 12/18/19 11:56 Ur Specific [place] 1.017 (1.003-1.030) 12/18/19 11:56 Urine Protein 100 mg/dl mg/dL (Negative) 12/18/19 11:56 Urine Glucose (UA) >=500 mg/dL (Negative) 12/18/19 11:56 Urine Ketones 20 mg/dL (Negative) 12/18/19 11:56 Urine Blood Lg (Negative) 12/18/19 11:56 Urine Nitrite Neg (Negative) 12/18/19 11:56 Urine Bilirubin Neg (Negative) 12/18/19 11:56 Urine Urobilinogen < 2.0 mg/dL (<2.0) 12/18/19 11:56 Ur Leukocyte Esterase Neg (Negative) 12/18/19 11:56 Urine WBC (Auto) 58.0 /HPF (0.0-6.0) H 12/18/19 11:56 Urine RBC (Auto) > 182.0 /HPF (0.0-6.0) 12/18/19 11:56 U Epithel Cells (Auto) 4.0 /HPF (0-13.0) 12/18/19 11:56 Urine Mucus Few /HPF 12/18/19 11:56 Urine Yeast (Budding) 1+ /HPF 12/18/19 11:56 Urine Creatinine 80.5 mg/dL (0.1-20.0) H 12/22/19 15:30 Urine Sodium 23 mmol/L 12/22/19 15:30 Vancomycin Trough 11.4 ug/mL (5.0-20.0) 12/20/19 09:56 Random Vancomycin 5.2 ug/mL (0-40.0) 12/24/19 05:25 Active Medications - Current Medications Current Medications: Generic Name Dose Route Start Last Admin Trade Name Freq PRN Reason Stop Dose Admin Acetaminophen 650 mg 12/18/19 21:26 Tylenol PO Q4H PRN Pain MILD(1-3)/Fever >100.5/CHAUDHRY Albuterol 2.5 mg 12/18/19 21:34 Proventil IH Q4HRT PRN Shortness Of Breath Albuterol/Ipratropium 1 ampul 12/18/19 20:45 12/26/19 02:15 Duoneb *Not For Prn Use* IH 1 ampul Q6HRT MARIAN Administration Lipase/Protease/Amylase 1 each 12/20/19 18:25 Elidia Welch 10,500 Unit FEEDTUBE PRN PRN For Clogged Feeding Tube Arformoterol Tartrate 15 mcg 12/19/19 20:00 12/25/19 21:20 Brovana Nebu IH 15 mcg Q12HRT MARIAN Administration Budesonide 0.5 mg 12/19/19 20:00 12/25/19 21:21 Pulmicort IH 0.5 mg Q12HRT MARIAN Administration Docusate Sodium 100 mg 12/25/19 22:00 12/25/19 21:31 Colace FEEDTUBE Not Given BID MARIAN Enoxaparin Sodium 40 mg 12/25/19 22:00 12/25/19 21:31 Enoxaparin SUB-Q 40 mg QDAY@2200 MARIAN Administration Famotidine 20 mg 12/25/19 10:00 12/25/19 21:30 Pepcid PO 20 mg BID MARIAN Administration Hydralazine HCl 25 mg 12/19/19 14:00 12/26/19 05:13 Apresoline PO 25 mg Q8HR MARIAN Administration Hydralazine HCl 5 mg 12/26/19 03:19 12/26/19 04:04 Apresoline IV 5 mg Q6H PRN Administration Hypertension Hydromorphone HCl 0.5 mg 12/18/19 21:26 12/26/19 02:55 Dilaudid IV 0.5 mg Q3H PRN Administration Pain , Severe (7-10) Hydrophilic Ointment 1 applic 12/20/19 12:12 Vaseline Lip Therapy TP Q2HR PRN Dry Lips Propofol 1,000 mg in 100 mls @ 3.26 mls/hr 12/20/19 13:00 12/22/19 15:30 Diprivan 10 Mg/Ml IV 0 mcg/kg/min TITR MARIAN 0 mls/hr Titration Protocol 5 MCG/KG/MIN Dextrose 1,000 mls @ 50 mls/hr 12/24/19 09:00 12/25/19 21:30 D5w IV 50 mls/hr DIRECT MARIAN Administration Dexmedetomidine HCl 200 mcg/ 52 mls @ 5.372 mls/hr 12/26/19 06:00 12/26/19 06:28 Sodium Chloride IV 0.7 mcg/kg/hr TITRATE MARIAN 18.801 mls/hr Administration Protocol 0.2 MCG/KG/HR Insulin Glargine 15 units 12/22/19 22:00 12/25/19 21:31 Lantus SUB-Q 15 units QHS [facility] Administration Insulin Human Lispro 0 unit 12/20/19 16:00 12/26/19 05:53 Humalog SUB-Q 4 unit Q6HR [facility] Administration Protocol Metoclopramide HCl 10 mg 12/18/19 21:26 Reglan IV Q6H PRN Nausea And Vomiting Multi-Ingred Cream/Lotion/Oil/Oint 1 applic 12/20/19 12:12 Artificial Tears Ophth Oint OU Q4HR PRN Dry Eye(s) Nicotine 21 mg 12/20/19 10:00 12/25/19 09:37 Habitrol TD 21 mg QDAY [facility] Administration Ondansetron HCl 4 mg 12/18/19 21:26 Zofran IV Q3H PRN Nausea And Vomiting Oxycodone/Acetaminophen 1 tab 12/18/19 21:26 Percocet 5/325 PO Q6H PRN Pain, Moderate (4-6) Prednisone 10 mg 12/26/19 10:00 Deltasone PO 12/26/19 10:01 QDAY [facility] Prednisone 5 mg 12/27/19 10:00 Deltasone PO 12/27/19 10:01 QDAY MARIAN Quetiapine Fumarate 200 mg 12/25/19 22:00 12/25/19 21:30 Seroquel PO 200 mg QHS [facility] Administration Quetiapine Fumarate 100 mg 12/26/19 10:00 Seroquel PO DAILY MARIAN Simple Syrup 30 ml 12/20/19 18:25 Simple Syrup FEEDTUBE PRN PRN Hypoglycemia Simple Syrup 15 ml 12/24/19 11:39 Simple Syrup FEEDTUBE PRN PRN Hypoglycemia Sodium Bicarbonate 325 mg 12/24/19 11:39 Sodium Bicarbonate FEEDTUBE PRN PRN For Clogged Feeding Tube Sodium Chloride 10 ml 12/18/19 22:00 12/25/19 21:31 Sodium Chloride Flush Syringe 10 Ml IV 10 ml BID MARIAN Administration Sodium Chloride 10 ml 12/18/19 21:26 12/19/19 06:55 Sodium Chloride Flush Syringe 10 Ml IV 10 ml PRN PRN Administration LINE FLUSH Nutrition/Malnutrition Assess - Dietary Evaluation Nutrition/Malnutrition Findings: Nutrition Notes Start: 12/19/19 11:42 Freq: Status: Active Protocol: Document 12/25/19 12:24 LM (Rec: 12/25/19 12:40 LM [id number]) Nutrition Notes Initial or Follow up Reassessment Current Diagnosis COPD,Sepsis,Respiratory Failure Other Pertinent Diagnosis pneu, nicotine dependence, DVT Current Diet Nepro 1.8 at 45 ml/hr Labs/Tests Na 149 BUN 62 Cr 1.7 BG 245 Mg 2.9 Pertinent Medications D5w at 50 ml/hr Humalog Height 5 ft 9 in Weight 103.3 kg [place] Body Weight (kg) 72.72 BMI 33.6 Weight change and time frame wt change noted Weight Status Obese Subjective/Other Information MD changed TF formula to Nepro due to high Na. Agree with formula change. Pt tolerating TF Percent of energy/protein needs met: 100%/60% Burn Absent Trauma Absent GI Symptoms Other Difficulty In Swallowing Current % PO Negligible Minimum of two criteria No Energy Intake (severe) < or equal to 50% Estimated Energy Requirement > or equal to 5 days #1 Nutrition Diagnosis Inadequate oral intake Diagnosis Progress(for reassessment Continues documentation) Is patient on ventilator? No Is Patient Ambulatory and/or Out of Bed Yes REE-([facility]-ambulatory/OOB) [ 2383.394 [id number]] Kcal/Kg value to use for calculation 18 Approximate Energy Requirements Using 1859 kcal/Kg Calculation Used for Recommendations Kcal/kg Additional Notes Protein: >144g (>2g/kg IBW 72. 7kg) Fluid: 1ml/kcal Nutrition Intervention Change Diet Order: TF Nutrition Support: Nepro 1.8 at 45 ml/hr Flush 200 ml q4h Kcal 1,944 Protein (gm) 87 Fluid (mL) 785 Goal #1 Meet at least 80% of kcal and protein needs Goal #2 TF tolerance Anticipated Discharge Needs: unable to determine at this time Follow-Up By: 12/27/19 Additional Comments F/U for TF tolerance, Na lab, flush needs
[2019-12-26] MEDS: FAMOTIDINE 20 MG TAB PO SCH ×2 (09:34→21:11)
[2019-12-26] MEDS: NICOTINE 21 MG/24 HR PATCH TD SCH (09:35)
[2019-12-26] MEDS: cloNIDine 0.1 MG TAB PO SCH ×3 (09:35→22:21)
[2019-12-26] MEDS: DOCUSATE SODIUM 100 MG/10 ML ORAL LIQD FEEDTUBE SCH ×2 (09:37→21:13)
[2019-12-26] MEDS: BUDESONIDE 0.5 MG/2 ML NEBU IH SCH ×2 (09:45→20:59)
[2019-12-26] MEDS: ARFORMOTEROL 15 MCG/2 ML NEBU IH SCH ×2 (09:45→20:59)
[2019-12-26] MEDS ORDERED: QUEtiapine 100 MG TAB PO SCH (10:00)
[2019-12-26] MEDS ORDERED: predniSONE 10 MG TAB PO SCH (10:00)
[2019-12-26 18:00] LABS: ABG Base Excess 6.7 mmol/L (-2.0-3.0); ABG HCO3 31.9 mmol/L (20.0-26.0); ABG Methemoglobin 0.7 % (0.0-1.5); ABG Oxygen Saturation 98.1 % (95.0-99.0); ABG PCO2 47.8 mm Hg; ABG PH 7.442 pH Units (7.350-7.450); ABG PO2 113.4 mm Hg (80.0-90.0)
[2019-12-26] MEDS: ENOXAPARIN 40 MG/0.4 ML INJ SUB-Q SCH (21:11)
[2019-12-26] MEDS: QUEtiapine 200 MG TAB PO SCH (21:11)
[2019-12-26] MEDS: INSULIN GLARGINE 100 UNITS/ML SUB-Q SCH (21:12)
[2019-12-27] MEDS: SODIUM CHLORIDE 0.9% IV SCH ×3 (00:04→07:50)
[2019-12-27] MEDS: DEXMEDETOMIDINE IV SCH ×3 (00:04→07:50)
[2019-12-27] MEDS: INSULIN LISPRO 100 UNIT/ML SUB-Q SCH ×4 (00:09→18:47)
[2019-12-27] MEDS: IPRATROPIUM/ALBUTEROL SULFATE 3 ML AMPUL.NEB IH SCH ×4 (01:06→20:10)
[2019-12-27] MEDS: cloNIDine 0.1 MG TAB PO SCH ×3 (05:34→21:38)
[2019-12-27] MEDS: hydrALAZINE 25 MG TAB PO SCH ×3 (05:34→21:37)
[2019-12-27 05:39] LABS: Basophils # (Auto) 0.1 K/mm3 (0.0-0.1); Basophils % (Auto) 0.8 % (0.0-1.8); Eosinophils # (Auto) 0.2 K/mm3 (0.0-0.4); Hematocrit 39.7 % (35.5-45.6); Hemoglobin 12.8 gm/dl (11.8-15.2); Lymphocytes # (Auto) 1.5 K/mm3 (1.2-5.4); Lymphocytes % (Auto) 9.1 % (13.4-35.0); Mean Corpuscular HGB Conc 32 % (32-34); Mean Corpuscular Volume 92 fl (84-94); Monocytes # (Auto) 1.4 K/mm3 (0.0-0.8); Monocytes % (Auto) 8.5 % (0.0-7.3); Platelet Count 214 K/mm3 (140-440); Red Blood Count 4.31 M/mm3 (3.65-5.03); Red Cell Distribution Width 14.3 % (13.2-15.2)
[2019-12-27 05:47] LABS: Calcium 8.8 mg/dL (8.4-10.2)
[2019-12-27] MEDS: BUDESONIDE 0.5 MG/2 ML NEBU IH SCH ×2 (08:49→20:09)
[2019-12-27] MEDS: ARFORMOTEROL 15 MCG/2 ML NEBU IH SCH ×2 (08:50→20:09)
--- NOTE | 2019-12-27 09:21 | Progress Note ---
Subjective Date of service: 12/27/19 Principal diagnosis: Ac hypoxemic resp failure; ARDS; Rodrigue pneumonia; Severe Sepsis; Rhabdomyolys Interval history: Patient is seen today for:Severe Sepsis; Acute hypoxemic respiratory failure; ARDS; Bilateral pneumonia (CAP/Aspiration); Possible COPD; Leukocytosis.; Elevated D-dimer.; Hyponatremia; Elevated serum transaminases; Rhabdomyolysis Seen and examined at bedside; 24hour events reviewed; nursing and respiratory care staff consulted; no adverse overnight events reported to me; laying in bed; failed BIPAP with increased work of breathing, orally intubated yesterday ; Vitals, labs,medications, chart and imaging reviewed. Currently on Propofol and Fentanyl- Currently on full support AC-VC 30/450/PEEP 12/FIO2 65% ABG 7.30/55/60/27.5 Peak airway pressure <35 Has a condom cath on, has not made much urine with an increase in her creatinine Discussed in ICU-IDT rounds. Objective Vital Signs - 12hr 12/26/19 12/26/19 12/26/19 21:30 21:36 21:45 Temperature Pulse Rate 68 69 Pulse Rate [ 70 Anterior Bilateral] Pulse Rate [ From Monitor] Respiratory 21 27 H Rate Respiratory 23 Rate [Anterior Bilateral] Blood Pressure 144/62 137/63 O2 Sat by Pulse 91 90 Oximetry 12/26/19 12/26/19 12/26/19 22:00 22:15 22:16 Temperature Pulse Rate 70 67 67 Pulse Rate [ Anterior Bilateral] Pulse Rate [ From Monitor] Respiratory 26 H 25 H 24 Rate Respiratory Rate [Anterior Bilateral] Blood Pressure 146/61 138/61 138/61 O2 Sat by Pulse 91 92 96 Oximetry 12/26/19 12/26/19 12/26/19 22:21 22:30 22:45 Temperature Pulse Rate 70 70 75 Pulse Rate [ Anterior Bilateral] Pulse Rate [ From Monitor] Respiratory 25 H 24 Rate Respiratory Rate [Anterior Bilateral] Blood Pressure 138/61 143/63 147/61 O2 Sat by Pulse 91 91 Oximetry 12/26/19 12/26/19 12/26/19 23:00 23:15 23:30 Temperature Pulse Rate 79 74 79 Pulse Rate [ Anterior Bilateral] Pulse Rate [ From Monitor] Respiratory 23 24 22 Rate Respiratory Rate [Anterior Bilateral] Blood Pressure 150/75 151/63 148/71 O2 Sat by Pulse 91 92 92 Oximetry 12/26/19 12/27/19 12/27/19 23:45 00:00 00:15 Temperature 99.8 F H Pulse Rate 71 77 69 Pulse Rate [ Anterior Bilateral] Pulse Rate [ 79 From Monitor] Respiratory 22 21 26 H Rate Respiratory Rate [Anterior Bilateral] Blood Pressure 157/66 163/72 154/62 O2 Sat by Pulse 91 91 91 Oximetry 12/27/19 12/27/19 12/27/19 00:30 00:45 01:00 Temperature Pulse Rate 71 68 68 Pulse Rate [ Anterior Bilateral] Pulse Rate [ From Monitor] Respiratory 27 H 25 H 21 Rate Respiratory Rate [Anterior Bilateral] Blood Pressure 149/70 148/72 152/68 O2 Sat by Pulse 92 94 96 Oximetry 12/27/19 12/27/19 12/27/19 01:02 01:15 01:30 Temperature Pulse Rate 68 61 61 Pulse Rate [ Anterior Bilateral] Pulse Rate [ From Monitor] Respiratory 24 25 H Rate Respiratory Rate [Anterior Bilateral] Blood Pressure 154/62 159/68 139/65 O2 Sat by Pulse 96 92 92 Oximetry 12/27/19 12/27/19 12/27/19 01:46 02:00 02:15 Temperature Pulse Rate 64 60 60 Pulse Rate [ 57 L Anterior Bilateral] Pulse Rate [ From Monitor] Respiratory 24 26 H 24 Rate Respiratory 27 H Rate [Anterior Bilateral] Blood Pressure 145/70 147/63 140/63 O2 Sat by Pulse 93 93 94 Oximetry 12/27/19 12/27/19 12/27/19 02:30 02:46 03:00 Temperature Pulse Rate 61 59 L 60 Pulse Rate [ Anterior Bilateral] Pulse Rate [ From Monitor] Respiratory 26 H 25 H 28 H Rate Respiratory Rate [Anterior Bilateral] Blood Pressure 131/67 143/70 138/66 O2 Sat by Pulse 93 93 94 Oximetry 12/27/19 12/27/19 12/27/19 03:15 03:30 03:45 Temperature 100.6 F H Pulse Rate 60 59 L 59 L Pulse Rate [ Anterior Bilateral] Pulse Rate [ From Monitor] Respiratory 25 H 27 H 26 H Rate Respiratory Rate [Anterior Bilateral] Blood Pressure 151/74 150/67 140/69 O2 Sat by Pulse 96 94 93 Oximetry 12/27/19 12/27/19 12/27/19 03:51 04:00 04:16 Temperature Pulse Rate 56 L 61 60 Pulse Rate [ Anterior Bilateral] Pulse Rate [ 63 From Monitor] Respiratory 26 H 29 H Rate Respiratory Rate [Anterior Bilateral] Blood Pressure 140/69 128/70 142/64 O2 Sat by Pulse 97 95 92 Oximetry 12/27/19 12/27/19 12/27/19 04:30 04:45 05:00 Temperature Pulse Rate 63 53 L 55 L Pulse Rate [ Anterior Bilateral] Pulse Rate [ From Monitor] Respiratory 22 29 H 25 H Rate Respiratory Rate [Anterior Bilateral] Blood Pressure 138/69 151/71 139/70 O2 Sat by Pulse 93 94 93 Oximetry 12/27/19 12/27/19 12/27/19 05:16 05:30 05:34 Temperature Pulse Rate 57 L 56 L 56 L Pulse Rate [ Anterior Bilateral] Pulse Rate [ From Monitor] Respiratory 27 H 25 H Rate Respiratory Rate [Anterior Bilateral] Blood Pressure 139/70 136/69 136/69 O2 Sat by Pulse 94 Oximetry 12/27/19 12/27/19 12/27/19 05:45 06:00 06:15 Temperature Pulse Rate 56 L 54 L 54 L Pulse Rate [ Anterior Bilateral] Pulse Rate [ From Monitor] Respiratory 26 H 28 H 28 H Rate Respiratory Rate [Anterior Bilateral] Blood Pressure 138/68 136/61 137/61 O2 Sat by Pulse 94 94 94 Oximetry 12/27/19 12/27/19 12/27/19 06:30 06:46 07:00 Temperature Pulse Rate 56 L 55 L 57 L Pulse Rate [ Anterior Bilateral] Pulse Rate [ From Monitor] Respiratory 27 H 26 H 27 H Rate Respiratory Rate [Anterior Bilateral] Blood Pressure 133/64 140/60 131/66 O2 Sat by Pulse 94 94 93 Oximetry 12/27/19 12/27/19 07:49 08:00 Temperature 100.1 F H Pulse Rate 55 L Pulse Rate [ Anterior Bilateral] Pulse Rate [ 59 L From Monitor] Respiratory 27 H Rate Respiratory Rate [Anterior Bilateral] Blood Pressure 124/56 O2 Sat by Pulse 97 Oximetry Constitutional: appears uncomfortable, other (elderly obese CM; normocephalicon MVS ETT at 23cm, no patient -ventilator dyssynchrony) Eyes: non-icteric ENT: oropharynx moist, other Neck: supple, no lymphadenopathy, no JVD, other (large neck circumference) Effort: mildly labored, very labored Ascultation: Bilateral: diminished breath sounds, rales Percussion: Bilateral: not dull Cardiovascular: regular rate and rhythm, other (S1,S2, no murmurs, gallops or rubs) Gastrointestinal: normoactive bowel sounds, soft, non-tender, non-distended (protuberant) Integumentary: normal, other (diaphoretic) Extremities: no cyanosis, no edema, pink and warm, pulses normal Neurologic: pupils equal and round, unable to assess (sedated) Psychiatric: other (unable to assess, sedated) CBC and BMP: 12/27/19 04:52 12/27/19 04:52 ABG, PT/INR, D-dimer: ABG ABG pH 7.442 pH Units (7.350-7.450) 12/26/19 17:26 ABG pCO2 47.8 mm Hg 12/26/19 17:26 ABG pO2 113.4 mm Hg (80.0-90.0) H 12/26/19 17:26 ABG O2 Saturation 98.1 % (95.0-99.0) 12/26/19 17:26 PT/INR, D-dimer PT 13.9 Sec. (12.2-14.9) 12/18/19 15:28 INR 1.06 (0.87-1.13) 12/18/19 15:28 D-Dimer 2277.88 ng/mlDDU (0-234) H 12/18/19 10:30 Abnormal lab findings: Abnormal Labs 12/18/19 12/18/19 12/18/19 10:30 10:30 10:30 WBC 13.7 H RBC 5.06 H Hgb 15.4 H Hct MCHC 35 H Lymph % (Auto) Cotton % (Auto) Cotton # Seg Neutrophils % Seg Neuts % (Manual) 82.0 H Lymphocytes % (Manual) 8.0 L Seg Neutrophils # Seg Neutrophils # Man 11.2 H Lymphocytes # (Manual) 1.1 L APTT D-Dimer 2277.88 H ABG pH ABG pO2 ABG HCO3 ABG O2 Saturation ABG Base Excess ABG Hemoglobin Oxyhemoglobin Sodium 122 L Chloride 80.6 L Carbon Dioxide 21 L BUN Creatinine Glucose 272 H POC Glucose Hemoglobin A1c Lactic Acid Calcium 7.8 L Phosphorus Magnesium Total Bilirubin 1.30 H AST 108 H Total Creatine Kinase CK-MB (CK-2) Total Protein Albumin 3.1 L Urine WBC (Auto) Urine Creatinine 12/18/19 12/18/19 12/18/19 10:30 11:18 11:56 WBC RBC Hgb Hct MCHC Lymph % (Auto) Cotton % (Auto) Cotton # Seg Neutrophils % Seg Neuts % (Manual) Lymphocytes % (Manual) Seg Neutrophils # Seg Neutrophils # Man Lymphocytes # (Manual) APTT D-Dimer ABG pH ABG pO2 ABG HCO3 ABG O2 Saturation ABG Base Excess ABG Hemoglobin Oxyhemoglobin Sodium Chloride Carbon Dioxide BUN Creatinine Glucose POC Glucose Hemoglobin A1c Lactic Acid 3.70 H* 2.40 H* Calcium Phosphorus Magnesium Total Bilirubin AST Total Creatine Kinase CK-MB (CK-2) Total Protein Albumin Urine WBC (Auto) 58.0 H Urine Creatinine 12/18/19 12/18/19 12/18/19 12:05 12:06 13:18 WBC RBC Hgb Hct MCHC Lymph % (Auto) Cotton % (Auto) Cotton # Seg Neutrophils % Seg Neuts % (Manual) Lymphocytes % (Manual) Seg Neutrophils # Seg Neutrophils # Man Lymphocytes # (Manual) APTT D-Dimer ABG pH 7.469 H ABG pO2 113.9 H ABG HCO3 ABG O2 Saturation ABG Base Excess ABG Hemoglobin 10.0 L Oxyhemoglobin Sodium Chloride Carbon Dioxide BUN Creatinine Glucose POC Glucose Hemoglobin A1c Lactic Acid 3.20 H* 2.50 H* Calcium Phosphorus Magnesium Total Bilirubin AST Total Creatine Kinase CK-MB (CK-2) Total Protein Albumin Urine WBC (Auto) Urine Creatinine 12/18/19 12/19/19 12/19/19 15:28 10:50 11:12 WBC RBC Hgb Hct MCHC Lymph % (Auto) Cotton % (Auto) Cotton # Seg Neutrophils % Seg Neuts % (Manual) Lymphocytes % (Manual) Seg Neutrophils # Seg Neutrophils # Man Lymphocytes # (Manual) APTT 72.2 H* D-Dimer ABG pH ABG pO2 55.6 L ABG HCO3 19.5 L ABG O2 Saturation 88.8 L ABG Base Excess -4.7 L ABG Hemoglobin Oxyhemoglobin 87.0 L Sodium Chloride Carbon Dioxide BUN Creatinine Glucose POC Glucose 257 H Hemoglobin A1c Lactic Acid Calcium Phosphorus Magnesium Total Bilirubin AST Total Creatine Kinase CK-MB (CK-2) Total Protein Albumin Urine WBC (Auto) Urine Creatinine 12/19/19 12/19/1920 12:04 12:04 08:20 WBC RBC Hgb Hct MCHC Lymph % (Auto) Cotton % (Auto) Cotton # Seg Neutrophils % Seg Neuts % (Manual) Lymphocytes % (Manual) Seg Neutrophils # Seg Neutrophils # Man Lymphocytes # (Manual) APTT D-Dimer ABG pH ABG pO2 59.7 L ABG HCO3 19.9 L ABG O2 Saturation 90.2 L ABG Base Excess -4.9 L ABG Hemoglobin Oxyhemoglobin 88.5 L Sodium 131 L D Chloride 91.3 L Carbon Dioxide 18 L BUN Creatinine Glucose 290 H POC Glucose Hemoglobin A1c Lactic Acid 2.50 H* Calcium 7.9 L Phosphorus Magnesium Total Bilirubin AST 123 H Total Creatine Kinase 3873 H CK-MB (CK-2) 8.7 H Total Protein Albumin 2.4 L Urine WBC (Auto) Urine Creatinine 12/20/19 12/20/19 12/20/19 09:56 09:56 09:56 WBC 17.7 H RBC 5.24 H Hgb 15.7 H Hct 46.7 H D MCHC Lymph % (Auto) Cotton % (Auto) Cotton # Seg Neutrophils % Seg Neuts % (Manual) 88.0 H Lymphocytes % (Manual) 8.0 L Seg Neutrophils # Seg Neutrophils # Man 15.6 H Lymphocytes # (Manual) APTT D-Dimer ABG pH ABG pO2 ABG HCO3 ABG O2 Saturation ABG Base Excess ABG Hemoglobin Oxyhemoglobin Sodium 135 L Chloride 96.6 L Carbon Dioxide 13 L BUN 38 H Creatinine Glucose 382 H POC Glucose Hemoglobin A1c Lactic Acid Calcium Phosphorus Magnesium 3.10 H Total Bilirubin AST Total Creatine Kinase CK-MB (CK-2) Total Protein Albumin Urine WBC (Auto) Urine Creatinine 12/20/19 12/20/19 12/20/19 10:27 12:57 15:20 WBC RBC Hgb Hct MCHC Lymph % (Auto) Cotton % (Auto) Cotton # Seg Neutrophils % Seg Neuts % (Manual) Lymphocytes % (Manual) Seg Neutrophils # Seg Neutrophils # Man Lymphocytes # (Manual) APTT D-Dimer ABG pH 7.217 L 7.247 L ABG pO2 75.4 L 93.3 H ABG HCO3 ABG O2 Saturation 92.1 L ABG Base Excess -7.4 L -6.1 L ABG Hemoglobin Oxyhemoglobin 90.4 L 94.3 L Sodium Chloride Carbon Dioxide BUN Creatinine Glucose POC Glucose 350 H Hemoglobin A1c Lactic Acid Calcium Phosphorus Magnesium Total Bilirubin AST Total Creatine Kinase CK-MB (CK-2) Total Protein Albumin Urine WBC (Auto) Urine Creatinine 12/20/19 12/20/19 12/20/19 16:44 18:22 20:47 WBC RBC Hgb Hct MCHC Lymph % (Auto) Cotton % (Auto) Cotton # Seg Neutrophils % Seg Neuts % (Manual) Lymphocytes % (Manual) Seg Neutrophils # Seg Neutrophils # Man Lymphocytes # (Manual) APTT D-Dimer ABG pH ABG pO2 ABG HCO3 ABG O2 Saturation ABG Base Excess ABG Hemoglobin Oxyhemoglobin Sodium Chloride Carbon Dioxide BUN Creatinine Glucose POC Glucose 401 H 371 H 412 H Hemoglobin A1c Lactic Acid Calcium Phosphorus Magnesium Total Bilirubin AST Total Creatine Kinase CK-MB (CK-2) Total Protein Albumin Urine WBC (Auto) Urine Creatinine 12/21/19 12/21/19 12/21/19 00:14 04:40 05:13 WBC RBC Hgb Hct MCHC Lymph % (Auto) Cotton % (Auto) Cotton # Seg Neutrophils % Seg Neuts % (Manual) Lymphocytes % (Manual) Seg Neutrophils # Seg Neutrophils # Man Lymphocytes # (Manual) APTT D-Dimer ABG pH 7.308 L ABG pO2 60.8 L ABG HCO3 27.3 H ABG O2 Saturation 90.1 L ABG Base Excess ABG Hemoglobin 12.6 L Oxyhemoglobin 88.3 L Sodium Chloride Carbon Dioxide BUN Creatinine Glucose POC Glucose 392 H 333 H Hemoglobin A1c Lactic Acid Calcium Phosphorus Magnesium Total Bilirubin AST Total Creatine Kinase CK-MB (CK-2) Total Protein Albumin Urine WBC (Auto) Urine Creatinine 12/21/19 12/21/19 12/21/19 12:39 18:11 23:45 WBC RBC Hgb Hct MCHC Lymph % (Auto) Cotton % (Auto) Cotton # Seg Neutrophils % Seg Neuts % (Manual) Lymphocytes % (Manual) Seg Neutrophils # Seg Neutrophils # Man Lymphocytes # (Manual) APTT D-Dimer ABG pH ABG pO2 ABG HCO3 ABG O2 Saturation ABG Base Excess ABG Hemoglobin Oxyhemoglobin Sodium Chloride Carbon Dioxide BUN Creatinine Glucose POC Glucose 327 H 309 H 286 H Hemoglobin A1c Lactic Acid Calcium Phosphorus Magnesium Total Bilirubin AST Total Creatine Kinase CK-MB (CK-2) Total Protein Albumin Urine WBC (Auto) Urine Creatinine 12/21/19 12/21/19 12/21/19 Unknown Unknown Unknown WBC 12.3 H RBC Hgb Hct MCHC Lymph % (Auto) Cotton % (Auto) Cotton # Seg Neutrophils % Seg Neuts % (Manual) 93.0 H Lymphocytes % (Manual) 5.0 L Seg Neutrophils # Seg Neutrophils # Man 11.4 H Lymphocytes # (Manual) 0.6 L APTT D-Dimer ABG pH ABG pO2 ABG HCO3 ABG O2 Saturation ABG Base Excess ABG Hemoglobin Oxyhemoglobin Sodium Chloride Carbon Dioxide 21 L D BUN 73 H Creatinine 2.2 H D Glucose 361 H POC Glucose Hemoglobin A1c 10.0 H Lactic Acid Calcium 7.9 L Phosphorus Magnesium Total Bilirubin AST Total Creatine Kinase CK-MB (CK-2) Total Protein Albumin Urine WBC (Auto) Urine Creatinine 12/22/19 12/22/19 12/22/19 05:24 06:29 07:16 WBC RBC Hgb Hct MCHC Lymph % (Auto) Cotton % (Auto) Cotton # Seg Neutrophils % Seg Neuts % (Manual) Lymphocytes % (Manual) Seg Neutrophils # Seg Neutrophils # Man Lymphocytes # (Manual) APTT D-Dimer ABG pH ABG pO2 93.7 H ABG HCO3 30.4 H ABG O2 Saturation ABG Base Excess 4.4 H ABG Hemoglobin 12.8 L Oxyhemoglobin Sodium Chloride Carbon Dioxide BUN 111 H Creatinine 3.2 H Glucose 340 H POC Glucose 275 H Hemoglobin A1c Lactic Acid Calcium 8.1 L Phosphorus Magnesium Total Bilirubin AST Total Creatine Kinase CK-MB (CK-2) Total Protein Albumin Urine WBC (Auto) Urine Creatinine 12/22/19 12/22/19 12/22/19 11:27 12:58 15:30 WBC RBC Hgb Hct MCHC Lymph % (Auto) Cotton % (Auto) Cotton # Seg Neutrophils % Seg Neuts % (Manual) Lymphocytes % (Manual) Seg Neutrophils # Seg Neutrophils # Man Lymphocytes # (Manual) APTT D-Dimer ABG pH ABG pO2 ABG HCO3 ABG O2 Saturation ABG Base Excess ABG Hemoglobin Oxyhemoglobin Sodium Chloride Carbon Dioxide BUN Creatinine Glucose POC Glucose 345 H Hemoglobin A1c Lactic Acid Calcium Phosphorus 5.10 H Magnesium 3.90 H Total Bilirubin AST Total Creatine Kinase CK-MB (CK-2) Total Protein Albumin Urine WBC (Auto) Urine Creatinine 80.5 H 12/22/19 12/23/19 12/23/19 17:54 00:30 04:47 WBC RBC Hgb Hct MCHC Lymph % (Auto) Cotton % (Auto) Cotton # Seg Neutrophils % Seg Neuts % (Manual) Lymphocytes % (Manual) Seg Neutrophils # Seg Neutrophils # Man Lymphocytes # (Manual) APTT D-Dimer ABG pH ABG pO2 ABG HCO3 ABG O2 Saturation ABG Base Excess ABG Hemoglobin Oxyhemoglobin Sodium 146 H Chloride Carbon Dioxide BUN 107 H Creatinine 2.5 H Glucose 278 H POC Glucose 308 H 228 H Hemoglobin A1c Lactic Acid Calcium 7.7 L Phosphorus Magnesium Total Bilirubin AST Total Creatine Kinase CK-MB (CK-2) Total Protein Albumin Urine WBC (Auto) Urine Creatinine 12/23/19 12/23/19 12/23/19 04:47 05:50 06:06 WBC 12.0 H RBC Hgb Hct MCHC Lymph % (Auto) Cotton % (Auto) Cotton # Seg Neutrophils % Seg Neuts % (Manual) 82.0 H Lymphocytes % (Manual) 12.0 L Seg Neutrophils # Seg Neutrophils # Man 9.8 H Lymphocytes # (Manual) APTT D-Dimer ABG pH ABG pO2 59.0 L ABG HCO3 31.6 H ABG O2 Saturation 89.2 L ABG Base Excess 4.5 H ABG Hemoglobin 13.5 L Oxyhemoglobin 87.2 L Sodium Chloride Carbon Dioxide BUN Creatinine Glucose POC Glucose 263 H Hemoglobin A1c Lactic Acid Calcium Phosphorus Magnesium Total Bilirubin AST Total Creatine Kinase CK-MB (CK-2) Total Protein Albumin Urine WBC (Auto) Urine Creatinine 12/23/19 12/23/19 12/23/19 12:58 18:08 18:10 WBC RBC Hgb Hct MCHC Lymph % (Auto) Cotton % (Auto) Cotton # Seg Neutrophils % Seg Neuts % (Manual) Lymphocytes % (Manual) Seg Neutrophils # Seg Neutrophils # Man Lymphocytes # (Manual) APTT D-Dimer ABG pH ABG pO2 ABG HCO3 31.6 H ABG O2 Saturation ABG Base Excess 4.7 H ABG Hemoglobin 13.1 L Oxyhemoglobin 93.5 L Sodium Chloride Carbon Dioxide BUN Creatinine Glucose POC Glucose 206 H 328 H Hemoglobin A1c Lactic Acid Calcium Phosphorus Magnesium Total Bilirubin AST Total Creatine Kinase CK-MB (CK-2) Total Protein Albumin Urine WBC (Auto) Urine Creatinine 12/23/19 12/24/19 12/24/19 23:37 00:37 00:37 WBC RBC Hgb Hct MCHC Lymph % (Auto) Cotton % (Auto) Cotton # Seg Neutrophils % Seg Neuts % (Manual) 88.0 H Lymphocytes % (Manual) 5.0 L Seg Neutrophils # Seg Neutrophils # Man 9.6 H Lymphocytes # (Manual) 0.5 L APTT D-Dimer ABG pH ABG pO2 ABG HCO3 ABG O2 Saturation ABG Base Excess ABG Hemoglobin Oxyhemoglobin Sodium 152 H Chloride 109.9 H Carbon Dioxide BUN 89 H Creatinine 2.2 H Glucose 287 H POC Glucose 277 H Hemoglobin A1c Lactic Acid Calcium 7.5 L Phosphorus Magnesium Total Bilirubin AST Total Creatine Kinase CK-MB (CK-2) Total Protein Albumin Urine WBC (Auto) Urine Creatinine 12/24/19 12/24/19 12/24/19 05:25 05:36 06:23 WBC RBC Hgb Hct MCHC Lymph % (Auto) Cotton % (Auto) Cotton # Seg Neutrophils % Seg Neuts % (Manual) Lymphocytes % (Manual) Seg Neutrophils # Seg Neutrophils # Man Lymphocytes # (Manual) APTT D-Dimer ABG pH ABG pO2 72.2 L ABG HCO3 31.6 H ABG O2 Saturation ABG Base Excess 5.2 H ABG Hemoglobin 13.1 L Oxyhemoglobin 92.8 L Sodium Chloride Carbon Dioxide BUN Creatinine Glucose POC Glucose 204 H Hemoglobin A1c Lactic Acid Calcium Phosphorus Magnesium 3.10 H Total Bilirubin AST Total Creatine Kinase CK-MB (CK-2) Total Protein Albumin Urine WBC (Auto) Urine Creatinine 12/24/19 12/24/19 12/24/19 11:34 18:04 23:53 WBC RBC Hgb Hct MCHC Lymph % (Auto) Cotton % (Auto) Cotton # Seg Neutrophils % Seg Neuts % (Manual) Lymphocytes % (Manual) Seg Neutrophils # Seg Neutrophils # Man Lymphocytes # (Manual) APTT D-Dimer ABG pH ABG pO2 ABG HCO3 ABG O2 Saturation ABG Base Excess ABG Hemoglobin Oxyhemoglobin Sodium Chloride Carbon Dioxide BUN Creatinine Glucose POC Glucose 187 H 286 H 231 H Hemoglobin A1c Lactic Acid Calcium Phosphorus Magnesium Total Bilirubin AST Total Creatine Kinase CK-MB (CK-2) Total Protein Albumin Urine WBC (Auto) Urine Creatinine 12/25/19 12/25/19 12/25/19 04:52 05:22 05:22 WBC 12.0 H RBC Hgb Hct MCHC Lymph % (Auto) Cotton % (Auto) Cotton # Seg Neutrophils % Seg Neuts % (Manual) 76.0 H Lymphocytes % (Manual) 10.0 L Seg Neutrophils # Seg Neutrophils # Man 9.1 H Lymphocytes # (Manual) APTT D-Dimer ABG pH ABG pO2 68.3 L ABG HCO3 32.6 H ABG O2 Saturation 94.7 L ABG Base Excess 5.7 H ABG Hemoglobin 13.2 L Oxyhemoglobin 92.3 L Sodium 149 H Chloride 109.2 H Carbon Dioxide 33 H BUN 62 H Creatinine 1.7 H Glucose 245 H POC Glucose Hemoglobin A1c Lactic Acid Calcium 8.0 L Phosphorus Magnesium 2.90 H Total Bilirubin AST Total Creatine Kinase 195 H CK-MB (CK-2) Total Protein 5.8 L Albumin 2.3 L Urine WBC (Auto) Urine Creatinine 12/25/19 12/25/19 12/25/19 05:42 12:16 18:48 WBC RBC Hgb Hct MCHC Lymph % (Auto) Cotton % (Auto) Cotton # Seg Neutrophils % Seg Neuts % (Manual) Lymphocytes % (Manual) Seg Neutrophils # Seg Neutrophils # Man Lymphocytes # (Manual) APTT D-Dimer ABG pH ABG pO2 ABG HCO3 ABG O2 Saturation ABG Base Excess ABG Hemoglobin Oxyhemoglobin Sodium Chloride Carbon Dioxide BUN Creatinine Glucose POC Glucose 208 H 290 H 239 H Hemoglobin A1c Lactic Acid Calcium Phosphorus Magnesium Total Bilirubin AST Total Creatine Kinase CK-MB (CK-2) Total Protein Albumin Urine WBC (Auto) Urine Creatinine 12/26/19 12/26/19 12/26/19 00:06 04:09 04:48 WBC RBC Hgb Hct MCHC Lymph % (Auto) Cotton % (Auto) Cotton # Seg Neutrophils % Seg Neuts % (Manual) Lymphocytes % (Manual) Seg Neutrophils # Seg Neutrophils # Man Lymphocytes # (Manual) APTT D-Dimer ABG pH ABG pO2 75.6 L ABG HCO3 33.4 H ABG O2 Saturation ABG Base Excess 6.6 H ABG Hemoglobin Oxyhemoglobin 93.4 L Sodium 147 H Chloride Carbon Dioxide 32 H BUN 49 H Creatinine Glucose 257 H POC Glucose 188 H Hemoglobin A1c Lactic Acid Calcium Phosphorus Magnesium Total Bilirubin AST Total Creatine Kinase CK-MB (CK-2) Total Protein Albumin Urine WBC (Auto) Urine Creatinine 12/26/19 12/26/19 12/26/19 05:49 11:54 17:26 WBC RBC Hgb Hct MCHC Lymph % (Auto) Cotton % (Auto) Cotton # Seg Neutrophils % Seg Neuts % (Manual) Lymphocytes % (Manual) Seg Neutrophils # Seg Neutrophils # Man Lymphocytes # (Manual) APTT D-Dimer ABG pH ABG pO2 113.4 H ABG HCO3 31.9 H ABG O2 Saturation ABG Base Excess 6.7 H ABG Hemoglobin Oxyhemoglobin Sodium Chloride Carbon Dioxide BUN Creatinine Glucose POC Glucose 220 H 262 H Hemoglobin A1c Lactic Acid Calcium Phosphorus Magnesium Total Bilirubin AST Total Creatine Kinase CK-MB (CK-2) Total Protein Albumin Urine WBC (Auto) Urine Creatinine 12/26/19 12/26/19 12/27/19 17:46 23:41 04:52 WBC RBC Hgb Hct MCHC Lymph % (Auto) Cotton % (Auto) Cotton # Seg Neutrophils % Seg Neuts % (Manual) Lymphocytes % (Manual) Seg Neutrophils # Seg Neutrophils # Man Lymphocytes # (Manual) APTT D-Dimer ABG pH ABG pO2 ABG HCO3 ABG O2 Saturation ABG Base Excess ABG Hemoglobin Oxyhemoglobin Sodium Chloride Carbon Dioxide BUN 49 H Creatinine Glucose 184 H POC Glucose 321 H 228 H Hemoglobin A1c Lactic Acid Calcium Phosphorus Magnesium Total Bilirubin AST Total Creatine Kinase CK-MB (CK-2) Total Protein Albumin Urine WBC (Auto) Urine Creatinine 12/27/19 12/27/19 04:52 05:21 WBC 16.1 H RBC Hgb Hct MCHC Lymph % (Auto) 9.1 L Cotton % (Auto) 8.5 H Cotton # 1.4 H Seg Neutrophils % 80.6 H Seg Neuts % (Manual) Lymphocytes % (Manual) Seg Neutrophils # 13.0 H Seg Neutrophils # Man Lymphocytes # (Manual) APTT D-Dimer ABG pH ABG pO2 ABG HCO3 ABG O2 Saturation ABG Base Excess ABG Hemoglobin Oxyhemoglobin Sodium Chloride Carbon Dioxide BUN Creatinine Glucose POC Glucose 176 H Hemoglobin A1c Lactic Acid Calcium Phosphorus Magnesium Total Bilirubin AST Total Creatine Kinase CK-MB (CK-2) Total Protein Albumin Urine WBC (Auto) Urine Creatinine Allied health notes reviewed: RT
--- NOTE | 2019-12-27 09:47 | Progress Note ---
Assessment and Plan 1. Acute kidney injury: Likely vasomotor AYSE in the setting of sepsis and possible rhabdo. Renal US negative for hydro. Continue IV fluids. Renal function is remaining around 1.4. Monitor renal function. Renal prognosis is guarded. Avoid nephrotoxic agents. Meds dosage based on GFR. 2. FEN: Metabolic acidosis, improved, monitor. Mild Hypernatremia, improving, continue D5 IV fluids, low NA tube feeds, monitor. Monitor lytes. 3. Acute respiratory failure with hypoxia: Was not able to tolerate transition to BiPap 12/24 due to increased work of breat itzel. Was orally intubated after failing BiPap and remains intubated this morning. Pulmonology following. 4. Left lower lobe pneumonia: Confirmed via chest xray on admission. Community-acquired. On abx. Pulmonology following. 5. Sepsis: 2/2 pneumonia. Leukocytosis/lactic acidosis. Tachycardia, tachypnea and fever on admission. 6. Metabolic encephalopathy: Currently intubated with restraints. Sedation is being tapered. 8. Hypertension: Appears controlled this morning. Monitor BP closely. 9. Severe malnutrition: Protein/calorie. On tube feedings via NGT and tolerating well. 9. Tobacco abuse: Unable to program counselor on smoking cessation given patient condition. On Nicoderm patch. 10. Fevers: Temp of 100.1 this am. Subjective Date of service: 12/27/19 Principal diagnosis: Ac hypoxemic resp failure; ARDS; Rodrigue pneumonia; Severe Sepsis; Rhabdomyolys Interval history: Patient was seen and examined at the bedside. No family present at time of examination. Patient is resting at time of examination but will open eyes to verbal stimuli. No acute events were reported overnight but patient has temp of 100.1 this am. Objective - Exam Narrative Exam: General appearance: well-developed, well-nourished, appears stated age, obese, other (intubated on vent, NGT, restraints, chauhan) EENT: PERRL, mucous membranes moist, other (intubated) Neck: Present: neck supple, trachea midline Respiratory: Clear to Auscultation Heart: regular, bradycardia, S1S2, no murmurs Gastrointestinal: Present: normal, normoactive bowel sounds. Absent: tendern ess, distended, organomegaly Integumentary: no rash, warm and dry Neurologic: drowsy, makes good eye contact Musculoskeletal: Present: other (no edema noted) Psychiatric: calm, cooperative - Vital Signs Vital signs: Vital Signs - 12hr 12/26/19 12/26/19 12/26/19 22:00 22:15 22:16 Temperature Pulse Rate 70 67 67 Pulse Rate [ Anterior Bilateral] Pulse Rate [ From Monitor] Respiratory 26 H 25 H 24 Rate Respiratory Rate [Anterior Bilateral] Blood Pressure 146/61 138/61 138/61 O2 Sat by Pulse 91 92 96 Oximetry 12/26/19 12/26/19 12/26/19 22:21 22:30 22:45 Temperature Pulse Rate 70 70 75 Pulse Rate [ Anterior Bilateral] Pulse Rate [ From Monitor] Respiratory 25 H 24 Rate Respiratory Rate [Anterior Bilateral] Blood Pressure 138/61 143/63 147/61 O2 Sat by Pulse 91 91 Oximetry 12/26/19 12/26/19 12/26/19 23:00 23:15 23:30 Temperature Pulse Rate 79 74 79 Pulse Rate [ Anterior Bilateral] Pulse Rate [ From Monitor] Respiratory 23 24 22 Rate Respiratory Rate [Anterior Bilateral] Blood Pressure 150/75 151/63 148/71 O2 Sat by Pulse 91 92 92 Oximetry 12/26/19 12/27/19 12/27/19 23:45 00:00 00:15 Temperature 99.8 F H Pulse Rate 71 77 69 Pulse Rate [ Anterior Bilateral] Pulse Rate [ 79 From Monitor] Respiratory 22 21 26 H Rate Respiratory Rate [Anterior Bilateral] Blood Pressure 157/66 163/72 154/62 O2 Sat by Pulse 91 91 91 Oximetry 12/27/19 12/27/19 12/27/19 00:30 00:45 01:00 Temperature Pulse Rate 71 68 68 Pulse Rate [ Anterior Bilateral] Pulse Rate [ From Monitor] Respiratory 27 H 25 H 21 Rate Respiratory Rate [Anterior Bilateral] Blood Pressure 149/70 148/72 152/68 O2 Sat by Pulse 92 94 96 Oximetry 12/27/19 12/27/19 12/27/19 01:02 01:15 01:30 Temperature Pulse Rate 68 61 61 Pulse Rate [ Anterior Bilateral] Pulse Rate [ From Monitor] Respiratory 24 25 H Rate Respiratory Rate [Anterior Bilateral] Blood Pressure 154/62 159/68 139/65 O2 Sat by Pulse 96 92 92 Oximetry 12/27/19 12/27/19 12/27/19 01:46 02:00 02:15 Temperature Pulse Rate 64 60 60 Pulse Rate [ 57 L Anterior Bilateral] Pulse Rate [ From Monitor] Respiratory 24 26 H 24 Rate Respiratory 27 H Rate [Anterior Bilateral] Blood Pressure 145/70 147/63 140/63 O2 Sat by Pulse 93 93 94 Oximetry 12/27/19 12/27/19 12/27/19 02:30 02:46 03:00 Temperature Pulse Rate 61 59 L 60 Pulse Rate [ Anterior Bilateral] Pulse Rate [ From Monitor] Respiratory 26 H 25 H 28 H Rate Respiratory Rate [Anterior Bilateral] Blood Pressure 131/67 143/70 138/66 O2 Sat by Pulse 93 93 94 Oximetry 12/27/19 12/27/19 12/27/19 03:15 03:30 03:45 Temperature 100.6 F H Pulse Rate 60 59 L 59 L Pulse Rate [ Anterior Bilateral] Pulse Rate [ From Monitor] Respiratory 25 H 27 H 26 H Rate Respiratory Rate [Anterior Bilateral] Blood Pressure 151/74 150/67 140/69 O2 Sat by Pulse 96 94 93 Oximetry 12/27/19 12/27/19 12/27/19 03:51 04:00 04:16 Temperature Pulse Rate 56 L 61 60 Pulse Rate [ Anterior Bilateral] Pulse Rate [ 63 From Monitor] Respiratory 26 H 29 H Rate Respiratory Rate [Anterior Bilateral] Blood Pressure 140/69 128/70 142/64 O2 Sat by Pulse 97 95 92 Oximetry 12/27/19 12/27/19 12/27/19 04:30 04:45 05:00 Temperature Pulse Rate 63 53 L 55 L Pulse Rate [ Anterior Bilateral] Pulse Rate [ From Monitor] Respiratory 22 29 H 25 H Rate Respiratory Rate [Anterior Bilateral] Blood Pressure 138/69 151/71 139/70 O2 Sat by Pulse 93 94 93 Oximetry 12/27/19 12/27/19 12/27/19 05:16 05:30 05:34 Temperature Pulse Rate 57 L 56 L 56 L Pulse Rate [ Anterior Bilateral] Pulse Rate [ From Monitor] Respiratory 27 H 25 H Rate Respiratory Rate [Anterior Bilateral] Blood Pressure 139/70 136/69 136/69 O2 Sat by Pulse 94 Oximetry 12/27/19 12/27/19 12/27/19 05:45 06:00 06:15 Temperature Pulse Rate 56 L 54 L 54 L Pulse Rate [ Anterior Bilateral] Pulse Rate [ From Monitor] Respiratory 26 H 28 H 28 H Rate Respiratory Rate [Anterior Bilateral] Blood Pressure 138/68 136/61 137/61 O2 Sat by Pulse 94 94 94 Oximetry 12/27/19 12/27/19 12/27/19 06:30 06:46 07:00 Temperature Pulse Rate 56 L 55 L 57 L Pulse Rate [ Anterior Bilateral] Pulse Rate [ From Monitor] Respiratory 27 H 26 H 27 H Rate Respiratory Rate [Anterior Bilateral] Blood Pressure 133/64 140/60 131/66 O2 Sat by Pulse 94 94 93 Oximetry 12/27/19 12/27/19 07:49 08:00 Temperature 100.1 F H Pulse Rate 55 L Pulse Rate [ Anterior Bilateral] Pulse Rate [ 59 L From Monitor] Respiratory 27 H Rate Respiratory Rate [Anterior Bilateral] Blood Pressure 124/56 O2 Sat by Pulse 97 Oximetry - Lab 12/27/19 04:52 12/27/19 04:52 Most recent lab results ABG pH 7.442 pH Units (7.350-7.450) 12/26/19 17:26 ABG pCO2 47.8 mm Hg 12/26/19 17:26 ABG pO2 113.4 mm Hg (80.0-90.0) H 12/26/19 17:26 ABG HCO3 31.9 mmol/L (20.0-26.0) H 12/26/19 17:26 ABG O2 Saturation 98.1 % (95.0-99.0) 12/26/19 17:26 Calcium 8.8 mg/dL (8.4-10.2) 12/27/19 04:52 Phosphorus 3.30 mg/dL (2.5-4.5) 12/25/19 05:22 Magnesium 2.90 mg/dL (1.7-2.3) H 12/25/19 05:22 Urine Creatinine 80.5 mg/dL (0.1-20.0) H 12/22/19 15:30 Urine Sodium 23 mmol/L 12/22/19 15:30 Medications & Allergies - Medications Allergies/Adverse Reactions: Allergies Penicillins Allergy (Verified 12/18/19 22:48) Anaphylaxis VERIFIED WITH PT AND NURSE Home Medications: Home Medications Medication Instructions Recorded Confirmed Last Taken Type No Known Home Medications [No 12/19/19 12/19/19 Unknown History Reported Home Medications] Active Medications: Generic Name Dose Route Start Last Admin Trade Name Freq PRN Reason Stop Dose Admin Acetaminophen 650 mg 12/18/19 21:26 Tylenol PO Q4H PRN Pain MILD(1-3)/Fever >100.5/CHAUDHRY Albuterol 2.5 mg 12/18/19 21:34 Proventil IH Q4HRT PRN Shortness Of Breath Albuterol/Ipratropium 1 ampul 12/18/19 20:45 12/27/19 08:49 Duoneb *Not For Prn Use* IH 1 ampul Q6HRT MARIAN Administration Lipase/Protease/Amylase 1 each 12/20/19 18:25 Pancrekacy Welch 10,500 Unit FEEDTUBE PRN PRN For Clogged Feeding Tube Arformoterol Tartrate 15 mcg 12/19/19 20:00 12/27/19 08:50 Brovana Nebu IH 15 mcg Q12HRT MARIAN Administration Budesonide 0.5 mg 12/19/19 20:00 12/27/19 08:49 Pulmicort IH 0.5 mg Q12HRT MARIAN Administration Clonidine HCl 0.1 mg 12/26/19 10:00 12/27/19 05:34 Catapres PO 0.1 mg Q8HR MARIAN Administration Docusate Sodium 100 mg 12/25/19 22:00 12/26/19 21:13 Colace FEEDTUBE Not Given BID MARIAN Enoxaparin Sodium 40 mg 12/25/19 22:00 12/26/19 21:11 Enoxaparin SUB-Q 40 mg QDAY@2200 MARIAN Administration Famotidine 20 mg 12/25/19 10:00 12/26/19 21:11 Pepcid PO 20 mg BID MARIAN Administration Furosemide 20 mg 12/27/19 10:00 Lasix IV 12/27/19 10:01 ONCE ONE Hydralazine HCl 25 mg 12/19/19 14:00 12/27/19 05:34 Apresoline PO 25 mg Q8HR MARIAN Administration Hydralazine HCl 5 mg 12/26/19 03:19 12/26/19 04:04 Apresoline IV 5 mg Q6H PRN Administration Hypertension Hydromorphone HCl 0.5 mg 12/18/19 21:26 12/26/19 02:55 Dilaudid IV 0.5 mg Q3H PRN Administration Pain , Severe (7-10) Hydrophilic Ointment 1 applic 12/20/19 12:12 Vaseline Lip Therapy TP Q2HR PRN Dry Lips Dexmedetomidine HCl 200 mcg/ 52 mls @ 5.372 mls/hr 12/26/19 06:00 12/27/19 07:50 Sodium Chloride IV 0.6 mcg/kg/hr TITRATE MARIAN 16.115 mls/hr Administration Protocol 0.2 MCG/KG/HR Insulin Glargine 15 units 12/22/19 22:00 12/26/19 21:12 Lantus SUB-Q 15 units QHS MARIAN Administration Insulin Human Lispro 0 unit 12/20/19 16:00 12/27/19 05:34 Humalog SUB-Q 3 unit Q6HR MARIAN Administration Protocol Metoclopramide HCl 10 mg 12/18/19 21:26 Reglan IV Q6H PRN Nausea And Vomiting Multi-Ingred Cream/Lotion/Oil/Oint 1 applic 12/20/19 12:12 Artificial Tears Ophth Oint OU Q4HR PRN Dry Eye(s) Nicotine 21 mg 12/20/19 10:00 12/26/19 09:35 Habitrol TD 21 mg QDAY MARIAN Administration Ondansetron HCl 4 mg 12/18/19 21:26 Zofran IV Q3H PRN Nausea And Vomiting Oxycodone/Acetaminophen 1 tab 12/18/19 21:26 Percocet 5/325 PO Q6H PRN Pain, Moderate (4-6) Prednisone 5 mg 12/27/19 10:00 Deltasone PO 12/27/19 10:01 QDAY MARIAN Quetiapine Fumarate 200 mg 12/25/19 22:00 12/26/19 21:11 Seroquel PO 200 mg QHS MARIAN Administration Simple Syrup 30 ml 12/20/19 18:25 Simple Syrup FEEDTUBE PRN PRN Hypoglycemia Simple Syrup 15 ml 12/24/19 11:39 Simple Syrup FEEDTUBE PRN PRN Hypoglycemia Sodium Bicarbonate 325 mg 12/24/19 11:39 Sodium Bicarbonate FEEDTUBE PRN PRN For Clogged Feeding Tube Sodium Chloride 10 ml 12/18/19 22:00 12/26/19 21:14 Sodium Chloride Flush Syringe 10 Ml IV 10 ml BID MARIAN Administration Sodium Chloride 10 ml 12/18/19 21:26 12/19/19 06:55 Sodium Chloride Flush Syringe 10 Ml IV 10 ml PRN PRN Administration LINE FLUSH
[2019-12-27] MEDS ORDERED: predniSONE 5 MG TAB PO SCH (10:00)
[2019-12-27] MEDS ORDERED: FUROSEMIDE 20 MG/2 ML INJ IV ONE (10:00)
--- NOTE | 2019-12-27 10:00 | Progress Note ---
Assessment and Plan Assessment and plan: --Acute respiratory failure with hypoxia Patient intubated, oxygen titrate O2 sats to more than 90% Vent support ,nebulizers IV steroids antibiotics Pulmonary critical following On weaning parameters, wean as tolerated and extubate --Hyponatremia; present on admission Resolved, now patient has hypernatremia, improved Mild improvement, closely monitor, free water flushes --AYSE : Vasomotor nephropathy IV fluids for now in the form of D5W Significantly improved, creatinine today 1.4 Avoid nephrotoxins -- COPD with acute exacerbation Continue duo nebs, IV steroids and IV antibiotics --Metabolic encephalopathy Patient intubated --left lower lobe pneumonia Community-acquired pneumonia Completed Levaquin and Vanco Monitor off abx and supportive care --Leukocytosis/lactic acidosis sepsis secondary to pneumonia --Sepsis secondary to pneumonia; Improving --Hypertension; Moderate control ,controlled --tobacco use: Smoking cessation on Nicoderm patch --Severe protein calorie malnutrition nutrition supplements and supportive care Tube feeding per protocol --DVT prophylaxis On Heparin and GI prophylaxis Monitor closely and adjust management as needed Critical care time 38 minutes Plan of care reviewed with the patient, his nurse And the case management History Interval history: I have seen and evaluated the patient at the bedside in ICU this morning Patient's chart, medications, other records reviewed Placed on weaning parameters Remains intubated on ventilatory support Morbidly obese, In mild distress Vital signs noted Hospitalist Physical - Constitutional Vitals: Temp Pulse Resp BP Pulse Ox 100.1 F H 59 L 27 H 124/56 97 12/27/19 07:49 12/27/19 08:00 12/27/19 08:00 12/27/19 08:00 12/27/19 08:00 General appearance: Present: no acute distress, well-nourished, obese, other (Intubated on vent) - EENT Eyes: Present: PERRL, EOM intact - Neck Neck: Present: supple, normal ROM MITCHELL score - Mitchell Score Age > 65: (0) No Aspirin use within the Past 7 Days: (0) No 3 or more CAD Risk Factors: (0) No 2 or more Angina events in past 24 hrs: (0) No Known CAD with more than 50% Stenosis: (0) No Elevated Cardiac Markers: (0) No ST Deviation Greater than 0.5mm: (0) No MITCHELL Score: 0 Results - Labs CBC & Chem 7: 12/27/19 04:52 12/27/19 04:52 Labs: Laboratory Last Values WBC 16.1 K/mm3 (4.5-11.0) H 12/27/19 04:52 RBC 4.31 M/mm3 (3.65-5.03) 12/27/19 04:52 Hgb 12.8 gm/dl (11.8-15.2) 12/27/19 04:52 Hct 39.7 % (35.5-45.6) 12/27/19 04:52 MCV 92 fl (84-94) 12/27/19 04:52 MCH 30 pg (28-32) 12/27/19 04:52 MCHC 32 % (32-34) 12/27/19 04:52 RDW 14.3 % (13.2-15.2) 12/27/19 04:52 Plt Count 214 K/mm3 (140-440) 12/27/19 04:52 Lymph % (Auto) 9.1 % (13.4-35.0) L 12/27/19 04:52 [place] % (Auto) 8.5 % (0.0-7.3) H 12/27/19 04:52 Eos % (Auto) 1.0 % (0.0-4.3) 12/27/19 04:52 Baso % (Auto) 0.8 % (0.0-1.8) 12/27/19 04:52 Lymph # 1.5 K/mm3 (1.2-5.4) 12/27/19 04:52 [place] # 1.4 K/mm3 (0.0-0.8) H 12/27/19 04:52 Eos # 0.2 K/mm3 (0.0-0.4) 12/27/19 04:52 Baso # 0.1 K/mm3 (0.0-0.1) 12/27/19 04:52 Add Manual Diff Complete 12/25/19 05:22 Total Counted 100 12/25/19 05:22 Seg Neutrophils % 80.6 % (40.0-70.0) H 12/27/19 04:52 Seg Neuts % (Manual) 76.0 % (40.0-70.0) H 12/25/19 05:22 Band Neutrophils % 2.0 % 12/25/19 05:22 Lymphocytes % (Manual) 10.0 % (13.4-35.0) L 12/25/19 05:22 Reactive Lymphs % (Man) 0 % 12/25/19 05:22 Monocytes % (Manual) 6.0 % (0.0-7.3) 12/25/19 05:22 Eosinophils % (Manual) 2.0 % (0.0-4.3) 12/25/19 05:22 Basophils % (Manual) 0 % (0.0-1.8) 12/25/19 05:22 Metamyelocytes % 4.0 % 12/25/19 05:22 Myelocytes % 0 % 12/25/19 05:22 Promyelocytes % 0 % 12/25/19 05:22 Blast Cells % 0 % 12/25/19 05:22 Nucleated RBC % Not Reportable 12/25/19 05:22 Seg Neutrophils # 13.0 K/mm3 (1.8-7.7) H 12/27/19 04:52 Seg Neutrophils # Man 9.1 K/mm3 (1.8-7.7) H 12/25/19 05:22 Band Neutrophils # 0.2 K/mm3 12/25/19 05:22 Lymphocytes # (Manual) 1.2 K/mm3 (1.2-5.4) 12/25/19 05:22 Abs React Lymphs (Man) 0.0 K/mm3 12/25/19 05:22 Monocytes # (Manual) 0.7 K/mm3 (0.0-0.8) 12/25/19 05:22 Eosinophils # (Manual) 0.2 K/mm3 (0.0-0.4) 12/25/19 05:22 Basophils # (Manual) 0.0 K/mm3 (0.0-0.1) 12/25/19 05:22 Metamyelocytes # 0.5 K/mm3 12/25/19 05:22 Myelocytes # 0.0 K/mm3 12/25/19 05:22 Promyelocytes # 0.0 K/mm3 12/25/19 05:22 Blast Cells # 0.0 K/mm3 12/25/19 05:22 WBC Morphology Not Reportable 12/25/19 05:22 Hypersegmented Neuts Not Reportable 12/25/19 05:22 Hyposegmented Neuts Not Reportable 12/25/19 05:22 Hypogranular Neuts Not Reportable 12/25/19 05:22 Smudge Cells Not Reportable 12/25/19 05:22 Toxic Granulation Not Reportable 12/25/19 05:22 Toxic Vacuolation Not Reportable 12/25/19 05:22 Dohle Bodies Not Reportable 12/25/19 05:22 Pelger-Huet Anomaly Not Reportable 12/25/19 05:22 Jennifer Rods Not Reportable 12/25/19 05:22 Platelet Estimate Consistent w auto 12/25/19 05:22 Clumped Platelets Not Reportable 12/25/19 05:22 Plt Clumps, EDTA Not Reportable 12/25/19 05:22 Large Platelets Not Reportable 12/25/19 05:22 Giant Platelets Not Reportable 12/25/19 05:22 Platelet Satelliting Not Reportable 12/25/19 05:22 Plt Morphology Comment Not Reportable 12/25/19 05:22 RBC Morphology Normal 12/25/19 05:22 Dimorphic RBCs Not Reportable 12/25/19 05:22 Polychromasia Not Reportable 12/25/19 05:22 Hypochromasia Not Reportable 12/25/19 05:22 Poikilocytosis Not Reportable 12/25/19 05:22 Anisocytosis Not Reportable 12/25/19 05:22 Microcytosis Not Reportable 12/25/19 05:22 Macrocytosis Not Reportable 12/25/19 05:22 Spherocytes Not Reportable 12/25/19 05:22 Pappenheimer Bodies Not Reportable 12/25/19 05:22 Sickle Cells Not Reportable 12/25/19 05:22 Target Cells Not Reportable 12/25/19 05:22 Tear Drop Cells Not Reportable 12/25/19 05:22 Ovalocytes Not Reportable 12/25/19 05:22 Helmet Cells Not Reportable 12/25/19 05:22 [place] Bodies Not Reportable 12/25/19 05:22 [place] Rings Not Reportable 12/25/19 05:22 Ed Cells Not Reportable 12/25/19 05:22 Bite Cells Not Reportable 12/25/19 05:22 Crenated Cell Not Reportable 12/25/19 05:22 Elliptocytes Not Reportable 12/25/19 05:22 Acanthocytes (Spur) Not Reportable 12/25/19 05:22 Rouleaux Not Reportable 12/25/19 05:22 Hemoglobin C Crystals Not Reportable 12/25/19 05:22 Schistocytes Not Reportable 12/25/19 05:22 Malaria parasites Not Reportable 12/25/19 05:22 León Bodies Not Reportable 12/25/19 05:22 Hem Pathologist Commnt No 12/25/19 05:22 PT 13.9 Sec. (12.2-14.9) 12/18/19 15:28 INR 1.06 (0.87-1.13) 12/18/19 15:28 APTT 72.2 Sec. (24.2-36.6) H* 12/18/19 15:28 D-Dimer 2277.88 ng/mlDDU (0-234) H 12/18/19 10:30 ABG pH 7.442 pH Units (7.350-7.450) 12/26/19 17:26 ABG pCO2 47.8 mm Hg 12/26/19 17:26 ABG pO2 113.4 mm Hg (80.0-90.0) H 12/26/19 17:26 ABG HCO3 31.9 mmol/L (20.0-26.0) H 12/26/19 17:26 ABG O2 Saturation 98.1 % (95.0-99.0) 12/26/19 17: ABG O2 Content 19.4 (0.0-44) 12/26/19 17:26 ABG Base Excess 6.7 mmol/L (-2.0-3.0) H 12/26/19 17:26 ABG Hemoglobin 14.3 gm/dl (14.0-18.0) 12/26/19 17:26 ABG Carboxyhemoglobin 1.4 % (0.0-5.0) 12/26/19 17:26 ABG Methemoglobin 0.7 % (0.0-1.5) 12/26/19 17: Oxyhemoglobin 96.1 % (95.0-99.0) 12/26/19 17:26 FiO2 50 % 12/26/19 17:26 Sodium 142 mmol/L (137-145) 12/27/19 04:52 Potassium 4.7 mmol/L (3.6-5.0) 12/27/19 04:52 Chloride 102.6 mmol/L (98-107) 12/27/19 04:52 Carbon Dioxide 28 mmol/L (22-30) 12/27/19 04:52 Anion Gap 16 mmol/L 12/27/19 04:52 BUN 49 mg/dL (9-20) H 12/27/19 04:52 Creatinine 1.4 mg/dL (0.8-1.5) 12/27/19 04:52 Estimated GFR 52 ml/min 12/27/19 04:52 BUN/Creatinine Ratio 35 % 12/27/19 04:52 Glucose 184 mg/dL (75-100) H 12/27/19 04:52 POC Glucose 176 (70-105) H 12/27/19 05:21 Hemoglobin A1c 10.0 % (4-6) H 12/21/19 Unknown Lactic Acid 1.70 mmol/L (0.7-2.0) 12/21/19 09:48 Calcium 8.8 mg/dL (8.4-10.2) 12/27/19 04:52 Phosphorus 3.30 mg/dL (2.5-4.5) 12/25/19 05:22 Magnesium 2.90 mg/dL (1.7-2.3) H 12/25/19 05:22 Total Bilirubin 0.50 mg/dL (0.1-1.2) 12/25/19 05:22 AST 31 units/L (5-40) 12/25/19 05:22 ALT 35 units/L (7-56) 12/25/19 05:22 Alkaline Phosphatase 49 units/L (35-129) 12/25/19 05:22 Total Creatine Kinase 195 units/L (55-170) H 12/25/19 05:22 CK-MB (CK-2) 8.7 ng/mL (0.0-4.0) H 12/19/19 12:04 CK-MB (CK-2) Rel Index 0.2 (0-4) 12/19/19 12:04 Troponin T < 0.010 ng/mL (0.00-0.029) 12/19/19 12:04 NT-Pro-B Natriuret Pep 609.1 pg/mL (0-900) 12/18/19 12:06 Total Protein 5.8 g/dL (6.3-8.2) L 12/25/19 05:22 Albumin 2.3 g/dL (3.9-5) L 12/25/19 05:22 Albumin/Globulin Ratio 0.7 % 12/25/19 05:22 Procalcitonin 3.24 ng/mL (<0.15) 12/19/19 12:04 Urine Color Red (Yellow) 12/18/19 11:56 Urine Turbidity Slightly-cloudy (Clear) 12/18/19 11:56 Urine pH 6.0 (5.0-7.0) 12/18/19 11:56 Ur Specific [place] 1.017 (1.003-1.030) 12/18/19 11:56 Urine Protein 100 mg/dl mg/dL (Negative) 12/18/19 11:56 Urine Glucose (UA) >=500 mg/dL (Negative) 12/18/19 11:56 Urine Ketones 20 mg/dL (Negative) 12/18/19 11:56 Urine Blood Lg (Negative) 12/18/19 11:56 Urine Nitrite Neg (Negative) 12/18/19 11:56 Urine Bilirubin Neg (Negative) 12/18/19 11:56 Urine Urobilinogen < 2.0 mg/dL (<2.0) 12/18/19 11:56 Ur Leukocyte Esterase Neg (Negative) 12/18/19 11:56 Urine WBC (Auto) 58.0 /HPF (0.0-6.0) H 12/18/19 11:56 Urine RBC (Auto) > 182.0 /HPF (0.0-6.0) 12/18/19 11:56 U Epithel Cells (Auto) 4.0 /HPF (0-13.0) 12/18/19 11:56 Urine Mucus Few /HPF 12/18/19 11:56 Urine Yeast (Budding) 1+ /HPF 12/18/19 11:56 Urine Creatinine 80.5 mg/dL (0.1-20.0) H 12/22/19 15:30 Urine Sodium 23 mmol/L 12/22/19 15:30 Vancomycin Trough 11.4 ug/mL (5.0-20.0) 12/20/19 09:56 Random Vancomycin 5.2 ug/mL (0-40.0) 12/24/19 05:25 Active Medications - Current Medications Current Medications: Generic Name Dose Route Start Last Admin Trade Name Freq PRN Reason Stop Dose Admin Acetaminophen 650 mg 12/18/19 21:26 Tylenol PO Q4H PRN Pain MILD(1-3)/Fever >100.5/CHAUDHRY Albuterol 2.5 mg 12/18/19 21:34 Proventil IH Q4HRT PRN Shortness Of Breath Albuterol/Ipratropium 1 ampul 12/18/19 20:45 12/27/19 08:49 Duoneb *Not For Prn Use* IH 1 ampul Q6HRT MARIAN Administration Lipase/Protease/Amylase 1 each 12/20/19 18:25 Pancrekacy Welch 10,500 Unit FEEDTUBE PRN PRN For Clogged Feeding Tube Arformoterol Tartrate 15 mcg 12/19/19 20:00 12/27/19 08:50 Brovana Nebu IH 15 mcg Q12HRT MARIAN Administration Budesonide 0.5 mg 12/19/19 20:00 12/27/19 08:49 Pulmicort IH 0.5 mg Q12HRT MARIAN Administration Clonidine HCl 0.1 mg 12/26/19 10:00 12/27/19 05:34 Catapres PO 0.1 mg Q8HR MARIAN Administration Docusate Sodium 100 mg 12/25/19 22:00 12/26/19 21:13 Colace FEEDTUBE Not Given BID MARIAN Enoxaparin Sodium 40 mg 12/25/19 22:00 12/26/19 21:11 Enoxaparin SUB-Q 40 mg QDAY@2200 MARIAN Administration Famotidine 20 mg 12/25/19 10:00 12/26/19 21:11 Pepcid PO 20 mg BID MARIAN Administration Furosemide 20 mg 12/27/19 10:00 Lasix IV 12/27/19 10:01 ONCE ONE Hydralazine HCl 25 mg 12/19/19 14:00 12/27/19 05:34 Apresoline PO 25 mg Q8HR MARIAN Administration Hydralazine HCl 5 mg 12/26/19 03:19 12/26/19 04:04 Apresoline IV 5 mg Q6H PRN Administration Hypertension Hydromorphone HCl 0.5 mg 12/18/19 21:26 12/26/19 02:55 Dilaudid IV 0.5 mg Q3H PRN Administration Pain , Severe (7-10) Hydrophilic Ointment 1 applic 12/20/19 12:12 Vaseline Lip Therapy TP Q2HR PRN Dry Lips Dexmedetomidine HCl 200 mcg/ 52 mls @ 5.372 mls/hr 12/26/19 06:00 12/27/19 07:50 Sodium Chloride IV 0.6 mcg/kg/hr TITRATE MARIAN 16.115 mls/hr Administration Protocol 0.2 MCG/KG/HR Insulin Glargine 15 units 12/22/19 22:00 12/26/19 21:12 Lantus SUB-Q 15 units QHS MARIAN Administration Insulin Human Lispro 0 unit 12/20/19 16:00 12/27/19 05:34 Humalog SUB-Q 3 unit Q6HR MARIAN Administration Protocol Metoclopramide HCl 10 mg 12/18/19 21:26 Reglan IV Q6H PRN Nausea And Vomiting Multi-Ingred Cream/Lotion/Oil/Oint 1 applic 12/20/19 12:12 Artificial Tears Ophth Oint OU Q4HR PRN Dry Eye(s) Nicotine 21 mg 12/20/19 10:00 12/26/19 09:35 Habitrol TD 21 mg QDAY MARIAN Administration Ondansetron HCl 4 mg 12/18/19 21:26 Zofran IV Q3H PRN Nausea And Vomiting Oxycodone/Acetaminophen 1 tab 12/18/19 21:26 Percocet 5/325 PO Q6H PRN Pain, Moderate (4-6) Prednisone 5 mg 12/27/19 10:00 Deltasone PO 12/27/19 10:01 QDAY MARIAN Quetiapine Fumarate 200 mg 12/25/19 22:00 12/26/19 21:11 Seroquel PO 200 mg QHS MARIAN Administration Simple Syrup 30 ml 12/20/19 18:25 Simple Syrup FEEDTUBE PRN PRN Hypoglycemia Simple Syrup 15 ml 12/24/19 11:39 Simple Syrup FEEDTUBE PRN PRN Hypoglycemia Sodium Bicarbonate 325 mg 03/08/20 11:39 Sodium Bicarbonate FEEDTUBE PRN PRN For Clogged Feeding Tube Sodium Chloride 10 ml 12/18/19 22:00 12/26/19 21:14 Sodium Chloride Flush Syringe 10 Ml IV 10 ml BID MARIAN Administration Sodium Chloride 10 ml 12/18/19 21:26 12/19/19 06:55 Sodium Chloride Flush Syringe 10 Ml IV 10 ml PRN PRN Administration LINE FLUSH Nutrition/Malnutrition Assess - Dietary Evaluation Nutrition/Malnutrition Findings: Nutrition Notes Start: 12/19/19 11:42 Freq: Status: Active Protocol: Document 12/25/19 12:24 LM (Rec: 12/25/19 12:40 LM [id number]) Nutrition Notes Initial or Follow up Reassessment Current Diagnosis COPD,Sepsis,Respiratory Failure Other Pertinent Diagnosis pneu, nicotine dependence, DVT Current Diet Nepro 1.8 at 45 ml/hr Labs/Tests Na 149 BUN 62 Cr 1.7 BG 245 Mg 2.9 Pertinent Medications D5w at 50 ml/hr Humalog Height 5 ft 9 in Weight 103.3 kg [place] Body Weight (kg) 72.72 BMI 33.6 Weight change and time frame wt change noted Weight Status Obese Subjective/Other Information MD changed TF formula to Nepro due to high Na. Agree with formula change. Pt tolerating TF Percent of energy/protein needs met: 100%/60% Burn Absent Trauma Absent GI Symptoms Other Difficulty In Swallowing Current % PO Negligible Minimum of two criteria No Energy Intake (severe) < or equal to 50% Estimated Energy Requirement > or equal to 5 days #1 Nutrition Diagnosis Inadequate oral intake Diagnosis Progress(for reassessment Continues documentation) Is patient on ventilator? No Is Patient Ambulatory and/or Out of Bed Yes REE-([place]-ambulatory/OOB) [ 2383.394 [id number]] Kcal/Kg value to use for calculation 18 Approximate Energy Requirements Using 1859 kcal/Kg Calculation Used for Recommendations Kcal/kg Additional Notes Protein: >144g (>2g/kg IBW 72. 7kg) Fluid: 1ml/kcal Nutrition Intervention Change Diet Order: TF Nutrition Support: Nepro 1.8 at 45 ml/hr Flush 200 ml q4h Kcal 1,944 Protein (gm) 87 Fluid (mL) 785 Goal #1 Meet at least 80% of kcal and protein needs Goal #2 TF tolerance Anticipated Discharge Needs: unable to determine at this time Follow-Up By: 12/27/19 Additional Comments F/U for TF tolerance, Na lab, flush needs
[2019-12-27] MEDS: FAMOTIDINE 20 MG TAB PO SCH ×2 (10:28→21:38)
[2019-12-27] MEDS: NICOTINE 21 MG/24 HR PATCH TD SCH (10:29)
[2019-12-27] MEDS: DOCUSATE SODIUM 100 MG/10 ML ORAL LIQD FEEDTUBE SCH ×2 (10:38→21:38)
[2019-12-27] MEDS: ENOXAPARIN 40 MG/0.4 ML INJ SUB-Q SCH (21:37)
[2019-12-27] MEDS: QUEtiapine 200 MG TAB PO SCH (21:38)
[2019-12-27] MEDS: INSULIN GLARGINE 100 UNITS/ML SUB-Q SCH (21:40)
[2019-12-28] MEDS: INSULIN LISPRO 100 UNIT/ML SUB-Q SCH ×4 (00:39→18:16)
[2019-12-28] MEDS: IPRATROPIUM/ALBUTEROL SULFATE 3 ML AMPUL.NEB IH SCH ×4 (03:02→21:16)
[2019-12-28 05:01] LABS: Basophils # (Auto) 0.1 K/mm3 (0.0-0.1); Basophils % (Auto) 0.6 % (0.0-1.8); Eosinophils # (Auto) 0.2 K/mm3 (0.0-0.4); Eosinophils % (Auto) 1.2 % (0.0-4.3); Hematocrit 39.4 % (35.5-45.6); Hemoglobin 12.7 gm/dl (11.8-15.2); Lymphocytes # (Auto) 1.6 K/mm3 (1.2-5.4); Lymphocytes % (Auto) 10.6 % (13.4-35.0); Mean Corpuscular HGB Conc 32 % (32-34); Mean Corpuscular Volume 91 fl (84-94); Monocytes # (Auto) 1.1 K/mm3 (0.0-0.8); Monocytes % (Auto) 7.4 % (0.0-7.3); Platelet Count 212 K/mm3 (140-440); Red Blood Count 4.32 M/mm3 (3.65-5.03); Red Cell Distribution Width 13.9 % (13.2-15.2)
[2019-12-28 05:20] LABS: Calcium 8.8 mg/dL (8.4-10.2)
[2019-12-28] MEDS: hydrALAZINE 25 MG TAB PO SCH ×3 (07:05→21:54)
[2019-12-28] MEDS: cloNIDine 0.1 MG TAB PO SCH ×3 (07:06→21:54)
[2019-12-28] MEDS: BUDESONIDE 0.5 MG/2 ML NEBU IH SCH ×2 (08:38→21:16)
[2019-12-28] MEDS: ARFORMOTEROL 15 MCG/2 ML NEBU IH SCH ×2 (08:38→21:16)
--- NOTE | 2019-12-28 08:40 | Progress Note ---
Assessment and Plan Assessment and plan: --Acute respiratory failure with hypoxia/requiring intubation Patient extubated yesterday On high flow oxygen, titrate O2 sats to more than 90% nebulizers IV steroids antibiotics, Pulmonary critical following Swallow evaluation, mechanical soft diet as tolerated --Hypernatremia resolved closely monitor electrolytes closely monitor, free water flushes --AYSE : Vasomotor nephropathy Resolved IV fluids for now in the form of D5W Significantly improved, creatinine today 1.4 Avoid nephrotoxins -- COPD with acute exacerbation Continue duo nebs, IV steroids and IV antibiotics --Metabolic encephalopathy Patient intubated --left lower lobe pneumonia Community-acquired pneumonia Completed Levaquin and Vanco Monitor off abx and supportive care --Leukocytosis/lactic acidosis sepsis secondary to pneumonia --Sepsis secondary to pneumonia; Improving --Hypertension; Moderate control ,controlled --tobacco use: Smoking cessation on Nicoderm patch --Severe protein calorie malnutrition nutrition supplements and supportive care Tube feeding per protocol --DVT prophylaxis On Heparin and GI prophylaxis Monitor closely and adjust management as needed Critical care time 34 minutes Closely monitor overnight and possible transfer to floor tomorrow if stable Plan of care reviewed with the patient and his nurse History Interval history: Have seen and evaluated the patient at bedside in ICU this morning Patient was extubated yesterday, on high flow oxygen Patient is in mild distress, alert and awake Denies chest pain, mild shortness of breath Vital signs noted On [facility] Hospitalist Physical - Constitutional Vitals: Temp Pulse Resp BP Pulse Ox 98.3 F 64 19 155/72 92 12/28/19 00:00 12/28/19 07:06 12/28/19 07:00 12/28/19 07:06 12/28/19 07:00 General appearance: Present: no acute distress, well-nourished, obese, other (Intubated on vent) - EENT Eyes: Present: PERRL, EOM intact - Neck Neck: Present: supple, normal ROM - Respiratory Respiratory effort: normal Respiratory: bilateral: diminished, negative: rales, rhonchi, wheezing - Cardiovascular Rhythm: regular Heart Sounds: Present: S1 & S2 - Extremities Extremities: no ischemia, No edema - Abdominal General gastrointestinal: soft, non-tender, non-distended, normal bowel sounds - Integumentary Integumentary: Present: clear, warm - Psychiatric Psychiatric: appropriate mood/affect, cooperative - Neurologic Neurologic: CNII-XII intact, moves all extremities MITCHELL score - Mitchell Score Age > 65: (0) No Aspirin use within the Past 7 Days: (0) No 3 or more CAD Risk Factors: (0) No 2 or more Angina events in past 24 hrs: (0) No Known CAD with more than 50% Stenosis: (0) No Elevated Cardiac Markers: (0) No ST Deviation Greater than 0.5mm: (0) No MITCHELL Score: 0 Results - Labs CBC & Chem 7: 12/28/19 04:14 12/28/19 04:14 Labs: Laboratory Last Values WBC 15.1 K/mm3 (4.5-11.0) H 12/28/19 04:14 RBC 4.32 M/mm3 (3.65-5.03) 12/28/19 04:14 Hgb 12.7 gm/dl (11.8-15.2) 12/28/19 04:14 Hct 39.4 % (35.5-45.6) 12/28/19 04:14 MCV 91 fl (84-94) 12/28/19 04:14 MCH 29 pg (28-32) 12/28/19 04:14 MCHC 32 % (32-34) 12/28/19 04:14 RDW 13.9 % (13.2-15.2) 12/28/19 04:14 Plt Count 212 K/mm3 (140-440) 12/28/19 04:14 Lymph % (Auto) 10.6 % (13.4-35.0) L 12/28/19 04:14 [place] % (Auto) 7.4 % (0.0-7.3) H 12/28/19 04:14 Eos % (Auto) 1.2 % (0.0-4.3) 12/28/19 04:14 Baso % (Auto) 0.6 % (0.0-1.8) 12/28/19 04:14 Lymph # 1.6 K/mm3 (1.2-5.4) 12/28/19 04:14 [place] # 1.1 K/mm3 (0.0-0.8) H 12/28/19 04:14 Eos # 0.2 K/mm3 (0.0-0.4) 12/28/19 04:14 Baso # 0.1 K/mm3 (0.0-0.1) 12/28/19 04:14 Add Manual Diff Complete 12/25/19 05:22 Total Counted 100 12/25/19 05:22 Seg Neutrophils % 80.2 % (40.0-70.0) H 12/28/19 04:14 Seg Neuts % (Manual) 76.0 % (40.0-70.0) H 12/25/19 05:22 Band Neutrophils % 2.0 % 12/25/19 05:22 Lymphocytes % (Manual) 10.0 % (13.4-35.0) L 12/25/19 05:22 Reactive Lymphs % (Man) 0 % 12/25/19 05:22 Monocytes % (Manual) 6.0 % (0.0-7.3) 12/25/19 05:22 Eosinophils % (Manual) 2.0 % (0.0-4.3) 12/25/19 05:22 Basophils % (Manual) 0 % (0.0-1.8) 12/25/19 05:22 Metamyelocytes % 4.0 % 12/25/19 05:22 Myelocytes % 0 % 12/25/19 05:22 Promyelocytes % 0 % 12/25/19 05:22 Blast Cells % 0 % 12/25/19 05:22 Nucleated RBC % Not Reportable 12/25/19 05:22 Seg Neutrophils # 12.1 K/mm3 (1.8-7.7) H 12/28/19 04:14 Seg Neutrophils # Man 9.1 K/mm3 (1.8-7.7) H 12/25/19 05:22 Band Neutrophils # 0.2 K/mm3 12/25/19 05:22 Lymphocytes # (Manual) 1.2 K/mm3 (1.2-5.4) 12/25/19 05:22 Abs React Lymphs (Man) 0.0 K/mm3 12/25/19 05:22 Monocytes # (Manual) 0.7 K/mm3 (0.0-0.8) 12/25/19 05:22 Eosinophils # (Manual) 0.2 K/mm3 (0.0-0.4) 12/25/19 05:22 Basophils # (Manual) 0.0 K/mm3 (0.0-0.1) 12/25/19 05:22 Metamyelocytes # 0.5 K/mm3 12/25/19 05:22 Myelocytes # 0.0 K/mm3 12/25/19 05:22 Promyelocytes # 0.0 K/mm3 12/25/19 05:22 Blast Cells # 0.0 K/mm3 12/25/19 05:22 WBC Morphology Not Reportable 12/25/19 05:22 Hypersegmented Neuts Not Reportable 12/25/19 05:22 Hyposegmented Neuts Not Reportable 12/25/19 05:22 Hypogranular Neuts Not Reportable 12/25/19 05:22 Smudge Cells Not Reportable 12/25/19 05:22 Toxic Granulation Not Reportable 12/25/19 05:22 Toxic Vacuolation Not Reportable 12/25/19 05:22 Dohle Bodies Not Reportable 12/25/19 05:22 Pelger-Huet Anomaly Not Reportable 12/25/19 05:22 Jennifer Rods Not Reportable 12/25/19 05:22 Platelet Estimate Consistent w auto 12/25/19 05:22 Clumped Platelets Not Reportable 12/25/19 05:22 Plt Clumps, EDTA Not Reportable 12/25/19 05:22 Large Platelets Not Reportable 12/25/19 05:22 Giant Platelets Not Reportable 12/25/19 05:22 Platelet Satelliting Not Reportable 12/25/19 05:22 Plt Morphology Comment Not Reportable 12/25/19 05:22 RBC Morphology Normal 12/25/19 05:22 Dimorphic RBCs Not Reportable 12/25/19 05:22 Polychromasia Not Reportable 12/25/19 05:22 Hypochromasia Not Reportable 12/25/19 05:22 Poikilocytosis Not Reportable 12/25/19 05:22 Anisocytosis Not Reportable 12/25/19 05:22 Microcytosis Not Reportable 12/25/19 05:22 Macrocytosis Not Reportable 12/25/19 05:22 Spherocytes Not Reportable 12/25/19 05:22 Pappenheimer Bodies Not Reportable 12/25/19 05:22 Sickle Cells Not Reportable 12/25/19 05:22 Target Cells Not Reportable 12/25/19 05:22 Tear Drop Cells Not Reportable 12/25/19 05:22 Ovalocytes Not Reportable 12/25/19 05:22 Helmet Cells Not Reportable 12/25/19 05:22 Orosco-Glandorf Bodies Not Reportable 12/25/19 05:22 [place] Rings Not Reportable 12/25/19 05:22 [place] Cells Not Reportable 12/25/19 05:22 Bite Cells Not Reportable 12/25/19 05:22 Crenated Cell Not Reportable 12/25/19 05:22 Elliptocytes Not Reportable 12/25/19 05:22 Acanthocytes (Spur) Not Reportable 12/25/19 05:22 Rouleaux Not Reportable 12/25/19 05:22 Hemoglobin C Crystals Not Reportable 12/25/19 05:22 Schistocytes Not Reportable 12/25/19 05:22 Malaria parasites Not Reportable 12/25/19 05:22 León Bodies Not Reportable 12/25/19 05:22 Hem Pathologist Commnt No 12/25/19 05:22 PT 13.9 Sec. (12.2-14.9) 12/18/19 15:28 INR 1.06 (0.87-1.13) 12/18/19 15:28 APTT 72.2 Sec. (24.2-36.6) H* 12/18/19 15:28 D-Dimer 2277.88 ng/mlDDU (0-234) H 12/18/19 10:30 ABG pH 7.442 pH Units (7.350-7.450) 12/26/19 17:26 ABG pCO2 47.8 mm Hg 12/26/19 17:26 ABG pO2 113.4 mm Hg (80.0-90.0) H 12/26/19 17: ABG HCO3 31.9 mmol/L (20.0-26.0) H 12/26/19 17:26 ABG O2 Saturation 98.1 % (95.0-99.0) 12/26/19 17: ABG O2 Content 19.4 (0.0-44) 12/26/19 17: ABG Base Excess 6.7 mmol/L (-2.0-3.0) H 12/26/19 17:26 ABG Hemoglobin 14.3 gm/dl (14.0-18.0) 12/26/19 17:26 ABG Carboxyhemoglobin 1.4 % (0.0-5.0) 12/26/19 17:26 ABG Methemoglobin 0.7 % (0.0-1.5) 12/26/19 17:26 Oxyhemoglobin 96.1 % (95.0-99.0) 12/26/19 17:26 FiO2 50 % 12/26/19 17:26 Sodium 142 mmol/L (137-145) 12/28/19 04:14 Potassium 3.6 mmol/L (3.6-5.0) D 12/28/19 04:14 Chloride 102.4 mmol/L (98-107) 12/28/19 04:14 Carbon Dioxide 27 mmol/L (22-30) 12/28/19 04:14 Anion Gap 16 mmol/L 12/28/19 04:14 BUN 52 mg/dL (9-20) H 12/28/19 04:14 Creatinine 1.4 mg/dL (0.8-1.5) 12/28/19 04:14 Estimated GFR 52 ml/min 12/28/19 04:14 BUN/Creatinine Ratio 37 % 12/28/19 04:14 Glucose 219 mg/dL (75-100) H 12/28/19 04:14 POC Glucose 226 (70-105) H 12/28/19 06:32 Hemoglobin A1c 10.0 % (4-6) H 12/21/19 Unknown Lactic Acid 1.70 mmol/L (0.7-2.0) 12/21/19 09:48 Calcium 8.8 mg/dL (8.4-10.2) 12/28/19 04:14 Phosphorus 3.30 mg/dL (2.5-4.5) 12/25/19 05:22 Magnesium 2.90 mg/dL (1.7-2.3) H 12/25/19 05:22 Total Bilirubin 0.50 mg/dL (0.1-1.2) 12/25/19 05:22 AST 31 units/L (5-40) 12/25/19 05:22 ALT 35 units/L (7-56) 12/25/19 05:22 Alkaline Phosphatase 49 units/L (35-129) 12/25/19 05:22 Total Creatine Kinase 195 units/L (55-170) H 12/25/19 05:22 CK-MB (CK-2) 8.7 ng/mL (0.0-4.0) H 12/19/19 12:04 CK-MB (CK-2) Rel Index 0.2 (0-4) 12/19/19 12:04 Troponin T < 0.010 ng/mL (0.00-0.029) 12/19/19 12:04 NT-Pro-B Natriuret Pep 609.1 pg/mL (0-900) 12/18/19 12:06 Total Protein 5.8 g/dL (6.3-8.2) L 12/25/19 05:22 Albumin 2.3 g/dL (3.9-5) L 12/25/19 05:22 Albumin/Globulin Ratio 0.7 % 12/25/19 05:22 Procalcitonin 3.24 ng/mL (<0.15) 12/19/19 12:04 Urine Color Red (Yellow) 12/18/19 11:56 Urine Turbidity Slightly-cloudy (Clear) 12/18/19 11:56 Urine pH 6.0 (5.0-7.0) 12/18/19 11:56 Ur Specific [place] 1.017 (1.003-1.030) 12/18/19 11:56 Urine Protein 100 mg/dl mg/dL (Negative) 12/18/19 11:56 Urine Glucose (UA) >=500 mg/dL (Negative) 12/18/19 11:56 Urine Ketones 20 mg/dL (Negative) 12/18/19 11:56 Urine Blood Lg (Negative) 12/18/19 11:56 Urine Nitrite Neg (Negative) 12/18/19 11:56 Urine Bilirubin Neg (Negative) 12/18/19 11:56 Urine Urobilinogen < 2.0 mg/dL (<2.0) 12/18/19 11:56 Ur Leukocyte Esterase Neg (Negative) 12/18/19 11:56 Urine WBC (Auto) 58.0 /HPF (0.0-6.0) H 12/18/19 11:56 Urine RBC (Auto) > 182.0 /HPF (0.0-6.0) 12/18/19 11:56 U Epithel Cells (Auto) 4.0 /HPF (0-13.0) 12/18/19 11:56 Urine Mucus Few /HPF 12/18/19 11:56 Urine Yeast (Budding) 1+ /HPF 12/18/19 11:56 Urine Creatinine 80.5 mg/dL (0.1-20.0) H 12/22/19 15:30 Urine Sodium 23 mmol/L 12/22/19 15:30 Vancomycin Trough 11.4 ug/mL (5.0-20.0) 12/20/19 09:56 Random Vancomycin 5.2 ug/mL (0-40.0) 12/24/19 05:25 Robertson/IV: Voiding Method Indwelling Catheter IV Catheter Type [Right] Peripheral IV IV Catheter Type [Right INT / Saline Lock Forearm] IV Catheter Type [Left Forearm Peripheral IV ] IV Catheter Type [Left INT / Saline Lock Antecubital] Active Medications - Current Medications Current Medications: Generic Name Dose Route Start Last Admin Trade Name Freq PRN Reason Stop Dose Admin Acetaminophen 650 mg 12/18/19 21:26 Tylenol PO Q4H PRN Pain MILD(1-3)/Fever >100.5/CHAUDHRY Albuterol 2.5 mg 12/18/19 21:34 Proventil IH Q4HRT PRN Shortness Of Breath Albuterol/Ipratropium 1 ampul 12/18/19 20:45 12/28/19 08:38 Duoneb *Not For Prn Use* IH Not Given Q6HRT MARIAN Lipase/Protease/Amylase 1 each 12/20/19 18:25 Elidia Welch 10,500 Unit FEEDTUBE PRN PRN For Clogged Feeding Tube Arformoterol Tartrate 15 mcg 12/19/19 20:00 12/28/19 08:38 Brovana Nebu IH 15 mcg Q12HRT MARIAN Administration Budesonide 0.5 mg 12/19/19 20:00 12/28/19 08:38 Pulmicort IH 0.5 mg Q12HRT MARIAN Administration Clonidine HCl 0.1 mg 12/26/19 10:00 12/28/19 07:06 Catapres PO 0.1 mg Q8HR MARIAN Administration Docusate Sodium 100 mg 12/25/19 22:00 12/27/19 21:38 Colace FEEDTUBE 100 mg BID MARIAN Administration Enoxaparin Sodium 40 mg 12/25/19 22:00 12/27/19 21:37 Enoxaparin SUB-Q 40 mg QDAY@2200 MARIAN Administration Famotidine 20 mg 12/25/19 10:00 12/27/19 21:38 Pepcid PO 20 mg BID MARIAN Administration Hydralazine HCl 25 mg 12/19/19 14:00 12/28/19 07:05 Apresoline PO 25 mg Q8HR MARIAN Administration Hydralazine HCl 5 mg 12/26/19 03:19 12/26/19 04:04 Apresoline IV 5 mg Q6H PRN Administration Hypertension Hydrophilic Ointment 1 applic 12/20/19 12:12 Vaseline Lip Therapy TP Q2HR PRN Dry Lips Insulin Glargine 15 units 12/22/19 22:00 12/27/19 21:40 Lantus SUB-Q 15 units QHS MARIAN Administration Insulin Human Lispro 0 unit 12/20/19 16:00 12/28/19 06:30 Humalog SUB-Q 4 unit Q6HR MARIAN Administration Protocol Metoclopramide HCl 10 mg 12/18/19 21:26 Reglan IV Q6H PRN Nausea And Vomiting Multi-Ingred Cream/Lotion/Oil/Oint 1 applic 12/20/19 12:12 Artificial Tears Ophth Oint OU Q4HR PRN Dry Eye(s) Nicotine 21 mg 12/20/19 10:00 12/27/19 10:29 Habitrol TD 21 mg QDAY MARIAN Administration Ondansetron HCl 4 mg 12/18/19 21:26 Zofran IV Q3H PRN Nausea And Vomiting Oxycodone/Acetaminophen 1 tab 12/18/19 21:26 Percocet 5/325 PO Q6H PRN Pain, Moderate (4-6) Quetiapine Fumarate 200 mg 12/25/19 22:00 12/27/19 21:38 Seroquel PO 200 mg QHS MARIAN Administration Simple Syrup 30 ml 12/20/19 18:25 Simple Syrup FEEDTUBE PRN PRN Hypoglycemia Simple Syrup 15 ml 12/24/19 11:39 Simple Syrup FEEDTUBE PRN PRN Hypoglycemia Sodium Bicarbonate 325 mg 12/24/19 11:39 Sodium Bicarbonate FEEDTUBE PRN PRN For Clogged Feeding Tube Sodium Chloride 10 ml 12/18/19 22:00 12/27/19 21:41 Sodium Chloride Flush Syringe 10 Ml IV 10 ml BID MARIAN Administration Sodium Chloride 10 ml 12/18/19 21:26 12/19/19 06:55 Sodium Chloride Flush Syringe 10 Ml IV 10 ml PRN PRN Administration LINE FLUSH Nutrition/Malnutrition Assess - Dietary Evaluation Nutrition/Malnutrition Findings: Nutrition Notes Start: 12/19/19 11:42 Freq: Status: Active Protocol: Document 12/27/19 10:37 LM (Rec: 12/27/19 10:42 LM [id number]) Nutrition Notes Initial or Follow up Reassessment Current Diagnosis COPD,Sepsis,Respiratory Failure Other Pertinent Diagnosis pneu, nicotine dependence, DVT Current Diet Nepro 1.8 at 45 ml/hr Labs/Tests BUN 49 BG 184 Pertinent Medications Humalog Height 5 ft 9 in Weight 103.3 kg [place] Body Weight (kg) 72.72 BMI 33.6 Weight Status Obese Subjective/Other Information Pt tolerating Nepro at 45 ml/ hr. Labs have improved. Per MD , pt to be extubated and will need COIN BOX COLLECTOR eval. Percent of energy/protein needs met: 100%/60% Burn Absent Trauma Absent GI Symptoms Other Difficulty In Swallowing Current % PO Negligible Minimum of two criteria No Energy Intake (severe) < or equal to 50% Estimated Energy Requirement > or equal to 5 days #1 Nutrition Diagnosis Inadequate oral intake Diagnosis Progress(for reassessment Continues documentation) Is patient on ventilator? No Is Patient Ambulatory and/or Out of Bed Yes REE-([facility]-ambulatory/OOB) [ 2383.394 [id number]] Kcal/Kg value to use for calculation 18 Approximate Energy Requirements Using 1859 kcal/Kg Calculation Used for Recommendations Kcal/kg Additional Notes Protein: >144g (>2g/kg IBW 72. 7kg) Fluid: 1ml/kcal Nutrition Intervention Change Diet Order: TF Nutrition Support: Nepro 1.8 at 45 ml/hr Flush 200 ml q4h Kcal 1,944 Protein (gm) 87 Fluid (mL) 785 Goal #1 Diet advancement per COIN BOX COLLECTOR when extubated Anticipated Discharge Needs: unable to determine at this time Follow-Up By: 12/29/19 Additional Comments F/U for vent status, diet advancement
--- NOTE | 2019-12-28 09:21 | Progress Note ---
Assessment and Plan 1. Acute kidney injury: Likely vasomotor AYSE in the setting of sepsis and possible rhabdo. Renal US negative for hydro. Continue IV fluids. Renal function is remaining around 1.4. Monitor renal function. Renal prognosis is guarded. Avoid nephrotoxic agents. Meds dosage based on GFR. 2. FEN: Metabolic acidosis, improved, monitor. Mild Hypernatremia, improving, continue D5 IV fluids, low NA tube feeds, monitor. Mild hypokalemia, replete K, monitor. Monitor lytes. 3. Acute respiratory failure with hypoxia: Was not able to tolerate transition to BiPap 12/24 due to increased work of breathing. Was orally intubated after failing BiPap and remains intubated this morning. Extubated 12/26 and now on HFNC O2 without any sign of respiratory distress. Pulmonology following. 4. Left lower lobe pneumonia: Confirmed via chest xray on admission. Community-acquired. On abx. Pulmonology following. 5. Sepsis: 2/2 pneumonia. Leukocytosis/lactic acidosis. Tachycardia, tachypnea and fever on admission. 6. Metabolic encephalopathy: Currently intubated with restraints. Sedation is being tapered. 8. Hypertension: Appears controlled this morning. Monitor BP closely. 9. Severe malnutrition: Protein/calorie. On tube feedings via NGT and tolerating well. 9. Tobacco abuse: On Nicoderm patch. 10. Fevers: Temp of 100.1, 12/26. Monitor closely. Subjective Date of service: 12/28/19 Principal diagnosis: Ac hypoxemic resp failure; ARDS; Rodrigue pneumonia; Severe Sepsis; Rhabdomyolys Interval history: Patient was seen and examined at the bedside. No family present at time of examination. Patient is alert at time of examination and making good eye contact, appropriate verbal communication. No acute events were reported overnight. Objective - Exam Narrative Exam: General appearance: well-developed, well-nourished, appears stated age, obese, other (NGT, chauhan) EENT: PERRL, mucous membranes moist, other (intubated) Neck: Present: neck supple, trachea midline Respiratory: Clear to Auscultation Heart: regular, bradycardia, S1S2, no murmurs Gastrointestinal: Present: normal, normoactive bowel sounds. Absent: tenderness, distended, organomegaly Integumentary: no rash, warm and dry Neurologic: alert, makes good eye contact, appropriate verbal communication Musculoskeletal: Present: other (no edema noted) Psychiatric: calm, cooperative - Vital Signs Vital signs: Vital Signs - 12hr 12/27/19 12/27/19 12/27/19 21:30 21:37 21:38 Temperature Pulse Rate 58 L 70 63 Pulse Rate [ Anterior Bilateral] Respiratory 19 Rate Respiratory Rate [Anterior Bilateral] Blood Pressure 145/69 145/69 145/69 O2 Sat by Pulse 91 Oximetry 12/27/19 12/27/19 12/27/19 22:00 22:30 23:00 Temperature Pulse Rate 59 L 67 61 Pulse Rate [ Anterior Bilateral] Respiratory 21 16 17 Rate Respiratory Rate [Anterior Bilateral] Blood Pressure 147/65 145/69 135/64 O2 Sat by Pulse 86 95 93 Oximetry 12/27/19 12/28/19 12/28/19 23:10 00:00 01:00 Temperature 98.3 F Pulse Rate 61 59 L 61 Pulse Rate [ Anterior Bilateral] Respiratory 17 18 17 Rate Respiratory Rate [Anterior Bilateral] Blood Pressure 135/64 135/66 144/61 O2 Sat by Pulse 97 97 92 Oximetry 12/28/19 12/28/19 12/28/19 02:00 03:00 04:00 Temperature Pulse Rate 65 60 62 Pulse Rate [ Anterior Bilateral] Respiratory 19 18 19 Rate Respiratory Rate [Anterior Bilateral] Blood Pressure 138/61 136/66 148/65 O2 Sat by Pulse 91 92 93 Oximetry 12/28/19 12/28/19 12/28/19 05:00 06:00 07:00 Temperature Pulse Rate 64 64 66 Pulse Rate [ Anterior Bilateral] Respiratory 20 17 19 Rate Respiratory Rate [Anterior Bilateral] Blood Pressure 151/66 140/64 155/72 O2 Sat by Pulse 87 90 92 Oximetry 12/28/19 12/28/19 12/28/19 07:05 07:06 08:39 Temperature Pulse Rate 64 64 Pulse Rate [ 69 Anterior Bilateral] Respiratory Rate Respiratory 18 Rate [Anterior Bilateral] Blood Pressure 155/72 155/72 O2 Sat by Pulse Oximetry 12/28/19 08:41 Temperature Pulse Rate Pulse Rate [ Anterior Bilateral] Respiratory Rate Respiratory Rate [Anterior Bilateral] Blood Pressure O2 Sat by Pulse 96 Oximetry - Lab 12/28/19 04:14 12/28/19 04:14 Most recent lab results ABG pH 7.442 pH Units (7.350-7.450) 12/26/19 17:26 ABG pCO2 47.8 mm Hg 12/26/19 17:26 ABG pO2 113.4 mm Hg (80.0-90.0) H 12/26/19 17:26 ABG HCO3 31.9 mmol/L (20.0-26.0) H 12/26/19 17:26 ABG O2 Saturation 98.1 % (95.0-99.0) 12/26/19 17:26 Calcium 8.8 mg/dL (8.4-10.2) 12/28/19 04:14 Phosphorus 3.30 mg/dL (2.5-4.5) 12/25/19 05:22 Magnesium 2.90 mg/dL (1.7-2.3) H 12/25/19 05:22 Urine Creatinine 80.5 mg/dL (0.1-20.0) H 12/22/19 15:30 Urine Sodium 23 mmol/L 12/22/19 15:30 Medications & Allergies - Medications Allergies/Adverse Reactions: Allergies Penicillins Allergy (Verified 12/18/19 22:48) Anaphylaxis VERIFIED WITH PT AND NURSE Home Medications: Home Medications Medication Instructions Recorded Confirmed Last Taken Type No Known Home Medications [No 12/19/19 12/19/19 Unknown History Reported Home Medications] Active Medications: Generic Name Dose Route Start Last Admin Trade Name Freq PRN Reason Stop Dose Admin Acetaminophen 650 mg 12/18/19 21:26 Tylenol PO Q4H PRN Pain MILD(1-3)/Fever >100.5/CHAUDHRY Albuterol 2.5 mg 12/18/19 21:34 Proventil IH Q4HRT PRN Shortness Of Breath Albuterol/Ipratropium 1 ampul 12/18/19 20:45 12/28/19 08:38 Duoneb *Not For Prn Use* IH Not Given Q6HRT MARIAN Lipase/Protease/Amylase 1 each 12/20/19 18:25 Pancrekacy Welch 10,500 Unit FEEDTUBE PRN PRN For Clogged Feeding Tube Arformoterol Tartrate 15 mcg 12/19/19 20:00 12/28/19 08:38 Brovana Nebu IH 15 mcg Q12HRT MARIAN Administration Budesonide 0.5 mg 12/19/19 20:00 12/28/19 08:38 Pulmicort IH 0.5 mg Q12HRT MARIAN Administration Clonidine HCl 0.1 mg 12/26/19 10:00 12/28/19 07:06 Catapres PO 0.1 mg Q8HR MARIAN Administration Docusate Sodium 100 mg 12/25/19 22:00 12/27/19 21:38 Colace FEEDTUBE 100 mg BID MARIAN Administration Enoxaparin Sodium 40 mg 12/25/19 22:00 12/27/19 21:37 Enoxaparin SUB-Q 40 mg QDAY@2200 MARIAN Administration Famotidine 20 mg 12/25/19 10:00 12/27/19 21:38 Pepcid PO 20 mg BID MARIAN Administration Hydralazine HCl 25 mg 12/19/19 14:00 12/28/19 07:05 Apresoline PO 25 mg Q8HR MARIAN Administration Hydralazine HCl 5 mg 12/26/19 03:19 12/26/19 04:04 Apresoline IV 5 mg Q6H PRN Administration Hypertension Hydrophilic Ointment 1 applic 12/20/19 12:12 Vaseline Lip Therapy TP Q2HR PRN Dry Lips Insulin Glargine 15 units 12/22/19 22:00 12/27/19 21:40 Lantus SUB-Q 15 units QHS MARIAN Administration Insulin Human Lispro 0 unit 12/20/19 16:00 12/28/19 06:30 Humalog SUB-Q 4 unit Q6HR MARIAN Administration Protocol Metoclopramide HCl 10 mg 12/18/19 21:26 Reglan IV Q6H PRN Nausea And Vomiting Multi-Ingred Cream/Lotion/Oil/Oint 1 applic 12/20/19 12:12 Artificial Tears Ophth Oint OU Q4HR PRN Dry Eye(s) Nicotine 21 mg 12/20/19 10:00 12/27/19 10:29 Habitrol TD 21 mg QDAY MARIAN Administration Ondansetron HCl 4 mg 12/18/19 21:26 Zofran IV Q3H PRN Nausea And Vomiting Oxycodone/Acetaminophen 1 tab 12/18/19 21:26 Percocet 5/325 PO Q6H PRN Pain, Moderate (4-6) Quetiapine Fumarate 200 mg 12/25/19 22:00 03/11/20 21:38 Seroquel PO 200 mg QHS MARIAN Administration Simple Syrup 30 ml 12/20/19 18:25 Simple Syrup FEEDTUBE PRN PRN Hypoglycemia Simple Syrup 15 ml 12/24/19 11:39 Simple Syrup FEEDTUBE PRN PRN Hypoglycemia Sodium Bicarbonate 325 mg 12/24/19 11:39 Sodium Bicarbonate FEEDTUBE PRN PRN For Clogged Feeding Tube Sodium Chloride 10 ml 12/18/19 22:00 12/27/19 21:41 Sodium Chloride Flush Syringe 10 Ml IV 10 ml BID MARIAN Administration Sodium Chloride 10 ml 12/18/19 21:26 12/19/19 06:55 Sodium Chloride Flush Syringe 10 Ml IV 10 ml PRN PRN Administration LINE FLUSH
[2019-12-28] MEDS: NICOTINE 21 MG/24 HR PATCH TD SCH (10:59)
[2019-12-28] MEDS: DOCUSATE SODIUM 100 MG/10 ML ORAL LIQD FEEDTUBE SCH ×2 (10:59→21:55)
[2019-12-28] MEDS: FAMOTIDINE 20 MG TAB PO SCH ×2 (11:00→21:54)
[2019-12-28] MEDS ORDERED: POTASSIUM CHLORIDE 20 MEQ PACKET FEEDTUBE NR (11:00)
[2019-12-28] MEDS ORDERED: ZOLPIDEM 5 MG TAB PO PRN (18:41)
[2019-12-28] MEDS: INSULIN GLARGINE 100 UNITS/ML SUB-Q SCH (21:53)
[2019-12-28] MEDS: ENOXAPARIN 40 MG/0.4 ML INJ SUB-Q SCH (21:54)
[2019-12-28] MEDS: QUEtiapine 200 MG TAB PO SCH (21:55)
[2019-12-29] MEDS: INSULIN LISPRO 100 UNIT/ML SUB-Q SCH ×5 (00:25→23:21)
[2019-12-29] MEDS: IPRATROPIUM/ALBUTEROL SULFATE 3 ML AMPUL.NEB IH SCH ×4 (05:32→21:51)
[2019-12-29] MEDS: cloNIDine 0.1 MG TAB PO SCH ×3 (06:16→22:03)
[2019-12-29] MEDS: hydrALAZINE 25 MG TAB PO SCH ×3 (06:17→22:04)
[2019-12-29 06:30] LABS: Calcium 8.1 mg/dL (8.4-10.2)
--- NOTE | 2019-12-29 08:54 | Progress Note ---
Assessment and Plan 1. Acute kidney injury: Likely vasomotor AYSE in the setting of sepsis and possible rhabdo. Renal US negative for hydro. Continue IV fluids. Renal function is remaining stable. Monitor renal function. Renal prognosis is guarded. Avoid nephrotoxic agents. Meds dosage based on GFR. 2. FEN: Metabolic acidosis, improved, monitor. Mild Hypernatremia, improving, continue IV fluids, monitor. Mild hypokalemia, improving, monitor. Monitor lytes. 3. Acute respiratory failure with hypoxia: Was not able to tolerate transition to BiPap 12/24 due to increased work of breathing. Was orally intubated after failing BiPap and remains intubated this morning. Extubated 12/26 and now on HFNC O2 without any sign of respiratory distress. Pulmonology following. 4. Left lower lobe pneumonia: Confirmed via chest xray on admission. Community-acquired. On abx. Pulmonology following. 5. Sepsis: 2/2 pneumonia. Leukocytosis/lactic acidosis. Tachycardia, tachypnea and fever on admission. 6. Metabolic encephalopathy: Improved. 8. Hypertension: Appears controlled this morning. Monitor BP closely. 9. Severe malnutrition: Protein/calorie. Pt has transitioned to mechanical soft diet which he is tolerating well. 9. Tobacco abuse: On Nicoderm patch. 10. Fevers: Afebrile overnight. Monitor closely. Subjective Date of service: 12/29/19 Principal diagnosis: Ac hypoxemic resp failure; ARDS; Rodrigue pneumonia; Severe Sepsis; Rhabdomyolys Interval history: Patient was seen and examined at the bedside. No family present at time of examination. Patient is alert and eating breakfast at time of examination. Making good eye contact, appropriate verbal communication. No acute events were reported overnight. Objective - Exam Narrative Exam: General appearance: well-developed, well-nourished, appears stated age, obese, other (chauhan) EENT: PERRL, mucous membranes moist Neck: Present: neck supple, trachea midline Respiratory: Clear to Auscultation Heart: regular, bradycardia, S1S2, no murmurs Gastrointestinal: Present: normal, normoactive bowel sounds. Absent: tenderness, distended, organomegaly Integumentary: no rash, warm and dry Neurologic: alert, makes good eye contact, appropriate verbal communication Musculoskeletal: Present: other (no edema noted) Psychiatric: calm, cooperative - Vital Signs Vital signs: Vital Signs - 12hr 12/28/19 12/28/19 12/28/19 21:00 21:15 21:54 Temperature Pulse Rate 58 L 69 Pulse Rate [ 68 Anterior Bilateral] Respiratory 16 Rate Respiratory 18 Rate [Anterior Bilateral] Blood Pressure 146/69 146/69 O2 Sat by Pulse 92 96 Oximetry 12/28/19 12/28/19 12/28/19 22:01 22:31 23:01 Temperature Pulse Rate 65 68 66 Pulse Rate [ Anterior Bilateral] Respiratory 13 22 25 H Rate Respiratory Rate [Anterior Bilateral] Blood Pressure 160/70 160/70 120/50 O2 Sat by Pulse 88 95 91 Oximetry 12/28/19 12/29/19 12/29/19 23:15 00:00 01:00 Temperature 98.8 F Pulse Rate 61 57 L Pulse Rate [ Anterior Bilateral] Respiratory 19 17 Rate Respiratory Rate [Anterior Bilateral] Blood Pressure 129/56 124/53 O2 Sat by Pulse 92 92 Oximetry 12/29/19 12/29/19 12/29/19 02:00 03:00 03:31 Temperature 98.8 F Pulse Rate 57 L 60 Pulse Rate [ Anterior Bilateral] Respiratory 17 18 Rate Respiratory Rate [Anterior Bilateral] Blood Pressure 123/60 131/66 O2 Sat by Pulse 93 92 Oximetry 12/29/19 12/29/19 12/29/19 04:00 05:00 06:01 Temperature Pulse Rate 60 57 L 56 L Pulse Rate [ Anterior Bilateral] Respiratory 18 18 17 Rate Respiratory Rate [Anterior Bilateral] Blood Pressure 140/68 116/68 141/66 O2 Sat by Pulse 91 93 92 Oximetry 12/29/19 12/29/19 12/29/19 06:16 06:17 07:01 Temperature Pulse Rate 66 65 57 L Pulse Rate [ Anterior Bilateral] Respiratory 21 Rate Respiratory Rate [Anterior Bilateral] Blood Pressure 141/66 141/66 146/59 O2 Sat by Pulse 90 Oximetry 12/29/19 08:01 Temperature Pulse Rate 60 Pulse Rate [ Anterior Bilateral] Respiratory 18 Rate Respiratory Rate [Anterior Bilateral] Blood Pressure 125/70 O2 Sat by Pulse 93 Oximetry - Lab 12/28/19 04:14 12/29/19 05:08 Most recent lab results ABG pH 7.442 pH Units (7.350-7.450) 12/26/19 17:26 ABG pCO2 47.8 mm Hg 12/26/19 17:26 ABG pO2 113.4 mm Hg (80.0-90.0) H 12/26/19 17:26 ABG HCO3 31.9 mmol/L (20.0-26.0) H 12/26/19 17:26 ABG O2 Saturation 98.1 % (95.0-99.0) 12/26/19 17:26 Calcium 8.1 mg/dL (8.4-10.2) L 12/29/19 05:08 Phosphorus 3.30 mg/dL (2.5-4.5) 12/25/19 05:22 Magnesium 2.90 mg/dL (1.7-2.3) H 12/25/19 05:22 Urine Creatinine 80.5 mg/dL (0.1-20.0) H 12/22/19 15:30 Urine Sodium 23 mmol/L 12/22/19 15:30 Medications & Allergies - Medications Allergies/Adverse Reactions: Allergies Penicillins Allergy (Verified 12/18/19 22:48) Anaphylaxis VERIFIED WITH PT AND NURSE Home Medications: Home Medications Medication Instructions Recorded Confirmed Last Taken Type No Known Home Medications [No 12/19/19 12/19/19 Unknown History Reported Home Medications] Active Medications: Generic Name Dose Route Start Last Admin Trade Name Freq PRN Reason Stop Dose Admin Acetaminophen 650 mg 12/18/19 21:26 Tylenol PO Q4H PRN Pain MILD(1-3)/Fever >100.5/CHAUDHRY Albuterol 2.5 mg 12/18/19 21:34 Proventil IH Q4HRT PRN Shortness Of Breath Albuterol/Ipratropium 1 ampul 12/18/19 20:45 12/29/19 05:32 Duoneb *Not For Prn Use* IH Not Given Q6HRT MARIAN Lipase/Protease/Amylase 1 each 12/20/19 18:25 Pancrekacy Welch 10,500 Unit FEEDTUBE PRN PRN For Clogged Feeding Tube Arformoterol Tartrate 15 mcg 12/19/19 20:00 12/28/19 21:16 Brovana Nebu IH 15 mcg Q12HRT MARIAN Administration Budesonide 0.5 mg 12/19/19 20:00 12/28/19 21:16 Pulmicort IH 0.5 mg Q12HRT MARIAN Administration Clonidine HCl 0.1 mg 12/26/19 10:00 12/29/19 06:16 Catapres PO 0.1 mg Q8HR MARIAN Administration Docusate Sodium 100 mg 12/25/19 22:00 12/28/19 21:55 Colace FEEDTUBE 100 mg BID MARIAN Administration Enoxaparin Sodium 40 mg 12/25/19 22:00 12/28/19 21:54 Enoxaparin SUB-Q 40 mg QDAY@2200 MARIAN Administration Famotidine 20 mg 12/25/19 10:00 12/28/19 21:54 Pepcid PO 20 mg BID MARIAN Administration Hydralazine HCl 25 mg 12/19/19 14:00 12/29/19 06:17 Apresoline PO 25 mg Q8HR [facility] Administration Hydralazine HCl 5 mg 12/26/19 03:19 12/26/19 04:04 Apresoline IV 5 mg Q6H PRN Administration Hypertension Hydrophilic Ointment 1 applic 12/20/19 12:12 Vaseline Lip Therapy TP Q2HR PRN Dry Lips Insulin Glargine 15 units 12/22/19 22:00 12/28/19 21:53 Lantus SUB-Q 15 units QHS [facility] Administration Insulin Human Lispro 0 unit 12/20/19 16:00 12/29/19 06:17 Humalog SUB-Q Not Given Q6HR [facility] Protocol Metoclopramide HCl 10 mg 12/18/19 21:26 Reglan IV Q6H PRN Nausea And Vomiting Multi-Ingred Cream/Lotion/Oil/Oint 1 applic 12/20/19 12:12 Artificial Tears Ophth Oint OU Q4HR PRN Dry Eye(s) Nicotine 21 mg 12/20/19 10:00 12/28/19 10:59 Habitrol TD 21 mg QDAY [facility] Administration Ondansetron HCl 4 mg 12/18/19 21:26 Zofran IV Q3H PRN Nausea And Vomiting Oxycodone/Acetaminophen 1 tab 12/18/19 21:26 Percocet 5/325 PO Q6H PRN Pain, Moderate (4-6) Quetiapine Fumarate 200 mg 12/25/19 22:00 12/28/19 21:55 Seroquel PO 200 mg QHS [facility] Administration Simple Syrup 30 ml 12/20/19 18:25 Simple Syrup FEEDTUBE PRN PRN Hypoglycemia Simple Syrup 15 ml 12/24/19 11:39 Simple Syrup FEEDTUBE PRN PRN Hypoglycemia Sodium Bicarbonate 325 mg 12/24/19 11:39 Sodium Bicarbonate FEEDTUBE PRN PRN For Clogged Feeding Tube Sodium Chloride 10 ml 12/18/19 22:00 12/28/19 21:55 Sodium Chloride Flush Syringe 10 Ml IV 10 ml BID MARIAN Administration Sodium Chloride 10 ml 12/18/19 21:26 12/19/19 06:55 Sodium Chloride Flush Syringe 10 Ml IV 10 ml PRN PRN Administration LINE FLUSH Zolpidem Tartrate 5 mg 12/28/19 18:41 Ambien PO QHS PRN Sleep
[2019-12-29] MEDS: ARFORMOTEROL 15 MCG/2 ML NEBU IH SCH ×2 (08:56→21:51)
[2019-12-29] MEDS: BUDESONIDE 0.5 MG/2 ML NEBU IH SCH ×2 (08:56→21:51)
--- NOTE | 2019-12-29 09:32 | Progress Note ---
Assessment and Plan Assessment and plan: --Acute respiratory failure with hypoxia/requiring intubation/extubated On high flow oxygen, titrate O2 sats to more than 90% nebulizers IV steroids antibiotics, Pulmonary critical following --Hypernatremia resolved closely monitor electrolytes closely monitor, free water flushes --AYSE : Vasomotor nephropathy Resolved IV fluids for now in the form of D5W Significantly improved, creatinine today 1.4 Avoid nephrotoxins -- COPD with acute exacerbation Continue duo nebs, IV steroids and IV antibiotics --Metabolic encephalopathy Patient intubated --left lower lobe pneumonia Community-acquired pneumonia Completed Levaquin and Vanco Monitor off abx and supportive care --Leukocytosis/lactic acidosis sepsis secondary to pneumonia --Sepsis secondary to pneumonia; Improving --Hypertension; Moderate control ,controlled --tobacco use: Smoking cessation on Nicoderm patch --Severe protein calorie malnutrition nutrition supplements and supportive care Tube feeding per protocol --DVT prophylaxis On Heparin and GI prophylaxis Monitor closely and adjust management as needed Patient may be transferred to telemetry if okay with pulmonary Physical therapy occupational therapy DC planning per case management Plan of care reviewed with the patient and his nurse Critical care time 34 minutes History Interval history: I have seen the patient in ICU at bedside this morning Patient's chart medications overnight events reviewed Patient is alert and awake oriented x3 Eating food, Complains of some sore throat secondary to intubation Vital signs reviewed Hospitalist Physical - Constitutional Vitals: Temp Pulse Resp BP Pulse Ox 98.8 F 60 18 125/70 94 12/29/19 03:31 12/29/19 08:01 12/29/19 08:01 12/29/19 08:01 12/29/19 08:56 General appearance: Present: no acute distress, well-nourished, obese, other (Intubated on vent) - EENT Eyes: Present: PERRL, EOM intact - Neck Neck: Present: supple, normal ROM - Respiratory Respiratory effort: normal Respiratory: bilateral: diminished, negative: rales, rhonchi, wheezing - Cardiovascular Rhythm: regular Heart Sounds: Present: S1 & S2 - Extremities Extremities: no ischemia, No edema - Abdominal General gastrointestinal: soft, non-tender, non-distended, normal bowel sounds - Integumentary Integumentary: Present: clear, warm - Psychiatric Psychiatric: appropriate mood/affect, cooperative - Neurologic Neurologic: CNII-XII intact, moves all extremities MITCHELL score - Mitchell Score Age > 65: (0) No Aspirin use within the Past 7 Days: (0) No 3 or more CAD Risk Factors: (0) No 2 or more Angina events in past 24 hrs: (0) No Known CAD with more than 50% Stenosis: (0) No Elevated Cardiac Markers: (0) No ST Deviation Greater than 0.5mm: (0) No MITCHELL Score: 0 Results - Labs CBC & Chem 7: 12/28/19 04:14 12/29/19 05:08 Labs: Laboratory Last Values WBC 15.1 K/mm3 (4.5-11.0) H 12/28/19 04:14 RBC 4.32 M/mm3 (3.65-5.03) 12/28/19 04:14 Hgb 12.7 gm/dl (11.8-15.2) 12/28/19 04:14 Hct 39.4 % (35.5-45.6) 12/28/19 04:14 MCV 91 fl (84-94) 12/28/19 04:14 MCH 29 pg (28-32) 12/28/19 04:14 MCHC 32 % (32-34) 12/28/19 04:14 RDW 13.9 % (13.2-15.2) 12/28/19 04:14 Plt Count 212 K/mm3 (140-440) 12/28/19 04:14 Lymph % (Auto) 10.6 % (13.4-35.0) L 12/28/19 04:14 [place] % (Auto) 7.4 % (0.0-7.3) H 12/28/19 04:14 Eos % (Auto) 1.2 % (0.0-4.3) 12/28/19 04:14 Baso % (Auto) 0.6 % (0.0-1.8) 12/28/19 04:14 Lymph # 1.6 K/mm3 (1.2-5.4) 12/28/19 04:14 [place] # 1.1 K/mm3 (0.0-0.8) H 12/28/19 04:14 Eos # 0.2 K/mm3 (0.0-0.4) 12/28/19 04:14 Baso # 0.1 K/mm3 (0.0-0.1) 12/28/19 04:14 Add Manual Diff Complete 12/25/19 05:22 Total Counted 100 12/25/19 05:22 Seg Neutrophils % 80.2 % (40.0-70.0) H 12/28/19 04:14 Seg Neuts % (Manual) 76.0 % (40.0-70.0) H 12/25/19 05:22 Band Neutrophils % 2.0 % 12/25/19 05:22 Lymphocytes % (Manual) 10.0 % (13.4-35.0) L 12/25/19 05:22 Reactive Lymphs % (Man) 0 % 12/25/19 05:22 Monocytes % (Manual) 6.0 % (0.0-7.3) 12/25/19 05:22 Eosinophils % (Manual) 2.0 % (0.0-4.3) 12/25/19 05:22 Basophils % (Manual) 0 % (0.0-1.8) 12/25/19 05:22 Metamyelocytes % 4.0 % 12/25/19 05:22 Myelocytes % 0 % 12/25/19 05:22 Promyelocytes % 0 % 12/25/19 05:22 Blast Cells % 0 % 12/25/19 05:22 Nucleated RBC % Not Reportable 12/25/19 05:22 Seg Neutrophils # 12.1 K/mm3 (1.8-7.7) H 12/28/19 04:14 Seg Neutrophils # Man 9.1 K/mm3 (1.8-7.7) H 12/25/19 05:22 Band Neutrophils # 0.2 K/mm3 12/25/19 05:22 Lymphocytes # (Manual) 1.2 K/mm3 (1.2-5.4) 12/25/19 05:22 Abs React Lymphs (Man) 0.0 K/mm3 12/25/19 05:22 Monocytes # (Manual) 0.7 K/mm3 (0.0-0.8) 12/25/19 05:22 Eosinophils # (Manual) 0.2 K/mm3 (0.0-0.4) 12/25/19 05:22 Basophils # (Manual) 0.0 K/mm3 (0.0-0.1) 12/25/19 05:22 Metamyelocytes # 0.5 K/mm3 12/25/19 05:22 Myelocytes # 0.0 K/mm3 12/25/19 05:22 Promyelocytes # 0.0 K/mm3 12/25/19 05:22 Blast Cells # 0.0 K/mm3 12/25/19 05:22 WBC Morphology Not Reportable 12/25/19 05:22 Hypersegmented Neuts Not Reportable 12/25/19 05:22 Hyposegmented Neuts Not Reportable 12/25/19 05:22 Hypogranular Neuts Not Reportable 12/25/19 05:22 Smudge Cells Not Reportable 12/25/19 05:22 Toxic Granulation Not Reportable 12/25/19 05:22 Toxic Vacuolation Not Reportable 12/25/19 05:22 Dohle Bodies Not Reportable 12/25/19 05:22 Pelger-Huet Anomaly Not Reportable 12/25/19 05:22 Jennifer Rods Not Reportable 12/25/19 05:22 Platelet Estimate Consistent w auto 12/25/19 05:22 Clumped Platelets Not Reportable 12/25/19 05:22 Plt Clumps, EDTA Not Reportable 12/25/19 05:22 Large Platelets Not Reportable 12/25/19 05:22 Giant Platelets Not Reportable 12/25/19 05:22 Platelet Satelliting Not Reportable 12/25/19 05:22 Plt Morphology Comment Not Reportable 12/25/19 05:22 RBC Morphology Normal 12/25/19 05:22 Dimorphic RBCs Not Reportable 12/25/19 05:22 Polychromasia Not Reportable 12/25/19 05:22 Hypochromasia Not Reportable 12/25/19 05:22 Poikilocytosis Not Reportable 12/25/19 05:22 Anisocytosis Not Reportable 12/25/19 05:22 Microcytosis Not Reportable 12/25/19 05:22 Macrocytosis Not Reportable 12/25/19 05:22 Spherocytes Not Reportable 12/25/19 05:22 Pappenheimer Bodies Not Reportable 12/25/19 05:22 Sickle Cells Not Reportable 12/25/19 05:22 Target Cells Not Reportable 12/25/19 05:22 Tear Drop Cells Not Reportable 12/25/19 05:22 Ovalocytes Not Reportable 12/25/19 05:22 Helmet Cells Not Reportable 12/25/19 05:22 [place] Bodies Not Reportable 12/25/19 05:22 [place] Rings Not Reportable 12/25/19 05:22 Ed Cells Not Reportable 12/25/19 05:22 Bite Cells Not Reportable 12/25/19 05:22 Crenated Cell Not Reportable 12/25/19 05:22 Elliptocytes Not Reportable 12/25/19 05:22 Acanthocytes (Spur) Not Reportable 12/25/19 05:22 Rouleaux Not Reportable 12/25/19 05:22 Hemoglobin C Crystals Not Reportable 12/25/19 05:22 Schistocytes Not Reportable 12/25/19 05:22 Malaria parasites Not Reportable 12/25/19 05:22 [place] Bodies Not Reportable 12/25/19 05:22 Hem Pathologist Commnt No 12/25/19 05:22 PT 13.9 Sec. (12.2-14.9) 12/18/19 15:28 INR 1.06 (0.87-1.13) 12/18/19 15:28 APTT 72.2 Sec. (24.2-36.6) H* 12/18/19 15:28 D-Dimer 2277.88 ng/mlDDU (0-234) H 12/18/19 10:30 ABG pH 7.442 pH Units (7.350-7.450) 12/26/19 17:26 ABG pCO2 47.8 mm Hg 12/26/19 17:26 ABG pO2 113.4 mm Hg (80.0-90.0) H 12/26/19 17:26 ABG HCO3 31.9 mmol/L (20.0-26.0) H 12/26/19 17:26 ABG O2 Saturation 98.1 % (95.0-99.0) 12/26/19 17:26 ABG O2 Content 19.4 (0.0-44) 12/26/19 17:26 ABG Base Excess 6.7 mmol/L (-2.0-3.0) H 12/26/19 17:26 ABG Hemoglobin 14.3 gm/dl (14.0-18.0) 12/26/19 17:26 ABG Carboxyhemoglobin 1.4 % (0.0-5.0) 12/26/19 17:26 ABG Methemoglobin 0.7 % (0.0-1.5) 12/26/19 17:26 Oxyhemoglobin 96.1 % (95.0-99.0) 12/26/19 17:26 FiO2 50 % 12/26/19 17:26 Sodium 142 mmol/L (137-145) 12/29/19 05:08 Potassium 3.7 mmol/L (3.6-5.0) 12/29/19 05:08 Chloride 104.5 mmol/L (98-107) 12/29/19 05:08 Carbon Dioxide 25 mmol/L (22-30) 12/29/19 05:08 Anion Gap 16 mmol/L 12/29/19 05:08 BUN 43 mg/dL (9-20) H 12/29/19 05:08 Creatinine 1.3 mg/dL (0.8-1.5) 12/29/19 05:08 Estimated GFR 56 ml/min 12/29/19 05:08 BUN/Creatinine Ratio 33 % 12/29/19 05:08 Glucose 108 mg/dL (75-100) H 12/29/19 05:08 POC Glucose 103 (70-105) 12/29/19 05:13 Hemoglobin A1c 10.0 % (4-6) H 12/21/19 Unknown Lactic Acid 1.70 mmol/L (0.7-2.0) 12/21/19 09:48 Calcium 8.1 mg/dL (8.4-10.2) L 12/29/19 05:08 Phosphorus 3.30 mg/dL (2.5-4.5) 12/25/19 05:22 Magnesium 2.90 mg/dL (1.7-2.3) H 12/25/19 05:22 Total Bilirubin 0.50 mg/dL (0.1-1.2) 12/25/19 05:22 AST 31 units/L (5-40) 12/25/19 05:22 ALT 35 units/L (7-56) 12/25/19 05:22 Alkaline Phosphatase 49 units/L (35-129) 12/25/19 05:22 Total Creatine Kinase 195 units/L (55-170) H 12/25/19 05:22 CK-MB (CK-2) 8.7 ng/mL (0.0-4.0) H 12/19/19 12:04 CK-MB (CK-2) Rel Index 0.2 (0-4) 12/19/19 12:04 Troponin T < 0.010 ng/mL (0.00-0.029) 12/19/19 12:04 NT-Pro-B Natriuret Pep 609.1 pg/mL (0-900) 12/18/19 12:06 Total Protein 5.8 g/dL (6.3-8.2) L 12/25/19 05:22 Albumin 2.3 g/dL (3.9-5) L 12/25/19 05:22 Albumin/Globulin Ratio 0.7 % 12/25/19 05:22 Procalcitonin 3.24 ng/mL (<0.15) 12/19/19 12:04 Urine Color Red (Yellow) 12/18/19 11:56 Urine Turbidity Slightly-cloudy (Clear) 12/18/19 11:56 Urine pH 6.0 (5.0-7.0) 12/18/19 11:56 Ur Specific [place] 1.017 (1.003-1.030) 12/18/19 11:56 Urine Protein 100 mg/dl mg/dL (Negative) 12/18/19 11:56 Urine Glucose (UA) >=500 mg/dL (Negative) 12/18/19 11:56 Urine Ketones 20 mg/dL (Negative) 12/18/19 11:56 Urine Blood Lg (Negative) 12/18/19 11:56 Urine Nitrite Neg (Negative) 12/18/19 11:56 Urine Bilirubin Neg (Negative) 12/18/19 11:56 Urine Urobilinogen < 2.0 mg/dL (<2.0) 12/18/19 11:56 Ur Leukocyte Esterase Neg (Negative) 12/18/19 11:56 Urine WBC (Auto) 58.0 /HPF (0.0-6.0) H 12/18/19 11:56 Urine RBC (Auto) > 182.0 /HPF (0.0-6.0) 12/18/19 11:56 U Epithel Cells (Auto) 4.0 /HPF (0-13.0) 12/18/19 11:56 Urine Mucus Few /HPF 12/18/19 11:56 Urine Yeast (Budding) 1+ /HPF 12/18/19 11:56 Urine Creatinine 80.5 mg/dL (0.1-20.0) H 12/22/19 15:30 Urine Sodium 23 mmol/L 12/22/19 15:30 Vancomycin Trough 11.4 ug/mL (5.0-20.0) 12/20/19 09:56 Random Vancomycin 5.2 ug/mL (0-40.0) 12/24/19 05:25 Robertson/IV: Voiding Method Condom Catheter IV Catheter Type [Right] Peripheral IV IV Catheter Type [Right INT / Saline Lock Forearm] IV Catheter Type [Left Forearm Peripheral IV ] IV Catheter Type [Left INT / Saline Lock Antecubital] Active Medications - Current Medications Current Medications: Generic Name Dose Route Start Last Admin Trade Name Freq PRN Reason Stop Dose Admin Acetaminophen 650 mg 12/18/19 21:26 Tylenol PO Q4H PRN Pain MILD(1-3)/Fever >100.5/CHAUDHRY Albuterol 2.5 mg 12/18/19 21:34 Proventil IH Q4HRT PRN Shortness Of Breath Albuterol/Ipratropium 1 ampul 12/18/19 20:45 12/29/19 08:56 Duoneb *Not For Prn Use* IH 1 ampul Q6HRT MARIAN Administration Lipase/Protease/Amylase 1 each 12/20/19 18:25 Elidia Welch 10,500 Unit FEEDTUBE PRN PRN For Clogged Feeding Tube Arformoterol Tartrate 15 mcg 12/19/19 20:00 12/29/19 08:56 Brovana Nebu IH 15 mcg Q12HRT MARIAN Administration Budesonide 0.5 mg 12/19/19 20:00 12/29/19 08:56 Pulmicort IH 0.5 mg Q12HRT MARIAN Administration Clonidine HCl 0.1 mg 12/26/19 10:00 12/29/19 06:16 Catapres PO 0.1 mg Q8HR MARIAN Administration Docusate Sodium 100 mg 12/25/19 22:00 12/28/19 21:55 Colace FEEDTUBE 100 mg BID MARIAN Administration Enoxaparin Sodium 40 mg 12/25/19 22:00 12/28/19 21:54 Enoxaparin SUB-Q 40 mg QDAY@2200 MARIAN Administration Famotidine 20 mg 12/25/19 10:00 12/28/19 21:54 Pepcid PO 20 mg BID MARIAN Administration Hydralazine HCl 25 mg 12/19/19 14:00 12/29/19 06:17 Apresoline PO 25 mg Q8HR [facility]IAN Administration Hydralazine HCl 5 mg 12/26/19 03:19 12/26/19 04:04 Apresoline IV 5 mg Q6H PRN Administration Hypertension Hydrophilic Ointment 1 applic 12/20/19 12:12 Vaseline Lip Therapy TP Q2HR PRN Dry Lips Insulin Glargine 15 units 12/22/19 22:00 12/28/19 21:53 Lantus SUB-Q 15 units QHS [facility] Administration Insulin Human Lispro 0 unit 12/20/19 16:00 12/29/19 06:17 Humalog SUB-Q Not Given Q6HR [facility] Protocol Metoclopramide HCl 10 mg 12/18/19 21:26 Reglan IV Q6H PRN Nausea And Vomiting Multi-Ingred Cream/Lotion/Oil/Oint 1 applic 12/20/19 12:12 Artificial Tears Ophth Oint OU Q4HR PRN Dry Eye(s) Nicotine 21 mg 12/20/19 10:00 12/28/19 10:59 Habitrol TD 21 mg QDAY [facility] Administration Ondansetron HCl 4 mg 12/18/19 21:26 Zofran IV Q3H PRN Nausea And Vomiting Oxycodone/Acetaminophen 1 tab 12/18/19 21:26 Percocet 5/325 PO Q6H PRN Pain, Moderate (4-6) Quetiapine Fumarate 200 mg 12/25/19 22:00 12/28/19 21:55 Seroquel PO 200 mg QHS [facility] Administration Simple Syrup 30 ml 12/20/19 18:25 Simple Syrup FEEDTUBE PRN PRN Hypoglycemia Simple Syrup 15 ml 12/24/19 11:39 Simple Syrup FEEDTUBE PRN PRN Hypoglycemia Sodium Bicarbonate 325 mg 12/24/19 11:39 Sodium Bicarbonate FEEDTUBE PRN PRN For Clogged Feeding Tube Sodium Chloride 10 ml 12/18/19 22:00 12/28/19 21:55 Sodium Chloride Flush Syringe 10 Ml IV 10 ml BID MARIAN Administration Sodium Chloride 10 ml 12/18/19 21:26 12/19/19 06:55 Sodium Chloride Flush Syringe 10 Ml IV 10 ml PRN PRN Administration LINE FLUSH Zolpidem Tartrate 5 mg 12/28/19 18:41 Ambien PO QHS PRN Sleep Nutrition/Malnutrition Assess - Dietary Evaluation Nutrition/Malnutrition Findings: Nutrition Notes Start: 12/19/19 11:42 Freq: Status: Active Protocol: Document 12/27/19 10:37 LM (Rec: 12/27/19 10:42 LM [facility]-[id number]) Nutrition Notes Initial or Follow up Reassessment Current Diagnosis COPD,Sepsis,Respiratory Failure Other Pertinent Diagnosis pneu, nicotine dependence, DVT Current Diet Nepro 1.8 at 45 ml/hr Labs/Tests BUN 49 BG 184 Pertinent Medications Humalog Height 5 ft 9 in Weight 103.3 kg [place] Body Weight (kg) 72.72 BMI 33.6 Weight Status Obese Subjective/Other Information Pt tolerating Nepro at 45 ml/ hr. Labs have improved. Per MD , pt to be extubated and will need [employer] OFF[employer] eval. Percent of energy/protein needs met: 100%/60% Burn Absent Trauma Absent GI Symptoms Other Difficulty In Swallowing Current % PO Negligible Minimum of two criteria No Energy Intake (severe) < or equal to 50% Estimated Energy Requirement > or equal to 5 days #1 Nutrition Diagnosis Inadequate oral intake Diagnosis Progress(for reassessment Continues documentation) Is patient on ventilator? No Is Patient Ambulatory and/or Out of Bed Yes REE-([facility]-ambulatory/OOB) [ 2383.394 [id number]] Kcal/Kg value to use for calculation 18 Approximate Energy Requirements Using 1859 kcal/Kg Calculation Used for Recommendations Kcal/kg Additional Notes Protein: >144g (>2g/kg IBW 72. 7kg) Fluid: 1ml/kcal Nutrition Intervention Change Diet Order: TF Nutrition Support: Nepro 1.8 at 45 ml/hr Flush 200 ml q4h Kcal 1,944 Protein (gm) 87 Fluid (mL) 785 Goal #1 Diet advancement per [employer] OFFICER when extubated Anticipated Discharge Needs: unable to determine at this time Follow-Up By: 12/29/19 Additional Comments F/U for vent status, diet advancement
[2019-12-29] MEDS: DOCUSATE SODIUM 100 MG/10 ML ORAL LIQD FEEDTUBE SCH ×2 (09:48→22:05)
[2019-12-29] MEDS: NICOTINE 21 MG/24 HR PATCH TD SCH (09:48)
[2019-12-29] MEDS: FAMOTIDINE 20 MG TAB PO SCH ×2 (09:48→23:21)
[2019-12-29] MEDS: hydrALAZINE 20 MG/1 ML INJ IV PRN (12:02)
--- NOTE | 2019-12-29 14:12 | Progress Note ---
Assessment and Plan Acute hypoxemic respiratory failure Bilateral pneumonia (CAP/Aspiration) Possible EtOH abuse with withdrawals Possible COPD Leukocytosis. Elevated D-dimer. Hyponatremia (? SIADH) Mild metabolic acidosis. Lactic acidosis. Severe Sepsis Hyperbilirubinemia. Elevated serum transaminases. Possible UTI Rhabdomyolysis - deploy qhs BIPAP - discontinue chauhan catheter - add prn Ambien for insomnia - increase Lantus to 20 units qd - continue Daily SAT and SBT assessment as tolerated - continue glycemic control per SSI for target blood glucose < 180 mg/dL (avoid hypoglycemia) - continue to wean supplemental oxygen for target O2 sat's > 90% acutely - continue bronchodilators with pulmonary hygiene per RT - wean per pulmonary driven protocols otherwise - s/p empiric antibiotics (Follow clinically / trend WBC) - prn analgesia per pain score - Maintenance of sleep-wake cycle, avoid delirium - aspiration precautions - G.I. & VTE prophylaxis - PT/OT exercises as tolerated - continue mobility protocols for pressure ulcer prophylaxis - Monitor hemodynamics closely - continue other care per attending / other consultants - discharge planning ongoing concurrently .... Re-evaluate in am & prn CONDITION: IMPROVED PROGNOSIS: IMPROVED CODE STATUS: FULL CODE Subjective Date of service: 12/28/19 Principal diagnosis: Ac hypoxemic resp failure; ARDS; Rodrigue pneumonia; Severe Sepsis; Rhabdomyolys Interval history: LATE ENTRY FOR DOS 12/28/2019 Patient is seen today for: Acute hypoxemic respiratory failure; ARDS; Bilateral pneumonia (CAP/Aspiration); Possible COPD; Leukocytosis.; Elevated D-dimer.; Hyponatremia (? SIADH); Severe Sepsis; Elevated serum transaminases; Rhabdomyolysis Seen and examined at bedside; 24hour events reviewed; nursing and respiratory care staff consulted; no adverse overnight events reported to me; laying in bed; looks and feels much better; remains on HFNC but at 65% FiO2; extubated yesterday; passed swallow evaluation; No N/V/F/C Objective Vital Signs - 12hr 12/29/19 12/29/19 12/29/19 03:00 03:31 04:00 Temperature 98.8 F Pulse Rate 60 60 Pulse Rate [ Anterior Bilateral] Pulse Rate [ From Monitor] Respiratory 18 18 Rate Respiratory Rate [Anterior Bilateral] Blood Pressure 131/66 140/68 O2 Sat by Pulse 92 91 Oximetry 03/13/20 03/13/20 03/13/20 05:00 06:01 06:16 Temperature Pulse Rate 57 L 56 L 66 Pulse Rate [ Anterior Bilateral] Pulse Rate [ From Monitor] Respiratory 18 17 Rate Respiratory Rate [Anterior Bilateral] Blood Pressure 116/68 141/66 141/66 O2 Sat by Pulse 93 92 Oximetry 12/29/19 12/29/19 12/29/19 06:17 07:01 08:00 Temperature 98.4 F Pulse Rate 65 57 L 60 Pulse Rate [ Anterior Bilateral] Pulse Rate [ 60 From Monitor] Respiratory 21 17 Rate Respiratory Rate [Anterior Bilateral] Blood Pressure 141/66 146/59 O2 Sat by Pulse 90 96 Oximetry 12/29/19 12/29/19 12/29/19 08:01 08:56 09:01 Temperature Pulse Rate 60 64 Pulse Rate [ Anterior Bilateral] Pulse Rate [ From Monitor] Respiratory 18 20 Rate Respiratory Rate [Anterior Bilateral] Blood Pressure 125/70 131/75 O2 Sat by Pulse 93 94 93 Oximetry 12/29/19 12/29/19 12/29/19 09:46 09:47 10:00 Temperature Pulse Rate 63 Pulse Rate [ 69 Anterior Bilateral] Pulse Rate [ From Monitor] Respiratory 18 Rate Respiratory 18 Rate [Anterior Bilateral] Blood Pressure 142/62 O2 Sat by Pulse 93 91 Oximetry 12/29/19 12/29/19 12/29/19 11:00 12:00 12:01 Temperature 97.5 F L Pulse Rate 65 73 60 Pulse Rate [ Anterior Bilateral] Pulse Rate [ 60 From Monitor] Respiratory 22 20 Rate Respiratory Rate [Anterior Bilateral] Blood Pressure 144/64 153/69 O2 Sat by Pulse 90 95 92 Oximetry 12/29/19 12/29/19 12:02 13:00 Temperature Pulse Rate 68 68 Pulse Rate [ Anterior Bilateral] Pulse Rate [ From Monitor] Respiratory 13 Rate Respiratory Rate [Anterior Bilateral] Blood Pressure 180/67 126/68 O2 Sat by Pulse 93 Oximetry Constitutional: appears uncomfortable, other (elderly obese CM resting i bed with mildly increased resp effort) Eyes: non-icteric ENT: oropharynx moist, other (Mallampati 3) Neck: supple, no lymphadenopathy, no JVD, other (large neck circumference) Effort: mildly labored Ascultation: Bilateral: diminished breath sounds, rhonchi Percussion: Bilateral: not dull Cardiovascular: regular rate and rhythm, other (S1,S2, no murmurs, gallops or rubs) Gastrointestinal: normoactive bowel sounds, soft, non-tender, non-distended (protuberant) Integumentary: normal Extremities: no cyanosis, no edema, pink and warm, pulses normal, no ischemia or petechiae Neurologic: normal mental status, non-focal exam, pupils equal and round, CN II- XII normal, motor strength normal and Psychiatric: mood appropriate, affect normal CBC and BMP: 12/28/19 04:14 12/29/19 05:08 ABG, PT/INR, D-dimer: ABG ABG pH 7.442 pH Units (7.350-7.450) 12/26/19 17:26 ABG pCO2 47.8 mm Hg 12/26/19 17:26 ABG pO2 113.4 mm Hg (80.0-90.0) H 12/26/19 17:26 ABG O2 Saturation 98.1 % (95.0-99.0) 12/26/19 17:26 PT/INR, D-dimer PT 13.9 Sec. (12.2-14.9) 12/18/19 15:28 INR 1.06 (0.87-1.13) 12/18/19 15:28 D-Dimer 2277.88 ng/mlDDU (0-234) H 12/18/19 10:30 Abnormal lab findings: Abnormal Labs 12/18/19 12/18/19 12/18/19 10:30 10:30 10:30 WBC 13.7 H RBC 5.06 H Hgb 15.4 H Hct MCHC 35 H Lymph % (Auto) [place] % (Auto) [place] # Seg Neutrophils % Seg Neuts % (Manual) 82.0 H Lymphocytes % (Manual) 8.0 L Seg Neutrophils # Seg Neutrophils # Man 11.2 H Lymphocytes # (Manual) 1.1 L APTT D-Dimer 2277.88 H ABG pH ABG pO2 ABG HCO3 ABG O2 Saturation ABG Base Excess ABG Hemoglobin Oxyhemoglobin Sodium 122 L Chloride 80.6 L Carbon Dioxide 21 L BUN Creatinine Glucose 272 H POC Glucose Hemoglobin A1c Lactic Acid Calcium 7.8 L Phosphorus Magnesium Total Bilirubin 1.30 H AST 108 H Total Creatine Kinase CK-MB (CK-2) Total Protein Albumin 3.1 L Urine WBC (Auto) Urine Creatinine 12/18/19 12/18/1912/17/20 10:30 11:18 11:56 WBC RBC Hgb Hct MCHC Lymph % (Auto) [place] % (Auto) [place] # Seg Neutrophils % Seg Neuts % (Manual) Lymphocytes % (Manual) Seg Neutrophils # Seg Neutrophils # Man Lymphocytes # (Manual) APTT D-Dimer ABG pH ABG pO2 ABG HCO3 ABG O2 Saturation ABG Base Excess ABG Hemoglobin Oxyhemoglobin Sodium Chloride Carbon Dioxide BUN Creatinine Glucose POC Glucose Hemoglobin A1c Lactic Acid 3.70 H* 2.40 H* Calcium Phosphorus Magnesium Total Bilirubin AST Total Creatine Kinase CK-MB (CK-2) Total Protein Albumin Urine WBC (Auto) 58.0 H Urine Creatinine 12/18/19 12/18/19 12/18/19 12:05 12:06 13:18 WBC RBC Hgb Hct MCHC Lymph % (Auto) [place] % (Auto) [place] # Seg Neutrophils % Seg Neuts % (Manual) Lymphocytes % (Manual) Seg Neutrophils # Seg Neutrophils # Man Lymphocytes # (Manual) APTT D-Dimer ABG pH 7.469 H ABG pO2 113.9 H ABG HCO3 ABG O2 Saturation ABG Base Excess ABG Hemoglobin 10.0 L Oxyhemoglobin Sodium Chloride Carbon Dioxide BUN Creatinine Glucose POC Glucose Hemoglobin A1c Lactic Acid 3.20 H* 2.50 H* Calcium Phosphorus Magnesium Total Bilirubin AST Total Creatine Kinase CK-MB (CK-2) Total Protein Albumin Urine WBC (Auto) Urine Creatinine 12/18/19 12/19/19 12/19/19 15:28 10:50 11:12 WBC RBC Hgb Hct MCHC Lymph % (Auto) [place] % (Auto) [place] # Seg Neutrophils % Seg Neuts % (Manual) Lymphocytes % (Manual) Seg Neutrophils # Seg Neutrophils # Man Lymphocytes # (Manual) APTT 72.2 H* D-Dimer ABG pH ABG pO2 55.6 L ABG HCO3 19.5 L ABG O2 Saturation 88.8 L ABG Base Excess -4.7 L ABG Hemoglobin Oxyhemoglobin 87.0 L Sodium Chloride Carbon Dioxide BUN Creatinine Glucose POC Glucose 257 H Hemoglobin A1c Lactic Acid Calcium Phosphorus Magnesium Total Bilirubin AST Total Creatine Kinase CK-MB (CK-2) Total Protein Albumin Urine WBC (Auto) Urine Creatinine 12/19/19 12/19/19 12/20/19 12:04 12:04 08:20 WBC RBC Hgb Hct MCHC Lymph % (Auto) [place] % (Auto) [place] # Seg Neutrophils % Seg Neuts % (Manual) Lymphocytes % (Manual) Seg Neutrophils # Seg Neutrophils # Man Lymphocytes # (Manual) APTT D-Dimer ABG pH ABG pO2 59.7 L ABG HCO3 19.9 L ABG O2 Saturation 90.2 L ABG Base Excess -4.9 L ABG Hemoglobin Oxyhemoglobin 88.5 L Sodium 131 L D Chloride 91.3 L Carbon Dioxide 18 L BUN Creatinine Glucose 290 H POC Glucose Hemoglobin A1c Lactic Acid 2.50 H* Calcium 7.9 L Phosphorus Magnesium Total Bilirubin AST 123 H Total Creatine Kinase 3873 H CK-MB (CK-2) 8.7 H Total Protein Albumin 2.4 L Urine WBC (Auto) Urine Creatinine 12/20/19 12/20/19 12/20/19 09:56 09:56 09:56 WBC 17.7 H RBC 5.24 H Hgb 15.7 H Hct 46.7 H D MCHC Lymph % (Auto) [place] % (Auto) [place] # Seg Neutrophils % Seg Neuts % (Manual) 88.0 H Lymphocytes % (Manual) 8.0 L Seg Neutrophils # Seg Neutrophils # Man 15.6 H Lymphocytes # (Manual) APTT D-Dimer ABG pH ABG pO2 ABG HCO3 ABG O2 Saturation ABG Base Excess ABG Hemoglobin Oxyhemoglobin Sodium 135 L Chloride 96.6 L Carbon Dioxide 13 L BUN 38 H Creatinine Glucose 382 H POC Glucose Hemoglobin A1c Lactic Acid Calcium Phosphorus Magnesium 3.10 H Total Bilirubin AST Total Creatine Kinase CK-MB (CK-2) Total Protein Albumin Urine WBC (Auto) Urine Creatinine 12/20/19 12/20/19 12/20/19 10:27 12:57 15:20 WBC RBC Hgb Hct MCHC Lymph % (Auto) [place] % (Auto) [place] # Seg Neutrophils % Seg Neuts % (Manual) Lymphocytes % (Manual) Seg Neutrophils # Seg Neutrophils # Man Lymphocytes # (Manual) APTT D-Dimer ABG pH 7.217 L 7.247 L ABG pO2 75.4 L 93.3 H ABG HCO3 ABG O2 Saturation 92.1 L ABG Base Excess -7.4 L -6.1 L ABG Hemoglobin Oxyhemoglobin 90.4 L 94.3 L Sodium Chloride Carbon Dioxide BUN Creatinine Glucose POC Glucose 350 H Hemoglobin A1c Lactic Acid Calcium Phosphorus Magnesium Total Bilirubin AST Total Creatine Kinase CK-MB (CK-2) Total Protein Albumin Urine WBC (Auto) Urine Creatinine 12/20/19 12/20/19 12/20/19 16:44 18:22 20:47 WBC RBC Hgb Hct MCHC Lymph % (Auto) [place] % (Auto) [place] # Seg Neutrophils % Seg Neuts % (Manual) Lymphocytes % (Manual) Seg Neutrophils # Seg Neutrophils # Man Lymphocytes # (Manual) APTT D-Dimer ABG pH ABG pO2 ABG HCO3 ABG O2 Saturation ABG Base Excess ABG Hemoglobin Oxyhemoglobin Sodium Chloride Carbon Dioxide BUN Creatinine Glucose POC Glucose 401 H 371 H 412 H Hemoglobin A1c Lactic Acid Calcium Phosphorus Magnesium Total Bilirubin AST Total Creatine Kinase CK-MB (CK-2) Total Protein Albumin Urine WBC (Auto) Urine Creatinine 12/21/19 12/21/19 12/21/19 00:14 04:40 05:13 WBC RBC Hgb Hct MCHC Lymph % (Auto) [place] % (Auto) [place] # Seg Neutrophils % Seg Neuts % (Manual) Lymphocytes % (Manual) Seg Neutrophils # Seg Neutrophils # Man Lymphocytes # (Manual) APTT D-Dimer ABG pH 7.308 L ABG pO2 60.8 L ABG HCO3 27.3 H ABG O2 Saturation 90.1 L ABG Base Excess ABG Hemoglobin 12.6 L Oxyhemoglobin 88.3 L Sodium Chloride Carbon Dioxide BUN Creatinine Glucose POC Glucose 392 H 333 H Hemoglobin A1c Lactic Acid Calcium Phosphorus Magnesium Total Bilirubin AST Total Creatine Kinase CK-MB (CK-2) Total Protein Albumin Urine WBC (Auto) Urine Creatinine 12/21/19 12/21/19 12/21/19 12:39 18:11 23:45 WBC RBC Hgb Hct MCHC Lymph % (Auto) [facility] % (Auto) [place] # Seg Neutrophils % Seg Neuts % (Manual) Lymphocytes % (Manual) Seg Neutrophils # Seg Neutrophils # Man Lymphocytes # (Manual) APTT D-Dimer ABG pH ABG pO2 ABG HCO3 ABG O2 Saturation ABG Base Excess ABG Hemoglobin Oxyhemoglobin Sodium Chloride Carbon Dioxide BUN Creatinine Glucose POC Glucose 327 H 309 H 286 H Hemoglobin A1c Lactic Acid Calcium Phosphorus Magnesium Total Bilirubin AST Total Creatine Kinase CK-MB (CK-2) Total Protein Albumin Urine WBC (Auto) Urine Creatinine 12/21/19 12/21/19 12/21/19 Unknown Unknown Unknown WBC 12.3 H RBC Hgb Hct MCHC Lymph % (Auto) [place] % (Auto) [place] # Seg Neutrophils % Seg Neuts % (Manual) 93.0 H Lymphocytes % (Manual) 5.0 L Seg Neutrophils # Seg Neutrophils # Man 11.4 H Lymphocytes # (Manual) 0.6 L APTT D-Dimer ABG pH ABG pO2 ABG HCO3 ABG O2 Saturation ABG Base Excess ABG Hemoglobin Oxyhemoglobin Sodium Chloride Carbon Dioxide 21 L D BUN 73 H Creatinine 2.2 H D Glucose 361 H POC Glucose Hemoglobin A1c 10.0 H Lactic Acid Calcium 7.9 L Phosphorus Magnesium Total Bilirubin AST Total Creatine Kinase CK-MB (CK-2) Total Protein Albumin Urine WBC (Auto) Urine Creatinine 12/22/19 12/22/19 12/22/19 05:24 06:29 07:16 WBC RBC Hgb Hct MCHC Lymph % (Auto) [facility] % (Auto) [place] # Seg Neutrophils % Seg Neuts % (Manual) Lymphocytes % (Manual) Seg Neutrophils # Seg Neutrophils # Man Lymphocytes # (Manual) APTT D-Dimer ABG pH ABG pO2 93.7 H ABG HCO3 30.4 H ABG O2 Saturation ABG Base Excess 4.4 H ABG Hemoglobin 12.8 L Oxyhemoglobin Sodium Chloride Carbon Dioxide BUN 111 H Creatinine 3.2 H Glucose 340 H POC Glucose 275 H Hemoglobin A1c Lactic Acid Calcium 8.1 L Phosphorus Magnesium Total Bilirubin AST Total Creatine Kinase CK-MB (CK-2) Total Protein Albumin Urine WBC (Auto) Urine Creatinine 12/22/19 12/22/19 12/22/19 11:27 12:58 15:30 WBC RBC Hgb Hct MCHC Lymph % (Auto) [facility] % (Auto) [place] # Seg Neutrophils % Seg Neuts % (Manual) Lymphocytes % (Manual) Seg Neutrophils # Seg Neutrophils # Man Lymphocytes # (Manual) APTT D-Dimer ABG pH ABG pO2 ABG HCO3 ABG O2 Saturation ABG Base Excess ABG Hemoglobin Oxyhemoglobin Sodium Chloride Carbon Dioxide BUN Creatinine Glucose POC Glucose 345 H Hemoglobin A1c Lactic Acid Calcium Phosphorus 5.10 H Magnesium 3.90 H Total Bilirubin AST Total Creatine Kinase CK-MB (CK-2) Total Protein Albumin Urine WBC (Auto) Urine Creatinine 80.5 H 12/22/19 12/23/19 12/23/19 17:54 00:30 04:47 WBC RBC Hgb Hct MCHC Lymph % (Auto) [facility] % (Auto) [place] # Seg Neutrophils % Seg Neuts % (Manual) Lymphocytes % (Manual) Seg Neutrophils # Seg Neutrophils # Man Lymphocytes # (Manual) APTT D-Dimer ABG pH ABG pO2 ABG HCO3 ABG O2 Saturation ABG Base Excess ABG Hemoglobin Oxyhemoglobin Sodium 146 H Chloride Carbon Dioxide BUN 107 H Creatinine 2.5 H Glucose 278 H POC Glucose 308 H 228 H Hemoglobin A1c Lactic Acid Calcium 7.7 L Phosphorus Magnesium Total Bilirubin AST Total Creatine Kinase CK-MB (CK-2) Total Protein Albumin Urine WBC (Auto) Urine Creatinine 12/23/19 12/23/19 12/23/19 04:47 05:50 06:06 WBC 12.0 H RBC Hgb Hct MCHC Lymph % (Auto) [facility] % (Auto) [place] # Seg Neutrophils % Seg Neuts % (Manual) 82.0 H Lymphocytes % (Manual) 12.0 L Seg Neutrophils # Seg Neutrophils # Man 9.8 H Lymphocytes # (Manual) APTT D-Dimer ABG pH ABG pO2 59.0 L ABG HCO3 31.6 H ABG O2 Saturation 89.2 L ABG Base Excess 4.5 H ABG Hemoglobin 13.5 L Oxyhemoglobin 87.2 L Sodium Chloride Carbon Dioxide BUN Creatinine Glucose POC Glucose 263 H Hemoglobin A1c Lactic Acid Calcium Phosphorus Magnesium Total Bilirubin AST Total Creatine Kinase CK-MB (CK-2) Total Protein Albumin Urine WBC (Auto) Urine Creatinine 12/23/19 12/23/19 12/23/19 12:58 18:08 18:10 WBC RBC Hgb Hct MCHC Lymph % (Auto) [facility] % (Auto) [place] # Seg Neutrophils % Seg Neuts % (Manual) Lymphocytes % (Manual) Seg Neutrophils # Seg Neutrophils # Man Lymphocytes # (Manual) APTT D-Dimer ABG pH ABG pO2 ABG HCO3 31.6 H ABG O2 Saturation ABG Base Excess 4.7 H ABG Hemoglobin 13.1 L Oxyhemoglobin 93.5 L Sodium Chloride Carbon Dioxide BUN Creatinine Glucose POC Glucose 206 H 328 H Hemoglobin A1c Lactic Acid Calcium Phosphorus Magnesium Total Bilirubin AST Total Creatine Kinase CK-MB (CK-2) Total Protein Albumin Urine WBC (Auto) Urine Creatinine 12/23/19 12/24/19 12/24/19 23:37 00:37 00:37 WBC RBC Hgb Hct MCHC Lymph % (Auto) [facility] % (Auto) [place] # Seg Neutrophils % Seg Neuts % (Manual) 88.0 H Lymphocytes % (Manual) 5.0 L Seg Neutrophils # Seg Neutrophils # Man 9.6 H Lymphocytes # (Manual) 0.5 L APTT D-Dimer ABG pH ABG pO2 ABG HCO3 ABG O2 Saturation ABG Base Excess ABG Hemoglobin Oxyhemoglobin Sodium 152 H Chloride 109.9 H Carbon Dioxide BUN 89 H Creatinine 2.2 H Glucose 287 H POC Glucose 277 H Hemoglobin A1c Lactic Acid Calcium 7.5 L Phosphorus Magnesium Total Bilirubin AST Total Creatine Kinase CK-MB (CK-2) Total Protein Albumin Urine WBC (Auto) Urine Creatinine 12/24/19 12/24/19 12/24/19 05:25 05:36 06:23 WBC RBC Hgb Hct MCHC Lymph % (Auto) [facility] % (Auto) [place] # Seg Neutrophils % Seg Neuts % (Manual) Lymphocytes % (Manual) Seg Neutrophils # Seg Neutrophils # Man Lymphocytes # (Manual) APTT D-Dimer ABG pH ABG pO2 72.2 L ABG HCO3 31.6 H ABG O2 Saturation ABG Base Excess 5.2 H ABG Hemoglobin 13.1 L Oxyhemoglobin 92.8 L Sodium Chloride Carbon Dioxide BUN Creatinine Glucose POC Glucose 204 H Hemoglobin A1c Lactic Acid Calcium Phosphorus Magnesium 3.10 H Total Bilirubin AST Total Creatine Kinase CK-MB (CK-2) Total Protein Albumin Urine WBC (Auto) Urine Creatinine 12/24/19 12/24/19 12/24/19 11:34 18:04 23:53 WBC RBC Hgb Hct MCHC Lymph % (Auto) [facility] % (Auto) [place] # Seg Neutrophils % Seg Neuts % (Manual) Lymphocytes % (Manual) Seg Neutrophils # Seg Neutrophils # Man Lymphocytes # (Manual) APTT D-Dimer ABG pH ABG pO2 ABG HCO3 ABG O2 Saturation ABG Base Excess ABG Hemoglobin Oxyhemoglobin Sodium Chloride Carbon Dioxide BUN Creatinine Glucose POC Glucose 187 H 286 H 231 H Hemoglobin A1c Lactic Acid Calcium Phosphorus Magnesium Total Bilirubin AST Total Creatine Kinase CK-MB (CK-2) Total Protein Albumin Urine WBC (Auto) Urine Creatinine 12/25/19 12/25/19 12/25/19 04:52 05:22 05:22 WBC 12.0 H RBC Hgb Hct MCHC Lymph % (Auto) [facility] % (Auto) [place] # Seg Neutrophils % Seg Neuts % (Manual) 76.0 H Lymphocytes % (Manual) 10.0 L Seg Neutrophils # Seg Neutrophils # Man 9.1 H Lymphocytes # (Manual) APTT D-Dimer ABG pH ABG pO2 68.3 L ABG HCO3 32.6 H ABG O2 Saturation 94.7 L ABG Base Excess 5.7 H ABG Hemoglobin 13.2 L Oxyhemoglobin 92.3 L Sodium 149 H Chloride 109.2 H Carbon Dioxide 33 H BUN 62 H Creatinine 1.7 H Glucose 245 H POC Glucose Hemoglobin A1c Lactic Acid Calcium 8.0 L Phosphorus Magnesium 2.90 H Total Bilirubin AST Total Creatine Kinase 195 H CK-MB (CK-2) Total Protein 5.8 L Albumin 2.3 L Urine WBC (Auto) Urine Creatinine 12/25/19 12/25/19 12/25/19 05:42 12:16 18:48 WBC RBC Hgb Hct MCHC Lymph % (Auto) [facility] % (Auto) [place] # Seg Neutrophils % Seg Neuts % (Manual) Lymphocytes % (Manual) Seg Neutrophils # Seg Neutrophils # Man Lymphocytes # (Manual) APTT D-Dimer ABG pH ABG pO2 ABG HCO3 ABG O2 Saturation ABG Base Excess ABG Hemoglobin Oxyhemoglobin Sodium Chloride Carbon Dioxide BUN Creatinine Glucose POC Glucose 208 H 290 H 239 H Hemoglobin A1c Lactic Acid Calcium Phosphorus Magnesium Total Bilirubin AST Total Creatine Kinase CK-MB (CK-2) Total Protein Albumin Urine WBC (Auto) Urine Creatinine 12/26/19 12/26/19 12/26/19 00:06 04:09 04:48 WBC RBC Hgb Hct MCHC Lymph % (Auto) [facility] % (Auto) [place] # Seg Neutrophils % Seg Neuts % (Manual) Lymphocytes % (Manual) Seg Neutrophils # Seg Neutrophils # Man Lymphocytes # (Manual) APTT D-Dimer ABG pH ABG pO2 75.6 L ABG HCO3 33.4 H ABG O2 Saturation ABG Base Excess 6.6 H ABG Hemoglobin Oxyhemoglobin 93.4 L Sodium 147 H Chloride Carbon Dioxide 32 H BUN 49 H Creatinine Glucose 257 H POC Glucose 188 H Hemoglobin A1c Lactic Acid Calcium Phosphorus Magnesium Total Bilirubin AST Total Creatine Kinase CK-MB (CK-2) Total Protein Albumin Urine WBC (Auto) Urine Creatinine 12/26/19 12/26/19 12/26/19 05:49 11:54 17:26 WBC RBC Hgb Hct MCHC Lymph % (Auto) [facility] % (Auto) [place] # Seg Neutrophils % Seg Neuts % (Manual) Lymphocytes % (Manual) Seg Neutrophils # Seg Neutrophils # Man Lymphocytes # (Manual) APTT D-Dimer ABG pH ABG pO2 113.4 H ABG HCO3 31.9 H ABG O2 Saturation ABG Base Excess 6.7 H ABG Hemoglobin Oxyhemoglobin Sodium Chloride Carbon Dioxide BUN Creatinine Glucose POC Glucose 220 H 262 H Hemoglobin A1c Lactic Acid Calcium Phosphorus Magnesium Total Bilirubin AST Total Creatine Kinase CK-MB (CK-2) Total Protein Albumin Urine WBC (Auto) Urine Creatinine 12/26/19 12/26/19 12/27/19 17:46 23:41 04:52 WBC RBC Hgb Hct MCHC Lymph % (Auto) [facility] % (Auto) [place] # Seg Neutrophils % Seg Neuts % (Manual) Lymphocytes % (Manual) Seg Neutrophils # Seg Neutrophils # Man Lymphocytes # (Manual) APTT D-Dimer ABG pH ABG pO2 ABG HCO3 ABG O2 Saturation ABG Base Excess ABG Hemoglobin Oxyhemoglobin Sodium Chloride Carbon Dioxide BUN 49 H Creatinine Glucose 184 H POC Glucose 321 H 228 H Hemoglobin A1c Lactic Acid Calcium Phosphorus Magnesium Total Bilirubin AST Total Creatine Kinase CK-MB (CK-2) Total Protein Albumin Urine WBC (Auto) Urine Creatinine 12/27/19 12/27/19 12/27/19 04:52 05:21 11:59 WBC 16.1 H RBC Hgb Hct MCHC Lymph % (Auto) 9.[address] % (Auto) 8.[address] # 1.4 H Seg Neutrophils % 80.6 H Seg Neuts % (Manual) Lymphocytes % (Manual) Seg Neutrophils # 13.0 H Seg Neutrophils # Man Lymphocytes # (Manual) APTT D-Dimer ABG pH ABG pO2 ABG HCO3 ABG O2 Saturation ABG Base Excess ABG Hemoglobin Oxyhemoglobin Sodium Chloride Carbon Dioxide BUN Creatinine Glucose POC Glucose 176 H 200 H Hemoglobin A1c Lactic Acid Calcium Phosphorus Magnesium Total Bilirubin AST Total Creatine Kinase CK-MB (CK-2) Total Protein Albumin Urine WBC (Auto) Urine Creatinine 12/27/19 12/27/19 12/28/19 17:44 23:52 04:14 WBC RBC Hgb Hct MCHC Lymph % (Auto) [facility] % (Auto) [place] # Seg Neutrophils % Seg Neuts % (Manual) Lymphocytes % (Manual) Seg Neutrophils # Seg Neutrophils # Man Lymphocytes # (Manual) APTT D-Dimer ABG pH ABG pO2 ABG HCO3 ABG O2 Saturation ABG Base Excess ABG Hemoglobin Oxyhemoglobin Sodium Chloride Carbon Dioxide BUN 52 H Creatinine Glucose 219 H POC Glucose 211 H 184 H Hemoglobin A1c Lactic Acid Calcium Phosphorus Magnesium Total Bilirubin AST Total Creatine Kinase CK-MB (CK-2) Total Protein Albumin Urine WBC (Auto) Urine Creatinine 12/28/19 12/28/19 12/28/19 04:14 06:32 12:15 WBC 15.1 H RBC Hgb Hct MCHC Lymph % (Auto) 10.[address] [place] % (Auto) 7.[address] # 1.1 H Seg Neutrophils % 80.2 H Seg Neuts % (Manual) Lymphocytes % (Manual) Seg Neutrophils # 12.1 H Seg Neutrophils # Man Lymphocytes # (Manual) APTT D-Dimer ABG pH ABG pO2 ABG HCO3 ABG O2 Saturation ABG Base Excess ABG Hemoglobin Oxyhemoglobin Sodium Chloride Carbon Dioxide BUN Creatinine Glucose POC Glucose 226 H 209 H Hemoglobin A1c Lactic Acid Calcium Phosphorus Magnesium Total Bilirubin AST Total Creatine Kinase CK-MB (CK-2) Total Protein Albumin Urine WBC (Auto) Urine Creatinine 12/28/19 12/28/19 12/29/19 17:42 23:52 05:08 WBC RBC Hgb Hct MCHC Lymph % (Auto) [facility] % (Auto) [place] # Seg Neutrophils % Seg Neuts % (Manual) Lymphocytes % (Manual) Seg Neutrophils # Seg Neutrophils # Man Lymphocytes # (Manual) APTT D-Dimer ABG pH ABG pO2 ABG HCO3 ABG O2 Saturation ABG Base Excess ABG Hemoglobin Oxyhemoglobin Sodium Chloride Carbon Dioxide BUN 43 H Creatinine Glucose 108 H POC Glucose 159 H 167 H Hemoglobin A1c Lactic Acid Calcium 8.1 L Phosphorus Magnesium Total Bilirubin AST Total Creatine Kinase CK-MB (CK-2) Total Protein Albumin Urine WBC (Auto) Urine Creatinine 12/29/19 12:23 WBC RBC Hgb Hct MCHC Lymph % (Auto) [facility] % (Auto) [facility] # Seg Neutrophils % Seg Neuts % (Manual) Lymphocytes % (Manual) Seg Neutrophils # Seg Neutrophils # Man Lymphocytes # (Manual) APTT D-Dimer ABG pH ABG pO2 ABG HCO3 ABG O2 Saturation ABG Base Excess ABG Hemoglobin Oxyhemoglobin Sodium Chloride Carbon Dioxide BUN Creatinine Glucose POC Glucose 175 H Hemoglobin A1c Lactic Acid Calcium Phosphorus Magnesium Total Bilirubin AST Total Creatine Kinase CK-MB (CK-2) Total Protein Albumin Urine WBC (Auto) Urine Creatinine Chest x-ray: image reviewed Allied health notes reviewed: nursing
--- NOTE | 2019-12-29 14:16 | Progress Note ---
Assessment and Plan Acute hypoxemic respiratory failure Bilateral pneumonia (CAP/Aspiration) Possible EtOH abuse with withdrawals Possible COPD Leukocytosis. Elevated D-dimer. Hyponatremia (? SIADH) Mild metabolic acidosis. Lactic acidosis. Severe Sepsis Hyperbilirubinemia. Elevated serum transaminases. Possible UTI Rhabdomyolysis - continue qhs BIPAP - outpatient PFT's - continue HFNC via Vapotherm system - continue prn Ambien for insomnia - contyinue Lantus - continue Daily SAT and SBT assessment as tolerated - continue glycemic control per SSI for target blood glucose < 180 mg/dL (avoid hypoglycemia) - continue to wean supplemental oxygen for target O2 sat's > 90% acutely - continue bronchodilators with pulmonary hygiene per RT - wean per pulmonary driven protocols otherwise - s/p empiric antibiotics (Follow clinically / trend WBC) - prn analgesia per pain score - Maintenance of sleep-wake cycle, avoid delirium - aspiration precautions - G.I. & VTE prophylaxis - PT/OT exercises as tolerated - continue mobility protocols for pressure ulcer prophylaxis - Monitor hemodynamics closely - continue other care per attending / other consultants - discharge planning ongoing concurrently .... Re-evaluate in am & prn ...... transfer to telemetry floor CONDITION: IMPROVED PROGNOSIS: IMPROVED CODE STATUS: FULL CODE Subjective Date of service: 12/29/19 Principal diagnosis: Ac hypoxemic resp failure; ARDS; Rodrigue pneumonia; Severe Sepsis; Rhabdomyolys Interval history: Patient is seen today for: Acute hypoxemic respiratory failure; ARDS; Bilateral pneumonia (CAP/Aspiration); Possible COPD; Leukocytosis.; Elevated D-dimer.; Hyponatremia (? SIADH); Severe Sepsis; Elevated serum transaminases; Rhabdomyolysis Seen and examined at bedside; 24hour events reviewed; nursing and respiratory care staff consulted; no adverse overnight events reported to me; laying in bed; doing so much better; FiO2 down to 45%; No N/V/F/C Objective Vital Signs - 12hr 12/29/19 12/29/19 12/29/19 03:00 03:31 04:00 Temperature 98.8 F Pulse Rate 60 60 Pulse Rate [ Anterior Bilateral] Pulse Rate [ From Monitor] Respiratory 18 18 Rate Respiratory Rate [Anterior Bilateral] Blood Pressure 131/66 140/68 O2 Sat by Pulse 92 91 Oximetry 12/29/19 12/29/19 12/29/19 05:00 06:01 06:16 Temperature Pulse Rate 57 L 56 L 66 Pulse Rate [ Anterior Bilateral] Pulse Rate [ From Monitor] Respiratory 18 17 Rate Respiratory Rate [Anterior Bilateral] Blood Pressure 116/68 141/66 141/66 O2 Sat by Pulse 93 92 Oximetry 12/29/19 12/29/19 12/29/19 06:17 07:01 08:00 Temperature 98.4 F Pulse Rate 65 57 L 60 Pulse Rate [ Anterior Bilateral] Pulse Rate [ 60 From Monitor] Respiratory 21 17 Rate Respiratory Rate [Anterior Bilateral] Blood Pressure 141/66 146/59 O2 Sat by Pulse 90 96 Oximetry 12/29/19 12/29/19 12/29/19 08:01 08:56 09:01 Temperature Pulse Rate 60 64 Pulse Rate [ Anterior Bilateral] Pulse Rate [ From Monitor] Respiratory 18 20 Rate Respiratory Rate [Anterior Bilateral] Blood Pressure 125/70 131/75 O2 Sat by Pulse 93 94 93 Oximetry 12/29/19 12/29/19 12/29/19 09:46 09:47 10:00 Temperature Pulse Rate 63 Pulse Rate [ 69 Anterior Bilateral] Pulse Rate [ From Monitor] Respiratory 18 Rate Respiratory 18 Rate [Anterior Bilateral] Blood Pressure 142/62 O2 Sat by Pulse 93 91 Oximetry 12/29/19 12/29/19 12/29/19 11:00 12:00 12:01 Temperature 97.5 F L Pulse Rate 65 73 60 Pulse Rate [ Anterior Bilateral] Pulse Rate [ 60 From Monitor] Respiratory 22 20 Rate Respiratory Rate [Anterior Bilateral] Blood Pressure 144/64 153/69 O2 Sat by Pulse 90 95 92 Oximetry 12/29/19 12/29/19 12:02 13:00 Temperature Pulse Rate 68 68 Pulse Rate [ Anterior Bilateral] Pulse Rate [ From Monitor] Respiratory 13 Rate Respiratory Rate [Anterior Bilateral] Blood Pressure 180/67 126/68 O2 Sat by Pulse 93 Oximetry Constitutional: no acute distress, other (elderly obese CM resting i bed with mildly increased resp effort) Eyes: non-icteric ENT: oropharynx moist, other (Mallampati 3) Neck: supple, no lymphadenopathy, no JVD, other (large neck circumference) Effort: mildly labored Ascultation: Bilateral: diminished breath sounds, rhonchi Percussion: Bilateral: not dull Cardiovascular: regular rate and rhythm, other (S1,S2, no murmurs, gallops or rubs) Gastrointestinal: normoactive bowel sounds, soft, non-tender, non-distended (protuberant) Integumentary: normal Extremities: no cyanosis, no edema, pink and warm, pulses normal, no ischemia or petechiae Neurologic: normal mental status, non-focal exam, pupils equal and round, CN II- XII normal, motor strength normal and Psychiatric: mood appropriate, affect normal CBC and BMP: 12/28/19 04:14 12/30/19 05:23 ABG, PT/INR, D-dimer: ABG ABG pH 7.442 pH Units (7.350-7.450) 12/26/19 17:26 ABG pCO2 47.8 mm Hg 12/26/19 17:26 ABG pO2 113.4 mm Hg (80.0-90.0) H 12/26/19 17:26 ABG O2 Saturation 98.1 % (95.0-99.0) 12/26/19 17:26 PT/INR, D-dimer PT 13.9 Sec. (12.2-14.9) 12/18/19 15:28 INR 1.06 (0.87-1.13) 12/18/19 15:28 D-Dimer 2277.88 ng/mlDDU (0-234) H 12/18/19 10:30 Abnormal lab findings: Abnormal Labs 12/18/19 12/18/19 12/18/19 10:30 10:30 10:30 WBC 13.7 H RBC 5.06 H Hgb 15.4 H Hct MCHC 35 H Lymph % (Auto) Cloud % (Auto) Cloud # Seg Neutrophils % Seg Neuts % (Manual) 82.0 H Lymphocytes % (Manual) 8.0 L Seg Neutrophils # Seg Neutrophils # Man 11.2 H Lymphocytes # (Manual) 1.1 L APTT D-Dimer 2277.88 H ABG pH ABG pO2 ABG HCO3 ABG O2 Saturation ABG Base Excess ABG Hemoglobin Oxyhemoglobin Sodium 122 L Chloride 80.6 L Carbon Dioxide 21 L BUN Creatinine Glucose 272 H POC Glucose Hemoglobin A1c Lactic Acid Calcium 7.8 L Phosphorus Magnesium Total Bilirubin 1.30 H AST 108 H Total Creatine Kinase CK-MB (CK-2) Total Protein Albumin 3.1 L Urine WBC (Auto) Urine Creatinine 12/18/19 12/18/19 12/18/19 10:30 11:18 11:56 WBC RBC Hgb Hct MCHC Lymph % (Auto) Cloud % (Auto) Cloud # Seg Neutrophils % Seg Neuts % (Manual) Lymphocytes % (Manual) Seg Neutrophils # Seg Neutrophils # Man Lymphocytes # (Manual) APTT D-Dimer ABG pH ABG pO2 ABG HCO3 ABG O2 Saturation ABG Base Excess ABG Hemoglobin Oxyhemoglobin Sodium Chloride Carbon Dioxide BUN Creatinine Glucose POC Glucose Hemoglobin A1c Lactic Acid 3.70 H* 2.40 H* Calcium Phosphorus Magnesium Total Bilirubin AST Total Creatine Kinase CK-MB (CK-2) Total Protein Albumin Urine WBC (Auto) 58.0 H Urine Creatinine 12/18/19 12/18/19 12/18/19 12:05 12:06 13:18 WBC RBC Hgb Hct MCHC Lymph % (Auto) Cloud % (Auto) Cloud # Seg Neutrophils % Seg Neuts % (Manual) Lymphocytes % (Manual) Seg Neutrophils # Seg Neutrophils # Man Lymphocytes # (Manual) APTT D-Dimer ABG pH 7.469 H ABG pO2 113.9 H ABG HCO3 ABG O2 Saturation ABG Base Excess ABG Hemoglobin 10.0 L Oxyhemoglobin Sodium Chloride Carbon Dioxide BUN Creatinine Glucose POC Glucose Hemoglobin A1c Lactic Acid 3.20 H* 2.50 H* Calcium Phosphorus Magnesium Total Bilirubin AST Total Creatine Kinase CK-MB (CK-2) Total Protein Albumin Urine WBC (Auto) Urine Creatinine 12/18/19 12/19/19 12/19/19 15:28 10:50 11:12 WBC RBC Hgb Hct MCHC Lymph % (Auto) Cloud % (Auto) Cloud # Seg Neutrophils % Seg Neuts % (Manual) Lymphocytes % (Manual) Seg Neutrophils # Seg Neutrophils # Man Lymphocytes # (Manual) APTT 72.2 H* D-Dimer ABG pH ABG pO2 55.6 L ABG HCO3 19.5 L ABG O2 Saturation 88.8 L ABG Base Excess -4.7 L ABG Hemoglobin Oxyhemoglobin 87.0 L Sodium Chloride Carbon Dioxide BUN Creatinine Glucose POC Glucose 257 H Hemoglobin A1c Lactic Acid Calcium Phosphorus Magnesium Total Bilirubin AST Total Creatine Kinase CK-MB (CK-2) Total Protein Albumin Urine WBC (Auto) Urine Creatinine 12/19/19 12/19/19 12/20/19 12:04 12:04 08:20 WBC RBC Hgb Hct MCHC Lymph % (Auto) Cloud % (Auto) Cloud # Seg Neutrophils % Seg Neuts % (Manual) Lymphocytes % (Manual) Seg Neutrophils # Seg Neutrophils # Man Lymphocytes # (Manual) APTT D-Dimer ABG pH ABG pO2 59.7 L ABG HCO3 19.9 L ABG O2 Saturation 90.2 L ABG Base Excess -4.9 L ABG Hemoglobin Oxyhemoglobin 88.5 L Sodium 131 L D Chloride 91.3 L Carbon Dioxide 18 L BUN Creatinine Glucose 290 H POC Glucose Hemoglobin A1c Lactic Acid 2.50 H* Calcium 7.9 L Phosphorus Magnesium Total Bilirubin AST 123 H Total Creatine Kinase 3873 H CK-MB (CK-2) 8.7 H Total Protein Albumin 2.4 L Urine WBC (Auto) Urine Creatinine 12/20/19 12/20/19 12/20/19 09:56 09:56 09:56 WBC 17.7 H RBC 5.24 H Hgb 15.7 H Hct 46.7 H D MCHC Lymph % (Auto) Cloud % (Auto) Cloud # Seg Neutrophils % Seg Neuts % (Manual) 88.0 H Lymphocytes % (Manual) 8.0 L Seg Neutrophils # Seg Neutrophils # Man 15.6 H Lymphocytes # (Manual) APTT D-Dimer ABG pH ABG pO2 ABG HCO3 ABG O2 Saturation ABG Base Excess ABG Hemoglobin Oxyhemoglobin Sodium 135 L Chloride 96.6 L Carbon Dioxide 13 L BUN 38 H Creatinine Glucose 382 H POC Glucose Hemoglobin A1c Lactic Acid Calcium Phosphorus Magnesium 3.10 H Total Bilirubin AST Total Creatine Kinase CK-MB (CK-2) Total Protein Albumin Urine WBC (Auto) Urine Creatinine 12/20/19 12/20/19 12/20/19 10:27 12:57 15:20 WBC RBC Hgb Hct MCHC Lymph % (Auto) Cloud % (Auto) Cloud # Seg Neutrophils % Seg Neuts % (Manual) Lymphocytes % (Manual) Seg Neutrophils # Seg Neutrophils # Man Lymphocytes # (Manual) APTT D-Dimer ABG pH 7.217 L 7.247 L ABG pO2 75.4 L 93.3 H ABG HCO3 ABG O2 Saturation 92.1 L ABG Base Excess -7.4 L -6.1 L ABG Hemoglobin Oxyhemoglobin 90.4 L 94.3 L Sodium Chloride Carbon Dioxide BUN Creatinine Glucose POC Glucose 350 H Hemoglobin A1c Lactic Acid Calcium Phosphorus Magnesium Total Bilirubin AST Total Creatine Kinase CK-MB (CK-2) Total Protein Albumin Urine WBC (Auto) Urine Creatinine 12/20/19 12/20/19 12/20/19 16:44 18:22 20:47 WBC RBC Hgb Hct MCHC Lymph % (Auto) Cloud % (Auto) Cloud # Seg Neutrophils % Seg Neuts % (Manual) Lymphocytes % (Manual) Seg Neutrophils # Seg Neutrophils # Man Lymphocytes # (Manual) APTT D-Dimer ABG pH ABG pO2 ABG HCO3 ABG O2 Saturation ABG Base Excess ABG Hemoglobin Oxyhemoglobin Sodium Chloride Carbon Dioxide BUN Creatinine Glucose POC Glucose 401 H 371 H 412 H Hemoglobin A1c Lactic Acid Calcium Phosphorus Magnesium Total Bilirubin AST Total Creatine Kinase CK-MB (CK-2) Total Protein Albumin Urine WBC (Auto) Urine Creatinine 12/21/19 12/21/19 12/21/19 00:14 04:40 05:13 WBC RBC Hgb Hct MCHC Lymph % (Auto) Cloud % (Auto) Cloud # Seg Neutrophils % Seg Neuts % (Manual) Lymphocytes % (Manual) Seg Neutrophils # Seg Neutrophils # Man Lymphocytes # (Manual) APTT D-Dimer ABG pH 7.308 L ABG pO2 60.8 L ABG HCO3 27.3 H ABG O2 Saturation 90.1 L ABG Base Excess ABG Hemoglobin 12.6 L Oxyhemoglobin 88.3 L Sodium Chloride Carbon Dioxide BUN Creatinine Glucose POC Glucose 392 H 333 H Hemoglobin A1c Lactic Acid Calcium Phosphorus Magnesium Total Bilirubin AST Total Creatine Kinase CK-MB (CK-2) Total Protein Albumin Urine WBC (Auto) Urine Creatinine 12/21/19 12/21/19 12/21/19 12:39 18:11 23:45 WBC RBC Hgb Hct MCHC Lymph % (Auto) Cloud % (Auto) Cloud # Seg Neutrophils % Seg Neuts % (Manual) Lymphocytes % (Manual) Seg Neutrophils # Seg Neutrophils # Man Lymphocytes # (Manual) APTT D-Dimer ABG pH ABG pO2 ABG HCO3 ABG O2 Saturation ABG Base Excess ABG Hemoglobin Oxyhemoglobin Sodium Chloride Carbon Dioxide BUN Creatinine Glucose POC Glucose 327 H 309 H 286 H Hemoglobin A1c Lactic Acid Calcium Phosphorus Magnesium Total Bilirubin AST Total Creatine Kinase CK-MB (CK-2) Total Protein Albumin Urine WBC (Auto) Urine Creatinine 12/21/19 12/21/19 12/21/19 Unknown Unknown Unknown WBC 12.3 H RBC Hgb Hct MCHC Lymph % (Auto) Cloud % (Auto) Cloud # Seg Neutrophils % Seg Neuts % (Manual) 93.0 H Lymphocytes % (Manual) 5.0 L Seg Neutrophils # Seg Neutrophils # Man 11.4 H Lymphocytes # (Manual) 0.6 L APTT D-Dimer ABG pH ABG pO2 ABG HCO3 ABG O2 Saturation ABG Base Excess ABG Hemoglobin Oxyhemoglobin Sodium Chloride Carbon Dioxide 21 L D BUN 73 H Creatinine 2.2 H D Glucose 361 H POC Glucose Hemoglobin A1c 10.0 H Lactic Acid Calcium 7.9 L Phosphorus Magnesium Total Bilirubin AST Total Creatine Kinase CK-MB (CK-2) Total Protein Albumin Urine WBC (Auto) Urine Creatinine 12/22/19 12/22/19 12/22/19 05:24 06:29 07:16 WBC RBC Hgb Hct MCHC Lymph % (Auto) Cloud % (Auto) Cloud # Seg Neutrophils % Seg Neuts % (Manual) Lymphocytes % (Manual) Seg Neutrophils # Seg Neutrophils # Man Lymphocytes # (Manual) APTT D-Dimer ABG pH ABG pO2 93.7 H ABG HCO3 30.4 H ABG O2 Saturation ABG Base Excess 4.4 H ABG Hemoglobin 12.8 L Oxyhemoglobin Sodium Chloride Carbon Dioxide BUN 111 H Creatinine 3.2 H Glucose 340 H POC Glucose 275 H Hemoglobin A1c Lactic Acid Calcium 8.1 L Phosphorus Magnesium Total Bilirubin AST Total Creatine Kinase CK-MB (CK-2) Total Protein Albumin Urine WBC (Auto) Urine Creatinine 12/22/19 12/22/19 12/22/19 11:27 12:58 15:30 WBC RBC Hgb Hct MCHC Lymph % (Auto) Cloud % (Auto) Cloud # Seg Neutrophils % Seg Neuts % (Manual) Lymphocytes % (Manual) Seg Neutrophils # Seg Neutrophils # Man Lymphocytes # (Manual) APTT D-Dimer ABG pH ABG pO2 ABG HCO3 ABG O2 Saturation ABG Base Excess ABG Hemoglobin Oxyhemoglobin Sodium Chloride Carbon Dioxide BUN Creatinine Glucose POC Glucose 345 H Hemoglobin A1c Lactic Acid Calcium Phosphorus 5.10 H Magnesium 3.90 H Total Bilirubin AST Total Creatine Kinase CK-MB (CK-2) Total Protein Albumin Urine WBC (Auto) Urine Creatinine 80.5 H 12/22/19 12/23/19 12/23/19 17:54 00:30 04:47 WBC RBC Hgb Hct MCHC Lymph % (Auto) Cloud % (Auto) Cloud # Seg Neutrophils % Seg Neuts % (Manual) Lymphocytes % (Manual) Seg Neutrophils # Seg Neutrophils # Man Lymphocytes # (Manual) APTT D-Dimer ABG pH ABG pO2 ABG HCO3 ABG O2 Saturation ABG Base Excess ABG Hemoglobin Oxyhemoglobin Sodium 146 H Chloride Carbon Dioxide BUN 107 H Creatinine 2.5 H Glucose 278 H POC Glucose 308 H 228 H Hemoglobin A1c Lactic Acid Calcium 7.7 L Phosphorus Magnesium Total Bilirubin AST Total Creatine Kinase CK-MB (CK-2) Total Protein Albumin Urine WBC (Auto) Urine Creatinine 12/23/19 12/23/19 12/23/19 04:47 05:50 06:06 WBC 12.0 H RBC Hgb Hct MCHC Lymph % (Auto) Cloud % (Auto) Cloud # Seg Neutrophils % Seg Neuts % (Manual) 82.0 H Lymphocytes % (Manual) 12.0 L Seg Neutrophils # Seg Neutrophils # Man 9.8 H Lymphocytes # (Manual) APTT D-Dimer ABG pH ABG pO2 59.0 L ABG HCO3 31.6 H ABG O2 Saturation 89.2 L ABG Base Excess 4.5 H ABG Hemoglobin 13.5 L Oxyhemoglobin 87.2 L Sodium Chloride Carbon Dioxide BUN Creatinine Glucose POC Glucose 263 H Hemoglobin A1c Lactic Acid Calcium Phosphorus Magnesium Total Bilirubin AST Total Creatine Kinase CK-MB (CK-2) Total Protein Albumin Urine WBC (Auto) Urine Creatinine 12/23/19 12/23/19 12/23/19 12:58 18:08 18:10 WBC RBC Hgb Hct MCHC Lymph % (Auto) Cloud % (Auto) Cloud # Seg Neutrophils % Seg Neuts % (Manual) Lymphocytes % (Manual) Seg Neutrophils # Seg Neutrophils # Man Lymphocytes # (Manual) APTT D-Dimer ABG pH ABG pO2 ABG HCO3 31.6 H ABG O2 Saturation ABG Base Excess 4.7 H ABG Hemoglobin 13.1 L Oxyhemoglobin 93.5 L Sodium Chloride Carbon Dioxide BUN Creatinine Glucose POC Glucose 206 H 328 H Hemoglobin A1c Lactic Acid Calcium Phosphorus Magnesium Total Bilirubin AST Total Creatine Kinase CK-MB (CK-2) Total Protein Albumin Urine WBC (Auto) Urine Creatinine 12/23/19 12/24/19 12/24/19 23:37 00:37 00:37 WBC RBC Hgb Hct MCHC Lymph % (Auto) Cloud % (Auto) Cloud # Seg Neutrophils % Seg Neuts % (Manual) 88.0 H Lymphocytes % (Manual) 5.0 L Seg Neutrophils # Seg Neutrophils # Man 9.6 H Lymphocytes # (Manual) 0.5 L APTT D-Dimer ABG pH ABG pO2 ABG HCO3 ABG O2 Saturation ABG Base Excess ABG Hemoglobin Oxyhemoglobin Sodium 152 H Chloride 109.9 H Carbon Dioxide BUN 89 H Creatinine 2.2 H Glucose 287 H POC Glucose 277 H Hemoglobin A1c Lactic Acid Calcium 7.5 L Phosphorus Magnesium Total Bilirubin AST Total Creatine Kinase CK-MB (CK-2) Total Protein Albumin Urine WBC (Auto) Urine Creatinine 12/24/19 12/24/19 12/24/19 05:25 05:36 06:23 WBC RBC Hgb Hct MCHC Lymph % (Auto) Cloud % (Auto) Cloud # Seg Neutrophils % Seg Neuts % (Manual) Lymphocytes % (Manual) Seg Neutrophils # Seg Neutrophils # Man Lymphocytes # (Manual) APTT D-Dimer ABG pH ABG pO2 72.2 L ABG HCO3 31.6 H ABG O2 Saturation ABG Base Excess 5.2 H ABG Hemoglobin 13.1 L Oxyhemoglobin 92.8 L Sodium Chloride Carbon Dioxide BUN Creatinine Glucose POC Glucose 204 H Hemoglobin A1c Lactic Acid Calcium Phosphorus Magnesium 3.10 H Total Bilirubin AST Total Creatine Kinase CK-MB (CK-2) Total Protein Albumin Urine WBC (Auto) Urine Creatinine 12/24/19 12/24/19 12/24/19 11:34 18:04 23:53 WBC RBC Hgb Hct MCHC Lymph % (Auto) Cloud % (Auto) Cloud # Seg Neutrophils % Seg Neuts % (Manual) Lymphocytes % (Manual) Seg Neutrophils # Seg Neutrophils # Man Lymphocytes # (Manual) APTT D-Dimer ABG pH ABG pO2 ABG HCO3 ABG O2 Saturation ABG Base Excess ABG Hemoglobin Oxyhemoglobin Sodium Chloride Carbon Dioxide BUN Creatinine Glucose POC Glucose 187 H 286 H 231 H Hemoglobin A1c Lactic Acid Calcium Phosphorus Magnesium Total Bilirubin AST Total Creatine Kinase CK-MB (CK-2) Total Protein Albumin Urine WBC (Auto) Urine Creatinine 12/25/19 12/25/19 12/25/19 04:52 05:22 05:22 WBC 12.0 H RBC Hgb Hct MCHC Lymph % (Auto) Cloud % (Auto) Cloud # Seg Neutrophils % Seg Neuts % (Manual) 76.0 H Lymphocytes % (Manual) 10.0 L Seg Neutrophils # Seg Neutrophils # Man 9.1 H Lymphocytes # (Manual) APTT D-Dimer ABG pH ABG pO2 68.3 L ABG HCO3 32.6 H ABG O2 Saturation 94.7 L ABG Base Excess 5.7 H ABG Hemoglobin 13.2 L Oxyhemoglobin 92.3 L Sodium 149 H Chloride 109.2 H Carbon Dioxide 33 H BUN 62 H Creatinine 1.7 H Glucose 245 H POC Glucose Hemoglobin A1c Lactic Acid Calcium 8.0 L Phosphorus Magnesium 2.90 H Total Bilirubin AST Total Creatine Kinase 195 H CK-MB (CK-2) Total Protein 5.8 L Albumin 2.3 L Urine WBC (Auto) Urine Creatinine 12/25/19 12/25/19 12/25/19 05:42 12:16 18:48 WBC RBC Hgb Hct MCHC Lymph % (Auto) Cloud % (Auto) Cloud # Seg Neutrophils % Seg Neuts % (Manual) Lymphocytes % (Manual) Seg Neutrophils # Seg Neutrophils # Man Lymphocytes # (Manual) APTT D-Dimer ABG pH ABG pO2 ABG HCO3 ABG O2 Saturation ABG Base Excess ABG Hemoglobin Oxyhemoglobin Sodium Chloride Carbon Dioxide BUN Creatinine Glucose POC Glucose 208 H 290 H 239 H Hemoglobin A1c Lactic Acid Calcium Phosphorus Magnesium Total Bilirubin AST Total Creatine Kinase CK-MB (CK-2) Total Protein Albumin Urine WBC (Auto) Urine Creatinine 12/26/19 12/26/19 12/26/19 00:06 04:09 04:48 WBC RBC Hgb Hct MCHC Lymph % (Auto) Cloud % (Auto) Cloud # Seg Neutrophils % Seg Neuts % (Manual) Lymphocytes % (Manual) Seg Neutrophils # Seg Neutrophils # Man Lymphocytes # (Manual) APTT D-Dimer ABG pH ABG pO2 75.6 L ABG HCO3 33.4 H ABG O2 Saturation ABG Base Excess 6.6 H ABG Hemoglobin Oxyhemoglobin 93.4 L Sodium 147 H Chloride Carbon Dioxide 32 H BUN 49 H Creatinine Glucose 257 H POC Glucose 188 H Hemoglobin A1c Lactic Acid Calcium Phosphorus Magnesium Total Bilirubin AST Total Creatine Kinase CK-MB (CK-2) Total Protein Albumin Urine WBC (Auto) Urine Creatinine 12/26/19 12/26/19 12/26/19 05:49 11:54 17:26 WBC RBC Hgb Hct MCHC Lymph % (Auto) Cloud % (Auto) Cloud # Seg Neutrophils % Seg Neuts % (Manual) Lymphocytes % (Manual) Seg Neutrophils # Seg Neutrophils # Man Lymphocytes # (Manual) APTT D-Dimer ABG pH ABG pO2 113.4 H ABG HCO3 31.9 H ABG O2 Saturation ABG Base Excess 6.7 H ABG Hemoglobin Oxyhemoglobin Sodium Chloride Carbon Dioxide BUN Creatinine Glucose POC Glucose 220 H 262 H Hemoglobin A1c Lactic Acid Calcium Phosphorus Magnesium Total Bilirubin AST Total Creatine Kinase CK-MB (CK-2) Total Protein Albumin Urine WBC (Auto) Urine Creatinine 12/26/19 12/26/19 12/27/19 17:46 23:41 04:52 WBC RBC Hgb Hct MCHC Lymph % (Auto) Cloud % (Auto) Cloud # Seg Neutrophils % Seg Neuts % (Manual) Lymphocytes % (Manual) Seg Neutrophils # Seg Neutrophils # Man Lymphocytes # (Manual) APTT D-Dimer ABG pH ABG pO2 ABG HCO3 ABG O2 Saturation ABG Base Excess ABG Hemoglobin Oxyhemoglobin Sodium Chloride Carbon Dioxide BUN 49 H Creatinine Glucose 184 H POC Glucose 321 H 228 H Hemoglobin A1c Lactic Acid Calcium Phosphorus Magnesium Total Bilirubin AST Total Creatine Kinase CK-MB (CK-2) Total Protein Albumin Urine WBC (Auto) Urine Creatinine 12/27/19 12/27/19 12/27/19 04:52 05:21 11:59 WBC 16.1 H RBC Hgb Hct MCHC Lymph % (Auto) 9.1 L Cloud % (Auto) 8.5 H Cloud # 1.4 H Seg Neutrophils % 80.6 H Seg Neuts % (Manual) Lymphocytes % (Manual) Seg Neutrophils # 13.0 H Seg Neutrophils # Man Lymphocytes # (Manual) APTT D-Dimer ABG pH ABG pO2 ABG HCO3 ABG O2 Saturation ABG Base Excess ABG Hemoglobin Oxyhemoglobin Sodium Chloride Carbon Dioxide BUN Creatinine Glucose POC Glucose 176 H 200 H Hemoglobin A1c Lactic Acid Calcium Phosphorus Magnesium Total Bilirubin AST Total Creatine Kinase CK-MB (CK-2) Total Protein Albumin Urine WBC (Auto) Urine Creatinine 12/27/19 12/27/19 12/28/19 17:44 23:52 04:14 WBC RBC Hgb Hct MCHC Lymph % (Auto) Cloud % (Auto) Cloud # Seg Neutrophils % Seg Neuts % (Manual) Lymphocytes % (Manual) Seg Neutrophils # Seg Neutrophils # Man Lymphocytes # (Manual) APTT D-Dimer ABG pH ABG pO2 ABG HCO3 ABG O2 Saturation ABG Base Excess ABG Hemoglobin Oxyhemoglobin Sodium Chloride Carbon Dioxide BUN 52 H Creatinine Glucose 219 H POC Glucose 211 H 184 H Hemoglobin A1c Lactic Acid Calcium Phosphorus Magnesium Total Bilirubin AST Total Creatine Kinase CK-MB (CK-2) Total Protein Albumin Urine WBC (Auto) Urine Creatinine 12/28/19 12/28/19 12/28/19 04:14 06:32 12:15 WBC 15.1 H RBC Hgb Hct MCHC Lymph % (Auto) 10.6 L Cloud % (Auto) 7.4 H Cloud # 1.1 H Seg Neutrophils % 80.2 H Seg Neuts % (Manual) Lymphocytes % (Manual) Seg Neutrophils # 12.1 H Seg Neutrophils # Man Lymphocytes # (Manual) APTT D-Dimer ABG pH ABG pO2 ABG HCO3 ABG O2 Saturation ABG Base Excess ABG Hemoglobin Oxyhemoglobin Sodium Chloride Carbon Dioxide BUN Creatinine Glucose POC Glucose 226 H 209 H Hemoglobin A1c Lactic Acid Calcium Phosphorus Magnesium Total Bilirubin AST Total Creatine Kinase CK-MB (CK-2) Total Protein Albumin Urine WBC (Auto) Urine Creatinine 12/28/19 12/28/19 12/29/19 17:42 23:52 05:08 WBC RBC Hgb Hct MCHC Lymph % (Auto) Cloud % (Auto) Cloud # Seg Neutrophils % Seg Neuts % (Manual) Lymphocytes % (Manual) Seg Neutrophils # Seg Neutrophils # Man Lymphocytes # (Manual) APTT D-Dimer ABG pH ABG pO2 ABG HCO3 ABG O2 Saturation ABG Base Excess ABG Hemoglobin Oxyhemoglobin Sodium Chloride Carbon Dioxide BUN 43 H Creatinine Glucose 108 H POC Glucose 159 H 167 H Hemoglobin A1c Lactic Acid Calcium 8.1 L Phosphorus Magnesium Total Bilirubin AST Total Creatine Kinase CK-MB (CK-2) Total Protein Albumin Urine WBC (Auto) Urine Creatinine 12/29/19 12:23 WBC RBC Hgb Hct MCHC Lymph % (Auto) Cloud % (Auto) Cloud # Seg Neutrophils % Seg Neuts % (Manual) Lymphocytes % (Manual) Seg Neutrophils # Seg Neutrophils # Man Lymphocytes # (Manual) APTT D-Dimer ABG pH ABG pO2 ABG HCO3 ABG O2 Saturation ABG Base Excess ABG Hemoglobin Oxyhemoglobin Sodium Chloride Carbon Dioxide BUN Creatinine Glucose POC Glucose 175 H Hemoglobin A1c Lactic Acid Calcium Phosphorus Magnesium Total Bilirubin AST Total Creatine Kinase CK-MB (CK-2) Total Protein Albumin Urine WBC (Auto) Urine Creatinine Allied health notes reviewed: nursing
[2019-12-29] MEDS: QUEtiapine 100 MG TAB PO SCH (22:03)
[2019-12-29] MEDS: ENOXAPARIN 40 MG/0.4 ML INJ SUB-Q SCH (22:05)
[2019-12-29] MEDS: INSULIN GLARGINE 100 UNITS/ML SUB-Q SCH (22:07)
[2019-12-30] MEDS: IPRATROPIUM/ALBUTEROL SULFATE 3 ML AMPUL.NEB IH SCH ×4 (02:44→20:17)
[2019-12-30] MEDS: hydrALAZINE 25 MG TAB PO SCH ×3 (05:42→21:41)
[2019-12-30] MEDS: cloNIDine 0.1 MG TAB PO SCH ×3 (05:43→21:41)
[2019-12-30] MEDS: BUDESONIDE 0.5 MG/2 ML NEBU IH SCH ×2 (07:41→20:18)
[2019-12-30] MEDS: ARFORMOTEROL 15 MCG/2 ML NEBU IH SCH ×2 (07:41→20:17)
[2019-12-30] MEDS: NICOTINE 21 MG/24 HR PATCH TD SCH (09:56)
[2019-12-30] MEDS: INSULIN LISPRO 100 UNIT/ML SUB-Q SCH ×4 (09:56→21:42)
[2019-12-30] MEDS: FAMOTIDINE 20 MG TAB PO SCH ×2 (09:56→21:41)
[2019-12-30] MEDS: DOCUSATE SODIUM 100 MG/10 ML ORAL LIQD FEEDTUBE SCH ×2 (10:02→21:41)
--- NOTE | 2019-12-30 10:55 | Progress Note ---
Assessment and Plan Assessment and plan: --Acute respiratory failure with hypoxia/ intubation/extubated On high flow oxygen, titrate O2 sats to more than 90% nebulizers IV steroids antibiotics, Pulmonary critical following --Hypernatremia resolved closely monitor electrolytes closely monitor, free water flushes --AYSE : Vasomotor nephropathy Resolved IV fluids for now in the form of D5W Significantly improved, creatinine today 1.4 Avoid nephrotoxins -- COPD with acute exacerbation Continue duo nebs, IV steroids and IV antibiotics --Metabolic encephalopathy Patient intubated --left lower lobe pneumonia Community-acquired pneumonia Completed Levaquin and Vanco Monitor off abx and supportive care --Leukocytosis/lactic acidosis sepsis secondary to pneumonia --Sepsis secondary to pneumonia; Improving --Hypertension; Moderate control ,controlled --tobacco use: Smoking cessation on Nicoderm patch --Severe protein calorie malnutrition nutrition supplements and supportive care Tube feeding per protocol --DVT prophylaxis On Heparin and GI prophylaxis Monitor closely and adjust management as needed Patient may be transferred to telemetry if okay with pulmonary Physical therapy occupational therapy DC planning per case management Plan of care reviewed with the patient and his nurse Critical care time 34 minutes History Interval history: Patient seen and examined at the bedside Multiple family members in the room Patient feels better wants to go home Vital signs noted Hospitalist Physical - Constitutional Vitals: Temp Pulse Resp BP Pulse Ox 98.2 F 73 18 129/57 95 12/30/19 09:00 12/30/19 09:00 12/30/19 10:00 12/30/19 09:00 12/30/19 09:00 General appearance: Present: no acute distress, well-nourished, obese, other (Intubated on vent) - EENT Eyes: Present: PERRL, EOM intact - Neck Neck: Present: supple, normal ROM - Respiratory Respiratory effort: normal Respiratory: bilateral: diminished, negative: rales, rhonchi, wheezing - Cardiovascular Rhythm: regular Heart Sounds: Present: S1 & S2 - Extremities Extremities: no ischemia, No edema - Abdominal General gastrointestinal: soft, non-tender, non-distended, normal bowel sounds - Integumentary Integumentary: Present: clear, warm - Psychiatric Psychiatric: appropriate mood/affect, cooperative - Neurologic Neurologic: moves all extremities MITCHELL score - Mitchell Score Age > 65: (0) No Aspirin use within the Past 7 Days: (0) No 3 or more CAD Risk Factors: (0) No 2 or more Angina events in past 24 hrs: (0) No Known CAD with more than 50% Stenosis: (0) No Elevated Cardiac Markers: (0) No ST Deviation Greater than 0.5mm: (0) No MITCHELL Score: 0 Results - Labs CBC & Chem 7: 12/28/19 04:14 12/30/19 05:23 Labs: Laboratory Last Values WBC 15.1 K/mm3 (4.5-11.0) H 12/28/19 04:14 RBC 4.32 M/mm3 (3.65-5.03) 12/28/19 04:14 Hgb 12.7 gm/dl (11.8-15.2) 12/28/19 04:14 Hct 39.4 % (35.5-45.6) 12/28/19 04:14 MCV 91 fl (84-94) 12/28/19 04:14 MCH 29 pg (28-32) 12/28/19 04:14 MCHC 32 % (32-34) 12/28/19 04:14 RDW 13.9 % (13.2-15.2) 12/28/19 04:14 Plt Count 212 K/mm3 (140-440) 12/28/19 04:14 Lymph % (Auto) 10.6 % (13.4-35.0) L 12/28/19 04:14 [place] % (Auto) 7.4 % (0.0-7.3) H 12/28/19 04:14 Eos % (Auto) 1.2 % (0.0-4.3) 12/28/19 04:14 Baso % (Auto) 0.6 % (0.0-1.8) 12/28/19 04:14 Lymph # 1.6 K/mm3 (1.2-5.4) 12/28/19 04:14 [place] # 1.1 K/mm3 (0.0-0.8) H 12/28/19 04:14 Eos # 0.2 K/mm3 (0.0-0.4) 12/28/19 04:14 Baso # 0.1 K/mm3 (0.0-0.1) 12/28/19 04:14 Add Manual Diff Complete 12/25/19 05:22 Total Counted 100 12/25/19 05:22 Seg Neutrophils % 80.2 % (40.0-70.0) H 12/28/19 04:14 Seg Neuts % (Manual) 76.0 % (40.0-70.0) H 12/25/19 05:22 Band Neutrophils % 2.0 % 12/25/19 05:22 Lymphocytes % (Manual) 10.0 % (13.4-35.0) L 12/25/19 05:22 Reactive Lymphs % (Man) 0 % 12/25/19 05:22 Monocytes % (Manual) 6.0 % (0.0-7.3) 12/25/19 05:22 Eosinophils % (Manual) 2.0 % (0.0-4.3) 12/25/19 05:22 Basophils % (Manual) 0 % (0.0-1.8) 12/25/19 05:22 Metamyelocytes % 4.0 % 12/25/19 05:22 Myelocytes % 0 % 12/25/19 05:22 Promyelocytes % 0 % 12/25/19 05:22 Blast Cells % 0 % 12/25/19 05:22 Nucleated RBC % Not Reportable 12/25/19 05:22 Seg Neutrophils # 12.1 K/mm3 (1.8-7.7) H 12/28/19 04:14 Seg Neutrophils # Man 9.1 K/mm3 (1.8-7.7) H 12/25/19 05:22 Band Neutrophils # 0.2 K/mm3 12/25/19 05:22 Lymphocytes # (Manual) 1.2 K/mm3 (1.2-5.4) 12/25/19 05:22 Abs React Lymphs (Man) 0.0 K/mm3 12/25/19 05:22 Monocytes # (Manual) 0.7 K/mm3 (0.0-0.8) 12/25/19 05:22 Eosinophils # (Manual) 0.2 K/mm3 (0.0-0.4) 12/25/19 05:22 Basophils # (Manual) 0.0 K/mm3 (0.0-0.1) 12/25/19 05:22 Metamyelocytes # 0.5 K/mm3 12/25/19 05:22 Myelocytes # 0.0 K/mm3 12/25/19 05:22 Promyelocytes # 0.0 K/mm3 12/25/19 05:22 Blast Cells # 0.0 K/mm3 12/25/19 05:22 WBC Morphology Not Reportable 12/25/19 05:22 Hypersegmented Neuts Not Reportable 12/25/19 05:22 Hyposegmented Neuts Not Reportable 12/25/19 05:22 Hypogranular Neuts Not Reportable 12/25/19 05:22 Smudge Cells Not Reportable 12/25/19 05:22 Toxic Granulation Not Reportable 12/25/19 05:22 Toxic Vacuolation Not Reportable 12/25/19 05:22 Dohle Bodies Not Reportable 12/25/19 05:22 Pelger-Huet Anomaly Not Reportable 12/25/19 05:22 Jennifer Rods Not Reportable 12/25/19 05:22 Platelet Estimate Consistent w auto 12/25/19 05:22 Clumped Platelets Not Reportable 12/25/19 05:22 Plt Clumps, EDTA Not Reportable 12/25/19 05:22 Large Platelets Not Reportable 12/25/19 05:22 Giant Platelets Not Reportable 12/25/19 05:22 Platelet Satelliting Not Reportable 12/25/19 05:22 Plt Morphology Comment Not Reportable 12/25/19 05:22 RBC Morphology Normal 12/25/19 05:22 Dimorphic RBCs Not Reportable 12/25/19 05:22 Polychromasia Not Reportable 12/25/19 05:22 Hypochromasia Not Reportable 12/25/19 05:22 Poikilocytosis Not Reportable 12/25/19 05:22 Anisocytosis Not Reportable 12/25/19 05:22 Microcytosis Not Reportable 12/25/19 05:22 Macrocytosis Not Reportable 12/25/19 05:22 Spherocytes Not Reportable 12/25/19 05:22 Pappenheimer Bodies Not Reportable 12/25/19 05:22 Sickle Cells Not Reportable 12/25/19 05:22 Target Cells Not Reportable 12/25/19 05:22 Tear Drop Cells Not Reportable 12/25/19 05:22 Ovalocytes Not Reportable 12/25/19 05:22 Helmet Cells Not Reportable 12/25/19 05:22 Orosco-Harper Bodies Not Reportable 12/25/19 05:22 [place] Rings Not Reportable 12/25/19 05:22 Ed Cells Not Reportable 12/25/19 05:22 Bite Cells Not Reportable 12/25/19 05:22 Crenated Cell Not Reportable 12/25/19 05:22 Elliptocytes Not Reportable 12/25/19 05:22 Acanthocytes (Spur) Not Reportable 12/25/19 05:22 Rouleaux Not Reportable 12/25/19 05:22 Hemoglobin C Crystals Not Reportable 12/25/19 05:22 Schistocytes Not Reportable 12/25/19 05:22 Malaria parasites Not Reportable 12/25/19 05:22 León Bodies Not Reportable 12/25/19 05:22 Hem Pathologist Commnt No 12/25/19 05:22 PT 13.9 Sec. (12.2-14.9) 12/18/19 15:28 INR 1.06 (0.87-1.13) 12/18/19 15:28 APTT 72.2 Sec. (24.2-36.6) H* 12/18/19 15:28 D-Dimer 2277.88 ng/mlDDU (0-234) H 12/18/19 10:30 ABG pH 7.442 pH Units (7.350-7.450) 12/26/19 17:26 ABG pCO2 47.8 mm Hg 12/26/19 17:26 ABG pO2 113.4 mm Hg (80.0-90.0) H 12/26/19 17:26 ABG HCO3 31.9 mmol/L (20.0-26.0) H 12/26/19 17:26 ABG O2 Saturation 98.1 % (95.0-99.0) 12/26/19 17:26 ABG O2 Content 19.4 (0.0-44) 12/26/19 17: ABG Base Excess 6.7 mmol/L (-2.0-3.0) H 12/26/19 17:26 ABG Hemoglobin 14.3 gm/dl (14.0-18.0) 12/26/19 17:26 ABG Carboxyhemoglobin 1.4 % (0.0-5.0) 12/26/19 17:26 ABG Methemoglobin 0.7 % (0.0-1.5) 12/26/19 17:26 Oxyhemoglobin 96.1 % (95.0-99.0) 12/26/19 17:26 FiO2 50 % 12/26/19 17:26 Sodium 135 mmol/L (137-145) L 12/30/19 05:23 Potassium 3.7 mmol/L (3.6-5.0) 12/30/19 05:23 Chloride 99.4 mmol/L (98-107) 12/30/19 05:23 Carbon Dioxide 24 mmol/L (22-30) 12/30/19 05:23 Anion Gap 15 mmol/L 12/30/19 05:23 BUN 39 mg/dL (9-20) H 12/30/19 05:23 Creatinine 1.5 mg/dL (0.8-1.5) 12/30/19 05:23 Estimated GFR 48 ml/min 12/30/19 05:23 BUN/Creatinine Ratio 26 % 12/30/19 05:23 Glucose 147 mg/dL (75-100) H 12/30/19 05:23 POC Glucose 153 (70-105) H 12/30/19 09:13 Hemoglobin A1c 10.0 % (4-6) H 12/21/19 Unknown Lactic Acid 1.70 mmol/L (0.7-2.0) 12/21/19 09:48 Calcium 8.0 mg/dL (8.4-10.2) L 12/30/19 05:23 Phosphorus 3.30 mg/dL (2.5-4.5) 12/25/19 05:22 Magnesium 2.90 mg/dL (1.7-2.3) H 12/25/19 05:22 Total Bilirubin 0.50 mg/dL (0.1-1.2) 12/25/19 05:22 AST 31 units/L (5-40) 12/25/19 05:22 ALT 35 units/L (7-56) 12/25/19 05:22 Alkaline Phosphatase 49 units/L (35-129) 12/25/19 05:22 Total Creatine Kinase 195 units/L (55-170) H 12/25/19 05:22 CK-MB (CK-2) 8.7 ng/mL (0.0-4.0) H 12/19/19 12:04 CK-MB (CK-2) Rel Index 0.2 (0-4) 12/19/19 12:04 Troponin T < 0.010 ng/mL (0.00-0.029) 12/19/19 12:04 NT-Pro-B Natriuret Pep 609.1 pg/mL (0-900) 12/18/19 12:06 Total Protein 5.8 g/dL (6.3-8.2) L 12/25/19 05:22 Albumin 2.3 g/dL (3.9-5) L 12/25/19 05:22 Albumin/Globulin Ratio 0.7 % 12/25/19 05:22 Procalcitonin 3.24 ng/mL (<0.15) 12/19/19 12:04 Urine Color Red (Yellow) 12/18/19 11:56 Urine Turbidity Slightly-cloudy (Clear) 12/18/19 11:56 Urine pH 6.0 (5.0-7.0) 12/18/19 11:56 Ur Specific Moody 1.017 (1.003-1.030) 12/18/19 11:56 Urine Protein 100 mg/dl mg/dL (Negative) 12/18/19 11:56 Urine Glucose (UA) >=500 mg/dL (Negative) 12/18/19 11:56 Urine Ketones 20 mg/dL (Negative) 12/18/19 11:56 Urine Blood Lg (Negative) 12/18/19 11:56 Urine Nitrite Neg (Negative) 12/18/19 11:56 Urine Bilirubin Neg (Negative) 12/18/19 11:56 Urine Urobilinogen < 2.0 mg/dL (<2.0) 12/18/19 11:56 Ur Leukocyte Esterase Neg (Negative) 12/18/19 11:56 Urine WBC (Auto) 58.0 /HPF (0.0-6.0) H 12/18/19 11:56 Urine RBC (Auto) > 182.0 /HPF (0.0-6.0) 12/18/19 11:56 U Epithel Cells (Auto) 4.0 /HPF (0-13.0) 12/18/19 11:56 Urine Mucus Few /HPF 12/18/19 11:56 Urine Yeast (Budding) 1+ /HPF 12/18/19 11:56 Urine Creatinine 80.5 mg/dL (0.1-20.0) H 12/22/19 15:30 Urine Sodium 23 mmol/L 12/22/19 15:30 Vancomycin Trough 11.4 ug/mL (5.0-20.0) 12/20/19 09:56 Random Vancomycin 5.2 ug/mL (0-40.0) 12/24/19 05:25 Robertson/IV: Voiding Method Condom Catheter IV Catheter Type [Right] Peripheral IV IV Catheter Type [Right INT / Saline Lock Forearm] IV Catheter Type [Left Forearm Peripheral IV ] IV Catheter Type [Left INT / Saline Lock Antecubital] Active Medications - Current Medications Current Medications: Generic Name Dose Route Start Last Admin Trade Name Freq PRN Reason Stop Dose Admin Acetaminophen 650 mg 12/18/19 21:26 Tylenol PO Q4H PRN Pain MILD(1-3)/Fever >100.5/CHAUDHRY Albuterol 2.5 mg 12/18/19 21:34 Proventil IH Q4HRT PRN Shortness Of Breath Albuterol/Ipratropium 1 ampul 12/18/19 20:45 12/30/19 07:41 Duoneb *Not For Prn Use* IH 1 ampul Q6HRT MARIAN Administration Lipase/Protease/Amylase 1 each 12/20/19 18:25 Pancrekacy Welch 10,500 Unit FEEDTUBE PRN PRN For Clogged Feeding Tube Arformoterol Tartrate 15 mcg 12/19/19 20:00 12/30/19 07:41 Brovana Nebu IH 15 mcg Q12HRT MARIAN Administration Budesonide 0.5 mg 12/19/19 20:00 12/30/19 07:41 Pulmicort IH 0.5 mg Q12HRT MARIAN Administration Clonidine HCl 0.1 mg 12/26/19 10:00 12/30/19 05:43 Catapres PO 0.1 mg Q8HR MARIAN Administration Docusate Sodium 100 mg 12/25/19 22:00 12/30/19 10:02 Colace FEEDTUBE Not Given BID MARIAN Enoxaparin Sodium 40 mg 12/25/19 22:00 12/29/19 22:05 Enoxaparin SUB-Q 40 mg QDAY@2200 MARIAN Administration Famotidine 20 mg 12/25/19 10:00 12/30/19 09:56 Pepcid PO 20 mg BID MARIAN Administration Hydralazine HCl 25 mg 12/19/19 14:00 12/30/19 05:42 Apresoline PO 25 mg Q8HR MARIAN Administration Hydralazine HCl 5 mg 12/26/19 03:19 12/29/19 12:02 Apresoline IV 5 mg Q6H PRN Administration Hypertension Hydrophilic Ointment 1 applic 12/20/19 12:12 Vaseline Lip Therapy TP Q2HR PRN Dry Lips Insulin Glargine 15 units 12/22/19 22:00 12/29/19 22:07 Lantus SUB-Q 15 units QHS MARIAN Administration Insulin Human Lispro 0 unit 12/29/19 11:30 12/30/19 09:56 Humalog SUB-Q 2 unit ACHS MARIAN Administration Protocol Metoclopramide HCl 10 mg 12/18/19 21:26 Reglan IV Q6H PRN Nausea And Vomiting Multi-Ingred Cream/Lotion/Oil/Oint 1 applic 12/20/19 12:12 Artificial Tears Ophth Oint OU Q4HR PRN Dry Eye(s) Nicotine 21 mg 12/20/19 10:00 12/30/19 09:56 Habitrol TD 21 mg QDAY MARIAN Administration Ondansetron HCl 4 mg 12/18/19 21:26 Zofran IV Q3H PRN Nausea And Vomiting Oxycodone/Acetaminophen 1 tab 12/18/19 21:26 Percocet 5/325 PO Q6H PRN Pain, Moderate (4-6) Quetiapine Fumarate 100 mg 12/29/19 22:00 12/29/19 22:03 Seroquel PO 100 mg QHS MARIAN Administration Zolpidem Tartrate 5 mg 12/28/19 18:41 Ambien PO QHS PRN Sleep Nutrition/Malnutrition Assess - Dietary Evaluation Nutrition/Malnutrition Findings: Nutrition Notes Start: 12/19/19 11:42 Freq: Status: Active Protocol: Document 12/29/19 15:16 LM (Rec: 12/29/19 15:19 LM [id number]) Nutrition Notes Initial or Follow up Brief Note Current Diagnosis COPD,Sepsis,Respiratory Failure Other Pertinent Diagnosis pneu, nicotine dependence, DVT Current Diet Mechanical soft Labs/Tests BUN 43 Pertinent Medications Reviewed Height 5 ft 9 in Weight 96.2 kg [place] Body Weight (kg) 72.72 BMI 31.3 Weight Status Obese Subjective/Other Information Pt extubated. Diet advanced to mechanical soft. Nutrition Intervention Follow-Up By: 01/01/20 Additional Comments F/U for intakes
--- NOTE | 2019-12-30 13:44 | Progress Note ---
Assessment and Plan 1. Acute kidney injury: Likely vasomotor AYSE in the setting of sepsis and possible rhabdo. Renal US negative for hydro. Renal function is better. Monitor renal function. Avoid nephrotoxic agents. Meds dosage based on GFR. 2. FEN: Metabolic acidosis, improved, monitor. Mild Hypernatremia, monitor. Mild hypokalemia, replete K, monitor. Monitor lytes. 3. Acute respiratory failure with hypoxia: Was not able to tolerate transition to BiPap 12/24 due to increased work of breathing. Was orally intubated after failing BiPAP. Extubated 12/26 and was on HFNC O2. Currently NC O2. Pulmonology following. 4. Left lower lobe pneumonia: Confirmed via chest xray on admission. Community-acquired. S/p Abx. 5. Sepsis: 2/2 pneumonia. Treated. 6. Metabolic encephalopathy: Improved. 8. Hypertension: BP controlled. Monitor BP closely. 9. Tobacco abuse: On Nicoderm patch. 10. Fevers: Afebrile overnight. Monitor closely. Subjective Interval history: Patient transferred to 4th floor. Doing ok. Multiple family members at the bedside. Objective - Examination: General appearance: well-developed, well-nourished, appears stated age, obese, NC O2 HEENT: GABRIEL, mucous membranes moist Neck: neck supple, trachea midline Respiratory: Clear to Auscultation Heart: regular, S1S2, no murmurs Gastrointestinal: soft, normoactive bowel sounds, not tendern, nor distended Integumentary: no rash, warm and dry Neurologic: alert, appropriate verbal communication, oriented Ext: no edema noted Psychiatric: calm, cooperative Subjective Date of service: 12/30/19 Principal diagnosis: Ac hypoxemic resp failure; ARDS; Rodrigue pneumonia; Severe Sepsis; Rhabdomyolys Objective - Vital Signs Vital signs: Vital Signs - 12hr 12/30/19 12/30/19 12/30/19 04:01 04:12 07:41 Temperature 98.4 F Pulse Rate 69 72 Pulse Rate [ 63 Anterior Bilateral Throughout] Respiratory 18 Rate Respiratory 20 Rate [Anterior Bilateral Throughout] Blood Pressure 135/62 Blood Pressure [Right] O2 Sat by Pulse 92 92 Oximetry 12/30/19 12/30/19 12/30/19 09:00 10:00 11:44 Temperature 98.2 F Pulse Rate 73 71 Pulse Rate [ Anterior Bilateral Throughout] Respiratory 18 18 Rate Respiratory Rate [Anterior Bilateral Throughout] Blood Pressure 129/57 137/58 Blood Pressure [Right] O2 Sat by Pulse 95 94 Oximetry 12/30/19 12/30/19 12/30/19 11:51 12:01 13:24 Temperature 97.8 F Pulse Rate 74 64 74 Pulse Rate [ Anterior Bilateral Throughout] Respiratory 18 Rate Respiratory Rate [Anterior Bilateral Throughout] Blood Pressure 137/58 Blood Pressure 137/58 [Right] O2 Sat by Pulse 93 Oximetry - Lab 12/28/19 04:14 12/30/19 05:23 Most recent lab results ABG pH 7.442 pH Units (7.350-7.450) 12/26/19 17:26 ABG pCO2 47.8 mm Hg 12/26/19 17:26 ABG pO2 113.4 mm Hg (80.0-90.0) H 12/26/19 17:26 ABG HCO3 31.9 mmol/L (20.0-26.0) H 12/26/19 17:26 ABG O2 Saturation 98.1 % (95.0-99.0) 12/26/19 17:26 Calcium 8.0 mg/dL (8.4-10.2) L 12/30/19 05:23 Phosphorus 3.30 mg/dL (2.5-4.5) 12/25/19 05:22 Magnesium 2.90 mg/dL (1.7-2.3) H 12/25/19 05:22 Urine Creatinine 80.5 mg/dL (0.1-20.0) H 12/22/19 15:30 Urine Sodium 23 mmol/L 12/22/19 15:30 Medications & Allergies - Medications Allergies/Adverse Reactions: Allergies Penicillins Allergy (Verified 12/18/19 22:48) Anaphylaxis VERIFIED WITH PT AND NURSE Home Medications: Home Medications Medication Instructions Recorded Confirmed Last Taken Type No Known Home Medications [No 12/19/19 12/19/19 Unknown History Reported Home Medications] Active Medications: Generic Name Dose Route Start Last Admin Trade Name Freq PRN Reason Stop Dose Admin Acetaminophen 650 mg 12/18/19 21:26 Tylenol PO Q4H PRN Pain MILD(1-3)/Fever >100.5/CHAUDHRY Albuterol 2.5 mg 12/18/19 21:34 Proventil IH Q4HRT PRN Shortness Of Breath Albuterol/Ipratropium 1 ampul 12/18/19 20:45 12/30/19 13:24 Duoneb *Not For Prn Use* IH 1 ampul Q6HRT MARIAN Administration Lipase/Protease/Amylase 1 each 12/20/19 18:25 Elidia Welch 10,500 Unit FEEDTUBE PRN PRN For Clogged Feeding Tube Arformoterol Tartrate 15 mcg 12/19/19 20:00 12/30/19 07:41 Brovana Nebu IH 15 mcg Q12HRT MARIAN Administration Budesonide 0.5 mg 12/19/19 20:00 12/30/19 07:41 Pulmicort IH 0.5 mg Q12HRT MARIAN Administration Clonidine HCl 0.1 mg 12/26/19 10:00 12/30/19 13:24 Catapres PO 0.1 mg Q8HR MARIAN Administration Docusate Sodium 100 mg 12/25/19 22:00 12/30/19 10:02 Colace FEEDTUBE Not Given BID MARIAN Enoxaparin Sodium 40 mg 12/25/19 22:00 12/29/19 22:05 Enoxaparin SUB-Q 40 mg QDAY@2200 MARIAN Administration Famotidine 20 mg 12/25/19 10:00 12/30/19 09:56 Pepcid PO 20 mg BID MARIAN Administration Hydralazine HCl 25 mg 12/19/19 14:00 12/30/19 13:24 Apresoline PO 25 mg Q8HR MARIAN Administration Hydralazine HCl 5 mg 12/26/19 03:19 12/29/19 12:02 Apresoline IV 5 mg Q6H PRN Administration Hypertension Hydrophilic Ointment 1 applic 12/20/19 12:12 Vaseline Lip Therapy TP Q2HR PRN Dry Lips Insulin Glargine 15 units 12/22/19 22:00 12/29/19 22:07 Lantus SUB-Q 15 units QHS MARIAN Administration Insulin Human Lispro 0 unit 12/29/19 11:30 12/30/19 12:31 Humalog SUB-Q Not Given ACHS [facility] Protocol Metoclopramide HCl 10 mg 12/18/19 21:26 Reglan IV Q6H PRN Nausea And Vomiting Multi-Ingred Cream/Lotion/Oil/Oint 1 applic 12/20/19 12:12 Artificial Tears Ophth Oint OU Q4HR PRN Dry Eye(s) Nicotine 21 mg 12/20/19 10:00 12/30/19 09:56 Habitrol TD 21 mg QDAY MARIAN Administration Ondansetron HCl 4 mg 12/18/19 21:26 Zofran IV Q3H PRN Nausea And Vomiting Oxycodone/Acetaminophen 1 tab 12/18/19 21:26 Percocet 5/325 PO Q6H PRN Pain, Moderate (4-6) Quetiapine Fumarate 100 mg 12/29/19 22:00 12/29/19 22:03 Seroquel PO 100 mg QHS MARIAN Administration Zolpidem Tartrate 5 mg 12/28/19 18:41 Ambien PO QHS PRN Sleep
[2019-12-30] MEDS ORDERED: POTASSIUM CHLORIDE ER 20 MEQ TAB PO ONE (13:46)
--- NOTE | 2019-12-30 15:35 | Progress Note ---
Assessment and Plan Acute hypoxemic respiratory failure Bilateral pneumonia (CAP/Aspiration) Possible EtOH abuse with withdrawals Possible COPD Leukocytosis. Elevated D-dimer. Hyponatremia (? SIADH) Mild metabolic acidosis. Lactic acidosis. Severe Sepsis Hyperbilirubinemia. Elevated serum transaminases. Possible UTI Rhabdomyolysis - continue qhs BIPAP - outpatient PFT's - continue HFNC via Vapotherm system - continue prn Ambien for insomnia - contyinue Lantus - continue Daily SAT and SBT assessment as tolerated - continue glycemic control per SSI for target blood glucose < 180 mg/dL (avoid hypoglycemia) - continue to wean supplemental oxygen for target O2 sat's > 90% acutely - continue bronchodilators with pulmonary hygiene per RT - wean per pulmonary driven protocols otherwise - s/p empiric antibiotics (Follow clinically / trend WBC) - prn analgesia per pain score - Maintenance of sleep-wake cycle, avoid delirium - aspiration precautions - G.I. & VTE prophylaxis - PT/OT exercises as tolerated - continue mobility protocols for pressure ulcer prophylaxis - Monitor hemodynamics closely - continue other care per attending / other consultants - discharge planning ongoing concurrently .... Re-evaluate in am & prn CONDITION: IMPROVED PROGNOSIS: IMPROVED CODE STATUS: FULL CODE Subjective Date of service: 12/30/19 Principal diagnosis: Ac hypoxemic resp failure; ARDS; Rodrigue pneumonia; Severe Seps is; Rhabdomyolys Interval history: Patient is seen today for: Acute hypoxemic respiratory failure; ARDS; Bilateral pneumonia (CAP/Aspiration); Possible COPD; Leukocytosis.; Elevated D-dimer; Hyponatremia (? SIADH); Severe Sepsis; Elevated serum transaminases; Rhabdomyolysis Seen and examined at bedside; 24hour events reviewed; nursing and respiratory care staff consulted; no adverse overnight events reported to me; laying in bed; remains on oxygen Objective Vital Signs - 12hr 12/30/19 12/30/19 12/30/19 04:01 04:12 07:41 Temperature 98.4 F Pulse Rate 69 72 Pulse Rate [ 63 Anterior Bilateral Throughout] Pulse Rate [ Anterior Bilateral] Respiratory 18 Rate Respiratory 20 Rate [Anterior Bilateral Throughout] Respiratory Rate [Anterior Bilateral] Blood Pressure 135/62 Blood Pressure [Right] O2 Sat by Pulse 92 92 Oximetry 12/30/19 12/30/19 12/30/19 09:00 10:00 11:44 Temperature 98.2 F Pulse Rate 73 71 Pulse Rate [ Anterior Bilateral Throughout] Pulse Rate [ Anterior Bilateral] Respiratory 18 18 Rate Respiratory Rate [Anterior Bilateral Throughout] Respiratory Rate [Anterior Bilateral] Blood Pressure 129/57 137/58 Blood Pressure [Right] O2 Sat by Pulse 95 94 Oximetry 12/30/19 12/30/19 12/30/19 11:51 12:01 13:24 Temperature 97.8 F Pulse Rate 74 64 74 Pulse Rate [ 67 Anterior Bilateral Throughout] Pulse Rate [ 68 Anterior Bilateral] Respiratory 18 Rate Respiratory 20 Rate [Anterior Bilateral Throughout] Respiratory 18 Rate [Anterior Bilateral] Blood Pressure 137/58 Blood Pressure 137/58 [Right] O2 Sat by Pulse 93 Oximetry Constitutional: no acute distress, other (elderly obese CM resting in bed with mildly increased resp effort) Eyes: non-icteric ENT: oropharynx moist, other (Mallampati 3) Neck: supple, no lymphadenopathy, no JVD, other (large neck circumference) Effort: mildly labored Ascultation: Bilateral: diminished breath sounds, rhonchi Percussion: Bilateral: not dull Cardiovascular: regular rate and rhythm, other (S1,S2, no murmurs, gallops or rubs) Gastrointestinal: normoactive bowel sounds, soft, non-tender, non-distended (protuberant) Integumentary: normal Extremities: no cyanosis, no edema, pink and warm, pulses normal, no ischemia or petechiae Neurologic: normal mental status, non-focal exam, pupils equal and round, CN II- XII normal, motor strength normal and Psychiatric: mood appropriate, affect normal CBC and BMP: 12/28/19 04:14 12/31/19 04:47 ABG, PT/INR, D-dimer: ABG ABG pH 7.442 pH Units (7.350-7.450) 12/26/19 17:26 ABG pCO2 47.8 mm Hg 12/26/19 17:26 ABG pO2 113.4 mm Hg (80.0-90.0) H 12/26/19 17:26 ABG O2 Saturation 98.1 % (95.0-99.0) 12/26/19 17:26 PT/INR, D-dimer PT 13.9 Sec. (12.2-14.9) 12/18/19 15:28 INR 1.06 (0.87-1.13) 12/18/19 15:28 D-Dimer 2277.88 ng/mlDDU (0-234) H 12/18/19 10:30 Abnormal lab findings: Abnormal Labs 12/18/19 12/18/19 12/18/19 10:30 10:30 10:30 WBC 13.7 H RBC 5.06 H Hgb 15.4 H Hct MCHC 35 H Lymph % (Auto) [place] % (Auto) [place] # Seg Neutrophils % Seg Neuts % (Manual) 82.0 H Lymphocytes % (Manual) 8.0 L Seg Neutrophils # Seg Neutrophils # Man 11.2 H Lymphocytes # (Manual) 1.1 L APTT D-Dimer 2277.88 H ABG pH ABG pO2 ABG HCO3 ABG O2 Saturation ABG Base Excess ABG Hemoglobin Oxyhemoglobin Sodium 122 L Chloride 80.6 L Carbon Dioxide 21 L BUN Creatinine Glucose 272 H POC Glucose Hemoglobin A1c Lactic Acid Calcium 7.8 L Phosphorus Magnesium Total Bilirubin 1.30 H AST 108 H Total Creatine Kinase CK-MB (CK-2) Total Protein Albumin 3.1 L Urine WBC (Auto) Urine Creatinine 12/18/19 12/18/19 12/18/19 10:30 11:18 11:56 WBC RBC Hgb Hct MCHC Lymph % (Auto) [place] % (Auto) [place] # Seg Neutrophils % Seg Neuts % (Manual) Lymphocytes % (Manual) Seg Neutrophils # Seg Neutrophils # Man Lymphocytes # (Manual) APTT D-Dimer ABG pH ABG pO2 ABG HCO3 ABG O2 Saturation ABG Base Excess ABG Hemoglobin Oxyhemoglobin Sodium Chloride Carbon Dioxide BUN Creatinine Glucose POC Glucose Hemoglobin A1c Lactic Acid 3.70 H* 2.40 H* Calcium Phosphorus Magnesium Total Bilirubin AST Total Creatine Kinase CK-MB (CK-2) Total Protein Albumin Urine WBC (Auto) 58.0 H Urine Creatinine 12/18/19 12/18/19 12/18/19 12:05 12:06 13:18 WBC RBC Hgb Hct MCHC Lymph % (Auto) [place] % (Auto) [place] # Seg Neutrophils % Seg Neuts % (Manual) Lymphocytes % (Manual) Seg Neutrophils # Seg Neutrophils # Man Lymphocytes # (Manual) APTT D-Dimer ABG pH 7.469 H ABG pO2 113.9 H ABG HCO3 ABG O2 Saturation ABG Base Excess ABG Hemoglobin 10.0 L Oxyhemoglobin Sodium Chloride Carbon Dioxide BUN Creatinine Glucose POC Glucose Hemoglobin A1c Lactic Acid 3.20 H* 2.50 H* Calcium Phosphorus Magnesium Total Bilirubin AST Total Creatine Kinase CK-MB (CK-2) Total Protein Albumin Urine WBC (Auto) Urine Creatinine 12/18/19 12/19/19 12/19/19 15:28 10:50 11:12 WBC RBC Hgb Hct MCHC Lymph % (Auto) [place] % (Auto) [place] # Seg Neutrophils % Seg Neuts % (Manual) Lymphocytes % (Manual) Seg Neutrophils # Seg Neutrophils # Man Lymphocytes # (Manual) APTT 72.2 H* D-Dimer ABG pH ABG pO2 55.6 L ABG HCO3 19.5 L ABG O2 Saturation 88.8 L ABG Base Excess -4.7 L ABG Hemoglobin Oxyhemoglobin 87.0 L Sodium Chloride Carbon Dioxide BUN Creatinine Glucose POC Glucose 257 H Hemoglobin A1c Lactic Acid Calcium Phosphorus Magnesium Total Bilirubin AST Total Creatine Kinase CK-MB (CK-2) Total Protein Albumin Urine WBC (Auto) Urine Creatinine 12/19/19 12/19/19 12/20/19 12:04 12:04 08:20 WBC RBC Hgb Hct MCHC Lymph % (Auto) [place] % (Auto) [place] # Seg Neutrophils % Seg Neuts % (Manual) Lymphocytes % (Manual) Seg Neutrophils # Seg Neutrophils # Man Lymphocytes # (Manual) APTT D-Dimer ABG pH ABG pO2 59.7 L ABG HCO3 19.9 L ABG O2 Saturation 90.2 L ABG Base Excess -4.9 L ABG Hemoglobin Oxyhemoglobin 88.5 L Sodium 131 L D Chloride 91.3 L Carbon Dioxide 18 L BUN Creatinine Glucose 290 H POC Glucose Hemoglobin A1c Lactic Acid 2.50 H* Calcium 7.9 L Phosphorus Magnesium Total Bilirubin AST 123 H Total Creatine Kinase 3873 H CK-MB (CK-2) 8.7 H Total Protein Albumin 2.4 L Urine WBC (Auto) Urine Creatinine 12/20/19 12/20/19 12/20/19 09:56 09:56 09:56 WBC 17.7 H RBC 5.24 H Hgb 15.7 H Hct 46.7 H D MCHC Lymph % (Auto) [place] % (Auto) [place] # Seg Neutrophils % Seg Neuts % (Manual) 88.0 H Lymphocytes % (Manual) 8.0 L Seg Neutrophils # Seg Neutrophils # Man 15.6 H Lymphocytes # (Manual) APTT D-Dimer ABG pH ABG pO2 ABG HCO3 ABG O2 Saturation ABG Base Excess ABG Hemoglobin Oxyhemoglobin Sodium 135 L Chloride 96.6 L Carbon Dioxide 13 L BUN 38 H Creatinine Glucose 382 H POC Glucose Hemoglobin A1c Lactic Acid Calcium Phosphorus Magnesium 3.10 H Total Bilirubin AST Total Creatine Kinase CK-MB (CK-2) Total Protein Albumin Urine WBC (Auto) Urine Creatinine 12/20/19 12/20/19 12/20/19 10:27 12:57 15:20 WBC RBC Hgb Hct MCHC Lymph % (Auto) [place] % (Auto) [place] # Seg Neutrophils % Seg Neuts % (Manual) Lymphocytes % (Manual) Seg Neutrophils # Seg Neutrophils # Man Lymphocytes # (Manual) APTT D-Dimer ABG pH 7.217 L 7.247 L ABG pO2 75.4 L 93.3 H ABG HCO3 ABG O2 Saturation 92.1 L ABG Base Excess -7.4 L -6.1 L ABG Hemoglobin Oxyhemoglobin 90.4 L 94.3 L Sodium Chloride Carbon Dioxide BUN Creatinine Glucose POC Glucose 350 H Hemoglobin A1c Lactic Acid Calcium Phosphorus Magnesium Total Bilirubin AST Total Creatine Kinase CK-MB (CK-2) Total Protein Albumin Urine WBC (Auto) Urine Creatinine 12/20/19 12/20/19 12/20/19 16:44 18:22 20:47 WBC RBC Hgb Hct MCHC Lymph % (Auto) [place] % (Auto) [place] # Seg Neutrophils % Seg Neuts % (Manual) Lymphocytes % (Manual) Seg Neutrophils # Seg Neutrophils # Man Lymphocytes # (Manual) APTT D-Dimer ABG pH ABG pO2 ABG HCO3 ABG O2 Saturation ABG Base Excess ABG Hemoglobin Oxyhemoglobin Sodium Chloride Carbon Dioxide BUN Creatinine Glucose POC Glucose 401 H 371 H 412 H Hemoglobin A1c Lactic Acid Calcium Phosphorus Magnesium Total Bilirubin AST Total Creatine Kinase CK-MB (CK-2) Total Protein Albumin Urine WBC (Auto) Urine Creatinine 12/21/19 12/21/19 12/21/19 00:14 04:40 05:13 WBC RBC Hgb Hct MCHC Lymph % (Auto) [place] % (Auto) [place] # Seg Neutrophils % Seg Neuts % (Manual) Lymphocytes % (Manual) Seg Neutrophils # Seg Neutrophils # Man Lymphocytes # (Manual) APTT D-Dimer ABG pH 7.308 L ABG pO2 60.8 L ABG HCO3 27.3 H ABG O2 Saturation 90.1 L ABG Base Excess ABG Hemoglobin 12.6 L Oxyhemoglobin 88.3 L Sodium Chloride Carbon Dioxide BUN Creatinine Glucose POC Glucose 392 H 333 H Hemoglobin A1c Lactic Acid Calcium Phosphorus Magnesium Total Bilirubin AST Total Creatine Kinase CK-MB (CK-2) Total Protein Albumin Urine WBC (Auto) Urine Creatinine 12/21/19 12/21/19 12/21/19 12:39 18:11 23:45 WBC RBC Hgb Hct MCHC Lymph % (Auto) [place] % (Auto) [place] # Seg Neutrophils % Seg Neuts % (Manual) Lymphocytes % (Manual) Seg Neutrophils # Seg Neutrophils # Man Lymphocytes # (Manual) APTT D-Dimer ABG pH ABG pO2 ABG HCO3 ABG O2 Saturation ABG Base Excess ABG Hemoglobin Oxyhemoglobin Sodium Chloride Carbon Dioxide BUN Creatinine Glucose POC Glucose 327 H 309 H 286 H Hemoglobin A1c Lactic Acid Calcium Phosphorus Magnesium Total Bilirubin AST Total Creatine Kinase CK-MB (CK-2) Total Protein Albumin Urine WBC (Auto) Urine Creatinine 12/21/19 12/21/19 12/21/19 Unknown Unknown Unknown WBC 12.3 H RBC Hgb Hct MCHC Lymph % (Auto) [place] % (Auto) [place] # Seg Neutrophils % Seg Neuts % (Manual) 93.0 H Lymphocytes % (Manual) 5.0 L Seg Neutrophils # Seg Neutrophils # Man 11.4 H Lymphocytes # (Manual) 0.6 L APTT D-Dimer ABG pH ABG pO2 ABG HCO3 ABG O2 Saturation ABG Base Excess ABG Hemoglobin Oxyhemoglobin Sodium Chloride Carbon Dioxide 21 L D BUN 73 H Creatinine 2.2 H D Glucose 361 H POC Glucose Hemoglobin A1c 10.0 H Lactic Acid Calcium 7.9 L Phosphorus Magnesium Total Bilirubin AST Total Creatine Kinase CK-MB (CK-2) Total Protein Albumin Urine WBC (Auto) Urine Creatinine 12/22/19 12/22/19 12/22/19 05:24 06:29 07:16 WBC RBC Hgb Hct MCHC Lymph % (Auto) [place] % (Auto) [place] # Seg Neutrophils % Seg Neuts % (Manual) Lymphocytes % (Manual) Seg Neutrophils # Seg Neutrophils # Man Lymphocytes # (Manual) APTT D-Dimer ABG pH ABG pO2 93.7 H ABG HCO3 30.4 H ABG O2 Saturation ABG Base Excess 4.4 H ABG Hemoglobin 12.8 L Oxyhemoglobin Sodium Chloride Carbon Dioxide BUN 111 H Creatinine 3.2 H Glucose 340 H POC Glucose 275 H Hemoglobin A1c Lactic Acid Calcium 8.1 L Phosphorus Magnesium Total Bilirubin AST Total Creatine Kinase CK-MB (CK-2) Total Protein Albumin Urine WBC (Auto) Urine Creatinine 12/22/19 12/22/19 12/22/19 11:27 12:58 15:30 WBC RBC Hgb Hct MCHC Lymph % (Auto) [place] % (Auto) [place] # Seg Neutrophils % Seg Neuts % (Manual) Lymphocytes % (Manual) Seg Neutrophils # Seg Neutrophils # Man Lymphocytes # (Manual) APTT D-Dimer ABG pH ABG pO2 ABG HCO3 ABG O2 Saturation ABG Base Excess ABG Hemoglobin Oxyhemoglobin Sodium Chloride Carbon Dioxide BUN Creatinine Glucose POC Glucose 345 H Hemoglobin A1c Lactic Acid Calcium Phosphorus 5.10 H Magnesium 3.90 H Total Bilirubin AST Total Creatine Kinase CK-MB (CK-2) Total Protein Albumin Urine WBC (Auto) Urine Creatinine 80.5 H 12/22/19 12/23/19 12/23/19 17:54 00:30 04:47 WBC RBC Hgb Hct MCHC Lymph % (Auto) [place] % (Auto) [place] # Seg Neutrophils % Seg Neuts % (Manual) Lymphocytes % (Manual) Seg Neutrophils # Seg Neutrophils # Man Lymphocytes # (Manual) APTT D-Dimer ABG pH ABG pO2 ABG HCO3 ABG O2 Saturation ABG Base Excess ABG Hemoglobin Oxyhemoglobin Sodium 146 H Chloride Carbon Dioxide BUN 107 H Creatinine 2.5 H Glucose 278 H POC Glucose 308 H 228 H Hemoglobin A1c Lactic Acid Calcium 7.7 L Phosphorus Magnesium Total Bilirubin AST Total Creatine Kinase CK-MB (CK-2) Total Protein Albumin Urine WBC (Auto) Urine Creatinine 12/23/19 12/23/19 12/23/19 04:47 05:50 06:06 WBC 12.0 H RBC Hgb Hct MCHC Lymph % (Auto) [place] % (Auto) [place] # Seg Neutrophils % Seg Neuts % (Manual) 82.0 H Lymphocytes % (Manual) 12.0 L Seg Neutrophils # Seg Neutrophils # Man 9.8 H Lymphocytes # (Manual) APTT D-Dimer ABG pH ABG pO2 59.0 L ABG HCO3 31.6 H ABG O2 Saturation 89.2 L ABG Base Excess 4.5 H ABG Hemoglobin 13.5 L Oxyhemoglobin 87.2 L Sodium Chloride Carbon Dioxide BUN Creatinine Glucose POC Glucose 263 H Hemoglobin A1c Lactic Acid Calcium Phosphorus Magnesium Total Bilirubin AST Total Creatine Kinase CK-MB (CK-2) Total Protein Albumin Urine WBC (Auto) Urine Creatinine 12/23/19 12/23/19 12/23/19 12:58 18:08 18:10 WBC RBC Hgb Hct MCHC Lymph % (Auto) [place] % (Auto) [place] # Seg Neutrophils % Seg Neuts % (Manual) Lymphocytes % (Manual) Seg Neutrophils # Seg Neutrophils # Man Lymphocytes # (Manual) APTT D-Dimer ABG pH ABG pO2 ABG HCO3 31.6 H ABG O2 Saturation ABG Base Excess 4.7 H ABG Hemoglobin 13.1 L Oxyhemoglobin 93.5 L Sodium Chloride Carbon Dioxide BUN Creatinine Glucose POC Glucose 206 H 328 H Hemoglobin A1c Lactic Acid Calcium Phosphorus Magnesium Total Bilirubin AST Total Creatine Kinase CK-MB (CK-2) Total Protein Albumin Urine WBC (Auto) Urine Creatinine 12/23/19 12/24/19 12/24/19 23:37 00:37 00:37 WBC RBC Hgb Hct MCHC Lymph % (Auto) [place] % (Auto) [place] # Seg Neutrophils % Seg Neuts % (Manual) 88.0 H Lymphocytes % (Manual) 5.0 L Seg Neutrophils # Seg Neutrophils # Man 9.6 H Lymphocytes # (Manual) 0.5 L APTT D-Dimer ABG pH ABG pO2 ABG HCO3 ABG O2 Saturation ABG Base Excess ABG Hemoglobin Oxyhemoglobin Sodium 152 H Chloride 109.9 H Carbon Dioxide BUN 89 H Creatinine 2.2 H Glucose 287 H POC Glucose 277 H Hemoglobin A1c Lactic Acid Calcium 7.5 L Phosphorus Magnesium Total Bilirubin AST Total Creatine Kinase CK-MB (CK-2) Total Protein Albumin Urine WBC (Auto) Urine Creatinine 12/24/19 12/24/19 12/24/19 05:25 05:36 06:23 WBC RBC Hgb Hct MCHC Lymph % (Auto) [place] % (Auto) [place] # Seg Neutrophils % Seg Neuts % (Manual) Lymphocytes % (Manual) Seg Neutrophils # Seg Neutrophils # Man Lymphocytes # (Manual) APTT D-Dimer ABG pH ABG pO2 72.2 L ABG HCO3 31.6 H ABG O2 Saturation ABG Base Excess 5.2 H ABG Hemoglobin 13.1 L Oxyhemoglobin 92.8 L Sodium Chloride Carbon Dioxide BUN Creatinine Glucose POC Glucose 204 H Hemoglobin A1c Lactic Acid Calcium Phosphorus Magnesium 3.10 H Total Bilirubin AST Total Creatine Kinase CK-MB (CK-2) Total Protein Albumin Urine WBC (Auto) Urine Creatinine 12/24/19 12/24/19 12/24/19 11:34 18:04 23:53 WBC RBC Hgb Hct MCHC Lymph % (Auto) [place] % (Auto) [place] # Seg Neutrophils % Seg Neuts % (Manual) Lymphocytes % (Manual) Seg Neutrophils # Seg Neutrophils # Man Lymphocytes # (Manual) APTT D-Dimer ABG pH ABG pO2 ABG HCO3 ABG O2 Saturation ABG Base Excess ABG Hemoglobin Oxyhemoglobin Sodium Chloride Carbon Dioxide BUN Creatinine Glucose POC Glucose 187 H 286 H 231 H Hemoglobin A1c Lactic Acid Calcium Phosphorus Magnesium Total Bilirubin AST Total Creatine Kinase CK-MB (CK-2) Total Protein Albumin Urine WBC (Auto) Urine Creatinine 12/25/19 12/25/19 12/25/19 04:52 05:22 05:22 WBC 12.0 H RBC Hgb Hct MCHC Lymph % (Auto) [place] % (Auto) [place] # Seg Neutrophils % Seg Neuts % (Manual) 76.0 H Lymphocytes % (Manual) 10.0 L Seg Neutrophils # Seg Neutrophils # Man 9.1 H Lymphocytes # (Manual) APTT D-Dimer ABG pH ABG pO2 68.3 L ABG HCO3 32.6 H ABG O2 Saturation 94.7 L ABG Base Excess 5.7 H ABG Hemoglobin 13.2 L Oxyhemoglobin 92.3 L Sodium 149 H Chloride 109.2 H Carbon Dioxide 33 H BUN 62 H Creatinine 1.7 H Glucose 245 H POC Glucose Hemoglobin A1c Lactic Acid Calcium 8.0 L Phosphorus Magnesium 2.90 H Total Bilirubin AST Total Creatine Kinase 195 H CK-MB (CK-2) Total Protein 5.8 L Albumin 2.3 L Urine WBC (Auto) Urine Creatinine 12/25/19 12/25/19 12/25/19 05:42 12:16 18:48 WBC RBC Hgb Hct MCHC Lymph % (Auto) [place] % (Auto) [place] # Seg Neutrophils % Seg Neuts % (Manual) Lymphocytes % (Manual) Seg Neutrophils # Seg Neutrophils # Man Lymphocytes # (Manual) APTT D-Dimer ABG pH ABG pO2 ABG HCO3 ABG O2 Saturation ABG Base Excess ABG Hemoglobin Oxyhemoglobin Sodium Chloride Carbon Dioxide BUN Creatinine Glucose POC Glucose 208 H 290 H 239 H Hemoglobin A1c Lactic Acid Calcium Phosphorus Magnesium Total Bilirubin AST Total Creatine Kinase CK-MB (CK-2) Total Protein Albumin Urine WBC (Auto) Urine Creatinine 12/26/19 12/26/19 12/26/19 00:06 04:09 04:48 WBC RBC Hgb Hct MCHC Lymph % (Auto) [place] % (Auto) [place] # Seg Neutrophils % Seg Neuts % (Manual) Lymphocytes % (Manual) Seg Neutrophils # Seg Neutrophils # Man Lymphocytes # (Manual) APTT D-Dimer ABG pH ABG pO2 75.6 L ABG HCO3 33.4 H ABG O2 Saturation ABG Base Excess 6.6 H ABG Hemoglobin Oxyhemoglobin 93.4 L Sodium 147 H Chloride Carbon Dioxide 32 H BUN 49 H Creatinine Glucose 257 H POC Glucose 188 H Hemoglobin A1c Lactic Acid Calcium Phosphorus Magnesium Total Bilirubin AST Total Creatine Kinase CK-MB (CK-2) Total Protein Albumin Urine WBC (Auto) Urine Creatinine 12/26/19 12/26/19 12/26/19 05:49 11:54 17:26 WBC RBC Hgb Hct MCHC Lymph % (Auto) [place] % (Auto) [place] # Seg Neutrophils % Seg Neuts % (Manual) Lymphocytes % (Manual) Seg Neutrophils # Seg Neutrophils # Man Lymphocytes # (Manual) APTT D-Dimer ABG pH ABG pO2 113.4 H ABG HCO3 31.9 H ABG O2 Saturation ABG Base Excess 6.7 H ABG Hemoglobin Oxyhemoglobin Sodium Chloride Carbon Dioxide BUN Creatinine Glucose POC Glucose 220 H 262 H Hemoglobin A1c Lactic Acid Calcium Phosphorus Magnesium Total Bilirubin AST Total Creatine Kinase CK-MB (CK-2) Total Protein Albumin Urine WBC (Auto) Urine Creatinine 12/26/19 12/26/19 12/27/19 17:46 23:41 04:52 WBC RBC Hgb Hct MCHC Lymph % (Auto) [place] % (Auto) [place] # Seg Neutrophils % Seg Neuts % (Manual) Lymphocytes % (Manual) Seg Neutrophils # Seg Neutrophils # Man Lymphocytes # (Manual) APTT D-Dimer ABG pH ABG pO2 ABG HCO3 ABG O2 Saturation ABG Base Excess ABG Hemoglobin Oxyhemoglobin Sodium Chloride Carbon Dioxide BUN 49 H Creatinine Glucose 184 H POC Glucose 321 H 228 H Hemoglobin A1c Lactic Acid Calcium Phosphorus Magnesium Total Bilirubin AST Total Creatine Kinase CK-MB (CK-2) Total Protein Albumin Urine WBC (Auto) Urine Creatinine 12/27/19 12/27/19 12/27/19 04:52 05:21 11:59 WBC 16.1 H RBC Hgb Hct MCHC Lymph % (Auto) 9.1 L [place] % (Auto) 8.5 H [place] # 1.4 H Seg Neutrophils % 80.6 H Seg Neuts % (Manual) Lymphocytes % (Manual) Seg Neutrophils # 13.0 H Seg Neutrophils # Man Lymphocytes # (Manual) APTT D-Dimer ABG pH ABG pO2 ABG HCO3 ABG O2 Saturation ABG Base Excess ABG Hemoglobin Oxyhemoglobin Sodium Chloride Carbon Dioxide BUN Creatinine Glucose POC Glucose 176 H 200 H Hemoglobin A1c Lactic Acid Calcium Phosphorus Magnesium Total Bilirubin AST Total Creatine Kinase CK-MB (CK-2) Total Protein Albumin Urine WBC (Auto) Urine Creatinine 12/27/19 12/27/19 12/28/19 17:44 23:52 04:14 WBC RBC Hgb Hct MCHC Lymph % (Auto) [place] % (Auto) [place] # Seg Neutrophils % Seg Neuts % (Manual) Lymphocytes % (Manual) Seg Neutrophils # Seg Neutrophils # Man Lymphocytes # (Manual) APTT D-Dimer ABG pH ABG pO2 ABG HCO3 ABG O2 Saturation ABG Base Excess ABG Hemoglobin Oxyhemoglobin Sodium Chloride Carbon Dioxide BUN 52 H Creatinine Glucose 219 H POC Glucose 211 H 184 H Hemoglobin A1c Lactic Acid Calcium Phosphorus Magnesium Total Bilirubin AST Total Creatine Kinase CK-MB (CK-2) Total Protein Albumin Urine WBC (Auto) Urine Creatinine 12/28/19 12/28/19 12/28/19 04:14 06:32 12:15 WBC 15.1 H RBC Hgb Hct MCHC Lymph % (Auto) 10.6 L [place] % (Auto) 7.4 H [place] # 1.1 H Seg Neutrophils % 80.2 H Seg Neuts % (Manual) Lymphocytes % (Manual) Seg Neutrophils # 12.1 H Seg Neutrophils # Man Lymphocytes # (Manual) APTT D-Dimer ABG pH ABG pO2 ABG HCO3 ABG O2 Saturation ABG Base Excess ABG Hemoglobin Oxyhemoglobin Sodium Chloride Carbon Dioxide BUN Creatinine Glucose POC Glucose 226 H 209 H Hemoglobin A1c Lactic Acid Calcium Phosphorus Magnesium Total Bilirubin AST Total Creatine Kinase CK-MB (CK-2) Total Protein Albumin Urine WBC (Auto) Urine Creatinine 03/12/20 03/12/20 03/13/20 17:42 23:52 05:08 WBC RBC Hgb Hct MCHC Lymph % (Auto) [place] % (Auto) [place] # Seg Neutrophils % Seg Neuts % (Manual) Lymphocytes % (Manual) Seg Neutrophils # Seg Neutrophils # Man Lymphocytes # (Manual) APTT D-Dimer ABG pH ABG pO2 ABG HCO3 ABG O2 Saturation ABG Base Excess ABG Hemoglobin Oxyhemoglobin Sodium Chloride Carbon Dioxide BUN 43 H Creatinine Glucose 108 H POC Glucose 159 H 167 H Hemoglobin A1c Lactic Acid Calcium 8.1 L Phosphorus Magnesium Total Bilirubin AST Total Creatine Kinase CK-MB (CK-2) Total Protein Albumin Urine WBC (Auto) Urine Creatinine 12/29/19 12/29/19 12/29/19 12:23 16:57 22:07 WBC RBC Hgb Hct MCHC Lymph % (Auto) [place] % (Auto) [place] # Seg Neutrophils % Seg Neuts % (Manual) Lymphocytes % (Manual) Seg Neutrophils # Seg Neutrophils # Man Lymphocytes # (Manual) APTT D-Dimer ABG pH ABG pO2 ABG HCO3 ABG O2 Saturation ABG Base Excess ABG Hemoglobin Oxyhemoglobin Sodium Chloride Carbon Dioxide BUN Creatinine Glucose POC Glucose 175 H 132 H 148 H Hemoglobin A1c Lactic Acid Calcium Phosphorus Magnesium Total Bilirubin AST Total Creatine Kinase CK-MB (CK-2) Total Protein Albumin Urine WBC (Auto) Urine Creatinine 12/30/19 12/30/19 12/30/19 05:23 09:13 11:58 WBC RBC Hgb Hct MCHC Lymph % (Auto) [place] % (Auto) [place] # Seg Neutrophils % Seg Neuts % (Manual) Lymphocytes % (Manual) Seg Neutrophils # Seg Neutrophils # Man Lymphocytes # (Manual) APTT D-Dimer ABG pH ABG pO2 ABG HCO3 ABG O2 Saturation ABG Base Excess ABG Hemoglobin Oxyhemoglobin Sodium 135 L Chloride Carbon Dioxide BUN 39 H Creatinine Glucose 147 H POC Glucose 153 H 144 H Hemoglobin A1c Lactic Acid Calcium 8.0 L Phosphorus Magnesium Total Bilirubin AST Total Creatine Kinase CK-MB (CK-2) Total Protein Albumin Urine WBC (Auto) Urine Creatinine Allied health notes reviewed: nursing
[2019-12-30] MEDS: QUEtiapine 100 MG TAB PO SCH (21:41)
[2019-12-30] MEDS: ENOXAPARIN 40 MG/0.4 ML INJ SUB-Q SCH (21:42)
[2019-12-30] MEDS: INSULIN GLARGINE 100 UNITS/ML SUB-Q SCH (21:42)
[2019-12-31] MEDS: IPRATROPIUM/ALBUTEROL SULFATE 3 ML AMPUL.NEB IH SCH ×4 (01:48→19:52)
[2019-12-31] MEDS: hydrALAZINE 25 MG TAB PO SCH ×3 (06:37→22:14)
[2019-12-31] MEDS: cloNIDine 0.1 MG TAB PO SCH ×3 (06:37→22:15)
[2019-12-31] MEDS: ARFORMOTEROL 15 MCG/2 ML NEBU IH SCH ×2 (07:39→19:53)
[2019-12-31] MEDS: BUDESONIDE 0.5 MG/2 ML NEBU IH SCH ×2 (07:39→19:53)
--- NOTE | 2019-12-31 10:14 | Progress Note ---
Assessment and Plan 1. Acute kidney injury: Likely vasomotor AYSE in the setting of sepsis and possible rhabdo. Renal US negative for hydro. Renal function is better. Likely mild CKD. Monitor renal function. Avoid nephrotoxic agents. Meds dosage based on GFR. 2. FEN: Metabolic acidosis, improved, monitor. Mild Hypernatremia, monitor. Mild hypokalemia, improved, monitor. Monitor lytes. 3. Acute respiratory failure with hypoxia: Was on BiPap and subsequently intubated after failed BiPAP. Extubated 12/26 and was on HFNC O2. Currently on RA. Pulmonary following. 4. Left lower lobe pneumonia: CAP, s/p Abx. 5. Sepsis: 2/2 pneumonia. Treated. 6. Metabolic encephalopathy: Improved. 8. Hypertension: BP controlled. Monitor BP. 9. Tobacco abuse: On Nicoderm patch. 10. Fevers: Afebrile for the past 4 days. Subjective Interval history: Patient doing ok. No family members at the bedside. Objective - Examination: General appearance: well-developed, well-nourished, appears stated age, obese HEENT: GABRIEL, mucous membranes moist Neck: neck supple, trachea midline Respiratory: Clear to Auscultation Heart: regular, S1S2, no murmurs Gastrointestinal: soft, normoactive bowel sounds, not tendern, nor distended Integumentary: no rash, warm and dry Neurologic: alert, appropriate verbal communication, oriented Ext: no edema noted Psychiatric: calm, cooperative Subjective Date of service: 12/31/19 Principal diagnosis: Ac hypoxemic resp failure; ARDS; Rodrigue pneumonia; Severe Sepsis; Rhabdomyolys Objective - Vital Signs Vital signs: Vital Signs - 12hr 12/30/19 12/31/19 12/31/19 23:50 03:55 04:00 Temperature 98.0 F 97.8 F Pulse Rate 77 62 61 Pulse Rate [ Anterior Bilateral Throughout] Pulse Rate [ Anterior Bilateral] Respiratory 20 18 Rate Respiratory Rate [Anterior Bilateral Throughout] Respiratory Rate [Anterior Bilateral] Blood Pressure 147/74 143/57 O2 Sat by Pulse 97 92 Oximetry 12/31/19 12/31/19 07:39 07:41 Temperature Pulse Rate Pulse Rate [ 88 Anterior Bilateral Throughout] Pulse Rate [ 72 Anterior Bilateral] Respiratory Rate Respiratory 16 Rate [Anterior Bilateral Throughout] Respiratory 16 Rate [Anterior Bilateral] Blood Pressure O2 Sat by Pulse 98 Oximetry - Lab 12/28/19 04:14 12/31/19 04:47 Most recent lab results ABG pH 7.442 pH Units (7.350-7.450) 12/26/19 17:26 ABG pCO2 47.8 mm Hg 12/26/19 17:26 ABG pO2 113.4 mm Hg (80.0-90.0) H 12/26/19 17:26 ABG HCO3 31.9 mmol/L (20.0-26.0) H 12/26/19 17:26 ABG O2 Saturation 98.1 % (95.0-99.0) 12/26/19 17:26 Calcium 8.0 mg/dL (8.4-10.2) L 12/31/19 04:47 Phosphorus 3.30 mg/dL (2.5-4.5) 12/25/19 05:22 Magnesium 2.90 mg/dL (1.7-2.3) H 12/25/19 05:22 Urine Creatinine 80.5 mg/dL (0.1-20.0) H 12/22/19 15:30 Urine Sodium 23 mmol/L 12/22/19 15:30 Medications & Allergies - Medications Allergies/Adverse Reactions: Allergies Penicillins Allergy (Verified 12/18/19 22:48) Anaphylaxis VERIFIED WITH PT AND NURSE Home Medications: Home Medications Medication Instructions Recorded Confirmed Last Taken Type No Known Home Medications [No 12/19/19 12/19/19 Unknown History Reported Home Medications] Active Medications: Generic Name Dose Route Start Last Admin Trade Name Freq PRN Reason Stop Dose Admin Acetaminophen 650 mg 12/18/19 21:26 Tylenol PO Q4H PRN Pain MILD(1-3)/Fever >100.5/CHAUDHRY Albuterol 2.5 mg 12/18/19 21:34 Proventil IH Q4HRT PRN Shortness Of Breath Albuterol/Ipratropium 1 ampul 12/18/19 20:45 12/31/19 07:45 Duoneb *Not For Prn Use* IH Not Given Q6HRT MARIAN Lipase/Protease/Amylase 1 each 12/20/19 18:25 Pancreaze 10,500 Unit FEEDTUBE PRN PRN For Clogged Feeding Tube Arformoterol Tartrate 15 mcg 12/19/19 20:00 12/31/19 07:39 Brovana Nebu IH 15 mcg Q12HRT MARIAN Administration Budesonide 0.5 mg 12/19/19 20:00 12/31/19 07:39 Pulmicort IH 0.5 mg Q12HRT MARIAN Administration Clonidine HCl 0.1 mg 12/26/19 10:00 12/31/19 06:37 Catapres PO 0.1 mg Q8HR MARIAN Administration Docusate Sodium 100 mg 12/25/19 22:00 12/30/19 21:41 Colace FEEDTUBE Not Given BID MARIAN Enoxaparin Sodium 40 mg 12/25/19 22:00 12/30/19 21:42 Enoxaparin SUB-Q 40 mg QDAY@2200 [facility] Administration Famotidine 20 mg 12/25/19 10:00 12/30/19 21:41 Pepcid PO 20 mg BID MARIAN Administration Hydralazine HCl 25 mg 12/19/19 14:00 12/31/19 06:37 Apresoline PO 25 mg Q8HR MARIAN Administration Hydralazine HCl 5 mg 12/26/19 03:19 12/29/19 12:02 Apresoline IV 5 mg Q6H PRN Administration Hypertension Hydrophilic Ointment 1 applic 12/20/19 12:12 Vaseline Lip Therapy TP Q2HR PRN Dry Lips Insulin Glargine 15 units 12/22/19 22:00 12/30/19 21:42 Lantus SUB-Q 15 units QHS [facility]IAN Administration Insulin Human Lispro 0 unit 12/29/19 11:30 12/30/19 21:42 Humalog SUB-Q Not Given ACHS [facility] Protocol Metoclopramide HCl 10 mg 12/18/19 21:26 Reglan IV Q6H PRN Nausea And Vomiting Multi-Ingred Cream/Lotion/Oil/Oint 1 applic 12/20/19 12:12 Artificial Tears Ophth Oint OU Q4HR PRN Dry Eye(s) Nicotine 21 mg 12/20/19 10:00 12/30/19 09:56 Habitrol TD 21 mg QDAY [facility]IAN Administration Ondansetron HCl 4 mg 12/18/19 21:26 Zofran IV Q3H PRN Nausea And Vomiting Oxycodone/Acetaminophen 1 tab 12/18/19 21:26 Percocet 5/325 PO Q6H PRN Pain, Moderate (4-6) Quetiapine Fumarate 100 mg 12/29/19 22:00 12/30/19 21:41 Seroquel PO 100 mg QHS [facility]IAN Administration Zolpidem Tartrate 5 mg 12/28/19 18:41 Ambien PO QHS PRN Sleep
[2019-12-31] MEDS: NICOTINE 21 MG/24 HR PATCH TD SCH (10:21)
[2019-12-31] MEDS: INSULIN LISPRO 100 UNIT/ML SUB-Q SCH ×4 (10:21→22:28)
[2019-12-31] MEDS: DOCUSATE SODIUM 100 MG/10 ML ORAL LIQD FEEDTUBE SCH ×2 (10:21→22:15)
[2019-12-31] MEDS: FAMOTIDINE 20 MG TAB PO SCH ×2 (10:21→22:14)
--- NOTE | 2019-12-31 11:39 | Progress Note ---
Hospitalist Physical - Constitutional Vitals: Temp Pulse Resp BP Pulse Ox 97.8 F 69 16 143/57 98 12/31/19 03:55 12/31/19 08:00 12/31/19 07:39 12/31/19 03:55 12/31/19 07:41 General appearance: Present: no acute distress, well-nourished, obese, other (Intubated on vent) MITCHELL score - Mitchell Score Age > 65: (0) No Aspirin use within the Past 7 Days: (0) No 3 or more CAD Risk Factors: (0) No 2 or more Angina events in past 24 hrs: (0) No Known CAD with more than 50% Stenosis: (0) No Elevated Cardiac Markers: (0) No ST Deviation Greater than 0.5mm: (0) No MITCHELL Score: 0 Results - Labs CBC & Chem 7: 12/28/19 04:14 12/31/19 04:47 Labs: Laboratory Last Values WBC 15.1 K/mm3 (4.5-11.0) H 12/28/19 04:14 RBC 4.32 M/mm3 (3.65-5.03) 12/28/19 04:14 Hgb 12.7 gm/dl (11.8-15.2) 12/28/19 04:14 Hct 39.4 % (35.5-45.6) 12/28/19 04:14 MCV 91 fl (84-94) 12/28/19 04:14 MCH 29 pg (28-32) 12/28/19 04:14 MCHC 32 % (32-34) 12/28/19 04:14 RDW 13.9 % (13.2-15.2) 12/28/19 04:14 Plt Count 212 K/mm3 (140-440) 12/28/19 04:14 Lymph % (Auto) 10.6 % (13.4-35.0) L 12/28/19 04:14 [place] % (Auto) 7.4 % (0.0-7.3) H 12/28/19 04:14 Eos % (Auto) 1.2 % (0.0-4.3) 12/28/19 04:14 Baso % (Auto) 0.6 % (0.0-1.8) 12/28/19 04:14 Lymph # 1.6 K/mm3 (1.2-5.4) 12/28/19 04:14 [place] # 1.1 K/mm3 (0.0-0.8) H 12/28/19 04:14 Eos # 0.2 K/mm3 (0.0-0.4) 12/28/19 04:14 Baso # 0.1 K/mm3 (0.0-0.1) 12/28/19 04:14 Add Manual Diff Complete 12/25/19 05:22 Total Counted 100 12/25/19 05:22 Seg Neutrophils % 80.2 % (40.0-70.0) H 12/28/19 04:14 Seg Neuts % (Manual) 76.0 % (40.0-70.0) H 12/25/19 05:22 Band Neutrophils % 2.0 % 12/25/19 05:22 Lymphocytes % (Manual) 10.0 % (13.4-35.0) L 12/25/19 05:22 Reactive Lymphs % (Man) 0 % 12/25/19 05:22 Monocytes % (Manual) 6.0 % (0.0-7.3) 12/25/19 05:22 Eosinophils % (Manual) 2.0 % (0.0-4.3) 12/25/19 05:22 Basophils % (Manual) 0 % (0.0-1.8) 12/25/19 05:22 Metamyelocytes % 4.0 % 12/25/19 05:22 Myelocytes % 0 % 12/25/19 05:22 Promyelocytes % 0 % 12/25/19 05:22 Blast Cells % 0 % 12/25/19 05:22 Nucleated RBC % Not Reportable 12/25/19 05:22 Seg Neutrophils # 12.1 K/mm3 (1.8-7.7) H 12/28/19 04:14 Seg Neutrophils # Man 9.1 K/mm3 (1.8-7.7) H 12/25/19 05:22 Band Neutrophils # 0.2 K/mm3 12/25/19 05:22 Lymphocytes # (Manual) 1.2 K/mm3 (1.2-5.4) 12/25/19 05:22 Abs React Lymphs (Man) 0.0 K/mm3 12/25/19 05:22 Monocytes # (Manual) 0.7 K/mm3 (0.0-0.8) 12/25/19 05:22 Eosinophils # (Manual) 0.2 K/mm3 (0.0-0.4) 12/25/19 05:22 Basophils # (Manual) 0.0 K/mm3 (0.0-0.1) 12/25/19 05:22 Metamyelocytes # 0.5 K/mm3 12/25/19 05:22 Myelocytes # 0.0 K/mm3 12/25/19 05:22 Promyelocytes # 0.0 K/mm3 12/25/19 05:22 Blast Cells # 0.0 K/mm3 12/25/19 05:22 WBC Morphology Not Reportable 12/25/19 05:22 Hypersegmented Neuts Not Reportable 12/25/19 05:22 Hyposegmented Neuts Not Reportable 12/25/19 05:22 Hypogranular Neuts Not Reportable 12/25/19 05:22 Smudge Cells Not Reportable 12/25/19 05:22 Toxic Granulation Not Reportable 12/25/19 05:22 Toxic Vacuolation Not Reportable 12/25/19 05:22 Dohle Bodies Not Reportable 12/25/19 05:22 Pelger-Huet Anomaly Not Reportable 12/25/19 05:22 Jennifer Rods Not Reportable 12/25/19 05:22 Platelet Estimate Consistent w auto 12/25/19 05:22 Clumped Platelets Not Reportable 12/25/19 05:22 Plt Clumps, EDTA Not Reportable 12/25/19 05:22 Large Platelets Not Reportable 12/25/19 05:22 Giant Platelets Not Reportable 12/25/19 05:22 Platelet Satelliting Not Reportable 12/25/19 05:22 Plt Morphology Comment Not Reportable 12/25/19 05:22 RBC Morphology Normal 12/25/19 05:22 Dimorphic RBCs Not Reportable 12/25/19 05:22 Polychromasia Not Reportable 12/25/19 05:22 Hypochromasia Not Reportable 12/25/19 05:22 Poikilocytosis Not Reportable 12/25/19 05:22 Anisocytosis Not Reportable 12/25/19 05:22 Microcytosis Not Reportable 12/25/19 05:22 Macrocytosis Not Reportable 12/25/19 05:22 Spherocytes Not Reportable 12/25/19 05:22 Pappenheimer Bodies Not Reportable 12/25/19 05:22 Sickle Cells Not Reportable 12/25/19 05:22 Target Cells Not Reportable 12/25/19 05:22 Tear Drop Cells Not Reportable 12/25/19 05:22 Ovalocytes Not Reportable 12/25/19 05:22 Helmet Cells Not Reportable 12/25/19 05:22 Orosco-Hardy Bodies Not Reportable 12/25/19 05:22 Ford Rings Not Reportable 12/25/19 05:22 [employer] Cells Not Reportable 12/25/19 05:22 Bite Cells Not Reportable 12/25/19 05:22 Crenated Cell Not Reportable 12/25/19 05:22 Elliptocytes Not Reportable 12/25/19 05:22 Acanthocytes (Spur) Not Reportable 12/25/19 05:22 Rouleaux Not Reportable 12/25/19 05:22 Hemoglobin C Crystals Not Reportable 12/25/19 05:22 Schistocytes Not Reportable 12/25/19 05:22 Malaria parasites Not Reportable 12/25/19 05:22 León Bodies Not Reportable 12/25/19 05:22 Hem Pathologist Commnt No 12/25/19 05:22 PT 13.9 Sec. (12.2-14.9) 12/18/19 15:28 INR 1.06 (0.87-1.13) 12/18/19 15:28 APTT 72.2 Sec. (24.2-36.6) H* 12/18/19 15:28 D-Dimer 2277.88 ng/mlDDU (0-234) H 12/18/19 10:30 ABG pH 7.442 pH Units (7.350-7.450) 12/26/19 17:26 ABG pCO2 47.8 mm Hg 12/26/19 17:26 ABG pO2 113.4 mm Hg (80.0-90.0) H 12/26/19 17:26 ABG HCO3 31.9 mmol/L (20.0-26.0) H 12/26/19 17:26 ABG O2 Saturation 98.1 % (95.0-99.0) 12/26/19 17:26 ABG O2 Content 19.4 (0.0-44) 12/26/19 17:26 ABG Base Excess 6.7 mmol/L (-2.0-3.0) H 12/26/19 17:26 ABG Hemoglobin 14.3 gm/dl (14.0-18.0) 12/26/19 17:26 ABG Carboxyhemoglobin 1.4 % (0.0-5.0) 12/26/19 17: ABG Methemoglobin 0.7 % (0.0-1.5) 12/26/19 17: Oxyhemoglobin 96.1 % (95.0-99.0) 12/26/19 17:26 FiO2 50 % 12/26/19 17:26 Sodium 140 mmol/L (137-145) 12/31/19 04:47 Potassium 4.3 mmol/L (3.6-5.0) 12/31/19 04:47 Chloride 105.3 mmol/L (98-107) 12/31/19 04:47 Carbon Dioxide 25 mmol/L (22-30) 12/31/19 04:47 Anion Gap 14 mmol/L 12/31/19 04:47 BUN 29 mg/dL (9-20) H 12/31/19 04:47 Creatinine 1.3 mg/dL (0.8-1.5) 12/31/19 04:47 Estimated GFR 56 ml/min 12/31/19 04:47 BUN/Creatinine Ratio 22 % 12/31/19 04:47 Glucose 107 mg/dL (75-100) H 12/31/19 04:47 POC Glucose 162 (70-105) H 12/31/19 11:42 Hemoglobin A1c 10.0 % (4-6) H 12/21/19 Unknown Lactic Acid 1.70 mmol/L (0.7-2.0) 12/21/19 09:48 Calcium 8.0 mg/dL (8.4-10.2) L 12/31/19 04:47 Phosphorus 3.30 mg/dL (2.5-4.5) 12/25/19 05:22 Magnesium 2.90 mg/dL (1.7-2.3) H 12/25/19 05:22 Total Bilirubin 0.50 mg/dL (0.1-1.2) 12/25/19 05:22 AST 31 units/L (5-40) 12/25/19 05:22 ALT 35 units/L (7-56) 12/25/19 05:22 Alkaline Phosphatase 49 units/L (35-129) 12/25/19 05:22 Total Creatine Kinase 195 units/L (55-170) H 12/25/19 05:22 CK-MB (CK-2) 8.7 ng/mL (0.0-4.0) H 12/19/19 12:04 CK-MB (CK-2) Rel Index 0.2 (0-4) 12/19/19 12:04 Troponin T < 0.010 ng/mL (0.00-0.029) 12/19/19 12:04 NT-Pro-B Natriuret Pep 609.1 pg/mL (0-900) 12/18/19 12:06 Total Protein 5.8 g/dL (6.3-8.2) L 12/25/19 05:22 Albumin 2.3 g/dL (3.9-5) L 12/25/19 05:22 Albumin/Globulin Ratio 0.7 % 12/25/19 05:22 Procalcitonin 3.24 ng/mL (<0.15) 12/19/19 12:04 Urine Color Red (Yellow) 12/18/19 11:56 Urine Turbidity Slightly-cloudy (Clear) 12/18/19 11:56 Urine pH 6.0 (5.0-7.0) 12/18/19 11:56 Ur Specific [place] 1.017 (1.003-1.030) 12/18/19 11:56 Urine Protein 100 mg/dl mg/dL (Negative) 12/18/19 11:56 Urine Glucose (UA) >=500 mg/dL (Negative) 12/18/19 11:56 Urine Ketones 20 mg/dL (Negative) 12/18/19 11:56 Urine Blood Lg (Negative) 12/18/19 11:56 Urine Nitrite Neg (Negative) 12/18/19 11:56 Urine Bilirubin Neg (Negative) 12/18/19 11:56 Urine Urobilinogen < 2.0 mg/dL (<2.0) 12/18/19 11:56 Ur Leukocyte Esterase Neg (Negative) 12/18/19 11:56 Urine WBC (Auto) 58.0 /HPF (0.0-6.0) H 12/18/19 11:56 Urine RBC (Auto) > 182.0 /HPF (0.0-6.0) 12/18/19 11:56 U Epithel Cells (Auto) 4.0 /HPF (0-13.0) 12/18/19 11:56 Urine Mucus Few /HPF 12/18/19 11:56 Urine Yeast (Budding) 1+ /HPF 12/18/19 11:56 Urine Creatinine 80.5 mg/dL (0.1-20.0) H 12/22/19 15:30 Urine Sodium 23 mmol/L 12/22/19 15:30 Vancomycin Trough 11.4 ug/mL (5.0-20.0) 12/20/19 09:56 Random Vancomycin 5.2 ug/mL (0-40.0) 12/24/19 05:25 Robertson/IV: Voiding Method Toilet IV Catheter Type [Right] Peripheral IV IV Catheter Type [Right INT / Saline Lock Forearm] IV Catheter Type [Left Forearm Peripheral IV ] IV Catheter Type [Left INT / Saline Lock Antecubital] Active Medications - Current Medications Current Medications: Generic Name Dose Route Start Last Admin Trade Name Freq PRN Reason Stop Dose Admin Acetaminophen 650 mg 12/18/19 21:26 Tylenol PO Q4H PRN Pain MILD(1-3)/Fever >100.5/CHAUDHRY Albuterol 2.5 mg 12/18/19 21:34 Proventil IH Q4HRT PRN Shortness Of Breath Albuterol/Ipratropium 1 ampul 12/18/19 20:45 12/31/19 07:45 Duoneb *Not For Prn Use* IH Not Given Q6HRT MARIAN Lipase/Protease/Amylase 1 each 12/20/19 18:25 Pancrekacy Welch 10,500 Unit FEEDTUBE PRN PRN For Clogged Feeding Tube Arformoterol Tartrate 15 mcg 12/19/19 20:00 12/31/19 07:39 Brovana Nebu IH 15 mcg Q12HRT MARIAN Administration Budesonide 0.5 mg 12/19/19 20:00 12/31/19 07:39 Pulmicort IH 0.5 mg Q12HRT MARIAN Administration Clonidine HCl 0.1 mg 12/26/19 10:00 12/31/19 06:37 Catapres PO 0.1 mg Q8HR MARIAN Administration Docusate Sodium 100 mg 12/25/19 22:00 12/31/19 10:21 Colace FEEDTUBE 100 mg BID [facility] Administration Enoxaparin Sodium 40 mg 12/25/19 22:00 12/30/19 21:42 Enoxaparin SUB-Q 40 mg QDAY@2200 [facility] Administration Famotidine 20 mg 12/25/19 10:00 12/31/19 10:21 Pepcid PO 20 mg BID MARIAN Administration Hydralazine HCl 25 mg 12/19/19 14:00 12/31/19 06:37 Apresoline PO 25 mg Q8HR MARIAN Administration Hydralazine HCl 5 mg 12/26/19 03:19 12/29/19 12:02 Apresoline IV 5 mg Q6H PRN Administration Hypertension Hydrophilic Ointment 1 applic 12/20/19 12:12 Vaseline Lip Therapy TP Q2HR PRN Dry Lips Insulin Glargine 15 units 12/22/19 22:00 12/30/19 21:42 Lantus SUB-Q 15 units QHS [facility] Administration Insulin Human Lispro 0 unit 12/29/19 11:30 12/31/19 10:21 Humalog SUB-Q Not Given ACHS [facility] Protocol Metoclopramide HCl 10 mg 12/18/19 21:26 Reglan IV Q6H PRN Nausea And Vomiting Multi-Ingred Cream/Lotion/Oil/Oint 1 applic 12/20/19 12:12 Artificial Tears Ophth Oint OU Q4HR PRN Dry Eye(s) Nicotine 21 mg 12/20/19 10:00 12/31/19 10:21 Habitrol TD 21 mg QDAY [facility] Administration Ondansetron HCl 4 mg 12/18/19 21:26 Zofran IV Q3H PRN Nausea And Vomiting Oxycodone/Acetaminophen 1 tab 12/18/19 21:26 Percocet 5/325 PO Q6H PRN Pain, Moderate (4-6) Quetiapine Fumarate 100 mg 12/29/19 22:00 12/30/19 21:41 Seroquel PO 100 mg QHS MARIAN Administration Zolpidem Tartrate 5 mg 12/28/19 18:41 Ambien PO QHS PRN Sleep Nutrition/Malnutrition Assess - Dietary Evaluation Nutrition/Malnutrition Findings: Nutrition Notes Start: 12/19/19 11:42 Freq: Status: Active Protocol: Document 12/29/19 15:16 LM (Rec: 12/29/19 15:19 LM [email or web address]) Nutrition Notes Initial or Follow up Brief Note Current Diagnosis COPD,Sepsis,Respiratory Failure Other Pertinent Diagnosis pneu, nicotine dependence, DVT Current Diet Mechanical soft Labs/Tests BUN 43 Pertinent Medications Reviewed Height 5 ft 9 in Weight 96.2 kg Pool Body Weight (kg) 72.72 BMI 31.3 Weight Status Obese Subjective/Other Information Pt extubated. Diet advanced to mechanical soft. Nutrition Intervention Follow-Up By: 01/01/20 Additional Comments F/U for intakes
--- NOTE | 2019-12-31 11:41 | Progress Note ---
Assessment and Plan Assessment and plan: PT recommended acute rehab placement Case management will assist with discharge planning tomorrow --Acute respiratory failure with hypoxia/ intubation/extubated On high flow oxygen, titrate O2 sats to more than 90% BiPAP/Ventimask as needed, evaluation for home oxygen nebulizers IV steroids antibiotics, Pulmonary following --Hypernatremia resolved closely monitor electrolytes closely monitor, free water flushes --AYSE : Vasomotor nephropathy Resolved IV fluids for now in the form of D5W Significantly improved, creatinine today 1.3 Avoid nephrotoxins -- COPD with acute exacerbation Continue duo nebs, IV steroids and IV antibiotics --Metabolic encephalopathy Patient intubated --left lower lobe pneumonia Community-acquired pneumonia Completed Levaquin and Vanco Monitor off abx and supportive care --Leukocytosis/lactic acidosis sepsis secondary to pneumonia --Sepsis secondary to pneumonia; Improving, completed treatment --Hypertension; Moderate control , continue current antihypertensives --tobacco use: Smoking cessation on Nicoderm patch --Severe protein calorie malnutrition nutrition supplements and supportive care Nutrition supplements as needed --DVT prophylaxis On Heparin and GI prophylaxis Monitor closely and adjust management as needed PT recommended acute rehab DC planning per case management acute rehab versus home with home health Plan of care reviewed with the patient and his significant other I also discussed with the nurse Disposition; DC planning, acute rehab versus, home with home health When medically stable History Interval history: I have examined the patient at bedside in his room this morning Patient's significant other is in the room Patient feels slightly better complains of generalized weakness Awaiting acute rehab evaluation and placement As recommended by PT Alert awake oriented on Nasal cannula oxygen Not in acute distress Hospitalist Physical - Constitutional Vitals: Temp Pulse Resp BP Pulse Ox 97.8 F 69 16 143/57 98 12/31/19 03:55 12/31/19 08:00 12/31/19 07:39 12/31/19 03:55 12/31/19 07:41 General appearance: Present: no acute distress, well-nourished, obese - EENT Eyes: Present: PERRL, EOM intact - Neck Neck: Present: supple, normal ROM - Respiratory Respiratory effort: normal Respiratory: bilateral: diminished, negative: rales, rhonchi, wheezing - Cardiovascular Rhythm: regular Heart Sounds: Present: S1 & S2 - Extremities Extremities: no ischemia, No edema - Abdominal General gastrointestinal: soft, non-tender, non-distended, normal bowel sounds - Integumentary Integumentary: Present: clear, warm - Psychiatric Psychiatric: appropriate mood/affect, cooperative - Neurologic Neurologic: CNII-XII intact, moves all extremities MITCHELL score - Mitchell Score Age > 65: (0) No Aspirin use within the Past 7 Days: (0) No 3 or more CAD Risk Factors: (0) No 2 or more Angina events in past 24 hrs: (0) No Known CAD with more than 50% Stenosis: (0) No Elevated Cardiac Markers: (0) No ST Deviation Greater than 0.5mm: (0) No MITCHELL Score: 0 Results - Labs CBC & Chem 7: 12/28/19 04:14 12/31/19 04:47 Labs: Laboratory Last Values WBC 15.1 K/mm3 (4.5-11.0) H 12/28/19 04:14 RBC 4.32 M/mm3 (3.65-5.03) 12/28/19 04:14 Hgb 12.7 gm/dl (11.8-15.2) 12/28/19 04:14 Hct 39.4 % (35.5-45.6) 12/28/19 04:14 MCV 91 fl (84-94) 12/28/19 04:14 MCH 29 pg (28-32) 12/28/19 04:14 MCHC 32 % (32-34) 12/28/19 04:14 RDW 13.9 % (13.2-15.2) 12/28/19 04:14 Plt Count 212 K/mm3 (140-440) 12/28/19 04:14 Lymph % (Auto) 10.6 % (13.4-35.0) L 12/28/19 04:14 [place] % (Auto) 7.4 % (0.0-7.3) H 12/28/19 04:14 Eos % (Auto) 1.2 % (0.0-4.3) 12/28/19 04:14 Baso % (Auto) 0.6 % (0.0-1.8) 12/28/19 04:14 Lymph # 1.6 K/mm3 (1.2-5.4) 12/28/19 04:14 [place] # 1.1 K/mm3 (0.0-0.8) H 12/28/19 04:14 Eos # 0.2 K/mm3 (0.0-0.4) 12/28/19 04:14 Baso # 0.1 K/mm3 (0.0-0.1) 12/28/19 04:14 Add Manual Diff Complete 12/25/19 05:22 Total Counted 100 12/25/19 05:22 Seg Neutrophils % 80.2 % (40.0-70.0) H 12/28/19 04:14 Seg Neuts % (Manual) 76.0 % (40.0-70.0) H 12/25/19 05:22 Band Neutrophils % 2.0 % 12/25/19 05:22 Lymphocytes % (Manual) 10.0 % (13.4-35.0) L 12/25/19 05:22 Reactive Lymphs % (Man) 0 % 12/25/19 05:22 Monocytes % (Manual) 6.0 % (0.0-7.3) 12/25/19 05:22 Eosinophils % (Manual) 2.0 % (0.0-4.3) 12/25/19 05:22 Basophils % (Manual) 0 % (0.0-1.8) 12/25/19 05:22 Metamyelocytes % 4.0 % 12/25/19 05:22 Myelocytes % 0 % 12/25/19 05:22 Promyelocytes % 0 % 12/25/19 05:22 Blast Cells % 0 % 12/25/19 05:22 Nucleated RBC % Not Reportable 12/25/19 05:22 Seg Neutrophils # 12.1 K/mm3 (1.8-7.7) H 12/28/19 04:14 Seg Neutrophils # Man 9.1 K/mm3 (1.8-7.7) H 12/25/19 05:22 Band Neutrophils # 0.2 K/mm3 12/25/19 05:22 Lymphocytes # (Manual) 1.2 K/mm3 (1.2-5.4) 12/25/19 05:22 Abs React Lymphs (Man) 0.0 K/mm3 12/25/19 05:22 Monocytes # (Manual) 0.7 K/mm3 (0.0-0.8) 12/25/19 05:22 Eosinophils # (Manual) 0.2 K/mm3 (0.0-0.4) 12/25/19 05:22 Basophils # (Manual) 0.0 K/mm3 (0.0-0.1) 12/25/19 05:22 Metamyelocytes # 0.5 K/mm3 12/25/19 05:22 Myelocytes # 0.0 K/mm3 12/25/19 05:22 Promyelocytes # 0.0 K/mm3 12/25/19 05:22 Blast Cells # 0.0 K/mm3 12/25/19 05:22 WBC Morphology Not Reportable 12/25/19 05:22 Hypersegmented Neuts Not Reportable 12/25/19 05:22 Hyposegmented Neuts Not Reportable 12/25/19 05:22 Hypogranular Neuts Not Reportable 12/25/19 05:22 Smudge Cells Not Reportable 12/25/19 05:22 Toxic Granulation Not Reportable 12/25/19 05:22 Toxic Vacuolation Not Reportable 12/25/19 05:22 Dohle Bodies Not Reportable 12/25/19 05:22 Pelger-Huet Anomaly Not Reportable 12/25/19 05:22 Jennifer Rods Not Reportable 12/25/19 05:22 Platelet Estimate Consistent w auto 12/25/19 05:22 Clumped Platelets Not Reportable 12/25/19 05:22 Plt Clumps, EDTA Not Reportable 12/25/19 05:22 Large Platelets Not Reportable 12/25/19 05:22 Giant Platelets Not Reportable 12/25/19 05:22 Platelet Satelliting Not Reportable 12/25/19 05:22 Plt Morphology Comment Not Reportable 12/25/19 05:22 RBC Morphology Normal 12/25/19 05:22 Dimorphic RBCs Not Reportable 12/25/19 05:22 Polychromasia Not Reportable 12/25/19 05:22 Hypochromasia Not Reportable 12/25/19 05:22 Poikilocytosis Not Reportable 12/25/19 05:22 Anisocytosis Not Reportable 12/25/19 05:22 Microcytosis Not Reportable 12/25/19 05:22 Macrocytosis Not Reportable 12/25/19 05:22 Spherocytes Not Reportable 12/25/19 05:22 Pappenheimer Bodies Not Reportable 12/25/19 05:22 Sickle Cells Not Reportable 12/25/19 05:22 Target Cells Not Reportable 12/25/19 05:22 Tear Drop Cells Not Reportable 12/25/19 05:22 Ovalocytes Not Reportable 12/25/19 05:22 Helmet Cells Not Reportable 12/25/19 05:22 Orosco-Crumpton Bodies Not Reportable 12/25/19 05:22 Clements Rings Not Reportable 12/25/19 05:22 [place] Cells Not Reportable 12/25/19 05:22 Bite Cells Not Reportable 12/25/19 05:22 Crenated Cell Not Reportable 12/25/19 05:22 Elliptocytes Not Reportable 12/25/19 05:22 Acanthocytes (Spur) Not Reportable 12/25/19 05:22 Rouleaux Not Reportable 12/25/19 05:22 Hemoglobin C Crystals Not Reportable 12/25/19 05:22 Schistocytes Not Reportable 12/25/19 05:22 Malaria parasites Not Reportable 12/25/19 05:22 León Bodies Not Reportable 12/25/19 05:22 Hem Pathologist Commnt No 12/25/19 05:22 PT 13.9 Sec. (12.2-14.9) 12/18/19 15:28 INR 1.06 (0.87-1.13) 12/18/19 15:28 APTT 72.2 Sec. (24.2-36.6) H* 12/18/19 15:28 D-Dimer 2277.88 ng/mlDDU (0-234) H 12/18/19 10:30 ABG pH 7.442 pH Units (7.350-7.450) 12/26/19 17:26 ABG pCO2 47.8 mm Hg 12/26/19 17:26 ABG pO2 113.4 mm Hg (80.0-90.0) H 12/26/19 17:26 ABG HCO3 31.9 mmol/L (20.0-26.0) H 12/26/19 17:26 ABG O2 Saturation 98.1 % (95.0-99.0) 12/26/19 17:26 ABG O2 Content 19.4 (0.0-44) 12/26/19 17:26 ABG Base Excess 6.7 mmol/L (-2.0-3.0) H 12/26/19 17:26 ABG Hemoglobin 14.3 gm/dl (14.0-18.0) 12/26/19 17:26 ABG Carboxyhemoglobin 1.4 % (0.0-5.0) 12/26/19 17: ABG Methemoglobin 0.7 % (0.0-1.5) 12/26/19 17: Oxyhemoglobin 96.1 % (95.0-99.0) 12/26/19 17:26 FiO2 50 % 12/26/19 17:26 Sodium 140 mmol/L (137-145) 12/31/19 04:47 Potassium 4.3 mmol/L (3.6-5.0) 12/31/19 04:47 Chloride 105.3 mmol/L (98-107) 12/31/19 04:47 Carbon Dioxide 25 mmol/L (22-30) 12/31/19 04:47 Anion Gap 14 mmol/L 12/31/19 04:47 BUN 29 mg/dL (9-20) H 12/31/19 04:47 Creatinine 1.3 mg/dL (0.8-1.5) 12/31/19 04:47 Estimated GFR 56 ml/min 12/31/19 04:47 BUN/Creatinine Ratio 22 % 12/31/19 04:47 Glucose 107 mg/dL (75-100) H 12/31/19 04:47 POC Glucose 162 (70-105) H 12/31/19 11:42 Hemoglobin A1c 10.0 % (4-6) H 12/21/19 Unknown Lactic Acid 1.70 mmol/L (0.7-2.0) 12/21/19 09:48 Calcium 8.0 mg/dL (8.4-10.2) L 12/31/19 04:47 Phosphorus 3.30 mg/dL (2.5-4.5) 12/25/19 05:22 Magnesium 2.90 mg/dL (1.7-2.3) H 12/25/19 05:22 Total Bilirubin 0.50 mg/dL (0.1-1.2) 12/25/19 05:22 AST 31 units/L (5-40) 12/25/19 05:22 ALT 35 units/L (7-56) 12/25/19 05:22 Alkaline Phosphatase 49 units/L (35-129) 12/25/19 05:22 Total Creatine Kinase 195 units/L (55-170) H 12/25/19 05:22 CK-MB (CK-2) 8.7 ng/mL (0.0-4.0) H 12/19/19 12:04 CK-MB (CK-2) Rel Index 0.2 (0-4) 12/19/19 12:04 Troponin T < 0.010 ng/mL (0.00-0.029) 12/19/19 12:04 NT-Pro-B Natriuret Pep 609.1 pg/mL (0-900) 12/18/19 12:06 Total Protein 5.8 g/dL (6.3-8.2) L 12/25/19 05:22 Albumin 2.3 g/dL (3.9-5) L 12/25/19 05:22 Albumin/Globulin Ratio 0.7 % 12/25/19 05:22 Procalcitonin 3.24 ng/mL (<0.15) 12/19/19 12:04 Urine Color Red (Yellow) 12/18/19 11:56 Urine Turbidity Slightly-cloudy (Clear) 12/18/19 11:56 Urine pH 6.0 (5.0-7.0) 12/18/19 11:56 Ur Specific [place] 1.017 (1.003-1.030) 12/18/19 11:56 Urine Protein 100 mg/dl mg/dL (Negative) 12/18/19 11:56 Urine Glucose (UA) >=500 mg/dL (Negative) 12/18/19 11:56 Urine Ketones 20 mg/dL (Negative) 12/18/19 11:56 Urine Blood Lg (Negative) 12/18/19 11:56 Urine Nitrite Neg (Negative) 12/18/19 11:56 Urine Bilirubin Neg (Negative) 12/18/19 11:56 Urine Urobilinogen < 2.0 mg/dL (<2.0) 12/18/19 11:56 Ur Leukocyte Esterase Neg (Negative) 12/18/19 11:56 Urine WBC (Auto) 58.0 /HPF (0.0-6.0) H 12/18/19 11:56 Urine RBC (Auto) > 182.0 /HPF (0.0-6.0) 12/18/19 11:56 U Epithel Cells (Auto) 4.0 /HPF (0-13.0) 12/18/19 11:56 Urine Mucus Few /HPF 12/18/19 11:56 Urine Yeast (Budding) 1+ /HPF 12/18/19 11:56 Urine Creatinine 80.5 mg/dL (0.1-20.0) H 12/22/19 15:30 Urine Sodium 23 mmol/L 12/22/19 15:30 Vancomycin Trough 11.4 ug/mL (5.0-20.0) 12/20/19 09:56 Random Vancomycin 5.2 ug/mL (0-40.0) 12/24/19 05:25 Robertson/IV: Voiding Method Toilet IV Catheter Type [Right] Peripheral IV IV Catheter Type [Right INT / Saline Lock Forearm] IV Catheter Type [Left Forearm Peripheral IV ] IV Catheter Type [Left INT / Saline Lock Antecubital] Active Medications - Current Medications Current Medications: Generic Name Dose Route Start Last Admin Trade Name Freq PRN Reason Stop Dose Admin Acetaminophen 650 mg 12/18/19 21:26 Tylenol PO Q4H PRN Pain MILD(1-3)/Fever >100.5/CHAUDHRY Albuterol 2.5 mg 12/18/19 21:34 Proventil IH Q4HRT PRN Shortness Of Breath Albuterol/Ipratropium 1 ampul 12/18/19 20:45 12/31/19 07:45 Duoneb *Not For Prn Use* IH Not Given Q6HRT MARIAN Lipase/Protease/Amylase 1 each 12/20/19 18:25 Pancrekacy Welch 10,500 Unit FEEDTUBE PRN PRN For Clogged Feeding Tube Arformoterol Tartrate 15 mcg 12/19/19 20:00 12/31/19 07:39 Brovana Nebu IH 15 mcg Q12HRT MARIAN Administration Budesonide 0.5 mg 12/19/19 20:00 12/31/19 07:39 Pulmicort IH 0.5 mg Q12HRT MARIAN Administration Clonidine HCl 0.1 mg 12/26/19 10:00 12/31/19 06:37 Catapres PO 0.1 mg Q8HR MARIAN Administration Docusate Sodium 100 mg 12/25/19 22:00 12/31/19 10:21 Colace FEEDTUBE 100 mg BID [facility] Administration Enoxaparin Sodium 40 mg 12/25/19 22:00 12/30/19 21:42 Enoxaparin SUB-Q 40 mg QDAY@2200 [facility] Administration Famotidine 20 mg 12/25/19 10:00 12/31/19 10:21 Pepcid PO 20 mg BID [facility] Administration Hydralazine HCl 25 mg 12/19/19 14:00 12/31/19 06:37 Apresoline PO 25 mg Q8HR [facility] Administration Hydralazine HCl 5 mg 12/26/19 03:19 12/29/19 12:02 Apresoline IV 5 mg Q6H PRN Administration Hypertension Hydrophilic Ointment 1 applic 12/20/19 12:12 Vaseline Lip Therapy TP Q2HR PRN Dry Lips Insulin Glargine 15 units 12/22/19 22:00 12/30/19 21:42 Lantus SUB-Q 15 units QHS [facility] Administration Insulin Human Lispro 0 unit 12/29/19 11:30 12/31/19 10:21 Humalog SUB-Q Not Given ACHS [facility] Protocol Metoclopramide HCl 10 mg 12/18/19 21:26 Reglan IV Q6H PRN Nausea And Vomiting Multi-Ingred Cream/Lotion/Oil/Oint 1 applic 12/20/19 12:12 Artificial Tears Ophth Oint OU Q4HR PRN Dry Eye(s) Nicotine 21 mg 12/20/19 10:00 12/31/19 10:21 Habitrol TD 21 mg QDAY [facility] Administration Ondansetron HCl 4 mg 12/18/19 21:26 Zofran IV Q3H PRN Nausea And Vomiting Oxycodone/Acetaminophen 1 tab 12/18/19 21:26 Percocet 5/325 PO Q6H PRN Pain, Moderate (4-6) Quetiapine Fumarate 100 mg 12/29/19 22:00 12/30/19 21:41 Seroquel PO 100 mg QHS [facility] Administration Zolpidem Tartrate 5 mg 12/28/19 18:41 Ambien PO QHS PRN Sleep Nutrition/Malnutrition Assess - Dietary Evaluation Nutrition/Malnutrition Findings: Nutrition Notes Start: 12/19/19 11:42 Freq: Status: Active Protocol: Document 12/29/19 15:16 LM (Rec: 12/29/19 15:19 LM [email or web address]) Nutrition Notes Initial or Follow up Brief Note Current Diagnosis COPD,Sepsis,Respiratory Failure Other Pertinent Diagnosis pneu, nicotine dependence, DVT Current Diet Mechanical soft Labs/Tests BUN 43 Pertinent Medications Reviewed Height 5 ft 9 in Weight 96.2 kg [place] Body Weight (kg) 72.72 BMI 31.3 Weight Status Obese Subjective/Other Information Pt extubated. Diet advanced to mechanical soft. Nutrition Intervention Follow-Up By: 01/01/20 Additional Comments F/U for intakes
--- NOTE | 2019-12-31 15:30 | Progress Note ---
Assessment and Plan Acute hypoxemic respiratory failure Bilateral pneumonia (CAP/Aspiration) Possible EtOH abuse with withdrawals Possible COPD Leukocytosis. Elevated D-dimer. Hyponatremia (? SIADH) Mild metabolic acidosis. Lactic acidosis. Severe Sepsis Hyperbilirubinemia. Elevated serum transaminases. Possible UTI Rhabdomyolysis - continue qhs BIPAP - outpatient PFT's - continue HFNC via Vapotherm system - continue prn Ambien for insomnia - contyinue Lantus - continue Daily SAT and SBT assessment as tolerated - continue glycemic control per SSI for target blood glucose < 180 mg/dL (avoid hypoglycemia) - continue to wean supplemental oxygen for target O2 sat's > 90% acutely - continue bronchodilators with pulmonary hygiene per RT - wean per pulmonary driven protocols otherwise - s/p empiric antibiotics (Follow clinically / trend WBC) - prn analgesia per pain score - Maintenance of sleep-wake cycle, avoid delirium - aspiration precautions - G.I. & VTE prophylaxis - PT/OT exercises as tolerated - continue mobility protocols for pressure ulcer prophylaxis - Monitor hemodynamics closely - continue other care per attending / other consultants - discharge planning ongoing concurrently .... Re-evaluate in am & prn CONDITION: IMPROVED PROGNOSIS: IMPROVED CODE STATUS: FULL CODE Subjective Date of service: 12/31/19 Principal diagnosis: Ac hypoxemic resp failure; ARDS; Rodrigue pneumonia; Severe Seps is; Rhabdomyolys Interval history: Patient is seen today for: Acute hypoxemic respiratory failure; ARDS; Bilateral pneumonia (CAP/Aspiration); Possible COPD; Leukocytosis.; Elevated D-dimer; Hyponatremia (? SIADH); Severe Sepsis; Elevated serum transaminases; Rhabdomyolysis Seen and examined at bedside; 24hour events reviewed; nursing and respiratory care staff consulted; no adverse overnight events reported to me; laying in bed; no new issues. Objective Vital Signs - 12hr 12/31/19 12/31/19 12/31/19 03:55 04:00 07:39 Temperature 97.8 F Pulse Rate 62 61 Pulse Rate [ 88 Anterior Bilateral Throughout] Pulse Rate [ 72 Anterior Bilateral] Respiratory 18 Rate Respiratory 16 Rate [Anterior Bilateral Throughout] Respiratory 16 Rate [Anterior Bilateral] Blood Pressure 143/57 O2 Sat by Pulse 92 Oximetry 12/31/19 12/31/19 12/31/19 07:41 07:57 08:00 Temperature 98.1 F Pulse Rate 69 Pulse Rate [ Anterior Bilateral Throughout] Pulse Rate [ Anterior Bilateral] Respiratory 18 Rate Respiratory Rate [Anterior Bilateral Throughout] Respiratory Rate [Anterior Bilateral] Blood Pressure 164/68 O2 Sat by Pulse 98 Oximetry 12/31/19 12/31/19 11:49 13:41 Temperature 97.6 F Pulse Rate 63 Pulse Rate [ 92 H Anterior Bilateral Throughout] Pulse Rate [ 84 Anterior Bilateral] Respiratory 18 Rate Respiratory 15 Rate [Anterior Bilateral Throughout] Respiratory 15 Rate [Anterior Bilateral] Blood Pressure 160/83 O2 Sat by Pulse 94 Oximetry Constitutional: no acute distress, other (elderly obese CM resting in bed with mildly increased resp effort) Eyes: non-icteric ENT: oropharynx moist, other (Mallampati 3) Neck: supple, no lymphadenopathy, no JVD, other (large neck circumference) Effort: mildly labored Ascultation: Bilateral: diminished breath sounds, rhonchi Percussion: Bilateral: not dull Cardiovascular: regular rate and rhythm, other (S1,S2, no murmurs, gallops or rubs) Gastrointestinal: normoactive bowel sounds, soft, non-tender, non-distended (protuberant) Integumentary: normal Extremities: no cyanosis, no edema, pink and warm, pulses normal, no ischemia or petechiae Neurologic: normal mental status, non-focal exam, pupils equal and round, CN II- XII normal, motor strength normal and Psychiatric: mood appropriate, affect normal CBC and BMP: 01/01/20 05:59 01/01/20 05:59 ABG, PT/INR, D-dimer: ABG ABG pH 7.442 pH Units (7.350-7.450) 12/26/19 17:26 ABG pCO2 47.8 mm Hg 12/26/19 17:26 ABG pO2 113.4 mm Hg (80.0-90.0) H 12/26/19 17:26 ABG O2 Saturation 98.1 % (95.0-99.0) 12/26/19 17:26 PT/INR, D-dimer PT 13.9 Sec. (12.2-14.9) 12/18/19 15:28 INR 1.06 (0.87-1.13) 12/18/19 15:28 D-Dimer 2277.88 ng/mlDDU (0-234) H 12/18/19 10:30 Abnormal lab findings: Abnormal Labs 12/18/19 12/18/19 12/18/19 10:30 10:30 10:30 WBC 13.7 H RBC 5.06 H Hgb 15.4 H Hct MCHC 35 H Lymph % (Auto) [place] % (Auto) [place] # Seg Neutrophils % Seg Neuts % (Manual) 82.0 H Lymphocytes % (Manual) 8.0 L Seg Neutrophils # Seg Neutrophils # Man 11.2 H Lymphocytes # (Manual) 1.1 L APTT D-Dimer 2277.88 H ABG pH ABG pO2 ABG HCO3 ABG O2 Saturation ABG Base Excess ABG Hemoglobin Oxyhemoglobin Sodium 122 L Chloride 80.6 L Carbon Dioxide 21 L BUN Creatinine Glucose 272 H POC Glucose Hemoglobin A1c Lactic Acid Calcium 7.8 L Phosphorus Magnesium Total Bilirubin 1.30 H AST 108 H Total Creatine Kinase CK-MB (CK-2) Total Protein Albumin 3.1 L Urine WBC (Auto) Urine Creatinine 12/18/19 12/18/19 12/18/19 10:30 11:18 11:56 WBC RBC Hgb Hct MCHC Lymph % (Auto) [place] % (Auto) [place] # Seg Neutrophils % Seg Neuts % (Manual) Lymphocytes % (Manual) Seg Neutrophils # Seg Neutrophils # Man Lymphocytes # (Manual) APTT D-Dimer ABG pH ABG pO2 ABG HCO3 ABG O2 Saturation ABG Base Excess ABG Hemoglobin Oxyhemoglobin Sodium Chloride Carbon Dioxide BUN Creatinine Glucose POC Glucose Hemoglobin A1c Lactic Acid 3.70 H* 2.40 H* Calcium Phosphorus Magnesium Total Bilirubin AST Total Creatine Kinase CK-MB (CK-2) Total Protein Albumin Urine WBC (Auto) 58.0 H Urine Creatinine 12/18/19 12/18/19 12/18/19 12:05 12:06 13:18 WBC RBC Hgb Hct MCHC Lymph % (Auto) [place] % (Auto) [place] # Seg Neutrophils % Seg Neuts % (Manual) Lymphocytes % (Manual) Seg Neutrophils # Seg Neutrophils # Man Lymphocytes # (Manual) APTT D-Dimer ABG pH 7.469 H ABG pO2 113.9 H ABG HCO3 ABG O2 Saturation ABG Base Excess ABG Hemoglobin 10.0 L Oxyhemoglobin Sodium Chloride Carbon Dioxide BUN Creatinine Glucose POC Glucose Hemoglobin A1c Lactic Acid 3.20 H* 2.50 H* Calcium Phosphorus Magnesium Total Bilirubin AST Total Creatine Kinase CK-MB (CK-2) Total Protein Albumin Urine WBC (Auto) Urine Creatinine 12/18/19 12/19/19 12/19/19 15:28 10:50 11:12 WBC RBC Hgb Hct MCHC Lymph % (Auto) [place] % (Auto) [place] # Seg Neutrophils % Seg Neuts % (Manual) Lymphocytes % (Manual) Seg Neutrophils # Seg Neutrophils # Man Lymphocytes # (Manual) APTT 72.2 H* D-Dimer ABG pH ABG pO2 55.6 L ABG HCO3 19.5 L ABG O2 Saturation 88.8 L ABG Base Excess -4.7 L ABG Hemoglobin Oxyhemoglobin 87.0 L Sodium Chloride Carbon Dioxide BUN Creatinine Glucose POC Glucose 257 H Hemoglobin A1c Lactic Acid Calcium Phosphorus Magnesium Total Bilirubin AST Total Creatine Kinase CK-MB (CK-2) Total Protein Albumin Urine WBC (Auto) Urine Creatinine 12/19/19 12/19/19 12/20/19 12:04 12:04 08:20 WBC RBC Hgb Hct MCHC Lymph % (Auto) [place] % (Auto) [place] # Seg Neutrophils % Seg Neuts % (Manual) Lymphocytes % (Manual) Seg Neutrophils # Seg Neutrophils # Man Lymphocytes # (Manual) APTT D-Dimer ABG pH ABG pO2 59.7 L ABG HCO3 19.9 L ABG O2 Saturation 90.2 L ABG Base Excess -4.9 L ABG Hemoglobin Oxyhemoglobin 88.5 L Sodium 131 L D Chloride 91.3 L Carbon Dioxide 18 L BUN Creatinine Glucose 290 H POC Glucose Hemoglobin A1c Lactic Acid 2.50 H* Calcium 7.9 L Phosphorus Magnesium Total Bilirubin AST 123 H Total Creatine Kinase 3873 H CK-MB (CK-2) 8.7 H Total Protein Albumin 2.4 L Urine WBC (Auto) Urine Creatinine 12/20/19 12/20/19 12/20/19 09:56 09:56 09:56 WBC 17.7 H RBC 5.24 H Hgb 15.7 H Hct 46.7 H D MCHC Lymph % (Auto) [place] % (Auto) [place] # Seg Neutrophils % Seg Neuts % (Manual) 88.0 H Lymphocytes % (Manual) 8.0 L Seg Neutrophils # Seg Neutrophils # Man 15.6 H Lymphocytes # (Manual) APTT D-Dimer ABG pH ABG pO2 ABG HCO3 ABG O2 Saturation ABG Base Excess ABG Hemoglobin Oxyhemoglobin Sodium 135 L Chloride 96.6 L Carbon Dioxide 13 L BUN 38 H Creatinine Glucose 382 H POC Glucose Hemoglobin A1c Lactic Acid Calcium Phosphorus Magnesium 3.10 H Total Bilirubin AST Total Creatine Kinase CK-MB (CK-2) Total Protein Albumin Urine WBC (Auto) Urine Creatinine 12/20/19 12/20/19 12/20/19 10:27 12:57 15:20 WBC RBC Hgb Hct MCHC Lymph % (Auto) [place] % (Auto) [place] # Seg Neutrophils % Seg Neuts % (Manual) Lymphocytes % (Manual) Seg Neutrophils # Seg Neutrophils # Man Lymphocytes # (Manual) APTT D-Dimer ABG pH 7.217 L 7.247 L ABG pO2 75.4 L 93.3 H ABG HCO3 ABG O2 Saturation 92.1 L ABG Base Excess -7.4 L -6.1 L ABG Hemoglobin Oxyhemoglobin 90.4 L 94.3 L Sodium Chloride Carbon Dioxide BUN Creatinine Glucose POC Glucose 350 H Hemoglobin A1c Lactic Acid Calcium Phosphorus Magnesium Total Bilirubin AST Total Creatine Kinase CK-MB (CK-2) Total Protein Albumin Urine WBC (Auto) Urine Creatinine 12/20/19 12/20/19 12/20/19 16:44 18:22 20:47 WBC RBC Hgb Hct MCHC Lymph % (Auto) [place] % (Auto) [place] # Seg Neutrophils % Seg Neuts % (Manual) Lymphocytes % (Manual) Seg Neutrophils # Seg Neutrophils # Man Lymphocytes # (Manual) APTT D-Dimer ABG pH ABG pO2 ABG HCO3 ABG O2 Saturation ABG Base Excess ABG Hemoglobin Oxyhemoglobin Sodium Chloride Carbon Dioxide BUN Creatinine Glucose POC Glucose 401 H 371 H 412 H Hemoglobin A1c Lactic Acid Calcium Phosphorus Magnesium Total Bilirubin AST Total Creatine Kinase CK-MB (CK-2) Total Protein Albumin Urine WBC (Auto) Urine Creatinine 12/21/19 12/21/19 12/21/19 00:14 04:40 05:13 WBC RBC Hgb Hct MCHC Lymph % (Auto) [place] % (Auto) [place] # Seg Neutrophils % Seg Neuts % (Manual) Lymphocytes % (Manual) Seg Neutrophils # Seg Neutrophils # Man Lymphocytes # (Manual) APTT D-Dimer ABG pH 7.308 L ABG pO2 60.8 L ABG HCO3 27.3 H ABG O2 Saturation 90.1 L ABG Base Excess ABG Hemoglobin 12.6 L Oxyhemoglobin 88.3 L Sodium Chloride Carbon Dioxide BUN Creatinine Glucose POC Glucose 392 H 333 H Hemoglobin A1c Lactic Acid Calcium Phosphorus Magnesium Total Bilirubin AST Total Creatine Kinase CK-MB (CK-2) Total Protein Albumin Urine WBC (Auto) Urine Creatinine 12/21/19 12/21/19 12/21/19 12:39 18:11 23:45 WBC RBC Hgb Hct MCHC Lymph % (Auto) [place] % (Auto) [place] # Seg Neutrophils % Seg Neuts % (Manual) Lymphocytes % (Manual) Seg Neutrophils # Seg Neutrophils # Man Lymphocytes # (Manual) APTT D-Dimer ABG pH ABG pO2 ABG HCO3 ABG O2 Saturation ABG Base Excess ABG Hemoglobin Oxyhemoglobin Sodium Chloride Carbon Dioxide BUN Creatinine Glucose POC Glucose 327 H 309 H 286 H Hemoglobin A1c Lactic Acid Calcium Phosphorus Magnesium Total Bilirubin AST Total Creatine Kinase CK-MB (CK-2) Total Protein Albumin Urine WBC (Auto) Urine Creatinine 12/21/19 12/21/19 12/21/19 Unknown Unknown Unknown WBC 12.3 H RBC Hgb Hct MCHC Lymph % (Auto) [place] % (Auto) [place] # Seg Neutrophils % Seg Neuts % (Manual) 93.0 H Lymphocytes % (Manual) 5.0 L Seg Neutrophils # Seg Neutrophils # Man 11.4 H Lymphocytes # (Manual) 0.6 L APTT D-Dimer ABG pH ABG pO2 ABG HCO3 ABG O2 Saturation ABG Base Excess ABG Hemoglobin Oxyhemoglobin Sodium Chloride Carbon Dioxide 21 L D BUN 73 H Creatinine 2.2 H D Glucose 361 H POC Glucose Hemoglobin A1c 10.0 H Lactic Acid Calcium 7.9 L Phosphorus Magnesium Total Bilirubin AST Total Creatine Kinase CK-MB (CK-2) Total Protein Albumin Urine WBC (Auto) Urine Creatinine 12/22/19 12/22/19 12/22/19 05:24 06:29 07:16 WBC RBC Hgb Hct MCHC Lymph % (Auto) [place] % (Auto) [place] # Seg Neutrophils % Seg Neuts % (Manual) Lymphocytes % (Manual) Seg Neutrophils # Seg Neutrophils # Man Lymphocytes # (Manual) APTT D-Dimer ABG pH ABG pO2 93.7 H ABG HCO3 30.4 H ABG O2 Saturation ABG Base Excess 4.4 H ABG Hemoglobin 12.8 L Oxyhemoglobin Sodium Chloride Carbon Dioxide BUN 111 H Creatinine 3.2 H Glucose 340 H POC Glucose 275 H Hemoglobin A1c Lactic Acid Calcium 8.1 L Phosphorus Magnesium Total Bilirubin AST Total Creatine Kinase CK-MB (CK-2) Total Protein Albumin Urine WBC (Auto) Urine Creatinine 12/22/19 12/22/19 12/22/19 11:27 12:58 15:30 WBC RBC Hgb Hct MCHC Lymph % (Auto) [place] % (Auto) [place] # Seg Neutrophils % Seg Neuts % (Manual) Lymphocytes % (Manual) Seg Neutrophils # Seg Neutrophils # Man Lymphocytes # (Manual) APTT D-Dimer ABG pH ABG pO2 ABG HCO3 ABG O2 Saturation ABG Base Excess ABG Hemoglobin Oxyhemoglobin Sodium Chloride Carbon Dioxide BUN Creatinine Glucose POC Glucose 345 H Hemoglobin A1c Lactic Acid Calcium Phosphorus 5.10 H Magnesium 3.90 H Total Bilirubin AST Total Creatine Kinase CK-MB (CK-2) Total Protein Albumin Urine WBC (Auto) Urine Creatinine 80.5 H 12/22/19 12/23/19 12/23/19 17:54 00:30 04:47 WBC RBC Hgb Hct MCHC Lymph % (Auto) [place] % (Auto) [place] # Seg Neutrophils % Seg Neuts % (Manual) Lymphocytes % (Manual) Seg Neutrophils # Seg Neutrophils # Man Lymphocytes # (Manual) APTT D-Dimer ABG pH ABG pO2 ABG HCO3 ABG O2 Saturation ABG Base Excess ABG Hemoglobin Oxyhemoglobin Sodium 146 H Chloride Carbon Dioxide BUN 107 H Creatinine 2.5 H Glucose 278 H POC Glucose 308 H 228 H Hemoglobin A1c Lactic Acid Calcium 7.7 L Phosphorus Magnesium Total Bilirubin AST Total Creatine Kinase CK-MB (CK-2) Total Protein Albumin Urine WBC (Auto) Urine Creatinine 12/23/19 12/23/19 12/23/19 04:47 05:50 06:06 WBC 12.0 H RBC Hgb Hct MCHC Lymph % (Auto) [place] % (Auto) [place] # Seg Neutrophils % Seg Neuts % (Manual) 82.0 H Lymphocytes % (Manual) 12.0 L Seg Neutrophils # Seg Neutrophils # Man 9.8 H Lymphocytes # (Manual) APTT D-Dimer ABG pH ABG pO2 59.0 L ABG HCO3 31.6 H ABG O2 Saturation 89.2 L ABG Base Excess 4.5 H ABG Hemoglobin 13.5 L Oxyhemoglobin 87.2 L Sodium Chloride Carbon Dioxide BUN Creatinine Glucose POC Glucose 263 H Hemoglobin A1c Lactic Acid Calcium Phosphorus Magnesium Total Bilirubin AST Total Creatine Kinase CK-MB (CK-2) Total Protein Albumin Urine WBC (Auto) Urine Creatinine 12/23/19 12/23/19 12/23/19 12:58 18:08 18:10 WBC RBC Hgb Hct MCHC Lymph % (Auto) [place] % (Auto) [place] # Seg Neutrophils % Seg Neuts % (Manual) Lymphocytes % (Manual) Seg Neutrophils # Seg Neutrophils # Man Lymphocytes # (Manual) APTT D-Dimer ABG pH ABG pO2 ABG HCO3 31.6 H ABG O2 Saturation ABG Base Excess 4.7 H ABG Hemoglobin 13.1 L Oxyhemoglobin 93.5 L Sodium Chloride Carbon Dioxide BUN Creatinine Glucose POC Glucose 206 H 328 H Hemoglobin A1c Lactic Acid Calcium Phosphorus Magnesium Total Bilirubin AST Total Creatine Kinase CK-MB (CK-2) Total Protein Albumin Urine WBC (Auto) Urine Creatinine 12/23/19 12/24/19 12/24/19 23:37 00:37 00:37 WBC RBC Hgb Hct MCHC Lymph % (Auto) [place] % (Auto) [place] # Seg Neutrophils % Seg Neuts % (Manual) 88.0 H Lymphocytes % (Manual) 5.0 L Seg Neutrophils # Seg Neutrophils # Man 9.6 H Lymphocytes # (Manual) 0.5 L APTT D-Dimer ABG pH ABG pO2 ABG HCO3 ABG O2 Saturation ABG Base Excess ABG Hemoglobin Oxyhemoglobin Sodium 152 H Chloride 109.9 H Carbon Dioxide BUN 89 H Creatinine 2.2 H Glucose 287 H POC Glucose 277 H Hemoglobin A1c Lactic Acid Calcium 7.5 L Phosphorus Magnesium Total Bilirubin AST Total Creatine Kinase CK-MB (CK-2) Total Protein Albumin Urine WBC (Auto) Urine Creatinine 12/24/19 12/24/19 12/24/19 05:25 05:36 06:23 WBC RBC Hgb Hct MCHC Lymph % (Auto) [place] % (Auto) [place] # Seg Neutrophils % Seg Neuts % (Manual) Lymphocytes % (Manual) Seg Neutrophils # Seg Neutrophils # Man Lymphocytes # (Manual) APTT D-Dimer ABG pH ABG pO2 72.2 L ABG HCO3 31.6 H ABG O2 Saturation ABG Base Excess 5.2 H ABG Hemoglobin 13.1 L Oxyhemoglobin 92.8 L Sodium Chloride Carbon Dioxide BUN Creatinine Glucose POC Glucose 204 H Hemoglobin A1c Lactic Acid Calcium Phosphorus Magnesium 3.10 H Total Bilirubin AST Total Creatine Kinase CK-MB (CK-2) Total Protein Albumin Urine WBC (Auto) Urine Creatinine 12/24/19 12/24/19 12/24/19 11:34 18:04 23:53 WBC RBC Hgb Hct MCHC Lymph % (Auto) [place] % (Auto) [place] # Seg Neutrophils % Seg Neuts % (Manual) Lymphocytes % (Manual) Seg Neutrophils # Seg Neutrophils # Man Lymphocytes # (Manual) APTT D-Dimer ABG pH ABG pO2 ABG HCO3 ABG O2 Saturation ABG Base Excess ABG Hemoglobin Oxyhemoglobin Sodium Chloride Carbon Dioxide BUN Creatinine Glucose POC Glucose 187 H 286 H 231 H Hemoglobin A1c Lactic Acid Calcium Phosphorus Magnesium Total Bilirubin AST Total Creatine Kinase CK-MB (CK-2) Total Protein Albumin Urine WBC (Auto) Urine Creatinine 12/25/19 12/25/19 12/25/19 04:52 05:22 05:22 WBC 12.0 H RBC Hgb Hct MCHC Lymph % (Auto) [place] % (Auto) [place] # Seg Neutrophils % Seg Neuts % (Manual) 76.0 H Lymphocytes % (Manual) 10.0 L Seg Neutrophils # Seg Neutrophils # Man 9.1 H Lymphocytes # (Manual) APTT D-Dimer ABG pH ABG pO2 68.3 L ABG HCO3 32.6 H ABG O2 Saturation 94.7 L ABG Base Excess 5.7 H ABG Hemoglobin 13.2 L Oxyhemoglobin 92.3 L Sodium 149 H Chloride 109.2 H Carbon Dioxide 33 H BUN 62 H Creatinine 1.7 H Glucose 245 H POC Glucose Hemoglobin A1c Lactic Acid Calcium 8.0 L Phosphorus Magnesium 2.90 H Total Bilirubin AST Total Creatine Kinase 195 H CK-MB (CK-2) Total Protein 5.8 L Albumin 2.3 L Urine WBC (Auto) Urine Creatinine 12/25/19 12/25/19 12/25/19 05:42 12:16 18:48 WBC RBC Hgb Hct MCHC Lymph % (Auto) [place] % (Auto) [place] # Seg Neutrophils % Seg Neuts % (Manual) Lymphocytes % (Manual) Seg Neutrophils # Seg Neutrophils # Man Lymphocytes # (Manual) APTT D-Dimer ABG pH ABG pO2 ABG HCO3 ABG O2 Saturation ABG Base Excess ABG Hemoglobin Oxyhemoglobin Sodium Chloride Carbon Dioxide BUN Creatinine Glucose POC Glucose 208 H 290 H 239 H Hemoglobin A1c Lactic Acid Calcium Phosphorus Magnesium Total Bilirubin AST Total Creatine Kinase CK-MB (CK-2) Total Protein Albumin Urine WBC (Auto) Urine Creatinine 12/26/19 12/26/19 12/26/19 00:06 04:09 04:48 WBC RBC Hgb Hct MCHC Lymph % (Auto) [place] % (Auto) [place] # Seg Neutrophils % Seg Neuts % (Manual) Lymphocytes % (Manual) Seg Neutrophils # Seg Neutrophils # Man Lymphocytes # (Manual) APTT D-Dimer ABG pH ABG pO2 75.6 L ABG HCO3 33.4 H ABG O2 Saturation ABG Base Excess 6.6 H ABG Hemoglobin Oxyhemoglobin 93.4 L Sodium 147 H Chloride Carbon Dioxide 32 H BUN 49 H Creatinine Glucose 257 H POC Glucose 188 H Hemoglobin A1c Lactic Acid Calcium Phosphorus Magnesium Total Bilirubin AST Total Creatine Kinase CK-MB (CK-2) Total Protein Albumin Urine WBC (Auto) Urine Creatinine 12/26/19 12/26/19 12/26/19 05:49 11:54 17:26 WBC RBC Hgb Hct MCHC Lymph % (Auto) [place] % (Auto) [place] # Seg Neutrophils % Seg Neuts % (Manual) Lymphocytes % (Manual) Seg Neutrophils # Seg Neutrophils # Man Lymphocytes # (Manual) APTT D-Dimer ABG pH ABG pO2 113.4 H ABG HCO3 31.9 H ABG O2 Saturation ABG Base Excess 6.7 H ABG Hemoglobin Oxyhemoglobin Sodium Chloride Carbon Dioxide BUN Creatinine Glucose POC Glucose 220 H 262 H Hemoglobin A1c Lactic Acid Calcium Phosphorus Magnesium Total Bilirubin AST Total Creatine Kinase CK-MB (CK-2) Total Protein Albumin Urine WBC (Auto) Urine Creatinine 12/26/19 12/26/19 12/27/19 17:46 23:41 04:52 WBC RBC Hgb Hct MCHC Lymph % (Auto) [place] % (Auto) [place] # Seg Neutrophils % Seg Neuts % (Manual) Lymphocytes % (Manual) Seg Neutrophils # Seg Neutrophils # Man Lymphocytes # (Manual) APTT D-Dimer ABG pH ABG pO2 ABG HCO3 ABG O2 Saturation ABG Base Excess ABG Hemoglobin Oxyhemoglobin Sodium Chloride Carbon Dioxide BUN 49 H Creatinine Glucose 184 H POC Glucose 321 H 228 H Hemoglobin A1c Lactic Acid Calcium Phosphorus Magnesium Total Bilirubin AST Total Creatine Kinase CK-MB (CK-2) Total Protein Albumin Urine WBC (Auto) Urine Creatinine 12/27/19 12/27/19 12/27/19 04:52 05:21 11:59 WBC 16.1 H RBC Hgb Hct MCHC Lymph % (Auto) 9.1 L [place] % (Auto) 8.5 H [place] # 1.4 H Seg Neutrophils % 80.6 H Seg Neuts % (Manual) Lymphocytes % (Manual) Seg Neutrophils # 13.0 H Seg Neutrophils # Man Lymphocytes # (Manual) APTT D-Dimer ABG pH ABG pO2 ABG HCO3 ABG O2 Saturation ABG Base Excess ABG Hemoglobin Oxyhemoglobin Sodium Chloride Carbon Dioxide BUN Creatinine Glucose POC Glucose 176 H 200 H Hemoglobin A1c Lactic Acid Calcium Phosphorus Magnesium Total Bilirubin AST Total Creatine Kinase CK-MB (CK-2) Total Protein Albumin Urine WBC (Auto) Urine Creatinine 12/27/19 12/27/19 12/28/19 17:44 23:52 04:14 WBC RBC Hgb Hct MCHC Lymph % (Auto) [place] % (Auto) [place] # Seg Neutrophils % Seg Neuts % (Manual) Lymphocytes % (Manual) Seg Neutrophils # Seg Neutrophils # Man Lymphocytes # (Manual) APTT D-Dimer ABG pH ABG pO2 ABG HCO3 ABG O2 Saturation ABG Base Excess ABG Hemoglobin Oxyhemoglobin Sodium Chloride Carbon Dioxide BUN 52 H Creatinine Glucose 219 H POC Glucose 211 H 184 H Hemoglobin A1c Lactic Acid Calcium Phosphorus Magnesium Total Bilirubin AST Total Creatine Kinase CK-MB (CK-2) Total Protein Albumin Urine WBC (Auto) Urine Creatinine 12/28/19 12/28/19 12/28/19 04:14 06:32 12:15 WBC 15.1 H RBC Hgb Hct MCHC Lymph % (Auto) 10.6 L [place] % (Auto) 7.4 H [place] # 1.1 H Seg Neutrophils % 80.2 H Seg Neuts % (Manual) Lymphocytes % (Manual) Seg Neutrophils # 12.1 H Seg Neutrophils # Man Lymphocytes # (Manual) APTT D-Dimer ABG pH ABG pO2 ABG HCO3 ABG O2 Saturation ABG Base Excess ABG Hemoglobin Oxyhemoglobin Sodium Chloride Carbon Dioxide BUN Creatinine Glucose POC Glucose 226 H 209 H Hemoglobin A1c Lactic Acid Calcium Phosphorus Magnesium Total Bilirubin AST Total Creatine Kinase CK-MB (CK-2) Total Protein Albumin Urine WBC (Auto) Urine Creatinine 12/28/19 12/28/19 12/29/19 17:42 23:52 05:08 WBC RBC Hgb Hct MCHC Lymph % (Auto) [place] % (Auto) [place] # Seg Neutrophils % Seg Neuts % (Manual) Lymphocytes % (Manual) Seg Neutrophils # Seg Neutrophils # Man Lymphocytes # (Manual) APTT D-Dimer ABG pH ABG pO2 ABG HCO3 ABG O2 Saturation ABG Base Excess ABG Hemoglobin Oxyhemoglobin Sodium Chloride Carbon Dioxide BUN 43 H Creatinine Glucose 108 H POC Glucose 159 H 167 H Hemoglobin A1c Lactic Acid Calcium 8.1 L Phosphorus Magnesium Total Bilirubin AST Total Creatine Kinase CK-MB (CK-2) Total Protein Albumin Urine WBC (Auto) Urine Creatinine 12/29/19 12/29/19 12/29/19 12:23 16:57 22:07 WBC RBC Hgb Hct MCHC Lymph % (Auto) [place] % (Auto) [place] # Seg Neutrophils % Seg Neuts % (Manual) Lymphocytes % (Manual) Seg Neutrophils # Seg Neutrophils # Man Lymphocytes # (Manual) APTT D-Dimer ABG pH ABG pO2 ABG HCO3 ABG O2 Saturation ABG Base Excess ABG Hemoglobin Oxyhemoglobin Sodium Chloride Carbon Dioxide BUN Creatinine Glucose POC Glucose 175 H 132 H 148 H Hemoglobin A1c Lactic Acid Calcium Phosphorus Magnesium Total Bilirubin AST Total Creatine Kinase CK-MB (CK-2) Total Protein Albumin Urine WBC (Auto) Urine Creatinine 12/30/19 12/30/19 12/30/19 05:23 09:13 11:58 WBC RBC Hgb Hct MCHC Lymph % (Auto) [place] % (Auto) [place] # Seg Neutrophils % Seg Neuts % (Manual) Lymphocytes % (Manual) Seg Neutrophils # Seg Neutrophils # Man Lymphocytes # (Manual) APTT D-Dimer ABG pH ABG pO2 ABG HCO3 ABG O2 Saturation ABG Base Excess ABG Hemoglobin Oxyhemoglobin Sodium 135 L Chloride Carbon Dioxide BUN 39 H Creatinine Glucose 147 H POC Glucose 153 H 144 H Hemoglobin A1c Lactic Acid Calcium 8.0 L Phosphorus Magnesium Total Bilirubin AST Total Creatine Kinase CK-MB (CK-2) Total Protein Albumin Urine WBC (Auto) Urine Creatinine 12/30/19 12/30/19 12/31/19 16:18 21:29 04:47 WBC RBC Hgb Hct MCHC Lymph % (Auto) [place] % (Auto) [place] # Seg Neutrophils % Seg Neuts % (Manual) Lymphocytes % (Manual) Seg Neutrophils # Seg Neutrophils # Man Lymphocytes # (Manual) APTT D-Dimer ABG pH ABG pO2 ABG HCO3 ABG O2 Saturation ABG Base Excess ABG Hemoglobin Oxyhemoglobin Sodium Chloride Carbon Dioxide BUN 29 H Creatinine Glucose 107 H POC Glucose 111 H 121 H Hemoglobin A1c Lactic Acid Calcium 8.0 L Phosphorus Magnesium Total Bilirubin AST Total Creatine Kinase CK-MB (CK-2) Total Protein Albumin Urine WBC (Auto) Urine Creatinine 12/31/19 12/31/19 08:08 11:42 WBC RBC Hgb Hct MCHC Lymph % (Auto) [place] % (Auto) [place] # Seg Neutrophils % Seg Neuts % (Manual) Lymphocytes % (Manual) Seg Neutrophils # Seg Neutrophils # Man Lymphocytes # (Manual) APTT D-Dimer ABG pH ABG pO2 ABG HCO3 ABG O2 Saturation ABG Base Excess ABG Hemoglobin Oxyhemoglobin Sodium Chloride Carbon Dioxide BUN Creatinine Glucose POC Glucose 119 H 162 H Hemoglobin A1c Lactic Acid Calcium Phosphorus Magnesium Total Bilirubin AST Total Creatine Kinase CK-MB (CK-2) Total Protein Albumin Urine WBC (Auto) Urine Creatinine Allied health notes reviewed: nursing
[2019-12-31] MEDS: QUEtiapine 100 MG TAB PO SCH (22:14)
[2019-12-31] MEDS: ENOXAPARIN 40 MG/0.4 ML INJ SUB-Q SCH (22:15)
[2019-12-31] MEDS: INSULIN GLARGINE 100 UNITS/ML SUB-Q SCH (22:16)
[2020-01-01] MEDS: cloNIDine 0.1 MG TAB PO SCH ×2 (06:24→15:14)
[2020-01-01] MEDS: hydrALAZINE 25 MG TAB PO SCH ×2 (06:25→15:14)
[2020-01-01 06:27] LABS: Basophils # (Auto) 0.1 K/mm3 (0.0-0.1); Basophils % (Auto) 0.6 % (0.0-1.8); Eosinophils # (Auto) 0.2 K/mm3 (0.0-0.4); Eosinophils % (Auto) 1.8 % (0.0-4.3); Hematocrit 34.4 % (35.5-45.6); Hemoglobin 11.4 gm/dl (11.8-15.2); Lymphocytes # (Auto) 1.8 K/mm3 (1.2-5.4); Lymphocytes % (Auto) 20.8 % (13.4-35.0); Mean Corpuscular HGB Conc 33 % (32-34); Mean Corpuscular Volume 90 fl (84-94); Monocytes # (Auto) 0.7 K/mm3 (0.0-0.8); Monocytes % (Auto) 8.3 % (0.0-7.3); Platelet Count 260 K/mm3 (140-440); Red Blood Count 3.84 M/mm3 (3.65-5.03); Red Cell Distribution Width 14.2 % (13.2-15.2)
[2020-01-01] MEDS: ARFORMOTEROL 15 MCG/2 ML NEBU IH SCH (07:46)
[2020-01-01] MEDS: BUDESONIDE 0.5 MG/2 ML NEBU IH SCH (07:46)
[2020-01-01] MEDS: IPRATROPIUM/ALBUTEROL SULFATE 3 ML AMPUL.NEB IH SCH ×2 (07:52→13:35)
[2020-01-01] MEDS: oxyCODONE /ACETAMINOPHEN 5-325MG TAB PO PRN ×2 (08:15→14:10)
[2020-01-01] MEDS: INSULIN LISPRO 100 UNIT/ML SUB-Q SCH ×2 (08:43→13:23)
--- NOTE | 2020-01-01 09:18 | Progress Note ---
Assessment and Plan 1. Acute kidney injury: Likely vasomotor AYSE in the setting of sepsis and possible rhabdo. Renal US negative for hydro. Renal function is better at 1.3 and likely now at new baseline. Likely mild CKD. Monitor renal function. Avoid nephrotoxic agents. Meds dosage based on GFR. 2. FEN: Metabolic acidosis, improving, monitor. Mild Hypernatremia, improved, monitor. Mild hypokalemia, improved, monitor. Monitor lytes. 3. Acute respiratory failure with hypoxia: Was on BiPap and subsequently intubated after failed BiPAP. Extubated 12/26 and was on HFNC O2. Currently on RA and no respiratory distress noted. Pulmonary following. 4. Left lower lobe pneumonia: CAP, s/p Abx. 5. Sepsis: 2/2 pneumonia. Treated. 6. Metabolic encephalopathy: Improved. 8. Hypertension: BP controlled. Monitor BP. 9. Tobacco abuse: On Nicoderm patch. 10. Fevers: Remains afebrile. Subjective Date of service: 01/01/20 Principal diagnosis: Ac hypoxemic resp failure; ARDS; Rodrigue pneumonia; Severe Sepsis; Rhabdomyolys Interval history: Patient was seen and examined at the bedside. No family present at time of examination. Patient is alert and sitting up in bed during exam. No acute events reported overnight. Objective - Exam Narrative Exam: General appearance: well-developed, well-nourished, appears stated age, obese HEENT: GABRIEL, mucous membranes moist Neck: neck supple, trachea midline Respiratory: Clear to Auscultation Heart: regular, S1S2, no murmurs Gastrointestinal: soft, normoactive bowel sounds, not tender, nor distended Integumentary: no rash, warm and dry Neurologic: alert, appropriate verbal communication, oriented Ext: no edema noted Psychiatric: calm, cooperative - Vital Signs Vital signs: Vital Signs - 12hr 12/31/19 12/31/19 12/31/19 22:00 22:14 22:15 Temperature Pulse Rate 69 69 Pulse Rate [ Anterior Bilateral] Pulse Rate [ 67 From Monitor] Pulse Rate [ 67 Left Radial] Pulse Rate [ 67 Right Radial] Respiratory 20 Rate Respiratory Rate [Anterior Bilateral] Blood Pressure 164/85 164/65 O2 Sat by Pulse Oximetry 01/01/20 01/01/20 01/01/20 00:10 04:22 06:24 Temperature 98.3 F 97.6 F Pulse Rate 68 67 60 Pulse Rate [ Anterior Bilateral] Pulse Rate [ From Monitor] Pulse Rate [ Left Radial] Pulse Rate [ Right Radial] Respiratory 20 16 Rate Respiratory Rate [Anterior Bilateral] Blood Pressure 160/76 145/71 146/73 O2 Sat by Pulse 95 94 Oximetry 01/01/20 01/01/20 01/01/20 06:25 07:54 07:55 Temperature Pulse Rate 60 Pulse Rate [ 78 Anterior Bilateral] Pulse Rate [ From Monitor] Pulse Rate [ Left Radial] Pulse Rate [ Right Radial] Respiratory Rate Respiratory 18 Rate [Anterior Bilateral] Blood Pressure 146/73 O2 Sat by Pulse 94 Oximetry 01/01/20 08:50 Temperature 97.6 F Pulse Rate 68 Pulse Rate [ Anterior Bilateral] Pulse Rate [ From Monitor] Pulse Rate [ Left Radial] Pulse Rate [ Right Radial] Respiratory 18 Rate Respiratory Rate [Anterior Bilateral] Blood Pressure 146/65 O2 Sat by Pulse 92 Oximetry - Lab 01/01/20 05:59 01/01/20 05:59 Most recent lab results ABG pH 7.442 pH Units (7.350-7.450) 12/26/19 17:26 ABG pCO2 47.8 mm Hg 12/26/19 17:26 ABG pO2 113.4 mm Hg (80.0-90.0) H 12/26/19 17:26 ABG HCO3 31.9 mmol/L (20.0-26.0) H 12/26/19 17:26 ABG O2 Saturation 98.1 % (95.0-99.0) 12/26/19 17:26 Calcium 8.0 mg/dL (8.4-10.2) L 01/01/20 05:59 Phosphorus 3.30 mg/dL (2.5-4.5) 12/25/19 05:22 Magnesium 2.90 mg/dL (1.7-2.3) H 12/25/19 05:22 Urine Creatinine 80.5 mg/dL (0.1-20.0) H 12/22/19 15:30 Urine Sodium 23 mmol/L 12/22/19 15:30 Medications & Allergies - Medications Allergies/Adverse Reactions: Allergies Penicillins Allergy (Verified 12/18/19 22:48) Anaphylaxis VERIFIED WITH PT AND NURSE Home Medications: Home Medications Medication Instructions Recorded Confirmed Last Taken Type No Known Home Medications [No 12/19/19 12/19/19 Unknown History Reported Home Medications] Active Medications: Generic Name Dose Route Start Last Admin Trade Name Freq PRN Reason Stop Dose Admin Acetaminophen 650 mg 12/18/19 21:26 Tylenol PO Q4H PRN Pain MILD(1-3)/Fever >100.5/CHAUDHRY Albuterol 2.5 mg 12/18/19 21:34 Proventil IH Q4HRT PRN Shortness Of Breath Albuterol/Ipratropium 1 ampul 01/01/20 08:00 01/01/20 07:52 Duoneb *Not For Prn Use* IH 1 ampul TIDRT MARIAN Administration Lipase/Protease/Amylase 1 each 12/20/19 18:25 Pancrekacy Welch 10,500 Unit FEEDTUBE PRN PRN For Clogged Feeding Tube Arformoterol Tartrate 15 mcg 12/19/19 20:00 01/01/20 07:46 Brovana Nebu IH 15 mcg Q12HRT MARIAN Administration Budesonide 0.5 mg 12/19/19 20:00 01/01/20 07:46 Pulmicort IH 0.5 mg Q12HRT MARIAN Administration Clonidine HCl 0.1 mg 12/26/19 10:00 01/01/20 06:24 Catapres PO 0.1 mg Q8HR MARIAN Administration Docusate Sodium 100 mg 12/25/19 22:00 12/31/19 22:15 Colace FEEDTUBE Not Given BID MARIAN Enoxaparin Sodium 40 mg 12/25/19 22:00 12/31/19 22:15 Enoxaparin SUB-Q 40 mg QDAY@2200 MARIAN Administration Famotidine 20 mg 12/25/19 10:00 12/31/19 22:14 Pepcid PO 20 mg BID MARIAN Administration Hydralazine HCl 25 mg 12/19/19 14:00 01/01/20 06:25 Apresoline PO 25 mg Q8HR MARIAN Administration Hydralazine HCl 5 mg 12/26/19 03:19 12/29/19 12:02 Apresoline IV 5 mg Q6H PRN Administration Hypertension Hydrophilic Ointment 1 applic 12/20/19 12:12 Vaseline Lip Therapy TP Q2HR PRN Dry Lips Insulin Glargine 15 units 12/22/19 22:00 12/31/19 22:16 Lantus SUB-Q 15 units QHS [facility] Administration Insulin Human Lispro 0 unit 12/29/19 11:30 01/01/20 08:43 Humalog SUB-Q Not Given ACHS [facility] Protocol Metoclopramide HCl 10 mg 12/18/19 21:26 Reglan IV Q6H PRN Nausea And Vomiting Multi-Ingred Cream/Lotion/Oil/Oint 1 applic 12/20/19 12:12 Artificial Tears Ophth Oint OU Q4HR PRN Dry Eye(s) Nicotine 21 mg 12/20/19 10:00 12/31/19 10:21 Habitrol TD 21 mg QDAY [facility] Administration Ondansetron HCl 4 mg 12/18/19 21:26 Zofran IV Q3H PRN Nausea And Vomiting Oxycodone/Acetaminophen 1 tab 12/18/19 21:26 Percocet 5/325 PO Q6H PRN Pain, Moderate (4-6) Quetiapine Fumarate 100 mg 12/29/19 22:00 12/31/19 22:14 Seroquel PO 100 mg QHS [facility] Administration Zolpidem Tartrate 5 mg 12/28/19 18:41 Ambien PO QHS PRN Sleep
[2020-01-01] MEDS: DOCUSATE SODIUM 100 MG/10 ML ORAL LIQD FEEDTUBE SCH ×2 (09:50→09:59)
[2020-01-01] MEDS: FAMOTIDINE 20 MG TAB PO SCH (09:50)
[2020-01-01] MEDS: NICOTINE 21 MG/24 HR PATCH TD SCH (09:50)
--- NOTE | 2020-01-01 13:49 | Progress Note ---
Assessment and Plan Acute hypoxemic respiratory failure Bilateral pneumonia (CAP/Aspiration) Possible EtOH abuse with withdrawals Possible COPD Leukocytosis. Elevated D-dimer. Hyponatremia (? SIADH) Mild metabolic acidosis. Lactic acidosis. Severe Sepsis Hyperbilirubinemia. Elevated serum transaminases. Possible UTI Rhabdomyolysis - continue qhs BIPAP - outpatient PFT's - continue HFNC via Vapotherm system - continue prn Ambien for insomnia - contyinue Lantus - continue Daily SAT and SBT assessment as tolerated - continue glycemic control per SSI for target blood glucose < 180 mg/dL (avoid hypoglycemia) - continue to wean supplemental oxygen for target O2 sat's > 90% acutely - continue bronchodilators with pulmonary hygiene per RT - wean per pulmonary driven protocols otherwise - s/p empiric antibiotics (Follow clinically / trend WBC) - prn analgesia per pain score - Maintenance of sleep-wake cycle, avoid delirium - aspiration precautions - G.I. & VTE prophylaxis - PT/OT exercises as tolerated - continue mobility protocols for pressure ulcer prophylaxis - Monitor hemodynamics closely - continue other care per attending / other consultants - discharge planning ongoing concurrently .... Re-evaluate in am & prn CONDITION: IMPROVED PROGNOSIS: IMPROVED CODE STATUS: FULL CODE Subjective Date of service: 01/01/20 Principal diagnosis: Ac hypoxemic resp failure; ARDS; Rodrigue pneumonia; Severe Seps is; Rhabdomyolys Interval history: Patient is seen today for: Acute hypoxemic respiratory failure; ARDS; Bilateral pneumonia (CAP/Aspiration); Possible COPD; Leukocytosis.; Elevated D-dimer; Hyponatremia (? SIADH); Severe Sepsis; Elevated serum transaminases; Rhabdomyolysis Seen and examined at bedside; 24hour events reviewed; nursing and respiratory care staff consulted; no adverse overnight events reported to me; laying in bed; Objective Vital Signs - 12hr 01/01/20 01/01/20 01/01/20 04:22 06:24 06:25 Temperature 97.6 F Pulse Rate 67 60 60 Pulse Rate [ Anterior Bilateral] Respiratory 16 Rate Respiratory Rate [Anterior Bilateral] Blood Pressure 145/71 146/73 146/73 O2 Sat by Pulse 94 Oximetry 01/01/20 01/01/20 01/01/20 07:54 07:55 08:00 Temperature Pulse Rate 68 Pulse Rate [ 78 Anterior Bilateral] Respiratory Rate Respiratory 18 Rate [Anterior Bilateral] Blood Pressure O2 Sat by Pulse 94 Oximetry 01/01/20 01/01/20 08:50 13:39 Temperature 97.6 F Pulse Rate 68 Pulse Rate [ 74 Anterior Bilateral] Respiratory 18 Rate Respiratory 18 Rate [Anterior Bilateral] Blood Pressure 146/65 O2 Sat by Pulse 92 Oximetry Constitutional: no acute distress, other (elderly obese CM resting in bed with mildly increased resp effort) Eyes: non-icteric ENT: oropharynx moist, other (Mallampati 3) Neck: supple, no lymphadenopathy, no JVD, other (large neck circumference) Effort: mildly labored Ascultation: Bilateral: diminished breath sounds, rales, rhonchi Percussion: Bilateral: not dull Cardiovascular: regular rate and rhythm, other (S1,S2, no murmurs, gallops or rubs) Gastrointestinal: normoactive bowel sounds, soft, non-tender, non-distended (protuberant) Integumentary: normal Extremities: no cyanosis, no edema, pink and warm, pulses normal, no ischemia or petechiae Neurologic: normal mental status, non-focal exam, pupils equal and round, CN II- XII normal, motor strength normal and Psychiatric: mood appropriate, affect normal CBC and BMP: 01/01/20 05:59 01/01/20 05:59 ABG, PT/INR, D-dimer: ABG ABG pH 7.442 pH Units (7.350-7.450) 12/26/19 17:26 ABG pCO2 47.8 mm Hg 12/26/19 17:26 ABG pO2 113.4 mm Hg (80.0-90.0) H 12/26/19 17:26 ABG O2 Saturation 98.1 % (95.0-99.0) 12/26/19 17:26 PT/INR, D-dimer PT 13.9 Sec. (12.2-14.9) 12/18/19 15:28 INR 1.06 (0.87-1.13) 12/18/19 15:28 D-Dimer 2277.88 ng/mlDDU (0-234) H 12/18/19 10:30 Abnormal lab findings: Abnormal Labs 12/18/19 12/18/19 12/18/19 10:30 10:30 10:30 WBC 13.7 H RBC 5.06 H Hgb 15.4 H Hct MCHC 35 H Lymph % (Auto) Hart % (Auto) Hart # Seg Neutrophils % Seg Neuts % (Manual) 82.0 H Lymphocytes % (Manual) 8.0 L Seg Neutrophils # Seg Neutrophils # Man 11.2 H Lymphocytes # (Manual) 1.1 L APTT D-Dimer 2277.88 H ABG pH ABG pO2 ABG HCO3 ABG O2 Saturation ABG Base Excess ABG Hemoglobin Oxyhemoglobin Sodium 122 L Chloride 80.6 L Carbon Dioxide 21 L BUN Creatinine Glucose 272 H POC Glucose Hemoglobin A1c Lactic Acid Calcium 7.8 L Phosphorus Magnesium Total Bilirubin 1.30 H AST 108 H Total Creatine Kinase CK-MB (CK-2) Total Protein Albumin 3.1 L Urine WBC (Auto) Urine Creatinine 12/18/19 12/18/19 12/18/19 10:30 11:18 11:56 WBC RBC Hgb Hct MCHC Lymph % (Auto) Hart % (Auto) Hart # Seg Neutrophils % Seg Neuts % (Manual) Lymphocytes % (Manual) Seg Neutrophils # Seg Neutrophils # Man Lymphocytes # (Manual) APTT D-Dimer ABG pH ABG pO2 ABG HCO3 ABG O2 Saturation ABG Base Excess ABG Hemoglobin Oxyhemoglobin Sodium Chloride Carbon Dioxide BUN Creatinine Glucose POC Glucose Hemoglobin A1c Lactic Acid 3.70 H* 2.40 H* Calcium Phosphorus Magnesium Total Bilirubin AST Total Creatine Kinase CK-MB (CK-2) Total Protein Albumin Urine WBC (Auto) 58.0 H Urine Creatinine 12/18/19 12/18/19 12/18/19 12:05 12:06 13:18 WBC RBC Hgb Hct MCHC Lymph % (Auto) Hart % (Auto) Hart # Seg Neutrophils % Seg Neuts % (Manual) Lymphocytes % (Manual) Seg Neutrophils # Seg Neutrophils # Man Lymphocytes # (Manual) APTT D-Dimer ABG pH 7.469 H ABG pO2 113.9 H ABG HCO3 ABG O2 Saturation ABG Base Excess ABG Hemoglobin 10.0 L Oxyhemoglobin Sodium Chloride Carbon Dioxide BUN Creatinine Glucose POC Glucose Hemoglobin A1c Lactic Acid 3.20 H* 2.50 H* Calcium Phosphorus Magnesium Total Bilirubin AST Total Creatine Kinase CK-MB (CK-2) Total Protein Albumin Urine WBC (Auto) Urine Creatinine 12/18/19 12/19/19 12/19/19 15:28 10:50 11:12 WBC RBC Hgb Hct MCHC Lymph % (Auto) Hart % (Auto) Hart # Seg Neutrophils % Seg Neuts % (Manual) Lymphocytes % (Manual) Seg Neutrophils # Seg Neutrophils # Man Lymphocytes # (Manual) APTT 72.2 H* D-Dimer ABG pH ABG pO2 55.6 L ABG HCO3 19.5 L ABG O2 Saturation 88.8 L ABG Base Excess -4.7 L ABG Hemoglobin Oxyhemoglobin 87.0 L Sodium Chloride Carbon Dioxide BUN Creatinine Glucose POC Glucose 257 H Hemoglobin A1c Lactic Acid Calcium Phosphorus Magnesium Total Bilirubin AST Total Creatine Kinase CK-MB (CK-2) Total Protein Albumin Urine WBC (Auto) Urine Creatinine 12/19/19 12/19/19 12/20/19 12:04 12:04 08:20 WBC RBC Hgb Hct MCHC Lymph % (Auto) Hart % (Auto) Hart # Seg Neutrophils % Seg Neuts % (Manual) Lymphocytes % (Manual) Seg Neutrophils # Seg Neutrophils # Man Lymphocytes # (Manual) APTT D-Dimer ABG pH ABG pO2 59.7 L ABG HCO3 19.9 L ABG O2 Saturation 90.2 L ABG Base Excess -4.9 L ABG Hemoglobin Oxyhemoglobin 88.5 L Sodium 131 L D Chloride 91.3 L Carbon Dioxide 18 L BUN Creatinine Glucose 290 H POC Glucose Hemoglobin A1c Lactic Acid 2.50 H* Calcium 7.9 L Phosphorus Magnesium Total Bilirubin AST 123 H Total Creatine Kinase 3873 H CK-MB (CK-2) 8.7 H Total Protein Albumin 2.4 L Urine WBC (Auto) Urine Creatinine 12/20/19 12/20/19 12/20/19 09:56 09:56 09:56 WBC 17.7 H RBC 5.24 H Hgb 15.7 H Hct 46.7 H D MCHC Lymph % (Auto) Hart % (Auto) Hart # Seg Neutrophils % Seg Neuts % (Manual) 88.0 H Lymphocytes % (Manual) 8.0 L Seg Neutrophils # Seg Neutrophils # Man 15.6 H Lymphocytes # (Manual) APTT D-Dimer ABG pH ABG pO2 ABG HCO3 ABG O2 Saturation ABG Base Excess ABG Hemoglobin Oxyhemoglobin Sodium 135 L Chloride 96.6 L Carbon Dioxide 13 L BUN 38 H Creatinine Glucose 382 H POC Glucose Hemoglobin A1c Lactic Acid Calcium Phosphorus Magnesium 3.10 H Total Bilirubin AST Total Creatine Kinase CK-MB (CK-2) Total Protein Albumin Urine WBC (Auto) Urine Creatinine 12/20/19 12/20/19 12/20/19 10:27 12:57 15:20 WBC RBC Hgb Hct MCHC Lymph % (Auto) Hart % (Auto) Hart # Seg Neutrophils % Seg Neuts % (Manual) Lymphocytes % (Manual) Seg Neutrophils # Seg Neutrophils # Man Lymphocytes # (Manual) APTT D-Dimer ABG pH 7.217 L 7.247 L ABG pO2 75.4 L 93.3 H ABG HCO3 ABG O2 Saturation 92.1 L ABG Base Excess -7.4 L -6.1 L ABG Hemoglobin Oxyhemoglobin 90.4 L 94.3 L Sodium Chloride Carbon Dioxide BUN Creatinine Glucose POC Glucose 350 H Hemoglobin A1c Lactic Acid Calcium Phosphorus Magnesium Total Bilirubin AST Total Creatine Kinase CK-MB (CK-2) Total Protein Albumin Urine WBC (Auto) Urine Creatinine 12/20/19 12/20/19 12/20/19 16:44 18:22 20:47 WBC RBC Hgb Hct MCHC Lymph % (Auto) Hart % (Auto) Hart # Seg Neutrophils % Seg Neuts % (Manual) Lymphocytes % (Manual) Seg Neutrophils # Seg Neutrophils # Man Lymphocytes # (Manual) APTT D-Dimer ABG pH ABG pO2 ABG HCO3 ABG O2 Saturation ABG Base Excess ABG Hemoglobin Oxyhemoglobin Sodium Chloride Carbon Dioxide BUN Creatinine Glucose POC Glucose 401 H 371 H 412 H Hemoglobin A1c Lactic Acid Calcium Phosphorus Magnesium Total Bilirubin AST Total Creatine Kinase CK-MB (CK-2) Total Protein Albumin Urine WBC (Auto) Urine Creatinine 12/21/19 12/21/19 12/21/19 00:14 04:40 05:13 WBC RBC Hgb Hct MCHC Lymph % (Auto) Hart % (Auto) Hart # Seg Neutrophils % Seg Neuts % (Manual) Lymphocytes % (Manual) Seg Neutrophils # Seg Neutrophils # Man Lymphocytes # (Manual) APTT D-Dimer ABG pH 7.308 L ABG pO2 60.8 L ABG HCO3 27.3 H ABG O2 Saturation 90.1 L ABG Base Excess ABG Hemoglobin 12.6 L Oxyhemoglobin 88.3 L Sodium Chloride Carbon Dioxide BUN Creatinine Glucose POC Glucose 392 H 333 H Hemoglobin A1c Lactic Acid Calcium Phosphorus Magnesium Total Bilirubin AST Total Creatine Kinase CK-MB (CK-2) Total Protein Albumin Urine WBC (Auto) Urine Creatinine 12/21/19 12/21/1920 12:39 18:11 23:45 WBC RBC Hgb Hct MCHC Lymph % (Auto) Hart % (Auto) Hart # Seg Neutrophils % Seg Neuts % (Manual) Lymphocytes % (Manual) Seg Neutrophils # Seg Neutrophils # Man Lymphocytes # (Manual) APTT D-Dimer ABG pH ABG pO2 ABG HCO3 ABG O2 Saturation ABG Base Excess ABG Hemoglobin Oxyhemoglobin Sodium Chloride Carbon Dioxide BUN Creatinine Glucose POC Glucose 327 H 309 H 286 H Hemoglobin A1c Lactic Acid Calcium Phosphorus Magnesium Total Bilirubin AST Total Creatine Kinase CK-MB (CK-2) Total Protein Albumin Urine WBC (Auto) Urine Creatinine 12/21/19 12/21/19 12/21/19 Unknown Unknown Unknown WBC 12.3 H RBC Hgb Hct MCHC Lymph % (Auto) Hart % (Auto) Hart # Seg Neutrophils % Seg Neuts % (Manual) 93.0 H Lymphocytes % (Manual) 5.0 L Seg Neutrophils # Seg Neutrophils # Man 11.4 H Lymphocytes # (Manual) 0.6 L APTT D-Dimer ABG pH ABG pO2 ABG HCO3 ABG O2 Saturation ABG Base Excess ABG Hemoglobin Oxyhemoglobin Sodium Chloride Carbon Dioxide 21 L D BUN 73 H Creatinine 2.2 H D Glucose 361 H POC Glucose Hemoglobin A1c 10.0 H Lactic Acid Calcium 7.9 L Phosphorus Magnesium Total Bilirubin AST Total Creatine Kinase CK-MB (CK-2) Total Protein Albumin Urine WBC (Auto) Urine Creatinine 12/22/19 12/22/19 12/22/19 05:24 06:29 07:16 WBC RBC Hgb Hct MCHC Lymph % (Auto) Hart % (Auto) Hart # Seg Neutrophils % Seg Neuts % (Manual) Lymphocytes % (Manual) Seg Neutrophils # Seg Neutrophils # Man Lymphocytes # (Manual) APTT D-Dimer ABG pH ABG pO2 93.7 H ABG HCO3 30.4 H ABG O2 Saturation ABG Base Excess 4.4 H ABG Hemoglobin 12.8 L Oxyhemoglobin Sodium Chloride Carbon Dioxide BUN 111 H Creatinine 3.2 H Glucose 340 H POC Glucose 275 H Hemoglobin A1c Lactic Acid Calcium 8.1 L Phosphorus Magnesium Total Bilirubin AST Total Creatine Kinase CK-MB (CK-2) Total Protein Albumin Urine WBC (Auto) Urine Creatinine 12/22/19 12/22/19 12/22/19 11:27 12:58 15:30 WBC RBC Hgb Hct MCHC Lymph % (Auto) Hart % (Auto) Hart # Seg Neutrophils % Seg Neuts % (Manual) Lymphocytes % (Manual) Seg Neutrophils # Seg Neutrophils # Man Lymphocytes # (Manual) APTT D-Dimer ABG pH ABG pO2 ABG HCO3 ABG O2 Saturation ABG Base Excess ABG Hemoglobin Oxyhemoglobin Sodium Chloride Carbon Dioxide BUN Creatinine Glucose POC Glucose 345 H Hemoglobin A1c Lactic Acid Calcium Phosphorus 5.10 H Magnesium 3.90 H Total Bilirubin AST Total Creatine Kinase CK-MB (CK-2) Total Protein Albumin Urine WBC (Auto) Urine Creatinine 80.5 H 12/22/19 12/23/19 12/23/19 17:54 00:30 04:47 WBC RBC Hgb Hct MCHC Lymph % (Auto) Hart % (Auto) Hart # Seg Neutrophils % Seg Neuts % (Manual) Lymphocytes % (Manual) Seg Neutrophils # Seg Neutrophils # Man Lymphocytes # (Manual) APTT D-Dimer ABG pH ABG pO2 ABG HCO3 ABG O2 Saturation ABG Base Excess ABG Hemoglobin Oxyhemoglobin Sodium 146 H Chloride Carbon Dioxide BUN 107 H Creatinine 2.5 H Glucose 278 H POC Glucose 308 H 228 H Hemoglobin A1c Lactic Acid Calcium 7.7 L Phosphorus Magnesium Total Bilirubin AST Total Creatine Kinase CK-MB (CK-2) Total Protein Albumin Urine WBC (Auto) Urine Creatinine 12/23/19 12/23/19 12/23/19 04:47 05:50 06:06 WBC 12.0 H RBC Hgb Hct MCHC Lymph % (Auto) Hart % (Auto) Hart # Seg Neutrophils % Seg Neuts % (Manual) 82.0 H Lymphocytes % (Manual) 12.0 L Seg Neutrophils # Seg Neutrophils # Man 9.8 H Lymphocytes # (Manual) APTT D-Dimer ABG pH ABG pO2 59.0 L ABG HCO3 31.6 H ABG O2 Saturation 89.2 L ABG Base Excess 4.5 H ABG Hemoglobin 13.5 L Oxyhemoglobin 87.2 L Sodium Chloride Carbon Dioxide BUN Creatinine Glucose POC Glucose 263 H Hemoglobin A1c Lactic Acid Calcium Phosphorus Magnesium Total Bilirubin AST Total Creatine Kinase CK-MB (CK-2) Total Protein Albumin Urine WBC (Auto) Urine Creatinine 12/23/19 12/23/19 12/23/19 12:58 18:08 18:10 WBC RBC Hgb Hct MCHC Lymph % (Auto) Hart % (Auto) Hart # Seg Neutrophils % Seg Neuts % (Manual) Lymphocytes % (Manual) Seg Neutrophils # Seg Neutrophils # Man Lymphocytes # (Manual) APTT D-Dimer ABG pH ABG pO2 ABG HCO3 31.6 H ABG O2 Saturation ABG Base Excess 4.7 H ABG Hemoglobin 13.1 L Oxyhemoglobin 93.5 L Sodium Chloride Carbon Dioxide BUN Creatinine Glucose POC Glucose 206 H 328 H Hemoglobin A1c Lactic Acid Calcium Phosphorus Magnesium Total Bilirubin AST Total Creatine Kinase CK-MB (CK-2) Total Protein Albumin Urine WBC (Auto) Urine Creatinine 12/23/19 12/24/19 12/24/19 23:37 00:37 00:37 WBC RBC Hgb Hct MCHC Lymph % (Auto) Hart % (Auto) Hart # Seg Neutrophils % Seg Neuts % (Manual) 88.0 H Lymphocytes % (Manual) 5.0 L Seg Neutrophils # Seg Neutrophils # Man 9.6 H Lymphocytes # (Manual) 0.5 L APTT D-Dimer ABG pH ABG pO2 ABG HCO3 ABG O2 Saturation ABG Base Excess ABG Hemoglobin Oxyhemoglobin Sodium 152 H Chloride 109.9 H Carbon Dioxide BUN 89 H Creatinine 2.2 H Glucose 287 H POC Glucose 277 H Hemoglobin A1c Lactic Acid Calcium 7.5 L Phosphorus Magnesium Total Bilirubin AST Total Creatine Kinase CK-MB (CK-2) Total Protein Albumin Urine WBC (Auto) Urine Creatinine 12/24/19 12/24/19 12/24/19 05:25 05:36 06:23 WBC RBC Hgb Hct MCHC Lymph % (Auto) Hart % (Auto) Hart # Seg Neutrophils % Seg Neuts % (Manual) Lymphocytes % (Manual) Seg Neutrophils # Seg Neutrophils # Man Lymphocytes # (Manual) APTT D-Dimer ABG pH ABG pO2 72.2 L ABG HCO3 31.6 H ABG O2 Saturation ABG Base Excess 5.2 H ABG Hemoglobin 13.1 L Oxyhemoglobin 92.8 L Sodium Chloride Carbon Dioxide BUN Creatinine Glucose POC Glucose 204 H Hemoglobin A1c Lactic Acid Calcium Phosphorus Magnesium 3.10 H Total Bilirubin AST Total Creatine Kinase CK-MB (CK-2) Total Protein Albumin Urine WBC (Auto) Urine Creatinine 12/24/19 12/24/19 12/24/19 11:34 18:04 23:53 WBC RBC Hgb Hct MCHC Lymph % (Auto) Hart % (Auto) Hart # Seg Neutrophils % Seg Neuts % (Manual) Lymphocytes % (Manual) Seg Neutrophils # Seg Neutrophils # Man Lymphocytes # (Manual) APTT D-Dimer ABG pH ABG pO2 ABG HCO3 ABG O2 Saturation ABG Base Excess ABG Hemoglobin Oxyhemoglobin Sodium Chloride Carbon Dioxide BUN Creatinine Glucose POC Glucose 187 H 286 H 231 H Hemoglobin A1c Lactic Acid Calcium Phosphorus Magnesium Total Bilirubin AST Total Creatine Kinase CK-MB (CK-2) Total Protein Albumin Urine WBC (Auto) Urine Creatinine 12/25/19 12/25/19 12/25/19 04:52 05:22 05:22 WBC 12.0 H RBC Hgb Hct MCHC Lymph % (Auto) Hart % (Auto) Hart # Seg Neutrophils % Seg Neuts % (Manual) 76.0 H Lymphocytes % (Manual) 10.0 L Seg Neutrophils # Seg Neutrophils # Man 9.1 H Lymphocytes # (Manual) APTT D-Dimer ABG pH ABG pO2 68.3 L ABG HCO3 32.6 H ABG O2 Saturation 94.7 L ABG Base Excess 5.7 H ABG Hemoglobin 13.2 L Oxyhemoglobin 92.3 L Sodium 149 H Chloride 109.2 H Carbon Dioxide 33 H BUN 62 H Creatinine 1.7 H Glucose 245 H POC Glucose Hemoglobin A1c Lactic Acid Calcium 8.0 L Phosphorus Magnesium 2.90 H Total Bilirubin AST Total Creatine Kinase 195 H CK-MB (CK-2) Total Protein 5.8 L Albumin 2.3 L Urine WBC (Auto) Urine Creatinine 12/25/19 12/25/19 12/25/19 05:42 12:16 18:48 WBC RBC Hgb Hct MCHC Lymph % (Auto) Hart % (Auto) Hart # Seg Neutrophils % Seg Neuts % (Manual) Lymphocytes % (Manual) Seg Neutrophils # Seg Neutrophils # Man Lymphocytes # (Manual) APTT D-Dimer ABG pH ABG pO2 ABG HCO3 ABG O2 Saturation ABG Base Excess ABG Hemoglobin Oxyhemoglobin Sodium Chloride Carbon Dioxide BUN Creatinine Glucose POC Glucose 208 H 290 H 239 H Hemoglobin A1c Lactic Acid Calcium Phosphorus Magnesium Total Bilirubin AST Total Creatine Kinase CK-MB (CK-2) Total Protein Albumin Urine WBC (Auto) Urine Creatinine 12/26/19 12/26/19 12/26/19 00:06 04:09 04:48 WBC RBC Hgb Hct MCHC Lymph % (Auto) Hart % (Auto) Hart # Seg Neutrophils % Seg Neuts % (Manual) Lymphocytes % (Manual) Seg Neutrophils # Seg Neutrophils # Man Lymphocytes # (Manual) APTT D-Dimer ABG pH ABG pO2 75.6 L ABG HCO3 33.4 H ABG O2 Saturation ABG Base Excess 6.6 H ABG Hemoglobin Oxyhemoglobin 93.4 L Sodium 147 H Chloride Carbon Dioxide 32 H BUN 49 H Creatinine Glucose 257 H POC Glucose 188 H Hemoglobin A1c Lactic Acid Calcium Phosphorus Magnesium Total Bilirubin AST Total Creatine Kinase CK-MB (CK-2) Total Protein Albumin Urine WBC (Auto) Urine Creatinine 12/26/19 12/26/19 12/26/19 05:49 11:54 17:26 WBC RBC Hgb Hct MCHC Lymph % (Auto) Hart % (Auto) Hart # Seg Neutrophils % Seg Neuts % (Manual) Lymphocytes % (Manual) Seg Neutrophils # Seg Neutrophils # Man Lymphocytes # (Manual) APTT D-Dimer ABG pH ABG pO2 113.4 H ABG HCO3 31.9 H ABG O2 Saturation ABG Base Excess 6.7 H ABG Hemoglobin Oxyhemoglobin Sodium Chloride Carbon Dioxide BUN Creatinine Glucose POC Glucose 220 H 262 H Hemoglobin A1c Lactic Acid Calcium Phosphorus Magnesium Total Bilirubin AST Total Creatine Kinase CK-MB (CK-2) Total Protein Albumin Urine WBC (Auto) Urine Creatinine 12/26/19 12/26/19 12/27/19 17:46 23:41 04:52 WBC RBC Hgb Hct MCHC Lymph % (Auto) Hart % (Auto) Hart # Seg Neutrophils % Seg Neuts % (Manual) Lymphocytes % (Manual) Seg Neutrophils # Seg Neutrophils # Man Lymphocytes # (Manual) APTT D-Dimer ABG pH ABG pO2 ABG HCO3 ABG O2 Saturation ABG Base Excess ABG Hemoglobin Oxyhemoglobin Sodium Chloride Carbon Dioxide BUN 49 H Creatinine Glucose 184 H POC Glucose 321 H 228 H Hemoglobin A1c Lactic Acid Calcium Phosphorus Magnesium Total Bilirubin AST Total Creatine Kinase CK-MB (CK-2) Total Protein Albumin Urine WBC (Auto) Urine Creatinine 12/27/19 12/27/19 12/27/19 04:52 05:21 11:59 WBC 16.1 H RBC Hgb Hct MCHC Lymph % (Auto) 9.1 L Hart % (Auto) 8.5 H Hart # 1.4 H Seg Neutrophils % 80.6 H Seg Neuts % (Manual) Lymphocytes % (Manual) Seg Neutrophils # 13.0 H Seg Neutrophils # Man Lymphocytes # (Manual) APTT D-Dimer ABG pH ABG pO2 ABG HCO3 ABG O2 Saturation ABG Base Excess ABG Hemoglobin Oxyhemoglobin Sodium Chloride Carbon Dioxide BUN Creatinine Glucose POC Glucose 176 H 200 H Hemoglobin A1c Lactic Acid Calcium Phosphorus Magnesium Total Bilirubin AST Total Creatine Kinase CK-MB (CK-2) Total Protein Albumin Urine WBC (Auto) Urine Creatinine 12/27/19 12/27/19 12/28/19 17:44 23:52 04:14 WBC RBC Hgb Hct MCHC Lymph % (Auto) Hart % (Auto) Hart # Seg Neutrophils % Seg Neuts % (Manual) Lymphocytes % (Manual) Seg Neutrophils # Seg Neutrophils # Man Lymphocytes # (Manual) APTT D-Dimer ABG pH ABG pO2 ABG HCO3 ABG O2 Saturation ABG Base Excess ABG Hemoglobin Oxyhemoglobin Sodium Chloride Carbon Dioxide BUN 52 H Creatinine Glucose 219 H POC Glucose 211 H 184 H Hemoglobin A1c Lactic Acid Calcium Phosphorus Magnesium Total Bilirubin AST Total Creatine Kinase CK-MB (CK-2) Total Protein Albumin Urine WBC (Auto) Urine Creatinine 12/28/19 12/28/19 12/28/19 04:14 06:32 12:15 WBC 15.1 H RBC Hgb Hct MCHC Lymph % (Auto) 10.6 L Hart % (Auto) 7.4 H Hart # 1.1 H Seg Neutrophils % 80.2 H Seg Neuts % (Manual) Lymphocytes % (Manual) Seg Neutrophils # 12.1 H Seg Neutrophils # Man Lymphocytes # (Manual) APTT D-Dimer ABG pH ABG pO2 ABG HCO3 ABG O2 Saturation ABG Base Excess ABG Hemoglobin Oxyhemoglobin Sodium Chloride Carbon Dioxide BUN Creatinine Glucose POC Glucose 226 H 209 H Hemoglobin A1c Lactic Acid Calcium Phosphorus Magnesium Total Bilirubin AST Total Creatine Kinase CK-MB (CK-2) Total Protein Albumin Urine WBC (Auto) Urine Creatinine 12/28/19 12/28/19 12/29/19 17:42 23:52 05:08 WBC RBC Hgb Hct MCHC Lymph % (Auto) Hart % (Auto) Hart # Seg Neutrophils % Seg Neuts % (Manual) Lymphocytes % (Manual) Seg Neutrophils # Seg Neutrophils # Man Lymphocytes # (Manual) APTT D-Dimer ABG pH ABG pO2 ABG HCO3 ABG O2 Saturation ABG Base Excess ABG Hemoglobin Oxyhemoglobin Sodium Chloride Carbon Dioxide BUN 43 H Creatinine Glucose 108 H POC Glucose 159 H 167 H Hemoglobin A1c Lactic Acid Calcium 8.1 L Phosphorus Magnesium Total Bilirubin AST Total Creatine Kinase CK-MB (CK-2) Total Protein Albumin Urine WBC (Auto) Urine Creatinine 12/29/19 12/29/19 12/29/19 12:23 16:57 22:07 WBC RBC Hgb Hct MCHC Lymph % (Auto) Hart % (Auto) Hart # Seg Neutrophils % Seg Neuts % (Manual) Lymphocytes % (Manual) Seg Neutrophils # Seg Neutrophils # Man Lymphocytes # (Manual) APTT D-Dimer ABG pH ABG pO2 ABG HCO3 ABG O2 Saturation ABG Base Excess ABG Hemoglobin Oxyhemoglobin Sodium Chloride Carbon Dioxide BUN Creatinine Glucose POC Glucose 175 H 132 H 148 H Hemoglobin A1c Lactic Acid Calcium Phosphorus Magnesium Total Bilirubin AST Total Creatine Kinase CK-MB (CK-2) Total Protein Albumin Urine WBC (Auto) Urine Creatinine 12/30/19 12/30/19 12/30/19 05:23 09:13 11:58 WBC RBC Hgb Hct MCHC Lymph % (Auto) Hart % (Auto) Hart # Seg Neutrophils % Seg Neuts % (Manual) Lymphocytes % (Manual) Seg Neutrophils # Seg Neutrophils # Man Lymphocytes # (Manual) APTT D-Dimer ABG pH ABG pO2 ABG HCO3 ABG O2 Saturation ABG Base Excess ABG Hemoglobin Oxyhemoglobin Sodium 135 L Chloride Carbon Dioxide BUN 39 H Creatinine Glucose 147 H POC Glucose 153 H 144 H Hemoglobin A1c Lactic Acid Calcium 8.0 L Phosphorus Magnesium Total Bilirubin AST Total Creatine Kinase CK-MB (CK-2) Total Protein Albumin Urine WBC (Auto) Urine Creatinine 12/30/19 12/30/19 12/31/19 16:18 21:29 04:47 WBC RBC Hgb Hct MCHC Lymph % (Auto) Hart % (Auto) Hart # Seg Neutrophils % Seg Neuts % (Manual) Lymphocytes % (Manual) Seg Neutrophils # Seg Neutrophils # Man Lymphocytes # (Manual) APTT D-Dimer ABG pH ABG pO2 ABG HCO3 ABG O2 Saturation ABG Base Excess ABG Hemoglobin Oxyhemoglobin Sodium Chloride Carbon Dioxide BUN 29 H Creatinine Glucose 107 H POC Glucose 111 H 121 H Hemoglobin A1c Lactic Acid Calcium 8.0 L Phosphorus Magnesium Total Bilirubin AST Total Creatine Kinase CK-MB (CK-2) Total Protein Albumin Urine WBC (Auto) Urine Creatinine 12/31/19 12/31/19 12/31/19 08:08 11:42 16:45 WBC RBC Hgb Hct MCHC Lymph % (Auto) Hart % (Auto) Hart # Seg Neutrophils % Seg Neuts % (Manual) Lymphocytes % (Manual) Seg Neutrophils # Seg Neutrophils # Man Lymphocytes # (Manual) APTT D-Dimer ABG pH ABG pO2 ABG HCO3 ABG O2 Saturation ABG Base Excess ABG Hemoglobin Oxyhemoglobin Sodium Chloride Carbon Dioxide BUN Creatinine Glucose POC Glucose 119 H 162 H 112 H Hemoglobin A1c Lactic Acid Calcium Phosphorus Magnesium Total Bilirubin AST Total Creatine Kinase CK-MB (CK-2) Total Protein Albumin Urine WBC (Auto) Urine Creatinine 12/31/19 01/01/20 01/01/20 22:17 05:59 05:59 WBC RBC Hgb 11.4 L Hct 34.4 L MCHC Lymph % (Auto) Hart % (Auto) 8.3 H Hart # Seg Neutrophils % Seg Neuts % (Manual) Lymphocytes % (Manual) Seg Neutrophils # Seg Neutrophils # Man Lymphocytes # (Manual) APTT D-Dimer ABG pH ABG pO2 ABG HCO3 ABG O2 Saturation ABG Base Excess ABG Hemoglobin Oxyhemoglobin Sodium Chloride Carbon Dioxide 20 L BUN 24 H Creatinine Glucose 105 H POC Glucose 134 H Hemoglobin A1c Lactic Acid Calcium 8.0 L Phosphorus Magnesium Total Bilirubin AST Total Creatine Kinase CK-MB (CK-2) Total Protein Albumin Urine WBC (Auto) Urine Creatinine Allied health notes reviewed: nursing
--- NOTE | 2020-01-01 13:50 | Discharge Summary ---
Providers - Providers Date of Admission: 12/18/19 13:58 Date of discharge: 01/01/20 Attending physician: LORA DUFF 12/19/19 11:46 Consult to Physician [CONS] Routine Comment: Consulting Provider: SUKHDEEP MONTANA Physician Instructions: Reason For Exam: critical care 12/20/19 12:12 Consult to Dietitian/Nutrition [CONS] Routine Physician Instructions: Reason For Exam: Reason for Consult: Evaluate nutritional intake 12/20/19 16:31 Consult to Dietitian/Nutrition [CONS] Routine Physician Instructions: Reason For Exam: Reason for Consult: Write/Manage Tube Feeding 12/20/19 18:25 Consult to Dietitian/Nutrition [CONS] Routine Physician Instructions: Assess nutrtn needs, initiate, modify, manage TF Reason For Exam: Reason for Consult: Write/Manage Tube Feeding Reason for Consult: Write/Manage Tube Feeding 12/22/19 10:34 Consult to Physician [CONS] Routine Comment: Consulting Provider: SANTOSH VELA Physician Instructions: Reason For Exam: AYSE 12/24/19 11:43 Consult to Dietitian/Nutrition [CONS] Routine Physician Instructions: Assess nutrtn needs, initiate, modify, manage TF Reason For Exam: Reason for Consult: Write/Manage Tube Feeding Reason for Consult: Write/Manage Tube Feeding 12/25/19 10:48 Occupational Therapy Evaluate and Treat [CONS] Routine Comment: Reason For Exam: ADLS Physical Therapy Evaluation and Treat [CONS] Routine Comment: Reason For Exam: deconditioning Primary care physician: [facility]ER[facility]NA[facility] Hospitalization Condition: Stable Pertinent studies: Chest x-ray; left lung pneumonia Lower extremity venous Doppler; no DVT CTA chest; no PE, bilateral airspace opacities with consolidation left lower lobe characteristic of pneumonia Bilateral groundglass opacities may represent superimposed edema additional pneumonia CT abdomen and pelvis; no acute abnormality echocardiogram EF 55 to 60% mild concentric LVH Renal ultrasound; no significant abnormality Multiple chest x-rays and abdominal x-ray Hospital course: 59 years old male with no known past medical history brought to the emergency room by his son for evaluation of 5-day history of shortness of breath, cough, productive with greenish sputum associated with sweating at night. Patient stated that symptoms started with runny nose and congestion first. Patient found to be in respiratory distress with respiratory rate of 34 and oxygen saturation of 76% on room air patient improved to 92% on nasal cannula 4 L. Sepsis protocol initiated. --Acute respiratory failure with hypoxia/ intubation/extubated On high flow oxygen, titrate O2 sats to more than 90% BiPAP/Ventimask as needed, evaluation for home oxygen nebulizers IV steroids antibiotics, Pulmonary following --Hypernatremia resolved closely monitor electrolytes closely monitor, free water flushes --AYSE : Vasomotor nephropathy Resolved IV fluids for now in the form of D5W Significantly improved, creatinine today 1.3 Avoid nephrotoxins -- COPD with acute exacerbation Continue duo nebs, IV steroids and IV antibiotics --Metabolic encephalopathy Patient intubated --left lower lobe pneumonia Community-acquired pneumonia Completed Levaquin and Vanco Monitor off abx and supportive care --Leukocytosis/lactic acidosis sepsis secondary to pneumonia --Sepsis secondary to pneumonia; Improving, completed treatment --Hypertension; Moderate control , continue current antihypertensives --tobacco use: Smoking cessation on Nicoderm patch --Severe protein calorie malnutrition nutrition supplements and supportive care Nutrition supplements as needed --DVT prophylaxis On Heparin and GI prophylaxis Monitor closely and adjust management as needed PT recommended acute rehab DC planning per case management acute rehab versus home with home health Plan of care reviewed with the patient and his significant other I also discussed with the nurse Disposition; DC planning, acute rehab versus, home with home health When medically stable Disposition: [id number] HOME UNDER HOME [facility] Time spent for discharge: 32 min Core Measure Documentation - Palliative Care Palliative Care/ Comfort Measures: Not Applicable - Core Measures Any of the following diagnoses?: none Exam - Constitutional Vitals: Temp Pulse Resp BP Pulse Ox 97.6 F 72 18 146/65 92 01/01/20 08:50 01/01/20 13:39 01/01/20 13:39 01/01/20 08:50 01/01/20 08:50 General appearance: Present: no acute distress, well-nourished - EENT Eyes: Present: PERRL, EOM intact - Neck Neck: Present: supple, normal ROM - Respiratory Respiratory effort: normal Respiratory: bilateral: diminished, negative: rales, rhonchi, wheezing - Cardiovascular Rhythm: regular Heart Sounds: Present: S1 & S2 - Extremities Extremities: no ischemia, No edema - Abdominal General gastrointestinal: Present: soft, non-tender, non-distended, normal bowel sounds - Integumentary Integumentary: Present: clear, warm - Musculoskeletal Musculoskeletal: strength equal bilaterally - Psychiatric Psychiatric: appropriate mood/affect, cooperative - Neurologic Neurologic: moves all extremities Plan Activity: advance as tolerated, fall precautions Diet: diabetic Special Instructions: physical therapy Additional Instructions: Advised smoking cessation, nicotine patch if needed. Advised to quit alcohol intake. If you have severe shortness of breath or chest pain, contact MD or go to emergency room as needed. Advised to comply with medications diet follow-up visits with physicians Follow up with: PRIMARY CARE, [Primary Care Provider] - 3-5 Days SUKHDEEP MONTANA MD [Staff Physician] - 7 Days Forms: AMA Form, Accompanied Note Prescriptions: hydrALAZINE [Apresoline TAB] 25 mg PO Q8HR #90 tablet cloNIDine [Catapres] 0.1 mg PO Q8HR #90 tablet Nicotine [Habitrol] 21 mg TD QDAY #30 patch Lispro Insulin [HumaLOG] 3 unit SUB-Q ACHS #2 vial Insulin Glargine [Lantus VIAL] 15 units SUB-Q QHS #2 vial Famotidine [Pepcid] 20 mg PO BID #30 tablet Albuterol INH(or & Nicu Only) [ProAir HFA Inhaler] 1 puff IH QID PRN #8.5 gram PRN Reason: Shortness Of Breath
[2020-01-01 14:58] VITALS: BP 149/76
== END 2020-01-01 17:28 | disposition home health service (06) | DRG 870 ==
LOC: ED 10:07 → 4A 13:58 → CC1 12-19 11:22 → 4A 12-29 23:02
PROVIDERS: ADMIT Internal Medicine; ATTEND Internal Medicine
PROC: 4A033R1 Measurement of Arterial Saturation, Peripheral, Percutaneous Approach (ICD-10-PCS; 2019-12-18)
PROC: 5A09357 Assistance with Respiratory Ventilation, Less than 24 Consecutive Hours, Continuous Positive Airway Pressure (ICD-10-PCS; 2019-12-18)
PROC: 5A09357 Assistance with Respiratory Ventilation, Less than 24 Consecutive Hours, Continuous Positive Airway Pressure (ICD-10-PCS; 2019-12-19)
PROC: 0BH17EZ Insertion of Endotracheal Airway into Trachea, Via Natural or Artificial Opening (ICD-10-PCS; principal; 2019-12-20)
PROC: 5A1955Z Respiratory Ventilation, Greater than 96 Consecutive Hours (ICD-10-PCS; 2019-12-20)
PROC: 5A09357 Assistance with Respiratory Ventilation, Less than 24 Consecutive Hours, Continuous Positive Airway Pressure (ICD-10-PCS; 2019-12-20)
DX: A41.9 Sepsis, unspecified organism (principal); J18.9 Pneumonia, unspecified organism; J96.01 Acute respiratory failure with hypoxia; E43 Unspecified severe protein-calorie malnutrition; G93.41 Metabolic encephalopathy; N17.0 Acute kidney failure with tubular necrosis; J44.1 Chronic obstructive pulmonary disease with (acute) exacerbation; J44.0 Chronic obstructive pulmonary disease with (acute) lower respiratory infection; E22.2 Syndrome of inappropriate secretion of antidiuretic hormone; M62.82 Rhabdomyolysis; E87.0 Hyperosmolality and hypernatremia; F17.200 Nicotine dependence, unspecified, uncomplicated; R31.9 Hematuria, unspecified; E66.9 Obesity, unspecified; E80.6 Other disorders of bilirubin metabolism; D72.829 Elevated white blood cell count, unspecified; I10 Essential (primary) hypertension; R65.20 Severe sepsis without septic shock; Z79.51 Long term (current) use of inhaled steroids; Z88.0 Allergy status to penicillin; Z79.899 Other long term (current) drug therapy
CPT/HCPCS: 36415; 36600; 71045; 71275; 74018; 74176; 76770; 80048; 80053; 80202; 81001; 82140; 82550; 82553; 82570; 82803; 82962; 83036; 83735; 83880; 84100; 84145; 84300; 84484; 85007; 85014; 85018; 85025; 85379; 85610; 85730; 87040; 87070; 87086; 87205; 93005; 93010; 93306; 93970; 94002; 94003; 94640; 94644; 94660; 94760; 96365; 96375; G0378; J0330; J0360; J0692; J1170; J1630; J1650; J1815; J1940; J1956; J2001; J2060; J2704; J2930; J3010; J3370; J3490; J7030; J7040; J7050; J7070; J7512; Q9967